=== PATIENT | male | born 1990 | race Caucasian/White ===

== ENCOUNTER 2017-10-15 15:22 | Observation (INO) | payer OTHER ==
[2017-10-15] MEDS ORDERED: Sodium Chloride 0.9% 1000 ML 1,000 ML IV STA (15:56)
[2017-10-15] MEDS ORDERED: NovoLIN R IV ONE (15:56)
--- NOTE | 2017-10-15 16:03 | ERPHSYRPT ---
- History of Present Illness Time Seen by Provider: 10/15/17 15:58 Source: patient Exam Limitations: no limitations Patient Subjective Stated Complaint: states had 2 hot dogs today, blood sugars have been running high, has an insulin pump and out of insulin for about a week. is having a hard time affording insulin equipment for the pump. states feels hungry but can't seem to feel satisfied. Triage Nursing Assessment: Pt ambulated to triage area, breath fruity smell, increase urination noted, increased thirst, c/o VALENZUELA /10. weakness, tiredness, resp easy with clear breath sounds. checked blood sugar 5 minutes prior to arrival and reading was 252. blood sugar checked at this time reading 310 Physician History: patient has history of diabetes, who recently moved from [place] to the [facility]. Patient states that he did have some insulin initially but ran out approximately 3 months ago. Patient states he has been feeling weak, nausea, dizziness at times but no vomiting, abdominal pain or diarrhea. Patient denies any recent illnesses,, such as cough, sore throat, congestion, body aches or ear pain. Patient did complain of some generalized weakness in not eating very much, due to not having any insulin. Timing/Duration: intermittent, other (2-3 months) Modifying Factors: Improves With: eating (improves) Associated Symptoms: nausea, headaches, weakness, No vomiting, No shortness of breath, No diaphoresis, No cough, No chest pain, No fever, No syncope, No seizure Hx Tetanus, Diphtheria Vaccination/Date Given: Yes Hx Influenza Vaccination/Date Given: No Hx Pneumococcal Vaccination/Date Given: No Immunizations Up to Date: Yes - Review of Systems Constitutional: Fatigue, Weakness, No Fever, No Chills Eyes: No Symptoms Ears, Nose, & Throat: No Symptoms Respiratory: No Cough, No Dyspnea Cardiac: No Chest Pain, No Edema, No Syncope Abdominal/Gastrointestinal: No Abdominal Pain, No Nausea, No Vomiting, No Diarrhea Genitourinary Symptoms: Frequency, No Dysuria Musculoskeletal: No Symptoms, No Back Pain, No Neck Pain Skin: No Symptoms, No Rash Neurological: No Symptoms, No Dizziness, No Focal Weakness, No Sensory Changes Psychological: No Symptoms Endocrine: No Symptoms Hematologic/Lymphatic: No Symptoms Immunological/Allergic: No Symptoms All Other Systems: Reviewed and Negative - Past Medical History Pertinent Past Medical History: Yes Neurological History: No Pertinent History ENT History: No Pertinent History Cardiac History: No Pertinent History Respiratory History: No Pertinent History Endocrine Medical History: Diabetes Type I Musculoskeletal History: No Pertinent History GI Medical History: No Pertinent History History: No Pertinent History Psycho-Social History: No Pertinent History Male Reproductive Disorders: No Pertinent History - Past Surgical History Past Surgical History: No Neuro Surgical History: No Pertinent History Cardiac: No Pertinent History Respiratory: No Pertinent History Gastrointestinal: No Pertinent History Genitourinary: No Pertinent History Musculoskeletal: Orthopedic Surgery Male Surgical History: No Pertinent History Other Surgical History: tubes in ears as , back surgery in 2000 - spondylsis, sinus surgeries X5 growth/polyps removed, left knee surgery X2 dislocation of patella, right wrist fx, left hand surgery X2 nerve graft after table saw injury - Social History Smoking Status: Current every day smoker Exposure to second hand smoke: Yes Drug Use: none Patient Lives Alone: No - Nursing Vital Signs Nursing Vital Signs: Initial Vital Signs Temperature 98.5 F 10/15/17 15:23 Pulse Rate 99 H 10/15/17 15:23 Respiratory Rate 18 10/15/17 15:23 Blood Pressure 154/92 10/15/17 15:23 O2 Sat by Pulse Oximetry 99 10/15/17 15:23 Pain Scale Pain Intensity 0 - Physical Exam General Appearance: no apparent distress, alert Eye Exam: PERRL/EOMI, eyes nml inspection Ears, Nose, Throat Exam: normal ENT inspection, TMs normal, pharynx normal, moist mucous membranes Neck Exam: normal inspection, non-tender, supple, full range of motion Respiratory Exam: normal breath sounds, lungs clear, No respiratory distress Cardiovascular Exam: regular rate/rhythm, normal heart sounds, normal peripheral pulses Gastrointestinal/Abdomen Exam: soft, normal bowel sounds, No tenderness, No mass Back Exam: normal inspection, normal range of motion, No CVA tenderness, No vertebral tenderness Extremity Exam: normal inspection, normal range of motion, pelvis stable Neurologic Exam: alert, oriented x 3, cooperative, normal mood/affect, nml cerebellar function, nml station & gait, sensation nml, No motor deficits Skin Exam: normal color, warm, dry, No rash Lymphatic Exam: No adenopathy SpO2: 99 Oxygen Delivery: Room Air - Course Nursing assessment & vital signs reviewed: Yes Ordered Tests: Active Orders 24 hr Category Date Time Status Clean Catch Urine Specimen STAT Care 10/15/17 15:56 Active IV Insertion STAT Care 10/15/17 15:56 Active CBC W DIFF Stat Lab 10/15/17 16:40 Completed CMP Stat Lab 10/15/17 16:40 Completed CULTURE,URINE Stat Lab 10/15/17 16:40 Received Manual Differential NC Stat Lab 10/15/17 16:40 Completed UA W/ MICROSCOPIC Stat Lab 10/15/17 16:40 Completed Medication Summary Discontinued Medications Generic Name Dose Route Start Last Admin Trade Name Christ PRN Reason Stop Dose Admin Sodium Chloride 1,000 mls @ 999 mls/hr 10/15/17 15:56 10/15/17 16:22 Sodium Chloride 0.9% 1000 Ml IV 10/15/17 16:56 999 mls/hr .Q1H1M STA Administration Sodium Chloride Confirm 10/15/17 16:19 Sodium Chloride 0.9% 1000 Ml Administered 10/15/17 16:20 Dose 1,000 mls @ ud .ROUTE .STK-MED ONE Insulin Human Regular 5 unit 10/15/17 15:56 10/15/17 16:21 Novolin R IV 10/15/17 15:57 5 unit STAT ONE Administration Insulin Human Regular Confirm 10/15/17 16:19 Novolin R Administered 10/15/17 16:20 Dose 5 unit .ROUTE .STK-MED ONE Lab/Rad Data: Laboratory Result Diagrams 10/15/17 16:40 10/15/17 16:40 Laboratory Results 10/15/17 10/15/17 10/15/17 Range/Units 16:40 16:40 16:40 WBC 6.9 (4.0-10.5) K/mm3 RBC 5.59 (4.1-5.6) M/mm3 Hgb 16.9 (12.5-18.0) gm/dl Hct 46.2 (42-50) % MCV 82.6 (78-100) fl MCH 30.2 (26-32) pg MCHC 36.6 H (32-36) g/dl RDW 12.0 (11.5-14.0) % Plt Count 173 (150-450) K/mm3 MPV 11.6 H (6-9.5) fl Sodium 132 L (136-145) mEq/L Potassium 3.7 (3.5-5.1) mEq/L Chloride 97 L (98-107) mEq/L Carbon Dioxide 16.1 L (21-32) mEq/L Anion Gap 30.2 H (5-15) MEQ/L BUN 13 (9-20) mg/dL Creatinine 1.25 (0.55-1.30) mg/dl Estimated GFR > 60 ML/MIN Glucose 290 H (70-110) MG/DL Calcium 7.9 L (8.5-10.1) mg/dL Total Bilirubin 0.70 (0.2-1.0) mg/dL AST 23 (15-37) U/L ALT 15 (12-78) U/L Alkaline Phosphatase 177 H (46-116) U/L Serum Total Protein 7.7 (6.4-8.2) gm/dL Albumin 4.3 (3.4-5.0) g/dL Ur Collection Type CCMS Urine Color YELLOW (YELLOW) Urine Appearance CLEAR (CLEAR) Urine pH 5.0 (5-6) Ur Specific Harrison 1.030 (1.005-1.025) Urine Protein TRACE (Negative) Urine Ketones LARGE (NEGATIVE) Urine Blood TRACE NON-HEM (0-5) Pedro/ul Urine Nitrite NEGATIVE (NEGATIVE) Urine Bilirubin NEGATIVE (NEGATIVE) Urine Urobilinogen NORMAL (0-1) mg/dL Ur Leukocyte Esterase NEGATIVE (NEGATIVE) Urine Microscopic RBC 2-5 (0-2) /HPF Urine Microscopic WBC 0-2 (0-5) /HPF Urine Bacteria RARE (NEGATIVE) /HPF Hyaline Casts 2-5 (0-2) /LPF Urine Mucus SLIGHT (NEGATIVE) /HPF Urine Culture Reflexed YES (NO) Urine Glucose 1000 (NEGATIVE) mg/dL Specimen Received 10-15-17 1900 - Progress Progress: improved Progress Note: patient was given IV fluids and 5 units of regular insulin IV. 10/15/17 16:03 Discussed with : Daniel (Notified and agreed to accept) Counseled pt/family regarding: diagnosis - Departure Time of Disposition: 19:33 Departure Disposition: Observation Clinical Impression: Hyperglycemia, Dehydration Condition: Stable Critical Care Time: No
[2017-10-15] MEDS ORDERED: Sodium Chloride 0.9% 1000 ML 1,000 ML ONE (16:19)
[2017-10-15] MEDS ORDERED: NovoLIN R ONE (16:19)
[2017-10-15 18:13] LABS: ALBUMIN 4.3 g/dL (3.4-5.0); ALKALINE PHOSPHATASE 177 U/L (46-116); ANION GAP 30.2 MEQ/L (5-15); BLOOD UREA NITROGEN 13 mg/dL (9-20); CHLORIDE 97 mEq/L (98-107); Calcium 7.9 mg/dL (8.5-10.1); Creatinine 1 1.25 mg/dl (0.55-1.30); EST GLOMERULAR FILTRATION RATE > 60 ML/MIN; Glucose 290 MG/DL (70-110); Potassium 3.7 mEq/L (3.5-5.1); SODIUM 132 mEq/L (136-145); Total Protein 7.7 gm/dL (6.4-8.2)
[2017-10-15 18:23] LABS: Granulocyte Absolute (ANC) 4.98 (1.4-6.9); Hematocrit 46.2 % (42-50); Hemoglobin 16.9 gm/dl (12.5-18.0); Mean Cell Volume 82.6 fl (78-100); Mean Corpuscular Hemoglobin 30.2 pg (26-32); Mean Corpuscular Hgb Concent. 36.6 g/dl (32-36); Mean Platelet Volume 11.6 fl (6-9.5); Platelet Count 173 K/mm3 (150-450); Red Blood Count 5.59 M/mm3 (4.1-5.6); White Blood Count 6.9 K/mm3 (4.0-10.5)
[2017-10-15 18:26] LABS: SGOT/AST 23 U/L (15-37)
[2017-10-15 18:38] LABS: SGPT/ALT 15 U/L (12-78)
[2017-10-15 18:46] LABS: Carbon Dioxide 16.1 mEq/L (21-32)
[2017-10-15 19:03] LABS: Appearance CLEAR (CLEAR); Bilirubin NEGATIVE (NEGATIVE); Blood TRACE NON-HEM Ery/ul (0-5); Glucose 1000 mg/dL (NEGATIVE); Ketones LARGE (NEGATIVE); Leukocyte Esterase NEGATIVE (NEGATIVE); Nitrite NEGATIVE (NEGATIVE); Protein,Urine Dip TRACE (Negative); Urobilinogen NORMAL mg/dL (0-1)
[2017-10-15 19:04] LABS: Bacteria RARE /HPF (NEGATIVE); Mucus SLIGHT /HPF (NEGATIVE); WBC 0-2 /HPF (0-5)
[2017-10-15] MEDS: NovoLIN R SQ PRN (22:56)
[2017-10-15 23:29] LABS: ANISOCYTOSIS 1+; BAND 2 % (0.0-2.0); Lymphocytes 22 % (24-44); Monocyte 6 % (0.0-12.0); Neutrophils 70 % (36.-66.); Platelet Estimate NORMAL (NORMAL); Total Cells Counted 100
[2017-10-15 23:39] VITALS: O2SAT 98
[2017-10-16 06:08] LABS: Granulocyte Absolute (ANC) 3.96 (1.4-6.9); Hematocrit 44.5 % (42-50); Hemoglobin 16.8 gm/dl (12.5-18.0); Mean Cell Volume 81.4 fl (78-100); Mean Corpuscular Hemoglobin 30.7 pg (26-32); Mean Corpuscular Hgb Concent. 37.8 g/dl (32-36); Platelet Count 193 K/mm3 (150-450); Red Blood Count 5.47 M/mm3 (4.1-5.6); White Blood Count 7.2 K/mm3 (4.0-10.5)
[2017-10-16 06:54] LABS: ANION GAP 28.7 MEQ/L (5-15); BLOOD UREA NITROGEN 12 mg/dL (9-20); CHLORIDE 100 mEq/L (98-107); Calcium 7.4 mg/dL (8.5-10.1); Creatinine 1 1.01 mg/dl (0.55-1.30); EST GLOMERULAR FILTRATION RATE > 60 ML/MIN; Potassium 3.6 mEq/L (3.5-5.1); SODIUM 132 mEq/L (136-145)
[2017-10-16 07:02] LABS: Carbon Dioxide 6.2 mEq/L (21-32)
[2017-10-16 07:03] LABS: Glucose 227 MG/DL (70-110)
[2017-10-16 07:08] VITALS: BP 134/88; PULSE 97
[2017-10-16 07:38] LABS: ANISOCYTOSIS 1+; Eosinophil 1 % (0.00-3.0); Lymphocytes 29 % (24-44); Neutrophils 70 % (36.-66.); Poikilocytosis 1+; Rouleau 1+; Total Cells Counted 100
[2017-10-16 07:39] LABS: Platelet Estimate NORMAL (NORMAL)
--- NOTE | 2017-10-16 07:54 | PCM.SSS ---
History of Present Illness - Chief Complaint Chief Complaint: Hyperglycemia, dehydration History of Present Illness: is a 27 year old male who recently moved to [place] from [place]. He was diagnosed as a type 1 diabetic 11 months ago, was on an insulin pump prior to moving. He reports he was taking basal/bolus insulin prior to the pump. Has not had any insurance or means to get meds. came to ER last night feeling poorly presumably from increased blood sugars. he was not in dka, was treated with insulin overnight and hydrated and feels great and requesting to go home today. reports he has plenty of testing supplies at home and a glucometer, just no insulin. - Review of Systems Constitutional: No Fever, No Chills Respiratory: No Cough, No Short Of Breath Cardiac: No Chest Pain, No Edema, No Syncope Abdominal/Gastrointestinal: No Abdominal Pain, No Nausea, No Vomiting, No Diarrhea Skin: No Rash All Other Systems: Reviewed and Negative Medications & Allergies Home Medications: Home Medication List Insulin Aspart [Novolog Flexpen] 10 unit SQ TID #1 pen 10/16/17 [Rx] Insulin Glargine,Hum.rec.anlog [Lantus Solostar] 20 unit SQ DAILY #1 pen [Rx] Pen Needle, Diabetic [Insulin Pen Needle] 1 each SQ QID #100 dis.needle [Rx] Allergies/Adverse Reactions: Allergies Allergy/AdvReac Type Severity Reaction Status Date / Time No Known Drug Allergies Allergy Unverified 10/15/17 19:38 - Past Medical History Past Medical History: Yes Neurological History: No Pertinent History ENT History: No Pertinent History Cardiac History: No Pertinent History Respiratory History: No Pertinent History Endocrine Medical History: Diabetes Type I Musculoskelatal History: No Pertinent History GI Medical History: No Pertinent History History: No Pertinent History Pyscho-Social History: No Pertinent History Male Reproductive Disorders: No Pertinent History - Past Surgical History Past Surgical History: No Neuro Surgical History: No Pertinent History Cardiac History: No Pertinent History Respiratory Surgery: No Pertinent History GI Surgical History: No Pertinent History Genitourinary Surgical Hx: No Pertinent History Musculskeletal Surgical Hx: Orthopedic Surgery Male Surgical History: No Pertinent History Other Surgical History: tubes in ears as infant, back surgery in 1999 - spondylsis, sinus surgeries X5 growth/polyps removed, left knee surgery X2 dislocation of patella, right wrist fx, left hand surgery X2 nerve graft after table saw injury - Social History Smoking Status: Current every day smoker Exposure to second hand smoke: Yes Alcohol: None Drug Use: none - Physical Exam Vital Signs: Vital Signs - 24 hr Temp Pulse Resp BP Pulse Ox 10/16/17 07:07 98.5 F 97 H 18 134/88 98 10/16/17 04:05 98.2 F 81 18 143/79 98 10/16/17 00:10 98.0 F 79 16 142/79 98 10/16/17 00:07 91 H 18 98 10/15/17 22:58 98.1 F 92 H 18 143/93 98 10/15/17 20:39 90 18 156/89 99 10/15/17 19:34 99 10/15/17 19:18 80 16 148/70 96 10/15/17 17:53 92 H 18 132/78 100 10/15/17 15:23 98.5 F 99 H 18 154/92 99 General Appearance: no apparent distress, alert Eye Exam: PERRL/EOMI, eyes nml inspection Respiratory Exam: normal breath sounds, lungs clear, No respiratory distress Cardiovascular Exam: regular rate/rhythm, normal heart sounds, normal peripheral pulses Gastrointestinal/Abdomen Exam: soft, normal bowel sounds, No tenderness, No mass Extremity Exam: normal inspection, normal range of motion, pelvis stable Skin Exam: normal color, warm, dry, No rash Results - Labs Lab/Micro Results: Accuchecks Accucheck Value: 325 Lab Results-Last 24 Hours 10/16/17 10/16/17 Range/Units 05:30 05:30 WBC 7.2 (4.0-10.5) K/mm3 RBC 5.47 (4.1-5.6) M/mm3 Hgb 16.8 (12.5-18.0) gm/dl Hct 44.5 (42-50) % MCV 81.4 (78-100) fl MCH 30.7 (26-32) pg MCHC 37.8 H (32-36) g/dl RDW 12.0 (11.5-14.0) % Plt Count 193 (150-450) K/mm3 MPV 11.0 H (6-9.5) fl Segmented Neutrophils 70 H (36.-66.) % Lymphocytes (Manual) 29 (24-44) % Eosinophils (Manual) 1 (0.00-3.0) % Differential Comment ABNORMAL Platelet Estimate NORMAL (NORMAL) Poikilocytosis 1+ Anisocytosis 1+ Rouleaux 1+ Sodium 132 L (136-145) mEq/L Potassium 3.6 (3.5-5.1) mEq/L Chloride 100 (98-107) mEq/L Carbon Dioxide 6.2 L* (21-32) mEq/L Anion Gap 28.7 H (5-15) MEQ/L BUN 12 (9-20) mg/dL Creatinine 1.01 (0.55-1.30) mg/dl Estimated GFR > 60 ML/MIN Glucose 227 H (70-110) MG/DL Calcium 7.4 L (8.5-10.1) mg/dL Accuchecks Accucheck Value: 325 Assessment/Plan (1) Dehydration Current Visit: Yes Status: Acute Code(s): E86.0 - DEHYDRATION (2) Hyperglycemia Current Visit: Yes Status: Acute Code(s): R73.9 - HYPERGLYCEMIA, UNSPECIFIED (3) Type 1 diabetes mellitus, uncontrolled Current Visit: Yes Status: Acute Code(s): E10.65 - TYPE 1 DIABETES MELLITUS WITH HYPERGLYCEMIA Hospital Summary - Vitals & Intake/Output Vital Signs: Vital Signs Temperature 98.5 F 10/16/17 07:07 Pulse Rate 97 H 10/16/17 07:07 Respiratory Rate 18 10/16/17 07:07 Blood Pressure 134/88 10/16/17 07:07 O2 Sat by Pulse Oximetry 98 10/16/17 07:07 Intake & Output: Intake & Output 10/13/17 10/14/17 10/15/17 10/16/17 11:59 11:59 11:59 11:59 Intake Total 1142 Output Total 800 Balance 342 Weight 78.5 kg - Lab Result Diagrams: 10/16/17 05:30 10/16/17 05:30 Lab Results-Last 24 Hrs: Accuchecks Accucheck Value: 325 Lab Results-Last 24 Hours 10/16/17 10/16/17 Range/Units 05:30 05:30 WBC 7.2 (4.0-10.5) K/mm3 RBC 5.47 (4.1-5.6) M/mm3 Hgb 16.8 (12.5-18.0) gm/dl Hct 44.5 (42-50) % MCV 81.4 (78-100) fl MCH 30.7 (26-32) pg MCHC 37.8 H (32-36) g/dl RDW 12.0 (11.5-14.0) % Plt Count 193 (150-450) K/mm3 MPV 11.0 H (6-9.5) fl Segmented Neutrophils 70 H (36.-66.) % Lymphocytes (Manual) 29 (24-44) % Eosinophils (Manual) 1 (0.00-3.0) % Differential Comment ABNORMAL Platelet Estimate NORMAL (NORMAL) Poikilocytosis 1+ Anisocytosis 1+ Rouleaux 1+ Sodium 132 L (136-145) mEq/L Potassium 3.6 (3.5-5.1) mEq/L Chloride 100 (98-107) mEq/L Carbon Dioxide 6.2 L* (21-32) mEq/L Anion Gap 28.7 H (5-15) MEQ/L BUN 12 (9-20) mg/dL Creatinine 1.01 (0.55-1.30) mg/dl Estimated GFR > 60 ML/MIN Glucose 227 H (70-110) MG/DL Calcium 7.4 L (8.5-10.1) mg/dL Micro Results-Entire Visit: Accuchecks Accucheck Value: 325 - Procedures and Test Procedures and Tests throughout Hospitalization: Therapy Orders & Screens 10/15/17 23:43 Smoking Cessation Education ONCE Comment: Diagnosis: Hyperglycemia, dehydration Smoking Status: Current every day smoker Approximately how many cigarettes per day: 1 pack per day Do you dip or chew tobacco: No - Discharge Disposition: Home, Self-Care Condition: Stable Prescriptions: New Pen Needle, Diabetic [Insulin Pen Needle] 1 each SQ QID #100 dis.needle Insulin Glargine,Hum.rec.anlog [Lantus Solostar] 20 unit SQ DAILY #1 pen Insulin Aspart [Novolog Flexpen] 10 unit SQ TID #1 pen Discontinued Insulin Aspart [NovoLOG Insulin] 100 units SQ UD Additional Instructions: check blood sugar three times daily, take insulin as directed. f/u with Dr Mckeon in 1 week Follow up with: NAVEEN MCKEON MD [ACTIVE STAFF] - 1 Week GERTRUDIS PANDYA [NON-STAFF PHY W/O PRIVILEGES] - 1 Week
[2017-10-16] MEDS: NovoLIN R SQ PRN (08:05)
== END 2017-10-16 09:15 | disposition home or self-care (01) ==
LOC: ED 15:22 → MED SURG 21:06
PROVIDERS: ADMIT Family Medicine; ATTEND Family Medicine
DX: E86.0 Dehydration (principal); E10.65 Type 1 diabetes mellitus with hyperglycemia; Z79.4 Long term (current) use of insulin; Z72.0 Tobacco use
CPT/HCPCS: 36000; 36415; 80048; 80053; 81000; 82962; 85025; 87086; 94760; 96360; 96374; 99285; G0378; A9270-GY

== ENCOUNTER 2018-01-14 22:53 | Emergency (ER) | payer SELFPAY ==
[2018-01-14] MEDS ORDERED: NovoLIN R IV ONE (23:35)
[2018-01-14] MEDS ORDERED: Sodium Chloride 0.9% 1000 ML 1,000 ML IV STA ×2 (23:35→23:38)
[2018-01-14] MEDS ORDERED: NovoLIN R ONE (23:42)
[2018-01-14] MEDS ORDERED: Sodium Chloride 0.9% 1000 ML 1,000 ML ONE ×2 (23:42→23:48)
[2018-01-15 00:14] LABS: ALBUMIN 4.9 g/dL (3.5-5.0); ALKALINE PHOSPHATASE 367 U/L (38-126); ANION GAP 35.6 MEQ/L (5-15); BLOOD UREA NITROGEN 20 mg/dL (9-20); CHLORIDE 93 mmol/L (98-107); Calcium 9.8 mg/dL (8.4-10.2); Creatinine 1 0.72 mg/dL (0.66-1.25); Potassium 5.1 mmol/L (3.5-5.1); SGOT/AST 24 U/L (17-59); SGPT/ALT 40 U/L (0-50); SODIUM 129 mmol/L (137-145); Total Protein 7.9 g/dL (6.3-8.2)
[2018-01-15 00:26] LABS: Carbon Dioxide 6 mmol/L (22-30); Glucose 537 mg/dL (74-106); Granulocyte Absolute (ANC) 6.03 (1.4-6.9); Hematocrit 45.8 % (42-50); Hemoglobin 17.1 gm/dl (12.5-18.0); Mean Cell Volume 90.7 fl (78-100); Mean Corpuscular Hemoglobin 33.9 pg (26-32); Mean Platelet Volume 11.4 fl (6-9.5); Platelet Count 204 K/mm3 (150-450); Red Blood Count 5.05 M/mm3 (4.1-5.6); Red Cell Distribution Width 13.4 % (11.5-14.0); White Blood Count 8.8 K/mm3 (4.0-10.5)
[2018-01-15 00:29] LABS: Mean Corpuscular Hgb Concent. 37.3 g/dl (32-36)
[2018-01-15] MEDS ORDERED: Sodium Chloride 0.9% 1000 ML 2,000 ML ONE (00:52)
[2018-01-15 01:06] LABS: VBG BASE EXCESS -17.8 (-2.0-2.0); VBG CARBOXYHEMOGLOBIN 3.5 % T HGB (0.0-6.9); VBG HCO3- 8.2 meq/L (22-28); VBG HEMOGLOBIN 14.6; VBG O2 SATURATION 98.9 (95-100); VBG POTASSIUM 3.8 (3.5-5.1)
[2018-01-15 01:08] LABS: VBG pH 7.2 (7.32-7.42)
[2018-01-15 01:38] LABS: Appearance CLEAR (CLEAR); Bilirubin NEGATIVE (NEGATIVE); Blood NEGATIVE Ery/ul (0-5); Glucose 1000 mg/dL (NEGATIVE); Ketones LARGE (NEGATIVE); Leukocyte Esterase NEGATIVE (NEGATIVE); Nitrite NEGATIVE (NEGATIVE); Protein,Urine Dip NEGATIVE (Negative); Specific Gravity 1.025 (1.005-1.025); Urobilinogen NORMAL mg/dL (0-1)
[2018-01-15] MEDS ORDERED: Sodium Chloride 0.9% 1000 ML 1,000 ML IV STA ×2 (02:08→02:10)
[2018-01-15 02:14] VITALS: O2SAT 99
[2018-01-15 02:47] LABS: ATYPICAL LYMPHS 1 %; BAND 7 % (0.0-2.0); Eosinophil 3 % (0.00-3.0); Lymphocytes 15 % (24-44); Metamyelocyte 3 %; Monocyte 6 % (0.0-12.0); Neutrophils 65 % (36.-66.); Platelet Estimate NORMAL (NORMAL); Total Cells Counted 100
[2018-01-15 02:50] LABS: ANION GAP 22.7 MEQ/L (5-15); BLOOD UREA NITROGEN 16 mg/dL (9-20); CHLORIDE 105 mmol/L (98-107); Calcium 7.7 mg/dL (8.4-10.2); Glucose 306 mg/dL (74-106); Potassium 4.2 mmol/L (3.5-5.1); SODIUM 132 mmol/L (137-145)
[2018-01-15 02:58] LABS: Carbon Dioxide 9 mmol/L (22-30)
--- NOTE | 2018-01-15 03:09 | ERPHSYRPT ---
- History of Present Illness Time Seen by Provider: 01/14/18 23:15 Source: patient Exam Limitations: clinical condition Patient Subjective Stated Complaint: pt states he has been out of his novolog for a while and blood sugars have been high at home. states he has excessive thirst and urination, leg cramps, and lack of energy. Triage Nursing Assessment: pt alert and oriented, answers questions approp. respirations nonlabored with lungs cta. skin pink warm and dry. accu check 549 Physician History: PATIENT WITH A HISTORY OF INSULIN DEPENDENT DIABETES STATES HE HAS BEEN UNABLE TO AFFORD HIS INSULIN, OVER THE PAST FEW MONTHS, FEELS LIKE HIS BLOOD GLUCOSE IS HIGH ASSOCIATED WITH POLYDIPSIA AND POLYURIA . ADMITS TO L[facility]. DENIES FEVER, CHILLLS, EMESIS OR DIARRHEA. Timing/Duration: day(s) Severity: moderate Associated Symptoms: other (POLYURIA, POLYDIPSIA) Allergies/Adverse Reactions: No Known Drug Allergies Allergy (Verified 01/14/18 23:16) Home Medications: Insulin Aspart [Novolog Flexpen] 25 unit SQ TID 01/14/18 [History] Insulin Glargine,Hum.rec.anlog [Lantus Solostar] 15 unit SQ HS 01/14/18 [History ] Hx Tetanus, Diphtheria Vaccination/Date Given: Yes Hx Influenza Vaccination/Date Given: No Hx Pneumococcal Vaccination/Date Given: No Immunizations Up to Date: Yes - Review of Systems Constitutional: Fatigue, Lethargy Eyes: No Symptoms Ears, Nose, & Throat: No Symptoms Respiratory: No Cough, No Dyspnea Cardiac: No Chest Pain, No Edema, No Syncope Abdominal/Gastrointestinal: No Abdominal Pain, No Nausea, No Vomiting, No Diarrhea Genitourinary Symptoms: No Symptoms, No Dysuria Musculoskeletal: No Symptoms, No Back Pain, No Neck Pain Neurological: Lethargy Psychological: No Symptoms Endocrine: Polyuria, Polydipsia - Past Medical History Pertinent Past Medical History: Yes Neurological History: No Pertinent History ENT History: No Pertinent History Cardiac History: No Pertinent History Respiratory History: No Pertinent History Endocrine Medical History: Diabetes Type I Musculoskeletal History: No Pertinent History GI Medical History: No Pertinent History History: No Pertinent History Psycho-Social History: No Pertinent History Male Reproductive Disorders: No Pertinent History Other Medical History: chronic back problems - Past Surgical History Past Surgical History: No Neuro Surgical History: No Pertinent History Cardiac: No Pertinent History Respiratory: No Pertinent History Gastrointestinal: No Pertinent History Genitourinary: No Pertinent History Musculoskeletal: Orthopedic Surgery Male Surgical History: No Pertinent History Other Surgical History: tubes in ears as , back surgery in 2000 - spondylsis, sinus surgeries X5 growth/polyps removed, left knee surgery X2 dislocation of patella, right wrist fx, left hand surgery X2 nerve graft after table saw injury - Social History Smoking Status: Former smoker Exposure to second hand smoke: Yes Drug Use: none Patient Lives Alone: No - Nursing Vital Signs Nursing Vital Signs: Initial Vital Signs Temperature 97.4 F 01/14/18 23:04 Pulse Rate 105 H 01/14/18 23:04 Respiratory Rate 20 01/14/18 23:04 Blood Pressure 156/102 01/14/18 23:04 O2 Sat by Pulse Oximetry 100 01/14/18 23:04 Pain Scale Pain Intensity 2 - Physical Exam General Appearance: no apparent distress, alert Eye Exam: PERRL/EOMI, eyes nml inspection Ears, Nose, Throat Exam: normal ENT inspection, TMs normal, pharynx normal, moist mucous membranes Neck Exam: normal inspection, non-tender, supple, full range of motion Respiratory Exam: normal breath sounds, lungs clear, No respiratory distress Cardiovascular Exam: regular rate/rhythm, normal heart sounds, normal peripheral pulses Gastrointestinal/Abdomen Exam: soft, normal bowel sounds, No tenderness, No mass Back Exam: normal inspection, normal range of motion, No CVA tenderness, No vertebral tenderness Extremity Exam: normal inspection, normal range of motion, pelvis stable Neurologic Exam: alert, oriented x 3, cooperative, normal mood/affect, nml cerebellar function, nml station & gait, sensation nml, No motor deficits Skin Exam: normal color, warm, dry, No rash Lymphatic Exam: No adenopathy SpO2: 99 Oxygen Delivery: Room Air Ordered Tests: Active Orders 24 hr Category Date Time Status BMP Stat Lab 01/15/18 02:28 Received CBC W DIFF Stat Lab 01/14/18 23:00 Completed CMP Stat Lab 01/14/18 23:00 Completed MAGNESIUM Stat Lab 01/14/18 23:00 Completed Manual Differential NC Stat Lab 01/14/18 23:00 Completed VENOUS BLOOD GAS Urgent Lab 01/15/18 00:43 Completed Medication Summary Generic Name Dose Route Start Last Admin Trade Name Freq PRN Reason Stop Dose Admin Sodium Chloride 1,000 mls @ 999 mls/hr 01/15/18 02:08 01/15/18 01:15 Sodium Chloride 0.9% 1000 Ml IV 01/15/18 03:08 999 mls/hr .Q1H1M STA Administration Sodium Chloride 1,000 mls @ 999 mls/hr 01/15/18 02:10 01/15/18 02:12 Sodium Chloride 0.9% 1000 Ml IV 01/15/18 03:10 999 mls/hr .Q1H1M STA Administration Discontinued Medications Generic Name Dose Route Start Last Admin Trade Name Peterq PRN Reason Stop Dose Admin Sodium Chloride 1,000 mls @ 999 mls/hr 01/14/18 23:35 01/14/18 23:44 Sodium Chloride 0.9% 1000 Ml IV 01/15/18 00:35 999 mls/hr .Q1H1M STA Administration Sodium Chloride 1,000 mls @ 999 mls/hr 01/14/18 23:38 01/15/18 00:22 Sodium Chloride 0.9% 1000 Ml IV 01/15/18 00:38 999 mls/hr .Q1H1M STA Administration Sodium Chloride Confirm 01/14/18 23:42 Sodium Chloride 0.9% 1000 Ml Administered 01/14/18 23:43 Dose 1,000 mls @ ud .ROUTE .STK-MED ONE Sodium Chloride Confirm 01/14/18 23:48 Sodium Chloride 0.9% 1000 Ml Administered 01/14/18 23:49 Dose 1,000 mls @ ud .ROUTE .STK-MED ONE Sodium Chloride Confirm 01/15/18 00:52 Sodium Chloride 0.9% 1000 Ml Administered 01/15/18 00:53 Dose 2,000 mls @ ud .ROUTE .STK-MED ONE Insulin Human Regular 7 unit 01/14/18 23:35 01/14/18 23:44 Novolin R IV 01/14/18 23:36 7 unit STAT ONE Administration Insulin Human Regular Confirm 01/14/18 23:42 Novolin R Administered 01/14/18 23:43 Dose 7 unit .ROUTE .STK-MED ONE Lab/Rad Data: Laboratory Result Diagrams 01/14/18 23:00 01/14/18 23:00 Laboratory Results 01/15/18 01/14/18 01/14/18 Range/Units 00:43 23:00 23:00 WBC 8.8 (4.0-10.5) K/mm3 RBC 5.05 (4.1-5.6) M/mm3 Hgb 17.1 (12.5-18.0) gm/dl Hct 45.8 (42-50) % MCV 90.7 (78-100) fl MCH 33.9 H (26-32) pg MCHC 37.3 H (32-36) g/dl RDW 13.4 (11.5-14.0) % Plt Count 204 (150-450) K/mm3 MPV 11.4 H (6-9.5) fl Absolute Granulocytes 6.03 (1.4-6.9) Segmented Neutrophils 65 (36.-66.) % Band Neutrophils 7 H (0.0-2.0) % Lymphocytes (Manual) 15 L (24-44) % Monocytes (Manual) 6 (0.0-12.0) % Eosinophils (Manual) 3 (0.00-3.0) % Metamyelocytes 3 % Atypical Lymphocytes 1 % Platelet Estimate NORMAL (NORMAL) RBC Morphology NORMAL pO2/FiO2 Ratio 21.0 % VBG pH 7.20 L* (7.32-7.42) VBG pCO2 at Pat Temp 21 L* (42-55) mm/Hg VBG pO2 at Pat Temp 117 H (25-40) mm/Hg VBG HCO3 8.2 L* (22-28) meq/L VBG O2 Sat ([facility]) 98.9 (95-100) VBG Base Excess -17.8 L (-2.0-2.0) VBG Hemoglobin 14.6 VBG Carboxyhemoglobin 3.5 (0.0-6.9) % T HGB POC Potassium 3.8 (3.5-5.1) Sodium 129 L (137-145) mmol/L Potassium 5.1 (3.5-5.1) mmol/L Chloride 93 L (98-107) mmol/L Carbon Dioxide 6 L* (22-30) mmol/L Anion Gap 35.6 H (5-15) MEQ/L BUN 20 (9-20) mg/dL Creatinine 0.72 (0.66-1.25) mg/dL Estimated GFR > 60.0 ML/MIN Glucose 537 H* (74-106) mg/dL Calcium 9.8 (8.4-10.2) mg/dL Magnesium 1.9 (1.6-2.3) mg/dL Total Bilirubin 0.70 (0.2-1.3) mg/dL AST 24 (17-59) U/L ALT 40 (0-50) U/L Alkaline Phosphatase 367 H (38-126) U/L Serum Total Protein 7.9 (6.3-8.2) g/dL Albumin 4.9 (3.5-5.0) g/dL Ur Collection Type Urine Color (YELLOW) Urine Appearance (CLEAR) Urine pH (5-6) Ur Specific [place] (1.005-1.025) Urine Protein (Negative) Urine Ketones (NEGATIVE) Urine Blood (0-5) Pedro/ul Urine Nitrite (NEGATIVE) Urine Bilirubin (NEGATIVE) Urine Urobilinogen (0-1) mg/dL Ur Leukocyte Esterase (NEGATIVE) Urine Culture Reflexed (NO) Urine Glucose (NEGATIVE) mg/dL Specimen Received 01/14/18 Range/Units 01:32 WBC (4.0-10.5) K/mm3 RBC (4.1-5.6) M/mm3 Hgb (12.5-18.0) gm/dl Hct (42-50) % MCV (78-100) fl MCH (26-32) pg MCHC (32-36) g/dl RDW (11.5-14.0) % Plt Count (150-450) K/mm3 MPV (6-9.5) fl Absolute Granulocytes (1.4-6.9) Segmented Neutrophils (36.-66.) % Band Neutrophils (0.0-2.0) % Lymphocytes (Manual) (24-44) % Monocytes (Manual) (0.0-12.0) % Eosinophils (Manual) (0.00-3.0) % Metamyelocytes % Atypical Lymphocytes % Platelet Estimate (NORMAL) RBC Morphology pO2/FiO2 Ratio % VBG pH (7.32-7.42) VBG pCO2 at Pat Temp (42-55) mm/Hg VBG pO2 at Pat Temp (25-40) mm/Hg VBG HCO3 (22-28) meq/L VBG O2 Sat ([facility]) (95-100) VBG Base Excess (-2.0-2.0) VBG Hemoglobin VBG Carboxyhemoglobin (0.0-6.9) % T HGB POC Potassium (3.5-5.1) Sodium (137-145) mmol/L Potassium (3.5-5.1) mmol/L Chloride (98-107) mmol/L Carbon Dioxide (22-30) mmol/L Anion Gap (5-15) MEQ/L BUN (9-20) mg/dL Creatinine (0.66-1.25) mg/dL Estimated GFR ML/MIN Glucose (74-106) mg/dL Calcium (8.4-10.2) mg/dL Magnesium (1.6-2.3) mg/dL Total Bilirubin (0.2-1.3) mg/dL AST (17-59) U/L ALT (0-50) U/L Alkaline Phosphatase (38-126) U/L Serum Total Protein (6.3-8.2) g/dL Albumin (3.5-5.0) g/dL Ur Collection Type VOID Urine Color LT.YELLOW (YELLOW) Urine Appearance CLEAR (CLEAR) Urine pH 5.0 (5-6) Ur Specific [place] 1.025 (1.005-1.025) Urine Protein NEGATIVE (Negative) Urine Ketones LARGE (NEGATIVE) Urine Blood NEGATIVE (0-5) Pedro/ul Urine Nitrite NEGATIVE (NEGATIVE) Urine Bilirubin NEGATIVE (NEGATIVE) Urine Urobilinogen NORMAL (0-1) mg/dL Ur Leukocyte Esterase NEGATIVE (NEGATIVE) Urine Culture Reflexed NO (NO) Urine Glucose 1000 (NEGATIVE) mg/dL Specimen Received 01/15/18 0100 - Progress Progress: improved Progress Note: HYDRATED NORMAL SALINE 1 LITER/HR X 3.5, HUMULIN REGULAR INSULIN 6 UNITS IV, REPEAT BMP AT 0228 GLUCOSE -306, NA+IMPROVED FROM 129 TO 132 01/15/18 03:15 AND CO@ IMPROVED FROM 6 TO 9, VENOUS BLOOD GAS PH-7.2 01/15/18 03:19 Counseled pt/family regarding: lab results, diagnosis, need for follow-up - Departure Time of Disposition: 03:42 Departure Disposition: Home Clinical Impression: HYPERGLYCEMIA, DEHYDRATION Condition: Stable Critical Care Time: No Referrals: DOCTOR,NO FAMILY [Primary Care Provider] - Additional Instructions: BEGIN A DIABETIC DIET, OBTAIN INSULIN NEEDLES AND USE YOUR INSULIN DIRECTED. CHECK YOUR GLUCOSE AFTER MEALS. DRINK PLENTY FLUIDS. CONSULT YOUR PRIMARY CARE PROVIDER FOR FOLLOWUP THIS WEEK. Prescriptions: [place], Insulin Disposable [Bd Ultra Fine Yovana] 1 each SQ TID PRN PRN 30 Days # 100 dis.needle PRN Reason: ELEVATED GLUCOSE
[2018-01-15 03:51] VITALS: BP 132/78; PULSE 82
== END 2018-01-15 03:59 | disposition home or self-care (01) ==
LOC: ED 22:53
DX: E10.65 Type 1 diabetes mellitus with hyperglycemia (principal); E86.0 Dehydration; Z79.4 Long term (current) use of insulin
CPT/HCPCS: 36415; 80048; 80053; 81002; 82805; 82962; 83735; 85025; 96360; 96361; 96374; 99283; 99284; A9270-GY

== ENCOUNTER 2018-05-20 09:41 | Observation (INO) | payer OTHER ==
[2018-05-20] MEDS ORDERED: Zofran 4 MG/2 ML VIAL IV ONE (10:12)
[2018-05-20] MEDS ORDERED: Sodium Chloride 0.9% 1000 ML 1,000 ML IV STA ×2 (10:12→11:40)
--- NOTE | 2018-05-20 10:17 | ERPHSYRPT ---
- History of Present Illness Time Seen by Provider: 05/20/18 10:12 Source: patient Exam Limitations: no limitations Physician History: The patient is a 27-year-old male complaining of vomiting since last night. Every time he tries to eat or drink anything he vomits. He has some crampy abdominal pain after he vomits. He denies diarrhea. He is concerned about DKA because he is a type I diabetic. He moved here from [facility] in September of last year and saw Dr. Sanchez in October. He has not seen Dr. Sanchez since October. He gets his insulin through the Internet contacts from people who have insulin they are not using. His past medical history is significant for diabetes type 1. Timing/Duration: yesterday Severity: mild Modifying Factors: Improves With: eating (worse) Associated Symptoms: nausea, vomiting, abdominal pain (cramping) Allergies/Adverse Reactions: No Known Drug Allergies Allergy (Verified 01/14/18 23:16) Home Medications: Insulin Aspart [Novolog Flexpen] 25 unit SQ TID 01/14/18 [History] Insulin Glargine,Hum.rec.anlog [Lantus Solostar] 15 unit SQ HS 01/14/18 [History ] Hx Tetanus, Diphtheria Vaccination/Date Given: Yes Hx Influenza Vaccination/Date Given: No Hx Pneumococcal Vaccination/Date Given: No - Review of Systems Constitutional: No Fever, No Chills Eyes: No Symptoms Ears, Nose, & Throat: No Symptoms Respiratory: No Cough, No Dyspnea Cardiac: No Chest Pain, No Edema, No Syncope Abdominal/Gastrointestinal: Abdominal Pain, Nausea, Vomiting, No Diarrhea Genitourinary Symptoms: No Dysuria Musculoskeletal: No Back Pain, No Neck Pain Skin: No Rash Neurological: No Dizziness, No Focal Weakness, No Sensory Changes Psychological: No Symptoms Endocrine: No Symptoms Hematologic/Lymphatic: No Symptoms Immunological/Allergic: No Symptoms All Other Systems: Reviewed and Negative - Past Medical History Pertinent Past Medical History: Yes Neurological History: No Pertinent History ENT History: No Pertinent History Cardiac History: No Pertinent History Respiratory History: No Pertinent History Endocrine Medical History: Diabetes Type I Musculoskeletal History: No Pertinent History GI Medical History: No Pertinent History History: No Pertinent History Psycho-Social History: No Pertinent History Male Reproductive Disorders: No Pertinent History Other Medical History: chronic back problems - Past Surgical History Past Surgical History: No Neuro Surgical History: No Pertinent History Cardiac: No Pertinent History Respiratory: No Pertinent History Gastrointestinal: No Pertinent History Genitourinary: No Pertinent History Musculoskeletal: Orthopedic Surgery Male Surgical History: No Pertinent History Other Surgical History: tubes in ears as infant, back surgery in 2000 - spondylsis, sinus surgeries X5 growth/polyps removed, left knee surgery X2 dislocation of patella, right wrist fx, left hand surgery X2 nerve graft after table saw injury - Social History Smoking Status: Former smoker Exposure to second hand smoke: Yes Drug Use: none Patient Lives Alone: No - Nursing Vital Signs Nursing Vital Signs: Initial Vital Signs O2 Sat by Pulse Oximetry 98 05/20/18 10:35 - Physical Exam General Appearance: no apparent distress, alert Eye Exam: PERRL/EOMI, eyes nml inspection Ears, Nose, Throat Exam: normal ENT inspection, TMs normal, pharynx normal, moist mucous membranes Neck Exam: normal inspection, non-tender, supple, full range of motion Respiratory Exam: normal breath sounds, lungs clear, No respiratory distress Cardiovascular Exam: regular rate/rhythm, normal heart sounds, normal peripheral pulses Gastrointestinal/Abdomen Exam: soft, normal bowel sounds, No tenderness, No mass Rectal Exam: not done Back Exam: normal inspection, normal range of motion, No CVA tenderness, No vertebral tenderness Extremity Exam: normal inspection, normal range of motion, pelvis stable Neurologic Exam: alert, oriented x 3, cooperative, normal mood/affect, nml cerebellar function, nml station & gait, sensation nml, No motor deficits Skin Exam: normal color, warm, dry, No rash Lymphatic Exam: No adenopathy SpO2 Interpretation: normal Ordered Tests: Active Orders 24 hr Category Date Time Status ACCUCHECK [Accucheck] STAT Care 05/20/18 11:40 Active Accucheck STAT Care 05/20/18 10:12 Active Automatic Operator STAT Care 05/20/18 10:13 Active IV Insertion STAT Care 05/20/18 10:12 Active Pulse Oximetry (ED) STAT Care 05/20/18 10:12 Active CBC W DIFF Stat Lab 05/20/18 10:30 Completed CMP Stat Lab 05/20/18 10:30 Completed ETHYL ALCOHOL Stat Lab 05/20/18 10:30 Completed Lactic Acid Stat Lab 05/20/18 12:38 Ordered Lactic Acid Urgent Lab 05/20/18 10:30 Completed UA W/ MICROSCOPIC Stat Lab 05/20/18 Completed Medication Summary Discontinued Medications Generic Name Dose Route Start Last Admin Trade Name Christ PRN Reason Stop Dose Admin Sodium Chloride 1,000 mls @ 999 mls/hr 05/20/18 10:12 05/20/18 11:47 Sodium Chloride 0.9% 1000 Ml IV 05/20/18 11:12 Infused .Q1H1M STA Infusion Sodium Chloride Confirm 05/20/18 10:26 Sodium Chloride 0.9% 1000 Ml Administered 05/20/18 10:27 Dose 1,000 mls @ ud .ROUTE .STK-MED ONE Sodium Chloride 1,000 mls @ 999 mls/hr 05/20/18 11:40 05/20/18 11:42 Sodium Chloride 0.9% 1000 Ml IV 05/20/18 12:40 999 mls/hr .Q1H1M STA Administration Sodium Chloride Confirm 05/20/18 11:40 Sodium Chloride 0.9% 1000 Ml Administered 05/20/18 11:41 Dose 1,000 mls @ ud .ROUTE .STK-MED ONE Ondansetron HCl 4 mg 05/20/18 10:12 05/20/18 10:28 Zofran 4 Mg/2 Ml Vial IV 05/20/18 10:13 4 mg STAT ONE Administration Ondansetron HCl Confirm 05/20/18 10:26 Zofran 4 Mg/2 Ml Vial Administered 05/20/18 10:27 Dose 4 mg .ROUTE .STK-MED ONE Lab/Rad Data: Laboratory Result Diagrams 05/20/18 10:30 05/20/18 10:30 Laboratory Results 05/20/18 05/20/18 05/20/18 Range/Units Unknown 10:30 10:30 WBC (4.0-10.5) K/mm3 RBC (4.1-5.6) M/mm3 Hgb (12.5-18.0) gm/dl Hct (42-50) % MCV (78-100) fl MCH (26-32) pg MCHC (32-36) g/dl RDW (11.5-14.0) % Plt Count (150-450) K/mm3 MPV (6-9.5) fl Gran % (36.0-66.0) % Eos # (Auto) (0-0.5) Absolute Lymphs (auto) (1.0-4.6) Absolute Monos (auto) (0.0-1.3) Lymphocytes % (24.0-44.0) % Monocytes % (0.0-12.0) % Eosinophils % (0.00-5.0) % Basophils % (0.0-0.4) % Absolute Granulocytes (1.4-6.9) Basophils # (0-0.4) Sodium 138 (137-145) mmol/L Potassium 4.6 (3.5-5.1) mmol/L Chloride 95 L (98-107) mmol/L Carbon Dioxide 9 L* (22-30) mmol/L Anion Gap 38.9 H (5-15) MEQ/L BUN 21 H (9-20) mg/dL Creatinine 1.08 (0.66-1.25) mg/dL Estimated GFR > 60.0 ML/MIN Glucose 608 H* (74-106) mg/dL Lactic Acid 3.8 H (0.4-2.0) Calcium 10.3 H (8.4-10.2) mg/dL Total Bilirubin 0.50 (0.2-1.3) mg/dL AST 25 (17-59) U/L ALT 45 (0-50) U/L Alkaline Phosphatase 215 H (38-126) U/L Serum Total Protein 9.1 H (6.3-8.2) g/dL Albumin 5.6 H (3.5-5.0) g/dL Ur Collection Type VOID Urine Color YELLOW (YELLOW) Urine Appearance CLEAR (CLEAR) Urine pH 5.0 (5-6) Ur Specific [place] 1.020 (1.005-1.025) Urine Protein 50 (Negative) Urine Ketones LARGE (NEGATIVE) Urine Blood NEGATIVE (0-5) Pedro/ul Urine Nitrite NEGATIVE (NEGATIVE) Urine Bilirubin NEGATIVE (NEGATIVE) Urine Urobilinogen NORMAL (0-1) mg/dL Ur Leukocyte Esterase NEGATIVE (NEGATIVE) Urine Microscopic RBC 0-2 (0-2) /HPF Urine Microscopic WBC 0-2 (0-5) /HPF Ur Epithelial Cells RARE (FEW) /HPF Urine Bacteria RARE (NEGATIVE) /HPF Urine Mucus SLIGHT (NEGATIVE) /HPF Urine Culture Reflexed NO (NO) Urine Glucose 1000 (NEGATIVE) mg/dL Ethyl Alcohol < 10 (0-10) mg/dL Specimen Received 05/20/18 UNK 05/20/18 Range/Units 10:30 WBC 14.7 H (4.0-10.5) K/mm3 RBC 5.59 (4.1-5.6) M/mm3 Hgb 17.8 (12.5-18.0) gm/dl Hct 49.1 (42-50) % MCV 87.8 (78-100) fl MCH 31.8 (26-32) pg MCHC 36.3 H (32-36) g/dl RDW 12.4 (11.5-14.0) % Plt Count 266 (150-450) K/mm3 MPV 10.9 H (6-9.5) fl Gran % 91.7 H (36.0-66.0) % Eos # (Auto) 0.01 (0-0.5) Absolute Lymphs (auto) 0.86 L (1.0-4.6) Absolute Monos (auto) 0.31 (0.0-1.3) Lymphocytes % 5.9 L (24.0-44.0) % Monocytes % 2.1 (0.0-12.0) % Eosinophils % 0.1 (0.00-5.0) % Basophils % 0.2 (0.0-0.4) % Absolute Granulocytes 13.46 H (1.4-6.9) Basophils # 0.03 (0-0.4) Sodium (137-145) mmol/L Potassium (3.5-5.1) mmol/L Chloride (98-107) mmol/L Carbon Dioxide (22-30) mmol/L Anion Gap (5-15) MEQ/L BUN (9-20) mg/dL Creatinine (0.66-1.25) mg/dL Estimated GFR ML/MIN Glucose (74-106) mg/dL Lactic Acid (0.4-2.0) Calcium (8.4-10.2) mg/dL Total Bilirubin (0.2-1.3) mg/dL AST (17-59) U/L ALT (0-50) U/L Alkaline Phosphatase (38-126) U/L Serum Total Protein (6.3-8.2) g/dL Albumin (3.5-5.0) g/dL Ur Collection Type Urine Color (YELLOW) Urine Appearance (CLEAR) Urine pH (5-6) Ur Specific [place] (1.005-1.025) Urine Protein (Negative) Urine Ketones (NEGATIVE) Urine Blood (0-5) Pedro/ul Urine Nitrite (NEGATIVE) Urine Bilirubin (NEGATIVE) Urine Urobilinogen (0-1) mg/dL Ur Leukocyte Esterase (NEGATIVE) Urine Microscopic RBC (0-2) /HPF Urine Microscopic WBC (0-5) /HPF Ur Epithelial Cells (FEW) /HPF Urine Bacteria (NEGATIVE) /HPF Urine Mucus (NEGATIVE) /HPF Urine Culture Reflexed (NO) Urine Glucose (NEGATIVE) mg/dL Ethyl Alcohol (0-10) mg/dL Specimen Received - Progress Progress: improved Discussed with : Daniel Will see patient in: hospital (observation) Counseled pt/family regarding: lab results, diagnosis - Departure Time of Disposition: 13:20 Departure Disposition: Observation (per Dr Sanchez) Clinical Impression: Hyperglycemia Condition: Stable Critical Care Time: No Referrals: DOCTOR,NO FAMILY [Primary Care Provider] -
[2018-05-20] MEDS ORDERED: Zofran 4 MG/2 ML VIAL ONE (10:26)
[2018-05-20] MEDS ORDERED: Sodium Chloride 0.9% 1000 ML 1,000 ML ONE ×2 (10:26→11:40)
[2018-05-20 10:38] LABS: Lactic Acid 3.8 (0.4-2.0)
[2018-05-20 10:46] LABS: White Blood Count 14.7 K/mm3 (4.0-10.5)
[2018-05-20 10:48] LABS: BASOPHIL % 0.2 % (0.0-0.4); Eosinophil % 0.1 % (0.00-5.0); Granulocytes % 91.7 % (36.0-66.0); Hematocrit 49.1 % (42-50); Hemoglobin 17.8 gm/dl (12.5-18.0); Lymphocytes % 5.9 % (24.0-44.0); Mean Cell Volume 87.8 fl (78-100); Mean Corpuscular Hemoglobin 31.8 pg (26-32); Mean Corpuscular Hgb Concent. 36.3 g/dl (32-36); Mean Platelet Volume 10.9 fl (6-9.5); Monocytes % 2.1 % (0.0-12.0); Platelet Count 266 K/mm3 (150-450); Red Blood Count 5.59 M/mm3 (4.1-5.6); Red Cell Distribution Width 12.4 % (11.5-14.0)
[2018-05-20 10:49] LABS: Basophil (Absolute #) 0.03 (0-0.4); Eosinophil (Absolute #) 0.01 (0-0.5); Granulocyte Absolute (ANC) 13.46 (1.4-6.9); Lymphocyte (Absolute #) 0.86 (1.0-4.6); Monocyte (Absolute #) 0.31 (0.0-1.3)
[2018-05-20 10:58] LABS: ALBUMIN 5.6 g/dL (3.5-5.0); ALKALINE PHOSPHATASE 215 U/L (38-126); ANION GAP 38.9 MEQ/L (5-15); BLOOD UREA NITROGEN 21 mg/dL (9-20); CHLORIDE 95 mmol/L (98-107); Calcium 10.3 mg/dL (8.4-10.2); Creatinine 1 1.08 mg/dL (0.66-1.25); Potassium 4.6 mmol/L (3.5-5.1); SGOT/AST 25 U/L (17-59); SGPT/ALT 45 U/L (0-50); SODIUM 138 mmol/L (137-145); Total Protein 9.1 g/dL (6.3-8.2)
[2018-05-20 11:04] LABS: Carbon Dioxide 9 mmol/L (22-30); ETHYL ALCOHOL < 10 mg/dL (0-10); Glucose 608 mg/dL (74-106)
[2018-05-20 12:41] LABS: Appearance CLEAR (CLEAR); Bacteria RARE /HPF (NEGATIVE); Bilirubin NEGATIVE (NEGATIVE); Blood NEGATIVE Ery/ul (0-5); Epithelial Cells RARE /HPF (FEW); Glucose 1000 mg/dL (NEGATIVE); Ketones LARGE (NEGATIVE); Leukocyte Esterase NEGATIVE (NEGATIVE); Mucus SLIGHT /HPF (NEGATIVE); Nitrite NEGATIVE (NEGATIVE); Protein,Urine Dip 50 (Negative); RBC 0-2 /HPF (0-2); Urobilinogen NORMAL mg/dL (0-1); WBC 0-2 /HPF (0-5)
[2018-05-20] MEDS ORDERED: Zofran 4 MG/2 ML VIAL IV PRN (13:51)
[2018-05-20] MEDS ORDERED: TYLENOL 325 MG PO PRN (13:51)
[2018-05-20] MEDS: Sodium Chloride 0.9% 1000 ML 1,000 ML IV SCH ×2 (14:36→23:54)
[2018-05-20] MEDS: CLARITIN 10 MG PO SCH (15:24)
[2018-05-20] MEDS: NovoLIN R SQ PRN ×2 (16:41→22:14)
[2018-05-20] MEDS: NovoLOG Insulin SQ SCH ×2 (16:44→22:13)
--- NOTE | 2018-05-20 16:47 | PCM.HP ---
History of Present Illness - Chief Complaint Chief Complaint: dka History of Present Illness: is a 27 year old male with type 1 diabetes who has not been seen in the clinic recently, apparently he is without insurance and purchasing insulin online. He has been ill with upper respiratory symptoms for the past few days. today developed vomiting and inability to keep anything down and sugar phillip despite covering with insulin at home to undetectable on his meter, he came to ER and was found to be in DKA. - Review of Systems Constitutional: No Fever, No Chills Ears, Nose, & Throat: Throat Pain Respiratory: Cough Cardiac: No Chest Pain, No Edema, No Syncope Abdominal/Gastrointestinal: No Abdominal Pain, No Nausea, No Vomiting, No Diarrhea Genitourinary Symptoms: No Dysuria Skin: No Rash All Other Systems: Reviewed and Negative Medications & Allergies Home Medications: Home Medication List Insulin Glargine,Hum.rec.anlog [Lantus Solostar] 18 unit SQ HS 01/14/18 [ History Confirmed 05/20/18] Insulin Aspart [NovoLOG Insulin] 15 units SQ AC 05/20/18 [History Confirmed ] Insulin Glargine,Hum.rec.anlog [Lantus Solostar] 7 units SQ DAILY 05/20/18 [ History Confirmed 05/20/18] Allergies/Adverse Reactions: Allergies Allergy/AdvReac Type Severity Reaction Status Date / Time No Known Drug Allergies Allergy Verified 01/14/18 23:16 - Past Medical History Past Medical History: Yes Neurological History: No Pertinent History ENT History: No Pertinent History Cardiac History: No Pertinent History Respiratory History: No Pertinent History Endocrine Medical History: Diabetes Type I Musculoskelatal History: No Pertinent History GI Medical History: No Pertinent History History: No Pertinent History Pyscho-Social History: No Pertinent History Male Reproductive Disorders: No Pertinent History Comment: chronic back problems - Past Surgical History Past Surgical History: No Neuro Surgical History: No Pertinent History Cardiac History: No Pertinent History Respiratory Surgery: No Pertinent History GI Surgical History: No Pertinent History Genitourinary Surgical Hx: No Pertinent History Musculskeletal Surgical Hx: Orthopedic Surgery Male Surgical History: No Pertinent History Other Surgical History: tubes in ears as infant, back surgery in 1999 - spondylsis, sinus surgeries X5 growth/polyps removed, left knee surgery X2 dislocation of patella, right wrist fx, left hand surgery X2 nerve graft after table saw injury - Social History Smoking Status: Former smoker Exposure to second hand smoke: Yes Alcohol: None Drug Use: none - Physical Exam Vital Signs: Vital Signs - 24 hr Temp Pulse Resp BP Pulse Ox 05/20/18 14:26 98 F 113 H 18 146/86 98 05/20/18 13:51 99 05/20/18 12:57 114 H 16 132/92 98 05/20/18 12:04 110 H 25 H 132/92 98 05/20/18 11:16 116 H 17 131/76 98 05/20/18 10:40 98.0 F 15 147/94 99 05/20/18 10:35 98 Eye Exam: PERRL/EOMI, eyes nml inspection Respiratory Exam: normal breath sounds, lungs clear, No respiratory distress Cardiovascular Exam: regular rate/rhythm, normal heart sounds, normal peripheral pulses Gastrointestinal/Abdomen Exam: soft, normal bowel sounds, No tenderness, No mass Extremity Exam: normal inspection, normal range of motion, pelvis stable Skin Exam: normal color, warm, dry, No rash Results - Labs Lab/Micro Results: Accuchecks Date 05/20/18 Time 16:43 Accucheck Value: 245 Accucheck Value: 239 Accucheck Value: 349 Lab Results-Last 24 Hours 05/20/18 05/20/18 05/20/18 Range/Units 10:30 10:30 10:30 WBC 14.7 H (4.0-10.5) K/mm3 RBC 5.59 (4.1-5.6) M/mm3 Hgb 17.8 (12.5-18.0) gm/dl Hct 49.1 (42-50) % MCV 87.8 (78-100) fl MCH 31.8 (26-32) pg MCHC 36.3 H (32-36) g/dl RDW 12.4 (11.5-14.0) % Plt Count 266 (150-450) K/mm3 MPV 10.9 H (6-9.5) fl Gran % 91.7 H (36.0-66.0) % Eos # (Auto) 0.01 (0-0.5) Absolute Lymphs (auto) 0.86 L (1.0-4.6) Absolute Monos (auto) 0.31 (0.0-1.3) Lymphocytes % 5.9 L (24.0-44.0) % Monocytes % 2.1 (0.0-12.0) % Eosinophils % 0.1 (0.00-5.0) % Basophils % 0.2 (0.0-0.4) % Absolute Granulocytes 13.46 H (1.4-6.9) Basophils # 0.03 (0-0.4) Sodium 138 (137-145) mmol/L Potassium 4.6 (3.5-5.1) mmol/L Chloride 95 L (98-107) mmol/L Carbon Dioxide 9 L* (22-30) mmol/L Anion Gap 38.9 H (5-15) MEQ/L BUN 21 H (9-20) mg/dL Creatinine 1.08 (0.66-1.25) mg/dL Estimated GFR > 60.0 ML/MIN Glucose 608 H* (74-106) mg/dL Lactic Acid 3.8 H (0.4-2.0) Calcium 10.3 H (8.4-10.2) mg/dL Total Bilirubin 0.50 (0.2-1.3) mg/dL AST 25 (17-59) U/L ALT 45 (0-50) U/L Alkaline Phosphatase 215 H (38-126) U/L Serum Total Protein 9.1 H (6.3-8.2) g/dL Albumin 5.6 H (3.5-5.0) g/dL Ur Collection Type Urine Color (YELLOW) Urine Appearance (CLEAR) Urine pH (5-6) Ur Specific Prentiss (1.005-1.025) Urine Protein (Negative) Urine Ketones (NEGATIVE) Urine Blood (0-5) Pedro/ul Urine Nitrite (NEGATIVE) Urine Bilirubin (NEGATIVE) Urine Urobilinogen (0-1) mg/dL Ur Leukocyte Esterase (NEGATIVE) Urine Microscopic RBC (0-2) /HPF Urine Microscopic WBC (0-5) /HPF Ur Epithelial Cells (FEW) /HPF Urine Bacteria (NEGATIVE) /HPF Urine Mucus (NEGATIVE) /HPF Urine Culture Reflexed (NO) Urine Glucose (NEGATIVE) mg/dL Ethyl Alcohol < 10 (0-10) mg/dL Specimen Received 05/20/18 05/20/18 Range/Units 14:30 Unknown WBC (4.0-10.5) K/mm3 RBC (4.1-5.6) M/mm3 Hgb (12.5-18.0) gm/dl Hct (42-50) % MCV (78-100) fl MCH (26-32) pg MCHC (32-36) g/dl RDW (11.5-14.0) % Plt Count (150-450) K/mm3 MPV (6-9.5) fl Gran % (36.0-66.0) % Eos # (Auto) (0-0.5) Absolute Lymphs (auto) (1.0-4.6) Absolute Monos (auto) (0.0-1.3) Lymphocytes % (24.0-44.0) % Monocytes % (0.0-12.0) % Eosinophils % (0.00-5.0) % Basophils % (0.0-0.4) % Absolute Granulocytes (1.4-6.9) Basophils # (0-0.4) Sodium (137-145) mmol/L Potassium (3.5-5.1) mmol/L Chloride (98-107) mmol/L Carbon Dioxide (22-30) mmol/L Anion Gap (5-15) MEQ/L BUN (9-20) mg/dL Creatinine (0.66-1.25) mg/dL Estimated GFR ML/MIN Glucose (74-106) mg/dL Lactic Acid 1.4 (0.4-2.0) Calcium (8.4-10.2) mg/dL Total Bilirubin (0.2-1.3) mg/dL AST (17-59) U/L ALT (0-50) U/L Alkaline Phosphatase (38-126) U/L Serum Total Protein (6.3-8.2) g/dL Albumin (3.5-5.0) g/dL Ur Collection Type VOID Urine Color YELLOW (YELLOW) Urine Appearance CLEAR (CLEAR) Urine pH 5.0 (5-6) Ur Specific Prentiss 1.020 (1.005-1.025) Urine Protein 50 (Negative) Urine Ketones LARGE (NEGATIVE) Urine Blood NEGATIVE (0-5) Pedro/ul Urine Nitrite NEGATIVE (NEGATIVE) Urine Bilirubin NEGATIVE (NEGATIVE) Urine Urobilinogen NORMAL (0-1) mg/dL Ur Leukocyte Esterase NEGATIVE (NEGATIVE) Urine Microscopic RBC 0-2 (0-2) /HPF Urine Microscopic WBC 0-2 (0-5) /HPF Ur Epithelial Cells RARE (FEW) /HPF Urine Bacteria RARE (NEGATIVE) /HPF Urine Mucus SLIGHT (NEGATIVE) /HPF Urine Culture Reflexed NO (NO) Urine Glucose 1000 (NEGATIVE) mg/dL Ethyl Alcohol (0-10) mg/dL Specimen Received 05/20/18 UNK Accuchecks Date 05/20/18 Time 16:43 Accucheck Value: 245 Accucheck Value: 239 Accucheck Value: 349 - Other Procedures and Tests Respiratory Therapy 05/20/18 14:36 Respiratory Therapy Assessment DAILY Assessment/Plan (1) DKA (diabetic ketoacidoses) Current Visit: Yes Status: Acute Assessment & Plan: improved with fluids and sub-q insulin. will repeat bmp this evening. continue fluids and frequent accuchecks with insulin coverage since his sugar dropped rapidly with fluids only in ER will forego insulin gtt Code(s): E13.10 - OTH DIABETES MELLITUS WITH KETOACIDOSIS WITHOUT COMA (2) Upper respiratory infection Current Visit: Yes Status: Acute Assessment & Plan: check chest xray due to cough but appears to be viral in etiology. Code(s): J06.9 - ACUTE UPPER RESPIRATORY INFECTION, UNSPECIFIED
--- NOTE | 2018-05-20 17:16 | XRAY ---
Indication: Cough. DKA. Comparison: None Portable chest demonstrates normal heart, lungs, and bony thorax.
[2018-05-20 18:40] LABS: ANION GAP 19.5 MEQ/L (5-15); BLOOD UREA NITROGEN 23 mg/dL (9-20); CHLORIDE 102 mmol/L (98-107); Calcium 8.7 mg/dL (8.4-10.2); Carbon Dioxide 17 mmol/L (22-30); Creatinine 1 0.67 mg/dL (0.66-1.25); Glucose 243 mg/dL (74-106); Potassium 4.4 mmol/L (3.5-5.1); SODIUM 135 mmol/L (137-145)
[2018-05-20] MEDS ORDERED: INSULIN GLARGINE HUM REC ANLOG 18 UNIT SQ SCH (22:00)
[2018-05-20] MEDS ORDERED: Lantus Insulin SQ SCH (22:00)
[2018-05-21 04:02] VITALS: O2SAT 97
[2018-05-21 05:50] LABS: BASOPHIL % 0.1 % (0.0-0.4); Basophil (Absolute #) 0.01 (0-0.4); Eosinophil (Absolute #) 0.08 (0-0.5); Granulocyte Absolute (ANC) 5.57 (1.4-6.9); Granulocytes % 72.4 % (36.0-66.0); Hematocrit 35.1 % (42-50); Hemoglobin 12.6 gm/dl (12.5-18.0); Lymphocytes % 18.2 % (24.0-44.0); Mean Corpuscular Hgb Concent. 35.9 g/dl (32-36); Mean Platelet Volume 10.1 fl (6-9.5); Monocyte (Absolute #) 0.64 (0.0-1.3); Monocytes % 8.3 % (0.0-12.0); Platelet Count 177 K/mm3 (150-450); Red Blood Count 3.99 M/mm3 (4.1-5.6); Red Cell Distribution Width 11.9 % (11.5-14.0); White Blood Count 7.7 K/mm3 (4.0-10.5)
[2018-05-21 05:55] LABS: Mean Corpuscular Hemoglobin 31.5 pg (26-32)
[2018-05-21 06:08] LABS: ANION GAP 13.7 MEQ/L (5-15); BLOOD UREA NITROGEN 14 mg/dL (9-20); CHLORIDE 105 mmol/L (98-107); Calcium 8.4 mg/dL (8.4-10.2); Carbon Dioxide 21 mmol/L (22-30); Glucose 154 mg/dL (74-106); Potassium 3.5 mmol/L (3.5-5.1); SODIUM 135 mmol/L (137-145)
[2018-05-21] MEDS: NovoLOG Insulin SQ SCH (08:02)
[2018-05-21 08:07] VITALS: BP 130/66; PULSE 97
--- NOTE | 2018-05-21 08:29 | PCM.DS ---
Discharge Summary Date of Admission: 05/20/18 13:47 Admitting Physician: NAVEEN MCKEON Primary Care Provider: NO FAMILY DOCTOR Allergies Allergies No Known Drug Allergies Allergy (Verified 01/14/18 23:16) Hospital Summary - Hospital Course Hospital Course: patient came in with URI symptoms, profuse vomiting and high blood sugar. found to have dka, chest xray, u/a and strep test all negative. gap is closed, dka resolved and he feels well. was taking lantus 7 units am and 15 units pm at home then novolog 15 units plus sliding scale with meals. sugars over 200 consistently at home, does not check fasting. has no insurance, getting insulin from online help site. - Vitals & Intake/Output Vital Signs: Vital Signs Temperature 97.5 F 05/21/18 08:00 Pulse Rate 97 H 05/21/18 08:00 Respiratory Rate 18 05/21/18 08:00 Blood Pressure 130/66 05/21/18 08:00 O2 Sat by Pulse Oximetry 97 05/21/18 08:00 Intake & Output: Intake & Output 05/18/18 05/19/18 05/20/18 05/21/18 11:59 11:59 11:59 11:59 Intake Total 3730 Output Total 600 Balance 3130 Weight 88.451 kg 78.2 kg - Lab Result Diagrams: 05/21/18 05:32 05/21/18 05:32 Lab Results-Last 24 Hrs: Accuchecks Date 05/21/18 Date 05/21/18 Date 05/20/18 Time 07:39 Time 22:00 Time 16:43 Accucheck Value: 157 Accucheck Value: 291 Accucheck Value: 245 Accucheck Value: 239 Accucheck Value: 349 Lab Results-Last 24 Hours 05/20/18 05/20/18 05/20/18 Range/Units 10:30 10:30 10:30 WBC 14.7 H (4.0-10.5) K/mm3 RBC 5.59 (4.1-5.6) M/mm3 Hgb 17.8 (12.5-18.0) gm/dl Hct 49.1 (42-50) % MCV 87.8 (78-100) fl MCH 31.8 (26-32) pg MCHC 36.3 H (32-36) g/dl RDW 12.4 (11.5-14.0) % Plt Count 266 (150-450) K/mm3 MPV 10.9 H (6-9.5) fl Gran % 91.7 H (36.0-66.0) % Eos # (Auto) 0.01 (0-0.5) Absolute Lymphs (auto) 0.86 L (1.0-4.6) Absolute Monos (auto) 0.31 (0.0-1.3) Lymphocytes % 5.9 L (24.0-44.0) % Monocytes % 2.1 (0.0-12.0) % Eosinophils % 0.1 (0.00-5.0) % Basophils % 0.2 (0.0-0.4) % Absolute Granulocytes 13.46 H (1.4-6.9) Basophils # 0.03 (0-0.4) Sodium 138 (137-145) mmol/L Potassium 4.6 (3.5-5.1) mmol/L Chloride 95 L (98-107) mmol/L Carbon Dioxide 9 L* (22-30) mmol/L Anion Gap 38.9 H (5-15) MEQ/L BUN 21 H (9-20) mg/dL Creatinine 1.08 (0.66-1.25) mg/dL Estimated GFR > 60.0 ML/MIN Glucose 608 H* (74-106) mg/dL Hemoglobin A1c (4.5-6.0) % Lactic Acid 3.8 H (0.4-2.0) Calcium 10.3 H (8.4-10.2) mg/dL Total Bilirubin 0.50 (0.2-1.3) mg/dL AST 25 (17-59) U/L ALT 45 (0-50) U/L Alkaline Phosphatase 215 H (38-126) U/L Serum Total Protein 9.1 H (6.3-8.2) g/dL Albumin 5.6 H (3.5-5.0) g/dL Ur Collection Type Urine Color (YELLOW) Urine Appearance (CLEAR) Urine pH (5-6) Ur Specific Venus (1.005-1.025) Urine Protein (Negative) Urine Ketones (NEGATIVE) Urine Blood (0-5) Pedro/ul Urine Nitrite (NEGATIVE) Urine Bilirubin (NEGATIVE) Urine Urobilinogen (0-1) mg/dL Ur Leukocyte Esterase (NEGATIVE) Urine Microscopic RBC (0-2) /HPF Urine Microscopic WBC (0-5) /HPF Ur Epithelial Cells (FEW) /HPF Urine Bacteria (NEGATIVE) /HPF Urine Mucus (NEGATIVE) /HPF Urine Culture Reflexed (NO) Urine Glucose (NEGATIVE) mg/dL Ethyl Alcohol < 10 (0-10) mg/dL Group A Strep Antibody (NEGATIVE) Specimen Received 05/20/18 05/20/18 05/20/18 Range/Units 14:30 18:00 Unknown WBC (4.0-10.5) K/mm3 RBC (4.1-5.6) M/mm3 Hgb (12.5-18.0) gm/dl Hct (42-50) % MCV (78-100) fl MCH (26-32) pg MCHC (32-36) g/dl RDW (11.5-14.0) % Plt Count (150-450) K/mm3 MPV (6-9.5) fl Gran % (36.0-66.0) % Eos # (Auto) (0-0.5) Absolute Lymphs (auto) (1.0-4.6) Absolute Monos (auto) (0.0-1.3) Lymphocytes % (24.0-44.0) % Monocytes % (0.0-12.0) % Eosinophils % (0.00-5.0) % Basophils % (0.0-0.4) % Absolute Granulocytes (1.4-6.9) Basophils # (0-0.4) Sodium 135 L (137-145) mmol/L Potassium 4.4 (3.5-5.1) mmol/L Chloride 102 (98-107) mmol/L Carbon Dioxide 17 L (22-30) mmol/L Anion Gap 19.5 H (5-15) MEQ/L BUN 23 H (9-20) mg/dL Creatinine 0.67 (0.66-1.25) mg/dL Estimated GFR > 60.0 ML/MIN Glucose 243 H (74-106) mg/dL Hemoglobin A1c (4.5-6.0) % Lactic Acid 1.4 (0.4-2.0) Calcium 8.7 (8.4-10.2) mg/dL Total Bilirubin (0.2-1.3) mg/dL AST (17-59) U/L ALT (0-50) U/L Alkaline Phosphatase (38-126) U/L Serum Total Protein (6.3-8.2) g/dL Albumin (3.5-5.0) g/dL Ur Collection Type VOID Urine Color YELLOW (YELLOW) Urine Appearance CLEAR (CLEAR) Urine pH 5.0 (5-6) Ur Specific Venus 1.020 (1.005-1.025) Urine Protein 50 (Negative) Urine Ketones LARGE (NEGATIVE) Urine Blood NEGATIVE (0-5) Pedro/ul Urine Nitrite NEGATIVE (NEGATIVE) Urine Bilirubin NEGATIVE (NEGATIVE) Urine Urobilinogen NORMAL (0-1) mg/dL Ur Leukocyte Esterase NEGATIVE (NEGATIVE) Urine Microscopic RBC 0-2 (0-2) /HPF Urine Microscopic WBC 0-2 (0-5) /HPF Ur Epithelial Cells RARE (FEW) /HPF Urine Bacteria RARE (NEGATIVE) /HPF Urine Mucus SLIGHT (NEGATIVE) /HPF Urine Culture Reflexed NO (NO) Urine Glucose 1000 (NEGATIVE) mg/dL Ethyl Alcohol (0-10) mg/dL Group A Strep Antibody (NEGATIVE) Specimen Received 05/20/18 UNK 05/20/18 05/20/18 05/21/18 Range/Units Unknown Unknown 05:32 WBC 7.7 (4.0-10.5) K/mm3 RBC 3.99 L (4.1-5.6) M/mm3 Hgb 12.6 (12.5-18.0) gm/dl Hct 35.1 L (42-50) % MCV 88.0 (78-100) fl MCH 31.5 (26-32) pg MCHC 35.9 (32-36) g/dl RDW 11.9 (11.5-14.0) % Plt Count 177 (150-450) K/mm3 MPV 10.1 H (6-9.5) fl Gran % 72.4 H (36.0-66.0) % Eos # (Auto) 0.08 (0-0.5) Absolute Lymphs (auto) 1.40 (1.0-4.6) Absolute Monos (auto) 0.64 (0.0-1.3) Lymphocytes % 18.2 L (24.0-44.0) % Monocytes % 8.3 (0.0-12.0) % Eosinophils % 1.0 (0.00-5.0) % Basophils % 0.1 (0.0-0.4) % Absolute Granulocytes 5.57 (1.4-6.9) Basophils # 0.01 (0-0.4) Sodium (137-145) mmol/L Potassium (3.5-5.1) mmol/L Chloride (98-107) mmol/L Carbon Dioxide (22-30) mmol/L Anion Gap (5-15) MEQ/L BUN (9-20) mg/dL Creatinine (0.66-1.25) mg/dL Estimated GFR ML/MIN Glucose (74-106) mg/dL Hemoglobin A1c > 14.00 H (4.5-6.0) % Lactic Acid (0.4-2.0) Calcium (8.4-10.2) mg/dL Total Bilirubin (0.2-1.3) mg/dL AST (17-59) U/L ALT (0-50) U/L Alkaline Phosphatase (38-126) U/L Serum Total Protein (6.3-8.2) g/dL Albumin (3.5-5.0) g/dL Ur Collection Type Urine Color (YELLOW) Urine Appearance (CLEAR) Urine pH (5-6) Ur Specific Venus (1.005-1.025) Urine Protein (Negative) Urine Ketones (NEGATIVE) Urine Blood (0-5) Pedro/ul Urine Nitrite (NEGATIVE) Urine Bilirubin (NEGATIVE) Urine Urobilinogen (0-1) mg/dL Ur Leukocyte Esterase (NEGATIVE) Urine Microscopic RBC (0-2) /HPF Urine Microscopic WBC (0-5) /HPF Ur Epithelial Cells (FEW) /HPF Urine Bacteria (NEGATIVE) /HPF Urine Mucus (NEGATIVE) /HPF Urine Culture Reflexed (NO) Urine Glucose (NEGATIVE) mg/dL Ethyl Alcohol (0-10) mg/dL Group A Strep Antibody NEGATIVE (NEGATIVE) Specimen Received 05/21/18 Range/Units 05:32 WBC (4.0-10.5) K/mm3 RBC (4.1-5.6) M/mm3 Hgb (12.5-18.0) gm/dl Hct (42-50) % MCV (78-100) fl MCH (26-32) pg MCHC (32-36) g/dl RDW (11.5-14.0) % Plt Count (150-450) K/mm3 MPV (6-9.5) fl Gran % (36.0-66.0) % Eos # (Auto) (0-0.5) Absolute Lymphs (auto) (1.0-4.6) Absolute Monos (auto) (0.0-1.3) Lymphocytes % (24.0-44.0) % Monocytes % (0.0-12.0) % Eosinophils % (0.00-5.0) % Basophils % (0.0-0.4) % Absolute Granulocytes (1.4-6.9) Basophils # (0-0.4) Sodium 135 L (137-145) mmol/L Potassium 3.5 (3.5-5.1) mmol/L Chloride 105 (98-107) mmol/L Carbon Dioxide 21 L (22-30) mmol/L Anion Gap 13.7 (5-15) MEQ/L BUN 14 (9-20) mg/dL Creatinine 0.50 L (0.66-1.25) mg/dL Estimated GFR > 60.0 ML/MIN Glucose 154 H (74-106) mg/dL Hemoglobin A1c (4.5-6.0) % Lactic Acid (0.4-2.0) Calcium 8.4 (8.4-10.2) mg/dL Total Bilirubin (0.2-1.3) mg/dL AST (17-59) U/L ALT (0-50) U/L Alkaline Phosphatase (38-126) U/L Serum Total Protein (6.3-8.2) g/dL Albumin (3.5-5.0) g/dL Ur Collection Type Urine Color (YELLOW) Urine Appearance (CLEAR) Urine pH (5-6) Ur Specific Venus (1.005-1.025) Urine Protein (Negative) Urine Ketones (NEGATIVE) Urine Blood (0-5) Pedro/ul Urine Nitrite (NEGATIVE) Urine Bilirubin (NEGATIVE) Urine Urobilinogen (0-1) mg/dL Ur Leukocyte Esterase (NEGATIVE) Urine Microscopic RBC (0-2) /HPF Urine Microscopic WBC (0-5) /HPF Ur Epithelial Cells (FEW) /HPF Urine Bacteria (NEGATIVE) /HPF Urine Mucus (NEGATIVE) /HPF Urine Culture Reflexed (NO) Urine Glucose (NEGATIVE) mg/dL Ethyl Alcohol (0-10) mg/dL Group A Strep Antibody (NEGATIVE) Specimen Received Micro Results-Entire Visit: Accuchecks Date 05/21/18 Date 05/21/18 Date 05/20/18 Time 07:39 Time 22:00 Time 16:43 Accucheck Value: 157 Accucheck Value: 291 Accucheck Value: 245 Accucheck Value: 239 Accucheck Value: 349 - Radiology Exams Ordered Rad Exams-Entire Visit: Radiology Procedures Category Date Time Status CHEST 1 VIEW (PORTABLE) Stat Exams 05/20/18 16:47 Completed - Procedures and Test Procedures and Tests throughout Hospitalization: Therapy Orders & Screens 05/20/18 14:36 Respiratory Therapy Assessment DAILY Comment: Diagnosis: dka Discharge Exam General Appearance: no apparent distress, alert Skin Exam: normal color, warm, dry Eye Exam: PERRL, EOMI, eyes nml inspection Respiratory Exam: normal breath sounds, lungs clear, No respiratory distress Cardiovascular Exam: regular rate/rhythm, normal heart sounds Gastrointestinal/Abdomen Exam: soft, No tenderness, No mass Extremity Exam: normal inspection, normal range of motion Final Diagnosis/Problem List - Final Discharge Diagnosis/Problem (1) DKA (diabetic ketoacidoses) Current Visit: Yes Status: Acute Assessment & Plan: resolved, discussed need to follow through to get medicaid. has been approved for presumptive, then will need to see endo. A1C>14% so has great risk of end organ complications. (2) Upper respiratory infection Current Visit: Yes Status: Acute Assessment & Plan: recommend otc claritin and flonase due to sinus congestion symptoms, appears viral - Discharge Disposition: Home, Self-Care Condition: Stable Prescriptions: Continue Insulin Aspart [NovoLOG Insulin] 15 units SQ AC Changed Insulin Glargine,Hum.rec.anlog [Lantus Solostar] 15 units SQ DAILY #0 Insulin Glargine,Hum.rec.anlog [Lantus Solostar] 25 unit SQ HS #0 Additional Instructions: increase your lantus to 15 units in the morning and 25 units in the evening, continue novolog 15 units plus sliding scale coverage with meals. check your blood sugar fasting and with every meal and f/u in office in 1 week with blood sugar log or with your meter so I can review your blood sugar readings. Follow up with: NAVEEN MCKEON MD [ACTIVE STAFF] - 1 Week
[2018-05-21] MEDS: CLARITIN 10 MG PO SCH (08:44)
== END 2018-05-21 09:00 | disposition home or self-care (01) ==
LOC: ED 09:41 → MED SURG 13:47
PROVIDERS: ADMIT Family Medicine; ATTEND Family Medicine
DX: E10.10 Type 1 diabetes mellitus with ketoacidosis without coma (principal); J06.9 Acute upper respiratory infection, unspecified
CPT/HCPCS: 36000; 36415; 71045; 80048; 80053; 80307; 81000; 82962; 83036; 83605; 85025; 87651; 93041; 93268; 94762; 96360; 96361; 96374; 99285; J2405; A9270-GY; G0378; G0480

== ENCOUNTER 2018-08-01 04:59 | Inpatient (IN) | payer OTHER ==
[2018-08-01] MEDS ORDERED: Zofran 4 MG/2 ML VIAL IV ONE (05:17)
[2018-08-01] MEDS ORDERED: Sodium Chloride 0.9% 1000 ML 1,000 ML IV STA ×4 (05:17→07:02)
[2018-08-01] MEDS ORDERED: Sodium Chloride 0.9% 1000 ML 1,000 ML ONE ×4 (05:24→06:59)
[2018-08-01] MEDS ORDERED: Zofran 4 MG/2 ML VIAL ONE (05:24)
[2018-08-01] MEDS ORDERED: PROTONIX 40 MG IV*** 80 MG in Sodium Chloride 0.9% 500 ML 500 ML IV SCH (05:30)
[2018-08-01] MEDS ORDERED: PROTONIX 40 MG IV IV ONE ×2 (05:37→05:59)
[2018-08-01 05:39] LABS: VBG BASE EXCESS -21.8 (-2.0-2.0); VBG CARBOXYHEMOGLOBIN 2.9 % T HGB (0.0-6.9); VBG HCO3- 8.3 meq/L (22-28); VBG O2 SATURATION 69.9 (95-100); VBG POTASSIUM 5.2 (3.5-5.1)
[2018-08-01 05:40] LABS: VBG pH 7.02 (7.32-7.42)
[2018-08-01 05:42] LABS: Lactic Acid 2.9 (0.4-2.0)
--- NOTE | 2018-08-01 05:43 | ERPHSYRPT ---
- History of Present Illness Time Seen by Provider: 08/01/18 05:30 Source: patient Exam Limitations: clinical condition Patient Subjective Stated Complaint: pt is alert and oriented. pt is ambulatory. pt comes in with c/o nausea, vomiting, diarrhea, dizziness, and high blood sugars. pt states he has vomited 4 times since 0030, pt states has had diarrhea 2x since 0030. pt denies abdominal pain. Triage Nursing Assessment: see above Physician History: PATIENT WITH A HISTORY OF TYPE 1 DIABETES OVER THE PAST 2 YEARS COMPLAINS OF ACUTE ONSET OF FREQUENT EMESIS X 5 EPISODES SINCE MIDNIGHT AND 2 EPISODES OF WATERY DIARRHEA. HAS ASSOCIATED ABDOMINAL CRAMPS. STATES HIS BLOOD GLUCOSE HAS BEEN ELEVATED. DENIES COUGH, FEVER, URINARY SYMPTOMS. Timing/Duration: today Severity: moderate Associated Symptoms: nausea, vomiting, abdominal pain, other (DIARRHEA) Allergies/Adverse Reactions: No Known Drug Allergies Allergy (Verified 01/14/18 23:16) Home Medications: Insulin Aspart [NovoLOG Insulin] 15 units SQ AC 05/20/18 [History] Hx Tetanus, Diphtheria Vaccination/Date Given: Yes Hx Influenza Vaccination/Date Given: No Hx Pneumococcal Vaccination/Date Given: No Immunizations Up to Date: Yes - Review of Systems Constitutional: No Fever, No Chills Eyes: No Symptoms Ears, Nose, & Throat: No Symptoms Respiratory: No Symptoms, No Cough, No Dyspnea Cardiac: No Symptoms, No Chest Pain, No Edema, No Syncope Abdominal/Gastrointestinal: Abdominal Pain, Nausea, Vomiting, Diarrhea Genitourinary Symptoms: Incontinence, No Dysuria Musculoskeletal: No Back Pain, No Neck Pain Skin: No Rash Neurological: No Dizziness, No Focal Weakness, No Sensory Changes Psychological: No Symptoms Endocrine: No Symptoms All Other Systems: Reviewed and Negative - Past Medical History Pertinent Past Medical History: Yes Neurological History: Migraines ENT History: No Pertinent History Cardiac History: No Pertinent History Respiratory History: No Pertinent History Endocrine Medical History: Diabetes Type I Musculoskeletal History: Other GI Medical History: No Pertinent History History: No Pertinent History Psycho-Social History: No Pertinent History Male Reproductive Disorders: No Pertinent History Other Medical History: Back surgery at age 9, DMI, 2 surgeries on L knee. - Past Surgical History Past Surgical History: No Neuro Surgical History: No Pertinent History Cardiac: No Pertinent History Respiratory: No Pertinent History Gastrointestinal: No Pertinent History Genitourinary: No Pertinent History Musculoskeletal: Orthopedic Surgery Male Surgical History: No Pertinent History Other Surgical History: tubes in ears as , back surgery in 2000 - spondylsis, sinus surgeries X5 growth/polyps removed, left knee surgery X2 dislocation of patella, right wrist fx, left hand surgery X2 nerve graft after table saw injury - Social History Smoking Status: Former smoker Exposure to second hand smoke: Yes Drug Use: none Patient Lives Alone: No - Nursing Vital Signs Nursing Vital Signs: Initial Vital Signs Pulse Rate 107 H 08/01/18 05:18 Respiratory Rate 24 08/01/18 05:18 Blood Pressure 153/96 08/01/18 05:18 O2 Sat by Pulse Oximetry 100 08/01/18 05:18 Pain Scale Pain Intensity 0 - Physical Exam SpO2: 100 Oxygen Delivery: Room Air - Course EKG Interpreted by Me: RATE, Sinus Rhythm, Sinus Tach (RATE 103), NORMAL AXIS Ordered Tests: Active Orders 24 hr Category Date Time Status Up With Assistance ROUTINE Activity 08/01/18 06:26 Ordered ACCUCHECK [Accucheck] STAT Care 08/01/18 05:41 Active Accucheck HOURLY Care 08/01/18 06:26 Ordered Code Status Order ROUTINE Care 08/01/18 06:28 Ordered EKG-ER Only STAT Care 08/01/18 05:25 Active IV Care Q6H Care 08/01/18 06:28 Ordered IV Insertion STAT Care 08/01/18 05:38 Active Intake and Output Q12H Care 08/01/18 06:26 Ordered Neuro Checks Q4H Care 08/01/18 06:[address] in Observation ROUTINE Care 08/01/18 06:28 Ordered Vital Signs .[id number],q3omx2,q1hx2,[id number] Care 08/01/18 06:26 Ordered Clear Liquid Diet 08/01/18 Breakfast Ordered AMYLASE Stat Lab 08/01/18 05:30 Completed BLOOD CULTURE Stat Lab 08/01/18 05:35 Received CBC W DIFF Stat Lab 08/01/18 05:30 Completed CMP Stat Lab 08/01/18 05:30 Completed CULTURE,URINE Stat Lab 08/01/18 05:30 Received Lactic Acid Stat Lab 08/01/18 05:17 Results MAGNESIUM Stat Lab 08/01/18 05:30 Completed PHOSPHOROUS Stat Lab 08/01/18 05:30 Completed UA W/RFX UR CULTURE Stat Lab 08/01/18 05:30 Completed VENOUS BLOOD GAS Urgent Lab 08/01/18 05:25 Completed Transfer Order Routine Transfer 08/01/18 Ordered Medication Summary Generic Name Dose Route Start Last Admin Trade Name Christ PRN Reason Stop Dose Admin Acetaminophen 650 mg 08/01/18 06:26 Tylenol 325 Mg PO 08/31/18 06:25 Q4H PRN PRN PAIN AND/OR FEVER Pantoprazole Sodium 80 mg/ 500 mls @ 50 mls/hr 08/01/18 05:30 08/01/18 06:00 Sodium Chloride IV 08/31/18 05:29 50 ml/hr .Q10H JOEY 50 mls/hr Administration Insulin Human Regular 100 101 mls @ 5.05 mls/hr 08/01/18 06:15 08/01/18 06:26 units/ Sodium Chloride IV 08/31/18 06:14 5 units/hr .Q20H JOEY 5.05 mls/hr Administration 5 UNITS/HR Sodium Chloride 1,000 mls @ 999 mls/hr 08/01/18 06:07 08/01/18 06:29 Sodium Chloride 0.9% 1000 Ml IV 08/01/18 07:07 999 mls/hr .Q1H1M STA Administration Morphine Sulfate 4 mg 08/01/18 06:26 Morphine Sulfate 4 Mg Inj IV 08/06/18 06:25 Q4H PRN PRN PAIN Ondansetron HCl 4 mg 08/01/18 06:26 Zofran 4 Mg/2 Ml Vial IV 08/31/18 06:25 Q6H PRN PRN NAUSEA/VOMITING Discontinued Medications Generic Name Dose Route Start Last Admin Trade Name Christ PRN Reason Stop Dose Admin Sodium Chloride 1,000 mls @ 999 mls/hr 08/01/18 05:17 08/01/18 05:25 Sodium Chloride 0.9% 1000 Ml IV 08/01/18 06:17 999 mls/hr .Q1H1M STA Administration Sodium Chloride Confirm 08/01/18 05:24 Sodium Chloride 0.9% 1000 Ml Administered 08/01/18 05:25 Dose 1,000 mls @ ud .ROUTE .STK-MED ONE Sodium Chloride 1,000 mls @ 999 mls/hr 08/01/18 05:25 08/01/18 05:56 Sodium Chloride 0.9% 1000 Ml IV 08/01/18 06:25 999 mls/hr .Q1H1M STA Administration Sodium Chloride Confirm 08/01/18 05:37 Sodium Chloride 0.9% 1000 Ml Administered 08/01/18 05:38 Dose 1,000 mls @ ud .ROUTE .STK-MED ONE Sodium Chloride Confirm 08/01/18 05:59 Sodium Chloride 0.9% 500 Ml Administered 08/01/18 06:00 Dose 500 mls @ ud IV .STK-MED ONE Sodium Chloride Confirm 08/01/18 06:18 Sodium Chloride 0.9% 100 Ml Ivpb Administered 08/01/18 06:19 Dose 100 mls @ ud IV .STK-MED ONE Sodium Chloride Confirm 08/01/18 06:29 Sodium Chloride 0.9% 1000 Ml Administered 08/01/18 06:30 Dose 1,000 mls @ ud .ROUTE .STK-MED ONE Insulin Human Regular Confirm 08/01/18 06:17 Novolin R Administered 08/01/18 06:18 Dose 1 unit .ROUTE .STK-MED ONE Ondansetron HCl 4 mg 08/01/18 05:17 08/01/18 05:25 Zofran 4 Mg/2 Ml Vial IV 08/01/18 05:18 4 mg STAT ONE Administration Ondansetron HCl Confirm 08/01/18 05:24 Zofran 4 Mg/2 Ml Vial Administered 08/01/18 05:25 Dose 4 mg .ROUTE .STK-MED ONE Pantoprazole Sodium Confirm 08/01/18 05:37 Protonix 40 Mg Iv Administered 08/01/18 05:38 Dose 40 mg IV .STK-MED ONE Pantoprazole Sodium Confirm 08/01/18 05:59 Protonix 40 Mg Iv Administered 08/01/18 06:00 Dose 40 mg IV .STK-MED ONE Lab/Rad Data: Laboratory Result Diagrams 08/01/18 05:30 08/01/18 05:30 Laboratory Results 08/01/18 08/01/18 08/01/18 Range/Units 05:30 05:30 05:30 WBC (4.0-10.5) K/mm3 RBC (4.1-5.6) M/mm3 Hgb (12.5-18.0) gm/dl Hct (42-50) % MCV (78-100) fl MCH (26-32) pg MCHC (32-36) g/dl RDW (11.5-14.0) % Plt Count (150-450) K/mm3 MPV (6-9.5) fl Gran % (36.0-66.0) % Eos # (Auto) (0-0.5) Absolute Lymphs (auto) (1.0-4.6) Absolute Monos (auto) (0.0-1.3) Lymphocytes % (24.0-44.0) % Monocytes % (0.0-12.0) % Eosinophils % (0.00-5.0) % Basophils % (0.0-0.4) % Absolute Granulocytes (1.4-6.9) Basophils # (0-0.4) pO2/FiO2 Ratio % VBG pH (7.32-7.42) VBG pCO2 at Pat Temp (42-55) mm/Hg VBG pO2 at Pat Temp (25-40) mm/Hg VBG HCO3 (22-28) meq/L VBG O2 Sat ([facility]) (95-100) VBG Base Excess (-2.0-2.0) VBG Hemoglobin VBG Carboxyhemoglobin (0.0-6.9) % T HGB POC Potassium (3.5-5.1) Sodium 138 (137-145) mmol/L Potassium 5.1 (3.5-5.1) mmol/L Chloride 100 (98-107) mmol/L Carbon Dioxide 6 L* (22-30) mmol/L Anion Gap 36.4 H (5-15) MEQ/L BUN 18 (9-20) mg/dL Creatinine 1.13 (0.66-1.25) mg/dL Estimated GFR > 60.0 ML/MIN Glucose 393 H (74-106) mg/dL Lactic Acid (0.4-2.0) Calcium 10.0 (8.4-10.2) mg/dL Phosphorus 5.4 H (2.5-4.5) mg/dL Magnesium 1.9 (1.6-2.3) mg/dL Total Bilirubin 0.50 (0.2-1.3) mg/dL AST 22 (17-59) U/L ALT 27 (0-50) U/L Alkaline Phosphatase 263 H (38-126) U/L Serum Total Protein 9.1 H (6.3-8.2) g/dL Albumin 5.7 H (3.5-5.0) g/dL Amylase 54 (30-110) U/L Urine Color YELLOW (YELLOW) Urine Appearance CLEAR (CLEAR) Urine pH 5.0 (5-6) Ur Specific Rankin 1.024 (1.005-1.025) Urine Protein 100 (Negative) Urine Ketones MODERATE (NEGATIVE) Urine Blood NEGATIVE (0-5) Pedro/ul Urine Nitrite NEGATIVE (NEGATIVE) Urine Bilirubin NEGATIVE (NEGATIVE) Urine Urobilinogen NEGATIVE (0-1) mg/dL Ur Leukocyte Esterase NEGATIVE (NEGATIVE) Urine WBC (Auto) 0-2 (0-5) /HPF Urine RBC (Auto) NONE SEEN (0-2) /HPF U Hyaline Cast (Auto) 3-5 (0-2) /LPF U Epithel Cells (Auto) NONE SEEN (FEW) /HPF Urine Bacteria (Auto) NONE SEEN (NEGATIVE) /HPF Other Casts (Auto) NEGATIVE (NEGATIVE) /LPF Urine Mucus (Auto) SLIGHT (NEGATIVE) /HPF Urine Culture Reflexed NO (NO) Urine Glucose >=500 (NEGATIVE) mg/dL 08/01/18 08/01/18 08/01/18 Range/Units 05:30 05:25 05:17 WBC 14.0 H (4.0-10.5) K/mm3 RBC 6.15 H* (4.1-5.6) M/mm3 Hgb 18.3 H (12.5-18.0) gm/dl Hct 53.5 H (42-50) % MCV 87.0 (78-100) fl MCH 29.7 (26-32) pg MCHC 34.2 (32-36) g/dl RDW 12.1 (11.5-14.0) % Plt Count 328 (150-450) K/mm3 MPV 11.6 H (6-9.5) fl Gran % 82.8 H (36.0-66.0) % Eos # (Auto) 0.03 (0-0.5) Absolute Lymphs (auto) 1.98 (1.0-4.6) Absolute Monos (auto) 0.35 (0.0-1.3) Lymphocytes % 14.1 L (24.0-44.0) % Monocytes % 2.5 (0.0-12.0) % Eosinophils % 0.2 (0.00-5.0) % Basophils % 0.4 (0.0-0.4) % Absolute Granulocytes 11.59 H (1.4-6.9) Basophils # 0.05 (0-0.4) pO2/FiO2 Ratio 21.0 % VBG pH 7.02 L* (7.32-7.42) VBG pCO2 at Pat Temp 32 L (42-55) mm/Hg VBG pO2 at Pat Temp 42 H (25-40) mm/Hg VBG HCO3 8.3 L* (22-28) meq/L VBG O2 Sat ([facility]) 69.9 L (95-100) VBG Base Excess -21.8 L (-2.0-2.0) VBG Hemoglobin 19.0 VBG Carboxyhemoglobin 2.9 (0.0-6.9) % T HGB POC Potassium 5.2 H (3.5-5.1) Sodium (137-145) mmol/L Potassium (3.5-5.1) mmol/L Chloride (98-107) mmol/L Carbon Dioxide (22-30) mmol/L Anion Gap (5-15) MEQ/L BUN (9-20) mg/dL Creatinine (0.66-1.25) mg/dL Estimated GFR ML/MIN Glucose (74-106) mg/dL Lactic Acid 2.9 H (0.4-2.0) Calcium (8.4-10.2) mg/dL Phosphorus (2.5-4.5) mg/dL Magnesium (1.6-2.3) mg/dL Total Bilirubin (0.2-1.3) mg/dL AST (17-59) U/L ALT (0-50) U/L Alkaline Phosphatase (38-126) U/L Serum Total Protein (6.3-8.2) g/dL Albumin (3.5-5.0) g/dL Amylase (30-110) U/L Urine Color (YELLOW) Urine Appearance (CLEAR) Urine pH (5-6) Ur Specific Rankin (1.005-1.025) Urine Protein (Negative) Urine Ketones (NEGATIVE) Urine Blood (0-5) Pedro/ul Urine Nitrite (NEGATIVE) Urine Bilirubin (NEGATIVE) Urine Urobilinogen (0-1) mg/dL Ur Leukocyte Esterase (NEGATIVE) Urine WBC (Auto) (0-5) /HPF Urine RBC (Auto) (0-2) /HPF U Hyaline Cast (Auto) (0-2) /LPF U Epithel Cells (Auto) (FEW) /HPF Urine Bacteria (Auto) (NEGATIVE) /HPF Other Casts (Auto) (NEGATIVE) /LPF Urine Mucus (Auto) (NEGATIVE) /HPF Urine Culture Reflexed (NO) Urine Glucose (NEGATIVE) mg/dL - Progress Progress Note: 08/01/18 06:14 VENOUS GAS PH-7.0, BICARB 6, LACTIC ACID 2.9, SERUM GLUCOSE 393, IV FLUIDS, 2 LITERS/HR X 2, INSULIN INFUSION NOVOLIN 5 UNITS/HR Discussed with : Daniel (DISCUSSED WITH DR MCKEON AT 0615 FOR OBSERVATION) - Departure Time of Disposition: 06:50 Departure Disposition: Observation Clinical Impression: DKA (diabetic ketoacidoses), DIABETIC KETOACIDOSIS Condition: Stable Critical Care Time: No Referrals: NAVEEN MCKEON MD [Primary Care Provider] -
[2018-08-01 05:51] LABS: BASOPHIL % 0.4 % (0.0-0.4); Basophil (Absolute #) 0.05 (0-0.4); Eosinophil % 0.2 % (0.00-5.0); Eosinophil (Absolute #) 0.03 (0-0.5); Granulocyte Absolute (ANC) 11.59 (1.4-6.9); Granulocytes % 82.8 % (36.0-66.0); Hematocrit 53.5 % (42-50); Hemoglobin 18.3 gm/dl (12.5-18.0); Lymphocyte (Absolute #) 1.98 (1.0-4.6); Lymphocytes % 14.1 % (24.0-44.0); Mean Corpuscular Hgb Concent. 34.2 g/dl (32-36); Mean Platelet Volume 11.6 fl (6-9.5); Monocyte (Absolute #) 0.35 (0.0-1.3); Monocytes % 2.5 % (0.0-12.0); Platelet Count 328 K/mm3 (150-450); Red Blood Count 6.15 M/mm3 (4.1-5.6); Red Cell Distribution Width 12.1 % (11.5-14.0)
[2018-08-01 05:54] LABS: Mean Corpuscular Hemoglobin 29.7 pg (26-32)
[2018-08-01 05:55] LABS: ALBUMIN 5.7 g/dL (3.5-5.0); ALKALINE PHOSPHATASE 263 U/L (38-126); AMYLASE 54 U/L (30-110); ANION GAP 36.4 MEQ/L (5-15); BLOOD UREA NITROGEN 18 mg/dL (9-20); CHLORIDE 100 mmol/L (98-107); Creatinine 1 1.13 mg/dL (0.66-1.25); Glucose 393 mg/dL (74-106); Potassium 5.1 mmol/L (3.5-5.1); SGOT/AST 22 U/L (17-59); SGPT/ALT 27 U/L (0-50); SODIUM 138 mmol/L (137-145); Total Protein 9.1 g/dL (6.3-8.2)
[2018-08-01] MEDS ORDERED: Sodium Chloride 0.9% 500 ML 500 ML IV ONE (05:59)
[2018-08-01 06:04] LABS: Carbon Dioxide 6 mmol/L (22-30)
[2018-08-01 06:08] LABS: PHOSPHOROUS 5.4 mg/dL (2.5-4.5)
[2018-08-01 06:14] LABS: Appearance CLEAR (CLEAR); Bilirubin NEGATIVE (NEGATIVE); Blood NEGATIVE Ery/ul (0-5); Glucose >=500 mg/dL (NEGATIVE); Ketones MODERATE (NEGATIVE); Leukocyte Esterase NEGATIVE (NEGATIVE); Nitrite NEGATIVE (NEGATIVE); Protein,Urine Dip 100 (Negative); Specific Gravity 1.024 (1.005-1.025); Urobilinogen NEGATIVE mg/dL (0-1)
[2018-08-01] MEDS ORDERED: NOVOLIN R INSULIN (FOR DRIPS)** 100 UNITS in Sodium Chloride 0.9% 100 ML IVPB 100 ML IV SCH (06:15)
[2018-08-01] MEDS ORDERED: NovoLIN R ONE (06:17)
[2018-08-01] MEDS ORDERED: Sodium Chloride 0.9% 100 ML IVPB 100 ML IV ONE (06:18)
[2018-08-01] MEDS ORDERED: TYLENOL 325 MG PO PRN (06:26)
[2018-08-01] MEDS ORDERED: Zofran 4 MG/2 ML VIAL IV PRN (06:26)
--- NOTE | 2018-08-01 08:12 | PCM.HP ---
History of Present Illness - Chief Complaint Chief Complaint: DIABETIC KETOACIDOSIS History of Present Illness: is a 28 year old male with type 1 diabetes who was in his normal state of health and was compliant with his meds yesterday, in the night last night developed an acute onset of nausea, vomiting and diarrhea. He feels much better since arrival and receiving fluids, found to be in DKA as he has been multiple times in the past. - Review of Systems Constitutional: No Fever, No Chills Respiratory: No Cough, No Short Of Breath Cardiac: No Chest Pain, No Edema, No Syncope Abdominal/Gastrointestinal: Nausea, Vomiting, Diarrhea Genitourinary Symptoms: No Symptoms Musculoskeletal: No Back Pain, No Neck Pain Skin: No Rash Neurological: No Dizziness, No Focal Weakness, No Sensory Changes All Other Systems: Reviewed and Negative Medications & Allergies Home Medications: Home Medication List Insulin Aspart [NovoLOG Insulin] 15 units SQ AC 05/20/18 [History Confirmed ] Insulin Glargine,Hum.rec.anlog [Lantus Solostar] 15 units SQ DAILY #0 05/21/18 [ Rx Confirmed 05/20/18] Insulin Glargine,Hum.rec.anlog [Lantus Solostar] 25 unit SQ HS #0 05/21/18 [Rx Confirmed 05/20/18] Allergies/Adverse Reactions: Allergies Allergy/AdvReac Type Severity Reaction Status Date / Time No Known Drug Allergies Allergy Verified 01/14/18 23:16 - Past Medical History Past Medical History: Yes Neurological History: Migraines ENT History: No Pertinent History Cardiac History: No Pertinent History Respiratory History: No Pertinent History Endocrine Medical History: Diabetes Type I Musculoskelatal History: Other GI Medical History: No Pertinent History History: No Pertinent History Pyscho-Social History: No Pertinent History Male Reproductive Disorders: No Pertinent History Comment: Back surgery at age 9, DMI, 2 surgeries on L knee. - Past Surgical History Past Surgical History: No Neuro Surgical History: No Pertinent History Cardiac History: No Pertinent History Respiratory Surgery: No Pertinent History GI Surgical History: No Pertinent History Genitourinary Surgical Hx: No Pertinent History Musculskeletal Surgical Hx: Orthopedic Surgery Male Surgical History: No Pertinent History Other Surgical History: tubes in ears as , back surgery in 1999 - spondylsis, sinus surgeries X5 growth/polyps removed, left knee surgery X2 dislocation of patella, right wrist fx, left hand surgery X2 nerve graft after table saw injury - Social History Smoking Status: Former smoker Exposure to second hand smoke: Yes Alcohol: None Drug Use: none - Physical Exam Vital Signs: Vital Signs - 24 hr Pulse Resp BP Pulse Ox 08/01/18 06:36 100 08/01/18 05:50 105 H 153/96 100 08/01/18 05:18 107 H 24 153/96 100 General Appearance: no apparent distress, alert Ears, Nose, Throat Exam: normal ENT inspection, TMs normal, pharynx normal, moist mucous membranes Neck Exam: normal inspection, non-tender, supple, full range of motion Respiratory Exam: normal breath sounds, lungs clear, No respiratory distress Cardiovascular Exam: regular rate/rhythm Gastrointestinal/Abdomen Exam: soft, normal bowel sounds, No tenderness, No mass Extremity Exam: normal inspection, normal range of motion, pelvis stable Skin Exam: normal color, warm, dry, No rash Results - Labs Lab/Micro Results: Accuchecks Accucheck Value: 422 Lab Results-Last 24 Hours 08/01/18 08/01/18 08/01/18 Range/Units 05:17 05:25 05:30 WBC 14.0 H (4.0-10.5) K/mm3 RBC 6.15 H* (4.1-5.6) M/mm3 Hgb 18.3 H (12.5-18.0) gm/dl Hct 53.5 H (42-50) % MCV 87.0 (78-100) fl MCH 29.7 (26-32) pg MCHC 34.2 (32-36) g/dl RDW 12.1 (11.5-14.0) % Plt Count 328 (150-450) K/mm3 MPV 11.6 H (6-9.5) fl Gran % 82.8 H (36.0-66.0) % Eos # (Auto) 0.03 (0-0.5) Absolute Lymphs (auto) 1.98 (1.0-4.6) Absolute Monos (auto) 0.35 (0.0-1.3) Lymphocytes % 14.1 L (24.0-44.0) % Monocytes % 2.5 (0.0-12.0) % Eosinophils % 0.2 (0.00-5.0) % Basophils % 0.4 (0.0-0.4) % Absolute Granulocytes 11.59 H (1.4-6.9) Basophils # 0.05 (0-0.4) pO2/FiO2 Ratio 21.0 % VBG pH 7.02 L* (7.32-7.42) VBG pCO2 at Pat Temp 32 L (42-55) mm/Hg VBG pO2 at Pat Temp 42 H (25-40) mm/Hg VBG HCO3 8.3 L* (22-28) meq/L VBG O2 Sat ([facility]) 69.9 L (95-100) VBG Base Excess -21.8 L (-2.0-2.0) VBG Hemoglobin 19.0 VBG Carboxyhemoglobin 2.9 (0.0-6.9) % T HGB POC Potassium 5.2 H (3.5-5.1) Sodium (137-145) mmol/L Potassium (3.5-5.1) mmol/L Chloride (98-107) mmol/L Carbon Dioxide (22-30) mmol/L Anion Gap (5-15) MEQ/L BUN (9-20) mg/dL Creatinine (0.66-1.25) mg/dL Estimated GFR ML/MIN Glucose (74-106) mg/dL Lactic Acid 2.9 H (0.4-2.0) Calcium (8.4-10.2) mg/dL Phosphorus (2.5-4.5) mg/dL Magnesium (1.6-2.3) mg/dL Total Bilirubin (0.2-1.3) mg/dL AST (17-59) U/L ALT (0-50) U/L Alkaline Phosphatase (38-126) U/L Serum Total Protein (6.3-8.2) g/dL Albumin (3.5-5.0) g/dL Amylase (30-110) U/L Urine Color (YELLOW) Urine Appearance (CLEAR) Urine pH (5-6) Ur Specific [place] (1.005-1.025) Urine Protein (Negative) Urine Ketones (NEGATIVE) Urine Blood (0-5) Pedro/ul Urine Nitrite (NEGATIVE) Urine Bilirubin (NEGATIVE) Urine Urobilinogen (0-1) mg/dL Ur Leukocyte Esterase (NEGATIVE) Urine WBC (Auto) (0-5) /HPF Urine RBC (Auto) (0-2) /HPF U Hyaline Cast (Auto) (0-2) /LPF U Epithel Cells (Auto) (FEW) /HPF Urine Bacteria (Auto) (NEGATIVE) /HPF Other Casts (Auto) (NEGATIVE) /LPF Urine Mucus (Auto) (NEGATIVE) /HPF Urine Culture Reflexed (NO) Urine Glucose (NEGATIVE) mg/dL 08/01/18 08/01/18 08/01/18 Range/Units 05:30 05:30 05:30 WBC (4.0-10.5) K/mm3 RBC (4.1-5.6) M/mm3 Hgb (12.5-18.0) gm/dl Hct (42-50) % MCV (78-100) fl MCH (26-32) pg MCHC (32-36) g/dl RDW (11.5-14.0) % Plt Count (150-450) K/mm3 MPV (6-9.5) fl Gran % (36.0-66.0) % Eos # (Auto) (0-0.5) Absolute Lymphs (auto) (1.0-4.6) Absolute Monos (auto) (0.0-1.3) Lymphocytes % (24.0-44.0) % Monocytes % (0.0-12.0) % Eosinophils % (0.00-5.0) % Basophils % (0.0-0.4) % Absolute Granulocytes (1.4-6.9) Basophils # (0-0.4) pO2/FiO2 Ratio % VBG pH (7.32-7.42) VBG pCO2 at Pat Temp (42-55) mm/Hg VBG pO2 at Pat Temp (25-40) mm/Hg VBG HCO3 (22-28) meq/L VBG O2 Sat ([facility]) (95-100) VBG Base Excess (-2.0-2.0) VBG Hemoglobin VBG Carboxyhemoglobin (0.0-6.9) % T HGB POC Potassium (3.5-5.1) Sodium 138 (137-145) mmol/L Potassium 5.1 (3.5-5.1) mmol/L Chloride 100 (98-107) mmol/L Carbon Dioxide 6 L* (22-30) mmol/L Anion Gap 36.4 H (5-15) MEQ/L BUN 18 (9-20) mg/dL Creatinine 1.13 (0.66-1.25) mg/dL Estimated GFR > 60.0 ML/MIN Glucose 393 H (74-106) mg/dL Lactic Acid (0.4-2.0) Calcium 10.0 (8.4-10.2) mg/dL Phosphorus 5.4 H (2.5-4.5) mg/dL Magnesium 1.9 (1.6-2.3) mg/dL Total Bilirubin 0.50 (0.2-1.3) mg/dL AST 22 (17-59) U/L ALT 27 (0-50) U/L Alkaline Phosphatase 263 H (38-126) U/L Serum Total Protein 9.1 H (6.3-8.2) g/dL Albumin 5.7 H (3.5-5.0) g/dL Amylase 54 (30-110) U/L Urine Color YELLOW (YELLOW) Urine Appearance CLEAR (CLEAR) Urine pH 5.0 (5-6) Ur Specific [place] 1.024 (1.005-1.025) Urine Protein 100 (Negative) Urine Ketones MODERATE (NEGATIVE) Urine Blood NEGATIVE (0-5) Pedro/ul Urine Nitrite NEGATIVE (NEGATIVE) Urine Bilirubin NEGATIVE (NEGATIVE) Urine Urobilinogen NEGATIVE (0-1) mg/dL Ur Leukocyte Esterase NEGATIVE (NEGATIVE) Urine WBC (Auto) 0-2 (0-5) /HPF Urine RBC (Auto) NONE SEEN (0-2) /HPF U Hyaline Cast (Auto) 3-5 (0-2) /LPF U Epithel Cells (Auto) NONE SEEN (FEW) /HPF Urine Bacteria (Auto) NONE SEEN (NEGATIVE) /HPF Other Casts (Auto) NEGATIVE (NEGATIVE) /LPF Urine Mucus (Auto) SLIGHT (NEGATIVE) /HPF Urine Culture Reflexed NO (NO) Urine Glucose >=500 (NEGATIVE) mg/dL Accuchecks Accucheck Value: 422 Assessment/Plan (1) DKA (diabetic ketoacidoses) Current Visit: Yes Status: Acute Assessment & Plan: continue insulin drip, DKA protocol at this time with q4 hr BMP Code(s): E13.10 - OTH DIABETES MELLITUS WITH KETOACIDOSIS WITHOUT COMA (2) Nausea and vomiting Current Visit: Yes Status: Acute Code(s): R11.2 - NAUSEA WITH VOMITING, UNSPECIFIED (3) Diarrhea Current Visit: Yes Status: Acute Code(s): R19.7 - DIARRHEA, UNSPECIFIED
[2018-08-01] MEDS ORDERED: Sodium Chloride 0.9% 1000 ML 1,000 ML IV SCH (08:15)
[2018-08-01 10:29] LABS: ANION GAP 26.8 MEQ/L (5-15); BLOOD UREA NITROGEN 15 mg/dL (9-20); CHLORIDE 108 mmol/L (98-107); Calcium 8.5 mg/dL (8.4-10.2); Creatinine 1 0.79 mg/dL (0.66-1.25); Glucose 193 mg/dL (74-106); Potassium 4.6 mmol/L (3.5-5.1); SODIUM 140 mmol/L (137-145)
[2018-08-01 10:34] LABS: Carbon Dioxide 9 mmol/L (22-30)
[2018-08-01] MEDS: D5W/0.45NS W/ 20mEq KCl 1000 ML 1,000 ML IV SCH ×3 (10:36→22:40)
[2018-08-01 14:05] LABS: ANION GAP 19.2 MEQ/L (5-15); BLOOD UREA NITROGEN 12 mg/dL (9-20); CHLORIDE 107 mmol/L (98-107); Calcium 8.3 mg/dL (8.4-10.2); Creatinine 1 0.64 mg/dL (0.66-1.25); Glucose 146 mg/dL (74-106); Potassium 4.4 mmol/L (3.5-5.1); SODIUM 135 mmol/L (137-145)
[2018-08-01 14:14] LABS: Carbon Dioxide 13 mmol/L (22-30)
[2018-08-01] MEDS: MORPHINE SULFATE 4 MG INJ IV PRN (17:00)
[2018-08-01 18:16] LABS: ANION GAP 16.1 MEQ/L (5-15); BLOOD UREA NITROGEN 9 mg/dL (9-20); CHLORIDE 107 mmol/L (98-107); Calcium 8.5 mg/dL (8.4-10.2); Creatinine 1 0.53 mg/dL (0.66-1.25); Glucose 123 mg/dL (74-106); Potassium 4.1 mmol/L (3.5-5.1); SODIUM 135 mmol/L (137-145)
[2018-08-01 18:28] LABS: Carbon Dioxide 16 mmol/L (22-30)
[2018-08-01 22:16] LABS: ANION GAP 14.4 MEQ/L (5-15); BLOOD UREA NITROGEN 7 mg/dL (9-20); CHLORIDE 106 mmol/L (98-107); Calcium 8.5 mg/dL (8.4-10.2); Carbon Dioxide 18 mmol/L (22-30); Creatinine 1 0.54 mg/dL (0.66-1.25); Glucose 168 mg/dL (74-106); SODIUM 134 mmol/L (137-145)
[2018-08-01] MEDS ORDERED: Lantus Insulin SQ SCH ×2 (22:30→23:00)
[2018-08-01] MEDS ORDERED: Lantus Insulin ONE (22:36)
[2018-08-02] MEDS: MORPHINE SULFATE 4 MG INJ IV PRN (00:05)
[2018-08-02 02:33] LABS: ANION GAP 12.1 MEQ/L (5-15); BLOOD UREA NITROGEN 7 mg/dL (9-20); CHLORIDE 108 mmol/L (98-107); Calcium 8.4 mg/dL (8.4-10.2); Carbon Dioxide 19 mmol/L (22-30); Creatinine 1 0.45 mg/dL (0.66-1.25); Glucose 126 mg/dL (74-106); Potassium 3.5 mmol/L (3.5-5.1); SODIUM 136 mmol/L (137-145)
[2018-08-02] MEDS: D5W/0.45NS W/ 20mEq KCl 1000 ML 1,000 ML IV SCH (05:31)
[2018-08-02 05:44] LABS: BASOPHIL % 0.2 % (0.0-0.4); Basophil (Absolute #) 0.02 (0-0.4); Eosinophil (Absolute #) 0.16 (0-0.5); Granulocyte Absolute (ANC) 5.39 (1.4-6.9); Hemoglobin 14.4 gm/dl (12.5-18.0); Lymphocyte (Absolute #) 1.94 (1.0-4.6); Lymphocytes % 24.1 % (24.0-44.0); Mean Cell Volume 84.2 fl (78-100); Mean Corpuscular Hemoglobin 29.6 pg (26-32); Mean Corpuscular Hgb Concent. 35.1 g/dl (32-36); Mean Platelet Volume 10.7 fl (6-9.5); Monocyte (Absolute #) 0.54 (0.0-1.3); Monocytes % 6.7 % (0.0-12.0); Platelet Count 214 K/mm3 (150-450); Red Blood Count 4.87 M/mm3 (4.1-5.6); Red Cell Distribution Width 11.6 % (11.5-14.0); White Blood Count 8.1 K/mm3 (4.0-10.5)
[2018-08-02 06:01] LABS: ANION GAP 12.1 MEQ/L (5-15); BLOOD UREA NITROGEN 6 mg/dL (9-20); CHLORIDE 108 mmol/L (98-107); Calcium 8.6 mg/dL (8.4-10.2); Carbon Dioxide 19 mmol/L (22-30); Creatinine 1 0.47 mg/dL (0.66-1.25); Glucose 137 mg/dL (74-106); Potassium 3.9 mmol/L (3.5-5.1); SODIUM 136 mmol/L (137-145)
[2018-08-02] MEDS ORDERED: NovoLOG Insulin ONE (07:36)
[2018-08-02] MEDS ORDERED: Lantus Insulin ONE (07:37)
[2018-08-02] MEDS ORDERED: NovoLOG Insulin SQ SCH (08:00)
[2018-08-02] MEDS ORDERED: Lantus Insulin SQ SCH ×2 (08:00→22:00)
--- NOTE | 2018-08-02 08:03 | PCM.DS ---
Discharge Summary Date of Admission: 08/01/18 07:26 Admitting Physician: NAVEEN MCKEON Primary Care Provider: NAVEEN MCKEON Allergies Allergies No Known Drug Allergies Allergy (Verified 08/01/18 08:57) Hospital Summary - Hospital Course Hospital Course: patient arrived with acute onset of vomiting and diarrhea, found to be in DKA. has had multiple bouts of DKA. reports compliance with his insulin and sugars have been very well controlled until he became ill - Vitals & Intake/Output Vital Signs: Vital Signs Temperature 98.2 F 08/02/18 04:00 Pulse Rate 71 08/02/18 04:00 Respiratory Rate 13 08/02/18 04:00 Blood Pressure 153/76 08/02/18 04:00 O2 Sat by Pulse Oximetry 97 08/02/18 04:00 Intake & Output: Intake & Output 07/30/18 07/31/18 08/01/18 08/02/18 11:59 11:59 11:59 11:59 Intake Total 4843 4716 Balance 4843 4716 Weight 84.7 kg - Lab Result Diagrams: 08/02/18 05:25 08/02/18 05:25 Lab Results-Last 24 Hrs: Accuchecks Date 08/02/18 Date 08/02/18 Date 08/02/18 Date 08/02/18 Date 08/02/18 Date 08/02/18 Date 08/02/18 Date 08/02/18 Date 08/01/18 Date 08/01/18 Date 08/01/18 Date 08/01/18 Date 08/01/18 Date 08/01/18 Date 08/01/18 Date 08/01/18 Date 08/01/18 Date 08/01/18 Date 08/01/18 Date 08/01/18 Date 08/01/18 Date 08/01/18 Date 08/01/18 Time 07:00 Time 06:00 Time 05:00 Time 04:00 Time 03:00 Time 02:00 Time 01:00 Time 00:00 Time 23:00 Time 22:00 Time 21:00 Time 20:00 Time 19:00 Time 18:00 Time 17:00 Time 16:00 Time 13:00 Time 14:00 Time 13:15 Time 12:24 Time 11:00 Time 09:00 Time 09:00 Accucheck Value: 163 Accucheck Value: 126 Accucheck Value: 121 Accucheck Value: 135 Accucheck Value: 120 Accucheck Value: 133 Accucheck Value: 150 Accucheck Value: 158 Accucheck Value: 156 Accucheck Value: 109 Accucheck Value: 119 Accucheck Value: 135 Accucheck Value: 133 Accucheck Value: 129 Accucheck Value: 129 Accucheck Value: 128 Accucheck Value: 148 Accucheck Value: 150 Accucheck Value: 151 Accucheck Value: 173 Accucheck Value: 191 Lab Results-Last 24 Hours 08/01/18 08/01/18 08/01/18 Range/Units 07:41 09:35 13:35 WBC (4.0-10.5) K/mm3 RBC (4.1-5.6) M/mm3 Hgb (12.5-18.0) gm/dl Hct (42-50) % MCV (78-100) fl MCH (26-32) pg MCHC (32-36) g/dl RDW (11.5-14.0) % Plt Count (150-450) K/mm3 MPV (6-9.5) fl Gran % (36.0-66.0) % Eos # (Auto) (0-0.5) Absolute Lymphs (auto) (1.0-4.6) Absolute Monos (auto) (0.0-1.3) Lymphocytes % (24.0-44.0) % Monocytes % (0.0-12.0) % Eosinophils % (0.00-5.0) % Basophils % (0.0-0.4) % Absolute Granulocytes (1.4-6.9) Basophils # (0-0.4) Sodium 140 135 L (137-145) mmol/L Potassium 4.6 4.4 (3.5-5.1) mmol/L Chloride 108 H 107 (98-107) mmol/L Carbon Dioxide 9 L* 13 L* (22-30) mmol/L Anion Gap 26.8 H 19.2 H (5-15) MEQ/L BUN 15 12 (9-20) mg/dL Creatinine 0.79 0.64 L (0.66-1.25) mg/dL Estimated GFR > 60.0 > 60.0 ML/MIN Glucose 193 H 146 H (74-106) mg/dL Lactic Acid 1.3 (0.4-2.0) Calcium 8.5 8.3 L (8.4-10.2) mg/dL 08/01/18 08/01/18 08/02/18 Range/Units 17:40 21:40 01:30 WBC (4.0-10.5) K/mm3 RBC (4.1-5.6) M/mm3 Hgb (12.5-18.0) gm/dl Hct (42-50) % MCV (78-100) fl MCH (26-32) pg MCHC (32-36) g/dl RDW (11.5-14.0) % Plt Count (150-450) K/mm3 MPV (6-9.5) fl Gran % (36.0-66.0) % Eos # (Auto) (0-0.5) Absolute Lymphs (auto) (1.0-4.6) Absolute Monos (auto) (0.0-1.3) Lymphocytes % (24.0-44.0) % Monocytes % (0.0-12.0) % Eosinophils % (0.00-5.0) % Basophils % (0.0-0.4) % Absolute Granulocytes (1.4-6.9) Basophils # (0-0.4) Sodium 135 L 134 L 136 L (137-145) mmol/L Potassium 4.1 4.0 3.5 (3.5-5.1) mmol/L Chloride 107 106 108 H (98-107) mmol/L Carbon Dioxide 16 L* 18 L 19 L (22-30) mmol/L Anion Gap 16.1 H 14.4 12.1 (5-15) MEQ/L BUN 9 7 L 7 L (9-20) mg/dL Creatinine 0.53 L 0.54 L 0.45 L (0.66-1.25) mg/dL Estimated GFR > 60.0 > 60.0 > 60.0 ML/MIN Glucose 123 H 168 H 126 H (74-106) mg/dL Lactic Acid (0.4-2.0) Calcium 8.5 8.5 8.4 (8.4-10.2) mg/dL 08/02/18 08/02/18 Range/Units 05:25 05:25 WBC 8.1 (4.0-10.5) K/mm3 RBC 4.87 (4.1-5.6) M/mm3 Hgb 14.4 (12.5-18.0) gm/dl Hct 41.0 L (42-50) % MCV 84.2 (78-100) fl MCH 29.6 (26-32) pg MCHC 35.1 (32-36) g/dl RDW 11.6 (11.5-14.0) % Plt Count 214 (150-450) K/mm3 MPV 10.7 H (6-9.5) fl Gran % 67.0 H (36.0-66.0) % Eos # (Auto) 0.16 (0-0.5) Absolute Lymphs (auto) 1.94 (1.0-4.6) Absolute Monos (auto) 0.54 (0.0-1.3) Lymphocytes % 24.1 (24.0-44.0) % Monocytes % 6.7 (0.0-12.0) % Eosinophils % 2.0 (0.00-5.0) % Basophils % 0.2 (0.0-0.4) % Absolute Granulocytes 5.39 (1.4-6.9) Basophils # 0.02 (0-0.4) Sodium 136 L (137-145) mmol/L Potassium 3.9 (3.5-5.1) mmol/L Chloride 108 H (98-107) mmol/L Carbon Dioxide 19 L (22-30) mmol/L Anion Gap 12.1 (5-15) MEQ/L BUN 6 L (9-20) mg/dL Creatinine 0.47 L (0.66-1.25) mg/dL Estimated GFR > 60.0 ML/MIN Glucose 137 H (74-106) mg/dL Lactic Acid (0.4-2.0) Calcium 8.6 (8.4-10.2) mg/dL Micro Results-Entire Visit: Accuchecks Date 08/02/18 Date 08/02/18 Date 08/02/18 Date 08/02/18 Date 08/02/18 Date 08/02/18 Date 08/02/18 Date 08/02/18 Date 08/01/18 Date 08/01/18 Date 08/01/18 Date 08/01/18 Date 08/01/18 Date 08/01/18 Date 08/01/18 Date 08/01/18 Date 08/01/18 Date 08/01/18 Date 08/01/18 Date 08/01/18 Date 08/01/18 Date 08/01/18 Date 08/01/18 Time 07:00 Time 06:00 Time 05:00 Time 04:00 Time 03:00 Time 02:00 Time 01:00 Time 00:00 Time 23:00 Time 22:00 Time 21:00 Time 20:00 Time 19:00 Time 18:00 Time 17:00 Time 16:00 Time 13:00 Time 14:00 Time 13:15 Time 12:24 Time 11:00 Time 09:00 Time 09:00 Accucheck Value: 163 Accucheck Value: 126 Accucheck Value: 121 Accucheck Value: 135 Accucheck Value: 120 Accucheck Value: 133 Accucheck Value: 150 Accucheck Value: 158 Accucheck Value: 156 Accucheck Value: 109 Accucheck Value: 119 Accucheck Value: 135 Accucheck Value: 133 Accucheck Value: 129 Accucheck Value: 129 Accucheck Value: 128 Accucheck Value: 148 Accucheck Value: 150 Accucheck Value: 151 Accucheck Value: 173 Accucheck Value: 191 Discharge Exam General Appearance: no apparent distress, alert Neurologic Exam: alert, oriented x 3, cooperative, normal mood/affect, nml cerebellar function, sensation nml, No motor deficits Skin Exam: normal color, warm, dry Respiratory Exam: normal breath sounds, lungs clear, No respiratory distress Cardiovascular Exam: regular rate/rhythm, normal heart sounds Gastrointestinal/Abdomen Exam: soft, No tenderness, No mass Extremity Exam: normal inspection, normal range of motion Final Diagnosis/Problem List - Final Discharge Diagnosis/Problem (1) DKA (diabetic ketoacidoses) Current Visit: Yes Status: Acute Onset Date: ~08/01/18 (2) Nausea and vomiting Current Visit: Yes Status: Acute Onset Date: ~08/01/18 (3) Diarrhea Current Visit: Yes Status: Acute Onset Date: ~08/01/18 - Discharge Disposition: Home, Self-Care Condition: Good Prescriptions: Continue Insulin Aspart [NovoLOG Insulin] 0 units SQ AC Insulin Glargine,Hum.rec.anlog [Lantus Solostar] 15 units SQ DAILY #0 Insulin Glargine,Hum.rec.anlog [Lantus Solostar] 25 unit SQ HS #0 Follow up with: NAVEEN MCKEON MD [Primary Care Provider] - 1 Week
[2018-08-02 08:11] VITALS: O2SAT 98
[2018-08-02] MEDS: NovoLOG Insulin SQ SCH ×2 (11:50→16:40)
[2018-08-02 16:54] VITALS: BP 159/88; PULSE 102
== END 2018-08-02 17:10 | disposition home or self-care (01) | DRG 639 ==
LOC: ED 04:59 → ICU 07:26 → MED SURG 08-02 08:33
PROVIDERS: ADMIT Family Medicine; ATTEND Family Medicine
DX: E10.10 Type 1 diabetes mellitus with ketoacidosis without coma (principal); R11.2 Nausea with vomiting, unspecified; R19.7 Diarrhea, unspecified; R42 Dizziness and giddiness
CPT/HCPCS: 36000; 36415; 80048; 80053; 81001; 82150; 82805; 82962; 83605; 83735; 84100; 85025; 87040; 87086; 93005; 96360; 96361; 96365; 96372; 96374; 99285; J1815; J2270; J2405; A9270-GY

== ENCOUNTER 2018-10-01 00:06 | Observation (INO) | payer OTHER ==
[2018-10-01] MEDS ORDERED: Sodium Chloride 0.9% 1000 ML 1,000 ML IV STA ×2 (00:20→00:22)
[2018-10-01] MEDS ORDERED: Zofran 4 MG/2 ML VIAL IV ONE (00:27)
[2018-10-01] MEDS ORDERED: Zofran 4 MG/2 ML VIAL ONE (00:31)
[2018-10-01] MEDS ORDERED: Sodium Chloride 0.9% 1000 ML 1,000 ML ONE ×2 (00:31→01:33)
--- NOTE | 2018-10-01 00:32 | ERPHSYRPT ---
- History of Present Illness Time Seen by Provider: 10/01/18 00:27 Source: patient Exam Limitations: no limitations Patient Subjective Stated Complaint: pt states he has been vomiting today and has had increased blood sugars. states this is how he has felt when he has had dka in the past Triage Nursing Assessment: pt alert and oriented, answers questions approp. pt ambulatory with steady gait noted. respirations nonlabored with lungs cta. abd soft and nontender to light palpation. skin pink warm and dry. Physician History: 28-year-old white male with history of diabetes type 1 arrives with complaint of vomiting since 11:00 this evening he states his blood sugars were elevated at 364 he states he has not had any fevers. He states he has some abdominal pain in the upper abdomen secondary to vomiting. Patient states she's felt similar to today with diabetic ketoacidosis. Past medical history includes migraines, diabetes type 1, back surgery at 9 years old, past surgical history :2 surgeries on his left knee he's had myringotomy and tubes as an he's had sinus surgeries 5 secondary to nasal polyps he's had a right wrist fracture and left hand surgery nerve graft secondary to table saw injury Social history patient denies tobacco alcohol or illicit drug use. Timing/Duration: today (11:00 this evening) Severity: moderate Modifying Factors: Improves With: other (blood sugars are elevated) Associated Symptoms: nausea, vomiting, abdominal pain (pain in the upper abdomen from vomiting), No shortness of breath, No heartburn, No diaphoresis, No cough, No chills, No chest pain, No fever, No headaches, No loss of appetite , No malaise, No rash, No syncope, No seizure, No weakness (He hasn't been out of the ) Allergies/Adverse Reactions: No Known Drug Allergies Allergy (Verified 10/01/18 00:25) Home Medications: Insulin Aspart [NovoLOG Insulin] 0 units SQ AC 05/20/18 [History] Hx Tetanus, Diphtheria Vaccination/Date Given: Yes Hx Influenza Vaccination/Date Given: No Hx Pneumococcal Vaccination/Date Given: No Immunizations Up to Date: Yes - Review of Systems Constitutional: No Fever, No Chills Eyes: No Symptoms Ears, Nose, & Throat: No Symptoms Respiratory: No Cough, No Dyspnea Cardiac: No Chest Pain, No Edema, No Syncope Abdominal/Gastrointestinal: Abdominal Pain, Nausea, Vomiting, No Diarrhea, No Constipation, No Hematemesis, No Hematochezia, No Melena, No Dysphagia, No Appetite Changes Genitourinary Symptoms: No Dysuria Musculoskeletal: No Back Pain, No Neck Pain Skin: No Rash Neurological: No Dizziness, No Focal Weakness, No Sensory Changes Psychological: No Symptoms Endocrine: Other (blood sugars are elevated) All Other Systems: Reviewed and Negative - Past Medical History Pertinent Past Medical History: Yes Neurological History: Migraines ENT History: No Pertinent History Cardiac History: No Pertinent History Respiratory History: No Pertinent History Endocrine Medical History: Diabetes Type I Musculoskeletal History: Other GI Medical History: No Pertinent History History: No Pertinent History Psycho-Social History: No Pertinent History Male Reproductive Disorders: No Pertinent History Other Medical History: dm I dx in 2017, DKA, IBS - Past Surgical History Past Surgical History: No Neuro Surgical History: No Pertinent History Cardiac: No Pertinent History Respiratory: No Pertinent History Gastrointestinal: No Pertinent History Genitourinary: No Pertinent History Musculoskeletal: Orthopedic Surgery Male Surgical History: No Pertinent History Other Surgical History: tubes in ears as infant, back surgery in 1999 - spondylsis, sinus surgeries X5 growth/polyps removed, left knee surgery X2 dislocation of patella, right wrist fx with surgery, left hand surgery X2 nerve graft after table saw injury - Social History Smoking Status: Former smoker Exposure to second hand smoke: Yes Drug Use: none Patient Lives Alone: No - Nursing Vital Signs Nursing Vital Signs: Initial Vital Signs Temperature 98.7 F 10/01/18 00:15 Pulse Rate 113 H 10/01/18 00:15 Respiratory Rate 18 10/01/18 00:15 Blood Pressure 158/101 10/01/18 00:15 O2 Sat by Pulse Oximetry 97 10/01/18 00:15 Pain Scale Pain Intensity 3 - Physical Exam General Appearance: mild distress, other (well-developed well-nourished white male, pale in appearance) Eye Exam: PERRL/EOMI ( we'll probably put in th), eyes nml inspection Ears, Nose, Throat Exam: normal ENT inspection, TMs normal, pharynx normal, moist mucous membranes Neck Exam: normal inspection, non-tender, supple, full range of motion Respiratory Exam: normal breath sounds, lungs clear, No respiratory distress Cardiovascular Exam: regular rate/rhythm, normal heart sounds, normal peripheral pulses Gastrointestinal/Abdomen Exam: soft, normal bowel sounds, No tenderness, No mass Back Exam: normal inspection, normal range of motion, No CVA tenderness, No vertebral tenderness Extremity Exam: normal inspection, normal range of motion, pelvis stable Neurologic Exam: alert, oriented x 3, cooperative, picture framer II-XII nml as tested ( Electrolytes), normal mood/affect, nml cerebellar function, nml station & gait, sensation nml, No motor deficits Skin Exam: warm, dry, pale, No rash, No petechiae, No jaundice, No abrasion, No cyanosis, No diaphoresis, No decubitus, No embolic lesions, No ecchymosis, No jaundice, No laceration, No mottled SpO2 Interpretation: normal (97%) SpO2: 97 - Course Nursing assessment & vital signs reviewed: Yes EKG Interpreted by Me: RATE (101 bpm), Sinus Tach, NORMAL AXIS, Other (EKG: Sinus tachycardia 101 bpm normal axis no acute ST or T wave changes essentially normal EKG) Ordered Tests: Active Orders 24 hr Category Date Time Status Accucheck STAT Care 10/01/18 00:20 Active Accucheck STAT Care 10/01/18 02:25 Active EKG-ER Only STAT Care 10/01/18 00:32 Active IV Insertion STAT Care 10/01/18 00:20 Active AMYLASE Stat Lab 10/01/18 00:30 Completed CBC W DIFF Stat Lab 10/01/18 00:30 Completed CMP Stat Lab 10/01/18 00:30 Completed LIPASE Stat Lab 10/01/18 00:30 Completed UA W/RFX UR CULTURE Stat Lab 10/01/18 02:12 Completed VENOUS BLOOD GAS Urgent Lab 10/01/18 00:43 Completed Medication Summary Generic Name Dose Route Start Last Admin Trade Name Freq PRN Reason Stop Dose Admin Insulin Aspart 7 unit 10/01/18 02:51 Novolog Insulin SQ 10/01/18 02:52 STAT ONE Discontinued Medications Generic Name Dose Route Start Last Admin Trade Name Freq PRN Reason Stop Dose Admin Sodium Chloride 1,000 mls @ 999 mls/hr 10/01/18 00:20 10/01/18 00:33 Sodium Chloride 0.9% 1000 Ml IV 10/01/18 01:20 999 mls/hr .Q1H1M STA Administration Sodium Chloride 1,000 mls @ 999 mls/hr 10/01/18 00:22 10/01/18 01:35 Sodium Chloride 0.9% 1000 Ml IV 10/01/18 01:22 999 mls/hr .Q1H1M STA Administration Sodium Chloride Confirm 10/01/18 00:31 Sodium Chloride 0.9% 1000 Ml Administered 10/01/18 00:32 Dose 1,000 mls @ ud .ROUTE .STK-MED ONE Sodium Chloride Confirm 10/01/18 01:33 Sodium Chloride 0.9% 1000 Ml Administered 10/01/18 01:34 Dose 1,000 mls @ ud .ROUTE .STK-MED ONE Ondansetron HCl 4 mg 10/01/18 00:27 10/01/18 00:33 Zofran 4 Mg/2 Ml Vial IV 10/01/18 00:28 4 mg STAT ONE Administration Ondansetron HCl Confirm 10/01/18 00:31 Zofran 4 Mg/2 Ml Vial Administered 10/01/18 00:32 Dose 4 mg .ROUTE .STK-MED ONE Lab/Rad Data: Laboratory Result Diagrams 10/01/18 00:30 10/01/18 00:30 Laboratory Results 10/01/18 10/01/18 10/01/18 Range/Units 02:12 00:43 00:30 WBC (4.0-10.5) K/mm3 RBC (4.1-5.6) M/mm3 Hgb (12.5-18.0) gm/dl Hct (42-50) % MCV (78-100) fl MCH (26-32) pg MCHC (32-36) g/dl RDW (11.5-14.0) % Plt Count (150-450) K/mm3 MPV (6-9.5) fl Gran % (36.0-66.0) % Eos # (Auto) (0-0.5) Absolute Lymphs (auto) (1.0-4.6) Absolute Monos (auto) (0.0-1.3) Lymphocytes % (24.0-44.0) % Monocytes % (0.0-12.0) % Eosinophils % (0.00-5.0) % Basophils % (0.0-0.4) % Absolute Granulocytes (1.4-6.9) Basophils # (0-0.4) pO2/FiO2 Ratio 21.0 % VBG pH 7.38 (7.32-7.42) VBG pCO2 at Pat Temp 53 (42-55) mm/Hg VBG pO2 at Pat Temp 32 (25-40) mm/Hg VBG HCO3 31.4 H* (22-28) meq/L VBG O2 Sat ([facility]) 67.5 L (95-100) VBG Base Excess 4.5 H (-2.0-2.0) VBG Hemoglobin 17.5 VBG Carboxyhemoglobin 2.6 (0.0-6.9) % T HGB POC Potassium 4.1 (3.5-5.1) Sodium (137-145) mmol/L Potassium (3.5-5.1) mmol/L Chloride (98-107) mmol/L Carbon Dioxide (22-30) mmol/L Anion Gap (5-15) MEQ/L BUN (9-20) mg/dL Creatinine (0.66-1.25) mg/dL Estimated GFR ML/MIN Glucose (74-106) mg/dL Calcium (8.4-10.2) mg/dL Total Bilirubin (0.2-1.3) mg/dL AST (17-59) U/L ALT (0-50) U/L Alkaline Phosphatase (38-126) U/L Serum Total Protein (6.3-8.2) g/dL Albumin (3.5-5.0) g/dL Amylase 40 (30-110) U/L Lipase 158 (23-300) U/L Urine Color YELLOW (YELLOW) Urine Appearance CLEAR (CLEAR) Urine pH 5.0 (5-6) Ur Specific [place] 1.040 (1.005-1.025) Urine Protein NEGATIVE (Negative) Urine Ketones MODERATE (NEGATIVE) Urine Blood NEGATIVE (0-5) Pedro/ul Urine Nitrite NEGATIVE (NEGATIVE) Urine Bilirubin NEGATIVE (NEGATIVE) Urine Urobilinogen NEGATIVE (0-1) mg/dL Ur Leukocyte Esterase NEGATIVE (NEGATIVE) Urine WBC (Auto) NONE (0-5) /HPF Urine RBC (Auto) NONE (0-2) /HPF U Epithel Cells (Auto) NONE (FEW) /HPF Urine Bacteria (Auto) NONE (NEGATIVE) /HPF Urine Mucus (Auto) SLIGHT (NEGATIVE) /HPF Urine Culture Reflexed NO (NO) Urine Glucose >=500 (NEGATIVE) mg/dL 10/01/18 10/01/18 Range/Units 00:30 00:30 WBC 9.1 (4.0-10.5) K/mm3 RBC 5.75 H (4.1-5.6) M/mm3 Hgb 17.1 (12.5-18.0) gm/dl Hct 47.7 (42-50) % MCV 83.0 (78-100) fl MCH 29.7 (26-32) pg MCHC 35.8 (32-36) g/dl RDW 12.5 (11.5-14.0) % Plt Count 207 (150-450) K/mm3 MPV 11.5 H (6-9.5) fl Gran % 80.9 H (36.0-66.0) % Eos # (Auto) 0.06 (0-0.5) Absolute Lymphs (auto) 1.18 (1.0-4.6) Absolute Monos (auto) 0.48 (0.0-1.3) Lymphocytes % 13.0 L (24.0-44.0) % Monocytes % 5.3 (0.0-12.0) % Eosinophils % 0.7 (0.00-5.0) % Basophils % 0.1 (0.0-0.4) % Absolute Granulocytes 7.32 H (1.4-6.9) Basophils # 0.01 (0-0.4) pO2/FiO2 Ratio % VBG pH (7.32-7.42) VBG pCO2 at Pat Temp (42-55) mm/Hg VBG pO2 at Pat Temp (25-40) mm/Hg VBG HCO3 (22-28) meq/L VBG O2 Sat ([facility]) (95-100) VBG Base Excess (-2.0-2.0) VBG Hemoglobin VBG Carboxyhemoglobin (0.0-6.9) % T HGB POC Potassium (3.5-5.1) Sodium 136 L (137-145) mmol/L Potassium 4.1 (3.5-5.1) mmol/L Chloride 93 L (98-107) mmol/L Carbon Dioxide 29 (22-30) mmol/L Anion Gap 18.1 H (5-15) MEQ/L BUN 19 (9-20) mg/dL Creatinine 0.63 L (0.66-1.25) mg/dL Estimated GFR > 60.0 ML/MIN Glucose 386 H (74-106) mg/dL Calcium 9.5 (8.4-10.2) mg/dL Total Bilirubin 1.00 (0.2-1.3) mg/dL AST 25 (17-59) U/L ALT 25 (0-50) U/L Alkaline Phosphatase 300 H (38-126) U/L Serum Total Protein 7.8 (6.3-8.2) g/dL Albumin 4.8 (3.5-5.0) g/dL Amylase (30-110) U/L Lipase (23-300) U/L Urine Color (YELLOW) Urine Appearance (CLEAR) Urine pH (5-6) Ur Specific [place] (1.005-1.025) Urine Protein (Negative) Urine Ketones (NEGATIVE) Urine Blood (0-5) Pedro/ul Urine Nitrite (NEGATIVE) Urine Bilirubin (NEGATIVE) Urine Urobilinogen (0-1) mg/dL Ur Leukocyte Esterase (NEGATIVE) Urine WBC (Auto) (0-5) /HPF Urine RBC (Auto) (0-2) /HPF U Epithel Cells (Auto) (FEW) /HPF Urine Bacteria (Auto) (NEGATIVE) /HPF Urine Mucus (Auto) (NEGATIVE) /HPF Urine Culture Reflexed (NO) Urine Glucose (NEGATIVE) mg/dL - Progress Progress: improved Progress Note: 10/01/18 02:53 28-year-old white male arrives with complaint of nausea and vomiting symptoms since 11:00 last night. Patient with blood sugar of 365 at home. Accu-Chek 380 here in the emergency room. Patient with a pH of 7.38 PCO2 of 53 on arrival for venous blood gases Chemistry shows a sodium of 136 potassium 4.1 chloride 93 bicarbonate 29 BUN 19 creatinine 0.63 glucose 386. CBC White blood cell 9.1 hemoglobin 17.1 hematocrit 47.7 platelets 207. Urine shows specific gravity of 1.040 pH 5.0 greater than 500 glucose moderate amount of ketones (this is obtained after patient received 2 L of normal saline) I've discussed patient's case with Dr. Mckeon. Will keep patient on IV normal saline. Will give patient 7 units of NovoLog subcutaneously. Obtain every 4 hour Accu-Cheks. Place patient on clear liquids Zofran for nausea and vomiting. - Departure Time of Disposition: 02:55 Departure Disposition: Observation Clinical Impression: Diabetic ketoacidosis Qualifiers: Diabetes mellitus type: type 1 Diabetes mellitus complication detail: without coma Qualified Code(s): E10.10 - Type 1 diabetes mellitus with ketoacidosis without coma Condition: Fair Critical Care Time: No Referrals: NAVEEN MCKEON MD [Primary Care Provider] -
[2018-10-01 00:40] LABS: BASOPHIL % 0.1 % (0.0-0.4); Basophil (Absolute #) 0.01 (0-0.4); Eosinophil % 0.7 % (0.00-5.0); Eosinophil (Absolute #) 0.06 (0-0.5); Granulocyte Absolute (ANC) 7.32 (1.4-6.9); Granulocytes % 80.9 % (36.0-66.0); Hematocrit 47.7 % (42-50); Hemoglobin 17.1 gm/dl (12.5-18.0); Lymphocyte (Absolute #) 1.18 (1.0-4.6); Mean Corpuscular Hemoglobin 29.7 pg (26-32); Mean Corpuscular Hgb Concent. 35.8 g/dl (32-36); Mean Platelet Volume 11.5 fl (6-9.5); Monocyte (Absolute #) 0.48 (0.0-1.3); Monocytes % 5.3 % (0.0-12.0); Platelet Count 207 K/mm3 (150-450); Red Blood Count 5.75 M/mm3 (4.1-5.6); Red Cell Distribution Width 12.5 % (11.5-14.0); White Blood Count 9.1 K/mm3 (4.0-10.5)
[2018-10-01 00:48] LABS: VBG BASE EXCESS 4.5 (-2.0-2.0); VBG CARBOXYHEMOGLOBIN 2.6 % T HGB (0.0-6.9); VBG HCO3- 31.4 meq/L (22-28); VBG HEMOGLOBIN 17.5; VBG O2 SATURATION 67.5 (95-100); VBG POTASSIUM 4.1 (3.5-5.1); VBG pH 7.38 (7.32-7.42)
[2018-10-01 00:58] LABS: ALBUMIN 4.8 g/dL (3.5-5.0); ALKALINE PHOSPHATASE 300 U/L (38-126); AMYLASE 40 U/L (30-110); ANION GAP 18.1 MEQ/L (5-15); BLOOD UREA NITROGEN 19 mg/dL (9-20); CHLORIDE 93 mmol/L (98-107); Calcium 9.5 mg/dL (8.4-10.2); Carbon Dioxide 29 mmol/L (22-30); Creatinine 1 0.63 mg/dL (0.66-1.25); Glucose 386 mg/dL (74-106); LIPASE 158 U/L (23-300); Potassium 4.1 mmol/L (3.5-5.1); SGOT/AST 25 U/L (17-59); SGPT/ALT 25 U/L (0-50); SODIUM 136 mmol/L (137-145); Total Protein 7.8 g/dL (6.3-8.2)
[2018-10-01 02:38] LABS: Appearance CLEAR (CLEAR); Bilirubin NEGATIVE (NEGATIVE); Blood NEGATIVE Ery/ul (0-5); Glucose >=500 mg/dL (NEGATIVE); Ketones MODERATE (NEGATIVE); Leukocyte Esterase NEGATIVE (NEGATIVE); Nitrite NEGATIVE (NEGATIVE); Protein,Urine Dip NEGATIVE (Negative); Urobilinogen NEGATIVE mg/dL (0-1)
[2018-10-01] MEDS ORDERED: NovoLOG Insulin SQ ONE (02:51)
[2018-10-01] MEDS ORDERED: NovoLOG Insulin ONE (02:54)
[2018-10-01] MEDS ORDERED: Sodium Chloride 0.9% 1000 ML 1,000 ML IV SCH (03:37)
[2018-10-01] MEDS ORDERED: NovoLOG Insulin SQ PRN (03:37)
[2018-10-01] MEDS ORDERED: Zofran 4 MG/2 ML VIAL IV PRN (03:37)
[2018-10-01 06:02] LABS: BASOPHIL % 0.2 % (0.0-0.4); Basophil (Absolute #) 0.01 (0-0.4); Eosinophil % 1.1 % (0.00-5.0); Eosinophil (Absolute #) 0.07 (0-0.5); Granulocyte Absolute (ANC) 5.48 (1.4-6.9); Granulocytes % 86.5 % (36.0-66.0); Hematocrit 43.7 % (42-50); Hemoglobin 15.2 gm/dl (12.5-18.0); Lymphocytes % 7.9 % (24.0-44.0); Mean Cell Volume 84.2 fl (78-100); Mean Corpuscular Hemoglobin 29.3 pg (26-32); Mean Corpuscular Hgb Concent. 34.8 g/dl (32-36); Mean Platelet Volume 10.8 fl (6-9.5); Monocyte (Absolute #) 0.27 (0.0-1.3); Monocytes % 4.3 % (0.0-12.0); Platelet Count 160 K/mm3 (150-450); Red Blood Count 5.19 M/mm3 (4.1-5.6); Red Cell Distribution Width 12.5 % (11.5-14.0); White Blood Count 6.3 K/mm3 (4.0-10.5)
[2018-10-01 06:23] LABS: ANION GAP 12.9 MEQ/L (5-15); BLOOD UREA NITROGEN 17 mg/dL (9-20); CHLORIDE 99 mmol/L (98-107); Calcium 8.5 mg/dL (8.4-10.2); Carbon Dioxide 28 mmol/L (22-30); Creatinine 1 0.48 mg/dL (0.66-1.25); Glucose 220 mg/dL (74-106); Potassium 4.3 mmol/L (3.5-5.1); SODIUM 136 mmol/L (137-145)
[2018-10-01 07:19] VITALS: O2SAT 98
[2018-10-01 07:21] VITALS: BP 136/80; PULSE 80
[2018-10-01 08:13] LABS: Slide Review 1 YES
--- NOTE | 2018-10-01 09:16 | PCM.SSS ---
History of Present Illness - Chief Complaint Chief Complaint: Diabetic ketoacidosis, vomiting History of Present Illness: is a 28 year old male with a history of type 1 diabetes who presented to the ER last night with acute onset of vomiting, he felt as though he were going in to DKA as he has multiple times in the past so came in quickly after the vomiting started. His anion gap is normal this morning, he is tolerating liquids and vomiting has resolved. he has no obvious source of infection, has insulin at home. - Review of Systems Constitutional: No Fever, No Chills Respiratory: No Cough, No Short Of Breath Cardiac: No Chest Pain, No Edema, No Syncope Abdominal/Gastrointestinal: Nausea, Vomiting, No Abdominal Pain, No Diarrhea Genitourinary Symptoms: No Dysuria Skin: No Rash All Other Systems: Reviewed and Negative Medications & Allergies Home Medications: Home Medication List Insulin Aspart [NovoLOG Insulin] 10 units SQ AC 05/20/18 [History Confirmed ] Insulin Glargine,Hum.rec.anlog [Lantus Solostar] 15 units SQ DAILY #0 05/21/18 [ Rx Confirmed 10/01/18] Insulin Glargine,Hum.rec.anlog [Lantus Solostar] 25 unit SQ HS #0 05/21/18 [Rx Confirmed 10/01/18] Allergies/Adverse Reactions: Allergies Allergy/AdvReac Type Severity Reaction Status Date / Time No Known Drug Allergies Allergy Verified 10/01/18 00:25 - Past Medical History Past Medical History: Yes Neurological History: Migraines ENT History: No Pertinent History Cardiac History: No Pertinent History Respiratory History: No Pertinent History Endocrine Medical History: Diabetes Type I Musculoskelatal History: Other GI Medical History: No Pertinent History History: No Pertinent History Pyscho-Social History: No Pertinent History Male Reproductive Disorders: No Pertinent History Comment: dm I dx in 2017, DKA, IBS - Past Surgical History Past Surgical History: No Neuro Surgical History: No Pertinent History Cardiac History: No Pertinent History Respiratory Surgery: No Pertinent History GI Surgical History: No Pertinent History Genitourinary Surgical Hx: No Pertinent History Musculskeletal Surgical Hx: Orthopedic Surgery Male Surgical History: No Pertinent History Other Surgical History: tubes in ears as , back surgery in 1999 - spondylsis, sinus surgeries X5 growth/polyps removed, left knee surgery X2 dislocation of patella, right wrist fx with surgery, left hand surgery X2 nerve graft after table saw injury - Social History Smoking Status: Former smoker Exposure to second hand smoke: Yes Alcohol: None Drug Use: none - Physical Exam Vital Signs: Vital Signs - 24 hr Temp Pulse Resp BP Pulse Ox 10/01/18 08:25 98 10/01/18 07:18 98 F 80 20 136/80 98 10/01/18 04:00 97 10/01/18 03:56 98.6 F 73 16 134/83 97 10/01/18 02:59 103 H 18 154/95 98 10/01/18 02:56 97 10/01/18 02:27 98 H 18 141/87 97 10/01/18 01:30 98 H 18 126/76 97 10/01/18 00:15 98.7 F 113 H 18 158/101 97 General Appearance: no apparent distress, alert Neurologic Exam: alert, oriented x 3, cooperative, normal mood/affect, nml cerebellar function, nml station & gait, sensation nml, No motor deficits Eye Exam: PERRL/EOMI, eyes nml inspection Respiratory Exam: normal breath sounds, lungs clear, No respiratory distress Cardiovascular Exam: regular rate/rhythm, normal heart sounds, normal peripheral pulses Gastrointestinal/Abdomen Exam: soft, normal bowel sounds, No tenderness, No mass Extremity Exam: normal inspection, normal range of motion, pelvis stable Skin Exam: normal color, warm, dry, No rash Results - Labs Lab/Micro Results: Accuchecks Accucheck Value: 220 Accucheck Value: 308 Accucheck Value: 376 Lab Results-Last 24 Hours 10/01/18 10/01/18 10/01/18 Range/Units 00:30 00:30 00:30 WBC 9.1 (4.0-10.5) K/mm3 RBC 5.75 H (4.1-5.6) M/mm3 Hgb 17.1 (12.5-18.0) gm/dl Hct 47.7 (42-50) % MCV 83.0 (78-100) fl MCH 29.7 (26-32) pg MCHC 35.8 (32-36) g/dl RDW 12.5 (11.5-14.0) % Plt Count 207 (150-450) K/mm3 MPV 11.5 H (6-9.5) fl Gran % 80.9 H (36.0-66.0) % Eos # (Auto) 0.06 (0-0.5) Absolute Lymphs (auto) 1.18 (1.0-4.6) Absolute Monos (auto) 0.48 (0.0-1.3) Lymphocytes % 13.0 L (24.0-44.0) % Monocytes % 5.3 (0.0-12.0) % Eosinophils % 0.7 (0.00-5.0) % Basophils % 0.1 (0.0-0.4) % Absolute Granulocytes 7.32 H (1.4-6.9) Basophils # 0.01 (0-0.4) pO2/FiO2 Ratio % VBG pH (7.32-7.42) VBG pCO2 at Pat Temp (42-55) mm/Hg VBG pO2 at Pat Temp (25-40) mm/Hg VBG HCO3 (22-28) meq/L VBG O2 Sat ([facility]) (95-100) VBG Base Excess (-2.0-2.0) VBG Hemoglobin VBG Carboxyhemoglobin (0.0-6.9) % T HGB POC Potassium (3.5-5.1) Sodium 136 L (137-145) mmol/L Potassium 4.1 (3.5-5.1) mmol/L Chloride 93 L (98-107) mmol/L Carbon Dioxide 29 (22-30) mmol/L Anion Gap 18.1 H (5-15) MEQ/L BUN 19 (9-20) mg/dL Creatinine 0.63 L (0.66-1.25) mg/dL Estimated GFR > 60.0 ML/MIN Glucose 386 H (74-106) mg/dL Calcium 9.5 (8.4-10.2) mg/dL Total Bilirubin 1.00 (0.2-1.3) mg/dL AST 25 (17-59) U/L ALT 25 (0-50) U/L Alkaline Phosphatase 300 H (38-126) U/L Serum Total Protein 7.8 (6.3-8.2) g/dL Albumin 4.8 (3.5-5.0) g/dL Amylase 40 (30-110) U/L Lipase 158 (23-300) U/L Urine Color (YELLOW) Urine Appearance (CLEAR) Urine pH (5-6) Ur Specific [place] (1.005-1.025) Urine Protein (Negative) Urine Ketones (NEGATIVE) Urine Blood (0-5) Pedro/ul Urine Nitrite (NEGATIVE) Urine Bilirubin (NEGATIVE) Urine Urobilinogen (0-1) mg/dL Ur Leukocyte Esterase (NEGATIVE) Urine WBC (Auto) (0-5) /HPF Urine RBC (Auto) (0-2) /HPF U Epithel Cells (Auto) (FEW) /HPF Urine Bacteria (Auto) (NEGATIVE) /HPF Urine Mucus (Auto) (NEGATIVE) /HPF Urine Culture Reflexed (NO) Urine Glucose (NEGATIVE) mg/dL Slides for Path Review 10/01/18 10/01/18 10/01/18 Range/Units 00:43 02:12 05:45 WBC 6.3 (4.0-10.5) K/mm3 RBC 5.19 (4.1-5.6) M/mm3 Hgb 15.2 (12.5-18.0) gm/dl Hct 43.7 (42-50) % MCV 84.2 (78-100) fl MCH 29.3 (26-32) pg MCHC 34.8 (32-36) g/dl RDW 12.5 (11.5-14.0) % Plt Count 160 (150-450) K/mm3 MPV 10.8 H (6-9.5) fl Gran % 86.5 H (36.0-66.0) % Eos # (Auto) 0.07 (0-0.5) Absolute Lymphs (auto) 0.50 L (1.0-4.6) Absolute Monos (auto) 0.27 (0.0-1.3) Lymphocytes % 7.9 L (24.0-44.0) % Monocytes % 4.3 (0.0-12.0) % Eosinophils % 1.1 (0.00-5.0) % Basophils % 0.2 (0.0-0.4) % Absolute Granulocytes 5.48 (1.4-6.9) Basophils # 0.01 (0-0.4) pO2/FiO2 Ratio 21.0 % VBG pH 7.38 (7.32-7.42) VBG pCO2 at Pat Temp 53 (42-55) mm/Hg VBG pO2 at Pat Temp 32 (25-40) mm/Hg VBG HCO3 31.4 H* (22-28) meq/L VBG O2 Sat ([facility]) 67.5 L (95-100) VBG Base Excess 4.5 H (-2.0-2.0) VBG Hemoglobin 17.5 VBG Carboxyhemoglobin 2.6 (0.0-6.9) % T HGB POC Potassium 4.1 (3.5-5.1) Sodium (137-145) mmol/L Potassium (3.5-5.1) mmol/L Chloride (98-107) mmol/L Carbon Dioxide (22-30) mmol/L Anion Gap (5-15) MEQ/L BUN (9-20) mg/dL Creatinine (0.66-1.25) mg/dL Estimated GFR ML/MIN Glucose (74-106) mg/dL Calcium (8.4-10.2) mg/dL Total Bilirubin (0.2-1.3) mg/dL AST (17-59) U/L ALT (0-50) U/L Alkaline Phosphatase (38-126) U/L Serum Total Protein (6.3-8.2) g/dL Albumin (3.5-5.0) g/dL Amylase (30-110) U/L Lipase (23-300) U/L Urine Color YELLOW (YELLOW) Urine Appearance CLEAR (CLEAR) Urine pH 5.0 (5-6) Ur Specific [place] 1.040 (1.005-1.025) Urine Protein NEGATIVE (Negative) Urine Ketones MODERATE (NEGATIVE) Urine Blood NEGATIVE (0-5) Pedro/ul Urine Nitrite NEGATIVE (NEGATIVE) Urine Bilirubin NEGATIVE (NEGATIVE) Urine Urobilinogen NEGATIVE (0-1) mg/dL Ur Leukocyte Esterase NEGATIVE (NEGATIVE) Urine WBC (Auto) NONE (0-5) /HPF Urine RBC (Auto) NONE (0-2) /HPF U Epithel Cells (Auto) NONE (FEW) /HPF Urine Bacteria (Auto) NONE (NEGATIVE) /HPF Urine Mucus (Auto) SLIGHT (NEGATIVE) /HPF Urine Culture Reflexed NO (NO) Urine Glucose >=500 (NEGATIVE) mg/dL Slides for Path Review YES 10/01/18 Range/Units 05:45 WBC (4.0-10.5) K/mm3 RBC (4.1-5.6) M/mm3 Hgb (12.5-18.0) gm/dl Hct (42-50) % MCV (78-100) fl MCH (26-32) pg MCHC (32-36) g/dl RDW (11.5-14.0) % Plt Count (150-450) K/mm3 MPV (6-9.5) fl Gran % (36.0-66.0) % Eos # (Auto) (0-0.5) Absolute Lymphs (auto) (1.0-4.6) Absolute Monos (auto) (0.0-1.3) Lymphocytes % (24.0-44.0) % Monocytes % (0.0-12.0) % Eosinophils % (0.00-5.0) % Basophils % (0.0-0.4) % Absolute Granulocytes (1.4-6.9) Basophils # (0-0.4) pO2/FiO2 Ratio % VBG pH (7.32-7.42) VBG pCO2 at Pat Temp (42-55) mm/Hg VBG pO2 at Pat Temp (25-40) mm/Hg VBG HCO3 (22-28) meq/L VBG O2 Sat ([facility]) (95-100) VBG Base Excess (-2.0-2.0) VBG Hemoglobin VBG Carboxyhemoglobin (0.0-6.9) % T HGB POC Potassium (3.5-5.1) Sodium 136 L (137-145) mmol/L Potassium 4.3 (3.5-5.1) mmol/L Chloride 99 (98-107) mmol/L Carbon Dioxide 28 (22-30) mmol/L Anion Gap 12.9 (5-15) MEQ/L BUN 17 (9-20) mg/dL Creatinine 0.48 L (0.66-1.25) mg/dL Estimated GFR > 60.0 ML/MIN Glucose 220 H (74-106) mg/dL Calcium 8.5 (8.4-10.2) mg/dL Total Bilirubin (0.2-1.3) mg/dL AST (17-59) U/L ALT (0-50) U/L Alkaline Phosphatase (38-126) U/L Serum Total Protein (6.3-8.2) g/dL Albumin (3.5-5.0) g/dL Amylase (30-110) U/L Lipase (23-300) U/L Urine Color (YELLOW) Urine Appearance (CLEAR) Urine pH (5-6) Ur Specific [place] (1.005-1.025) Urine Protein (Negative) Urine Ketones (NEGATIVE) Urine Blood (0-5) Pedro/ul Urine Nitrite (NEGATIVE) Urine Bilirubin (NEGATIVE) Urine Urobilinogen (0-1) mg/dL Ur Leukocyte Esterase (NEGATIVE) Urine WBC (Auto) (0-5) /HPF Urine RBC (Auto) (0-2) /HPF U Epithel Cells (Auto) (FEW) /HPF Urine Bacteria (Auto) (NEGATIVE) /HPF Urine Mucus (Auto) (NEGATIVE) /HPF Urine Culture Reflexed (NO) Urine Glucose (NEGATIVE) mg/dL Slides for Path Review Accuchecks Accucheck Value: 220 Accucheck Value: 308 Accucheck Value: 376 Assessment/Plan (1) DKA (diabetic ketoacidoses) Current Visit: Yes Status: Acute Onset Date: ~08/01/18 Qualifiers: Diabetes mellitus type: type 1 Diabetes mellitus complication detail: without coma Qualified Code(s): E10.10 - Type 1 diabetes mellitus with ketoacidosis without coma Assessment & Plan: seems to have been caught early in the process and reversed before anion gap acidosis occurred, d/c to home today Code(s): E13.10 - OTH DIABETES MELLITUS WITH KETOACIDOSIS WITHOUT COMA (2) Nausea and vomiting Current Visit: No Status: Acute Onset Date: ~08/01/18 Assessment & Plan: resolved Code(s): R11.2 - NAUSEA WITH VOMITING, UNSPECIFIED Hospital Summary - Vitals & Intake/Output Vital Signs: Vital Signs Temperature 98 F 10/01/18 07:18 Pulse Rate 80 10/01/18 07:18 Respiratory Rate 20 10/01/18 07:18 Blood Pressure 136/80 10/01/18 07:18 O2 Sat by Pulse Oximetry 98 10/01/18 08:25 Intake & Output: Intake & Output 09/28/18 09/29/18 09/30/18 10/01/18 11:59 11:59 11:59 11:59 Intake Total 100 Output Total 850 Balance -750 Weight 79.6 kg - Lab Result Diagrams: 10/01/18 05:45 10/01/18 05:45 Lab Results-Last 24 Hrs: Accuchecks Accucheck Value: 220 Accucheck Value: 308 Accucheck Value: 376 Lab Results-Last 24 Hours 10/01/18 10/01/18 10/01/18 Range/Units 00:30 00:30 00:30 WBC 9.1 (4.0-10.5) K/mm3 RBC 5.75 H (4.1-5.6) M/mm3 Hgb 17.1 (12.5-18.0) gm/dl Hct 47.7 (42-50) % MCV 83.0 (78-100) fl MCH 29.7 (26-32) pg MCHC 35.8 (32-36) g/dl RDW 12.5 (11.5-14.0) % Plt Count 207 (150-450) K/mm3 MPV 11.5 H (6-9.5) fl Gran % 80.9 H (36.0-66.0) % Eos # (Auto) 0.06 (0-0.5) Absolute Lymphs (auto) 1.18 (1.0-4.6) Absolute Monos (auto) 0.48 (0.0-1.3) Lymphocytes % 13.0 L (24.0-44.0) % Monocytes % 5.3 (0.0-12.0) % Eosinophils % 0.7 (0.00-5.0) % Basophils % 0.1 (0.0-0.4) % Absolute Granulocytes 7.32 H (1.4-6.9) Basophils # 0.01 (0-0.4) pO2/FiO2 Ratio % VBG pH (7.32-7.42) VBG pCO2 at Pat Temp (42-55) mm/Hg VBG pO2 at Pat Temp (25-40) mm/Hg VBG HCO3 (22-28) meq/L VBG O2 Sat ([facility]) (95-100) VBG Base Excess (-2.0-2.0) VBG Hemoglobin VBG Carboxyhemoglobin (0.0-6.9) % T HGB POC Potassium (3.5-5.1) Sodium 136 L (137-145) mmol/L Potassium 4.1 (3.5-5.1) mmol/L Chloride 93 L (98-107) mmol/L Carbon Dioxide 29 (22-30) mmol/L Anion Gap 18.1 H (5-15) MEQ/L BUN 19 (9-20) mg/dL Creatinine 0.63 L (0.66-1.25) mg/dL Estimated GFR > 60.0 ML/MIN Glucose 386 H (74-106) mg/dL Calcium 9.5 (8.4-10.2) mg/dL Total Bilirubin 1.00 (0.2-1.3) mg/dL AST 25 (17-59) U/L ALT 25 (0-50) U/L Alkaline Phosphatase 300 H (38-126) U/L Serum Total Protein 7.8 (6.3-8.2) g/dL Albumin 4.8 (3.5-5.0) g/dL Amylase 40 (30-110) U/L Lipase 158 (23-300) U/L Urine Color (YELLOW) Urine Appearance (CLEAR) Urine pH (5-6) Ur Specific [place] (1.005-1.025) Urine Protein (Negative) Urine Ketones (NEGATIVE) Urine Blood (0-5) Pedro/ul Urine Nitrite (NEGATIVE) Urine Bilirubin (NEGATIVE) Urine Urobilinogen (0-1) mg/dL Ur Leukocyte Esterase (NEGATIVE) Urine WBC (Auto) (0-5) /HPF Urine RBC (Auto) (0-2) /HPF U Epithel Cells (Auto) (FEW) /HPF Urine Bacteria (Auto) (NEGATIVE) /HPF Urine Mucus (Auto) (NEGATIVE) /HPF Urine Culture Reflexed (NO) Urine Glucose (NEGATIVE) mg/dL Slides for Path Review 10/01/18 10/01/18 10/01/18 Range/Units 00:43 02:12 05:45 WBC 6.3 (4.0-10.5) K/mm3 RBC 5.19 (4.1-5.6) M/mm3 Hgb 15.2 (12.5-18.0) gm/dl Hct 43.7 (42-50) % MCV 84.2 (78-100) fl MCH 29.3 (26-32) pg MCHC 34.8 (32-36) g/dl RDW 12.5 (11.5-14.0) % Plt Count 160 (150-450) K/mm3 MPV 10.8 H (6-9.5) fl Gran % 86.5 H (36.0-66.0) % Eos # (Auto) 0.07 (0-0.5) Absolute Lymphs (auto) 0.50 L (1.0-4.6) Absolute Monos (auto) 0.27 (0.0-1.3) Lymphocytes % 7.9 L (24.0-44.0) % Monocytes % 4.3 (0.0-12.0) % Eosinophils % 1.1 (0.00-5.0) % Basophils % 0.2 (0.0-0.4) % Absolute Granulocytes 5.48 (1.4-6.9) Basophils # 0.01 (0-0.4) pO2/FiO2 Ratio 21.0 % VBG pH 7.38 (7.32-7.42) VBG pCO2 at Pat Temp 53 (42-55) mm/Hg VBG pO2 at Pat Temp 32 (25-40) mm/Hg VBG HCO3 31.4 H* (22-28) meq/L VBG O2 Sat ([facility]) 67.5 L (95-100) VBG Base Excess 4.5 H (-2.0-2.0) VBG Hemoglobin 17.5 VBG Carboxyhemoglobin 2.6 (0.0-6.9) % T HGB POC Potassium 4.1 (3.5-5.1) Sodium (137-145) mmol/L Potassium (3.5-5.1) mmol/L Chloride (98-107) mmol/L Carbon Dioxide (22-30) mmol/L Anion Gap (5-15) MEQ/L BUN (9-20) mg/dL Creatinine (0.66-1.25) mg/dL Estimated GFR ML/MIN Glucose (74-106) mg/dL Calcium (8.4-10.2) mg/dL Total Bilirubin (0.2-1.3) mg/dL AST (17-59) U/L ALT (0-50) U/L Alkaline Phosphatase (38-126) U/L Serum Total Protein (6.3-8.2) g/dL Albumin (3.5-5.0) g/dL Amylase (30-110) U/L Lipase (23-300) U/L Urine Color YELLOW (YELLOW) Urine Appearance CLEAR (CLEAR) Urine pH 5.0 (5-6) Ur Specific [place] 1.040 (1.005-1.025) Urine Protein NEGATIVE (Negative) Urine Ketones MODERATE (NEGATIVE) Urine Blood NEGATIVE (0-5) Pedro/ul Urine Nitrite NEGATIVE (NEGATIVE) Urine Bilirubin NEGATIVE (NEGATIVE) Urine Urobilinogen NEGATIVE (0-1) mg/dL Ur Leukocyte Esterase NEGATIVE (NEGATIVE) Urine WBC (Auto) NONE (0-5) /HPF Urine RBC (Auto) NONE (0-2) /HPF U Epithel Cells (Auto) NONE (FEW) /HPF Urine Bacteria (Auto) NONE (NEGATIVE) /HPF Urine Mucus (Auto) SLIGHT (NEGATIVE) /HPF Urine Culture Reflexed NO (NO) Urine Glucose >=500 (NEGATIVE) mg/dL Slides for Path Review YES 10/01/18 Range/Units 05:45 WBC (4.0-10.5) K/mm3 RBC (4.1-5.6) M/mm3 Hgb (12.5-18.0) gm/dl Hct (42-50) % MCV (78-100) fl MCH (26-32) pg MCHC (32-36) g/dl RDW (11.5-14.0) % Plt Count (150-450) K/mm3 MPV (6-9.5) fl Gran % (36.0-66.0) % Eos # (Auto) (0-0.5) Absolute Lymphs (auto) (1.0-4.6) Absolute Monos (auto) (0.0-1.3) Lymphocytes % (24.0-44.0) % Monocytes % (0.0-12.0) % Eosinophils % (0.00-5.0) % Basophils % (0.0-0.4) % Absolute Granulocytes (1.4-6.9) Basophils # (0-0.4) pO2/FiO2 Ratio % VBG pH (7.32-7.42) VBG pCO2 at Pat Temp (42-55) mm/Hg VBG pO2 at Pat Temp (25-40) mm/Hg VBG HCO3 (22-28) meq/L VBG O2 Sat ([facility]) (95-100) VBG Base Excess (-2.0-2.0) VBG Hemoglobin VBG Carboxyhemoglobin (0.0-6.9) % T HGB POC Potassium (3.5-5.1) Sodium 136 L (137-145) mmol/L Potassium 4.3 (3.5-5.1) mmol/L Chloride 99 (98-107) mmol/L Carbon Dioxide 28 (22-30) mmol/L Anion Gap 12.9 (5-15) MEQ/L BUN 17 (9-20) mg/dL Creatinine 0.48 L (0.66-1.25) mg/dL Estimated GFR > 60.0 ML/MIN Glucose 220 H (74-106) mg/dL Calcium 8.5 (8.4-10.2) mg/dL Total Bilirubin (0.2-1.3) mg/dL AST (17-59) U/L ALT (0-50) U/L Alkaline Phosphatase (38-126) U/L Serum Total Protein (6.3-8.2) g/dL Albumin (3.5-5.0) g/dL Amylase (30-110) U/L Lipase (23-300) U/L Urine Color (YELLOW) Urine Appearance (CLEAR) Urine pH (5-6) Ur Specific [place] (1.005-1.025) Urine Protein (Negative) Urine Ketones (NEGATIVE) Urine Blood (0-5) Pedro/ul Urine Nitrite (NEGATIVE) Urine Bilirubin (NEGATIVE) Urine Urobilinogen (0-1) mg/dL Ur Leukocyte Esterase (NEGATIVE) Urine WBC (Auto) (0-5) /HPF Urine RBC (Auto) (0-2) /HPF U Epithel Cells (Auto) (FEW) /HPF Urine Bacteria (Auto) (NEGATIVE) /HPF Urine Mucus (Auto) (NEGATIVE) /HPF Urine Culture Reflexed (NO) Urine Glucose (NEGATIVE) mg/dL Slides for Path Review Micro Results-Entire Visit: Accuchecks Accucheck Value: 220 Accucheck Value: 308 Accucheck Value: 376 - Discharge Disposition: Home, Self-Care Condition: Good Prescriptions: Continue Insulin Aspart [NovoLOG Insulin] 10 units SQ AC Insulin Glargine,Hum.rec.anlog [Lantus Solostar] 15 units SQ DAILY #0 Insulin Glargine,Hum.rec.anlog [Lantus Solostar] 25 unit SQ HS #0 Follow up with: NAVEEN MCKEON MD [Primary Care Provider] - 1 Week
[2018-10-01] MEDS ORDERED: Lantus Insulin SQ SCH ×2 (10:00→22:00)
[2018-10-01] MEDS ORDERED: INSULIN GLARGINE HUM REC ANLOG 15 UNIT SQ SCH (10:00)
[2018-10-01] MEDS ORDERED: NovoLOG Insulin SQ SCH (11:30)
[2018-10-01] MEDS ORDERED: INSULIN GLARGINE HUM REC ANLOG 25 UNIT SQ SCH ×2 (22:00)
== END 2018-10-01 10:25 | disposition home or self-care (01) ==
LOC: ED 00:06 → MED SURG 03:29
PROVIDERS: ADMIT Family Medicine; ATTEND Family Medicine
DX: E10.10 Type 1 diabetes mellitus with ketoacidosis without coma (principal); Z79.4 Long term (current) use of insulin; R11.2 Nausea with vomiting, unspecified
CPT/HCPCS: 36000; 36415; 80048; 80053; 81001; 82150; 82805; 82962; 83036; 83690; 85025; 93005; 93268; 94760; 96365; 96372; 96374; 99285; G0378; 96360; 96361; J2405; A9270-GY

== ENCOUNTER 2019-03-08 08:46 | Observation (INO) | payer SELFPAY ==
--- NOTE | 2019-03-08 09:29 | ERPHSYRPT ---
- History of Present Illness Time Seen by Provider: 03/08/19 09:29 Source: patient Exam Limitations: no limitations Physician History: 28 y/o diabetic white male with h/o dka in the past presents with intermittent vomiting since last pm. pt did not feel any better this am and vomited water he drank so he came into ED. pt denies soa, denies cp and denies abd pain. pt denies diarrhea. Timing/Duration: yesterday, intermittent, worse Severity: mild Associated Symptoms: nausea, vomiting, No abdominal pain, No shortness of breath , No chest pain, No weakness Allergies/Adverse Reactions: No Known Drug Allergies Allergy (Verified 03/08/19 09:36) Home Medications: Insulin Aspart [NovoLOG Insulin] 10 units SQ AC 05/20/18 [History] Hx Tetanus, Diphtheria Vaccination/Date Given: Yes Hx Influenza Vaccination/Date Given: No Hx Pneumococcal Vaccination/Date Given: No - Review of Systems Constitutional: No Symptoms Eyes: No Symptoms Ears, Nose, & Throat: No Symptoms Respiratory: No Symptoms, No Dyspnea Cardiac: No Symptoms, No Chest Pain Abdominal/Gastrointestinal: Nausea, Vomiting, No Abdominal Pain, No Diarrhea Genitourinary Symptoms: No Symptoms Musculoskeletal: No Symptoms Skin: No Symptoms Neurological: No Symptoms Psychological: No Symptoms Endocrine: No Symptoms Hematologic/Lymphatic: No Symptoms Immunological/Allergic: No Symptoms All Other Systems: Reviewed and Negative - Past Medical History Pertinent Past Medical History: Yes Neurological History: Migraines ENT History: No Pertinent History Cardiac History: No Pertinent History Respiratory History: No Pertinent History Endocrine Medical History: Diabetes Type I Musculoskeletal History: Other GI Medical History: No Pertinent History History: No Pertinent History Psycho-Social History: No Pertinent History Male Reproductive Disorders: No Pertinent History Other Medical History: dm I dx in 2017, DKA, IBS - Past Surgical History Past Surgical History: No Neuro Surgical History: No Pertinent History Cardiac: No Pertinent History Respiratory: No Pertinent History Gastrointestinal: No Pertinent History Genitourinary: No Pertinent History Musculoskeletal: Orthopedic Surgery Male Surgical History: No Pertinent History Other Surgical History: tubes in ears as , back surgery in 1999 - spondylsis, sinus surgeries X5 growth/polyps removed, left knee surgery X2 dislocation of patella, right wrist fx with surgery, left hand surgery X2 nerve graft after table saw injury - Social History Smoking Status: Former smoker Exposure to second hand smoke: Yes Drug Use: none Patient Lives Alone: No - Nursing Vital Signs Nursing Vital Signs: Initial Vital Signs Temperature 97.5 F 03/08/19 09:23 Pulse Rate 99 H 03/08/19 09:23 Blood Pressure 145/101 03/08/19 09:23 O2 Sat by Pulse Oximetry 98 03/08/19 09:23 Pain Scale Pain Intensity 0 - Physical Exam General Appearance: no apparent distress, alert Eye Exam: PERRL/EOMI Ears, Nose, Throat Exam: normal ENT inspection, moist mucous membranes Neck Exam: normal inspection, non-tender, supple, full range of motion Respiratory Exam: normal breath sounds, lungs clear, airway intact, No chest tenderness, No respiratory distress Cardiovascular Exam: regular rate/rhythm, normal heart sounds, normal peripheral pulses Gastrointestinal/Abdomen Exam: soft, normal bowel sounds, No tenderness, No guarding, No rebound Rectal Exam: not done Back Exam: normal inspection, normal range of motion, No CVA tenderness, No vertebral tenderness Extremity Exam: normal inspection, normal range of motion, pelvis stable Neurologic Exam: alert, oriented x 3, cooperative, 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 Skin Exam: normal color, warm, dry Lymphatic Exam: No adenopathy SpO2 Interpretation: normal O2 Delivery: Room Air Ordered Tests: Active Orders 24 hr Category Date Time Status Chicken Hanger STAT Care 03/08/19 09:49 Active IV Insertion STAT Care 03/08/19 09:48 Active Pulse Oximetry (ED) STAT Care 03/08/19 09:48 Active AMYLASE Stat Lab 03/08/19 09:58 Completed CBC W DIFF Stat Lab 03/08/19 09:58 Completed CMP Stat Lab 03/08/19 09:58 Completed LIPASE Stat Lab 03/08/19 09:58 Completed UA W/RFX UR CULTURE Stat Lab 03/08/19 10:23 Completed Transfer Order Routine Transfer 03/08/19 Ordered Medication Summary Generic Name Dose Route Start Last Admin Trade Name Freq PRN Reason Stop Dose Admin Sodium Chloride 1,000 mls @ 999 mls/hr 03/08/19 11:26 03/08/19 11:27 Sodium Chloride 0.9% 1000 Ml IV 03/08/19 12:26 999 mls/hr .Q1H1M STA Administration Discontinued Medications Generic Name Dose Route Start Last Admin Trade Name Freq PRN Reason Stop Dose Admin Sodium Chloride 1,000 mls @ 999 mls/hr 03/08/19 09:48 03/08/19 11:12 Sodium Chloride 0.9% 1000 Ml IV 03/08/19 10:48 Infused .Q1H1M STA Infusion Sodium Chloride Confirm 03/08/19 09:52 Sodium Chloride 0.9% 1000 Ml Administered 03/08/19 09:53 Dose 1,000 mls @ ud .ROUTE .STK-MED ONE Sodium Chloride Confirm 03/08/19 11:20 Sodium Chloride 0.9% 1000 Ml Administered 03/08/19 11:21 Dose 1,000 mls @ ud .ROUTE .STK-MED ONE Insulin Human Regular 5 unit 03/08/19 11:28 03/08/19 11:41 Novolin R IV 03/08/19 11:29 5 unit STAT ONE Administration Insulin Human Regular Confirm 03/08/19 11:34 Novolin R Administered 03/08/19 11:35 Dose 5 unit .ROUTE .STK-MED ONE Ondansetron HCl 4 mg 03/08/19 09:48 03/08/19 09:56 Zofran 4 Mg/2 Ml Vial IV 03/08/19 09:49 4 mg STAT ONE Administration Ondansetron HCl Confirm 03/08/19 09:52 Zofran 4 Mg/2 Ml Vial Administered 03/08/19 09:53 Dose 4 mg .ROUTE .STK-MED ONE Lab/Rad Data: Laboratory Result Diagrams 03/08/19 09:58 03/08/19 09:58 Laboratory Results 03/08/19 03/08/19 03/08/19 Range/Units 10:23 09:58 09:58 WBC (4.0-10.5) K/mm3 RBC (4.1-5.6) M/mm3 Hgb (12.5-18.0) gm/dl Hct (42-50) % MCV (78-100) fl MCH (26-32) pg MCHC (32-36) g/dl RDW (11.5-14.0) % Plt Count (150-450) K/mm3 MPV (6-9.5) fl Gran % (36.0-66.0) % Eos # (Auto) (0-0.5) Absolute Lymphs (auto) (1.0-4.6) Absolute Monos (auto) (0.0-1.3) Lymphocytes % (24.0-44.0) % Monocytes % (0.0-12.0) % Eosinophils % (0.00-5.0) % Basophils % (0.0-0.4) % Absolute Granulocytes (1.4-6.9) Basophils # (0-0.4) Sodium 136 L (137-145) mmol/L Potassium 4.7 (3.5-5.1) mmol/L Chloride 97 L (98-107) mmol/L Carbon Dioxide 10 L* (22-30) mmol/L Anion Gap 34.6 H (5-15) MEQ/L BUN 13 (9-20) mg/dL Creatinine 0.81 (0.66-1.25) mg/dL Estimated GFR > 60.0 ML/MIN Glucose 389 H (74-106) mg/dL Calcium 9.4 (8.4-10.2) mg/dL Total Bilirubin 0.90 (0.2-1.3) mg/dL AST 29 (17-59) U/L ALT 32 (0-50) U/L Alkaline Phosphatase 216 H (38-126) U/L Serum Total Protein 8.2 (6.3-8.2) g/dL Albumin 5.0 (3.5-5.0) g/dL Amylase 38 (30-110) U/L Lipase 105 (23-300) U/L Urine Color STRAW (YELLOW) Urine Appearance CLEAR (CLEAR) Urine pH 5.0 (5-6) Ur Specific [place] 1.025 (1.005-1.025) Urine Protein NEGATIVE (Negative) Urine Ketones MODERATE (NEGATIVE) Urine Blood NEGATIVE (0-5) Pedro/ul Urine Nitrite NEGATIVE (NEGATIVE) Urine Bilirubin NEGATIVE (NEGATIVE) Urine Urobilinogen NEGATIVE (0-1) mg/dL Ur Leukocyte Esterase NEGATIVE (NEGATIVE) Urine WBC (Auto) NONE (0-5) /HPF Urine RBC (Auto) NONE (0-2) /HPF U Epithel Cells (Auto) NONE (FEW) /HPF Urine Bacteria (Auto) NONE (NEGATIVE) /HPF Urine Mucus (Auto) SLIGHT (NEGATIVE) /HPF Urine Culture Reflexed NO (NO) Urine Glucose >=500 (NEGATIVE) mg/dL 03/08/19 Range/Units 09:58 WBC 6.7 (4.0-10.5) K/mm3 RBC 5.51 (4.1-5.6) M/mm3 Hgb 17.2 (12.5-18.0) gm/dl Hct 48.8 (42-50) % MCV 88.6 (78-100) fl MCH 31.2 (26-32) pg MCHC 35.2 (32-36) g/dl RDW 12.1 (11.5-14.0) % Plt Count 212 (150-450) K/mm3 MPV 11.5 H (6-9.5) fl Gran % 68.3 H (36.0-66.0) % Eos # (Auto) 0.08 (0-0.5) Absolute Lymphs (auto) 1.67 (1.0-4.6) Absolute Monos (auto) 0.35 (0.0-1.3) Lymphocytes % 25.0 (24.0-44.0) % Monocytes % 5.2 (0.0-12.0) % Eosinophils % 1.2 (0.00-5.0) % Basophils % 0.3 (0.0-0.4) % Absolute Granulocytes 4.56 (1.4-6.9) Basophils # 0.02 (0-0.4) Sodium (137-145) mmol/L Potassium (3.5-5.1) mmol/L Chloride (98-107) mmol/L Carbon Dioxide (22-30) mmol/L Anion Gap (5-15) MEQ/L BUN (9-20) mg/dL Creatinine (0.66-1.25) mg/dL Estimated GFR ML/MIN Glucose (74-106) mg/dL Calcium (8.4-10.2) mg/dL Total Bilirubin (0.2-1.3) mg/dL AST (17-59) U/L ALT (0-50) U/L Alkaline Phosphatase (38-126) U/L Serum Total Protein (6.3-8.2) g/dL Albumin (3.5-5.0) g/dL Amylase (30-110) U/L Lipase (23-300) U/L Urine Color (YELLOW) Urine Appearance (CLEAR) Urine pH (5-6) Ur Specific [place] (1.005-1.025) Urine Protein (Negative) Urine Ketones (NEGATIVE) Urine Blood (0-5) Pedro/ul Urine Nitrite (NEGATIVE) Urine Bilirubin (NEGATIVE) Urine Urobilinogen (0-1) mg/dL Ur Leukocyte Esterase (NEGATIVE) Urine WBC (Auto) (0-5) /HPF Urine RBC (Auto) (0-2) /HPF U Epithel Cells (Auto) (FEW) /HPF Urine Bacteria (Auto) (NEGATIVE) /HPF Urine Mucus (Auto) (NEGATIVE) /HPF Urine Culture Reflexed (NO) Urine Glucose (NEGATIVE) mg/dL - Progress Progress: improved, re-examined Progress Note: 03/08/19 12:[address] pettit, pts pcp. i reviewed pts hx, condition, lab results. will follow written dka orders. Counseled pt/family regarding: lab results, diagnosis, need for follow-up - Departure Departure Disposition: Observation Clinical Impression: DKA (diabetic ketoacidoses) Condition: Stable Critical Care Time: Yes Critical Care Time(excluding separately billable procedures): 30-74 minutes Referrals: NAVEEN PETTIT MD [Primary Care Provider] -
[2019-03-08] MEDS ORDERED: Sodium Chloride 0.9% 1000 ML 1,000 ML IV STA ×4 (09:48→12:31)
[2019-03-08] MEDS ORDERED: Zofran 4 MG/2 ML VIAL IV ONE (09:48)
[2019-03-08] MEDS ORDERED: Sodium Chloride 0.9% 1000 ML 1,000 ML ONE ×3 (09:52→12:33)
[2019-03-08] MEDS ORDERED: Zofran 4 MG/2 ML VIAL ONE (09:52)
[2019-03-08 10:07] LABS: BASOPHIL % 0.3 % (0.0-0.4); Basophil (Absolute #) 0.02 (0-0.4); Eosinophil % 1.2 % (0.00-5.0); Eosinophil (Absolute #) 0.08 (0-0.5); Granulocyte Absolute (ANC) 4.56 (1.4-6.9); Granulocytes % 68.3 % (36.0-66.0); Hematocrit 48.8 % (42-50); Hemoglobin 17.2 gm/dl (12.5-18.0); Lymphocyte (Absolute #) 1.67 (1.0-4.6); Mean Cell Volume 88.6 fl (78-100); Mean Corpuscular Hemoglobin 31.2 pg (26-32); Mean Corpuscular Hgb Concent. 35.2 g/dl (32-36); Mean Platelet Volume 11.5 fl (6-9.5); Monocyte (Absolute #) 0.35 (0.0-1.3); Monocytes % 5.2 % (0.0-12.0); Platelet Count 212 K/mm3 (150-450); Red Blood Count 5.51 M/mm3 (4.1-5.6); Red Cell Distribution Width 12.1 % (11.5-14.0); White Blood Count 6.7 K/mm3 (4.0-10.5)
[2019-03-08 10:28] LABS: ALKALINE PHOSPHATASE 216 U/L (38-126); ANION GAP 34.6 MEQ/L (5-15); BLOOD UREA NITROGEN 13 mg/dL (9-20); CHLORIDE 97 mmol/L (98-107); Calcium 9.4 mg/dL (8.4-10.2); Creatinine 1 0.81 mg/dL (0.66-1.25); Glucose 389 mg/dL (74-106); Potassium 4.7 mmol/L (3.5-5.1); SGOT/AST 29 U/L (17-59); SGPT/ALT 32 U/L (0-50); SODIUM 136 mmol/L (137-145); Total Protein 8.2 g/dL (6.3-8.2)
[2019-03-08 10:29] LABS: AMYLASE 38 U/L (30-110); LIPASE 105 U/L (23-300)
[2019-03-08 10:29] LABS: Appearance CLEAR (CLEAR); Bilirubin NEGATIVE (NEGATIVE); Blood NEGATIVE Ery/ul (0-5); Glucose >=500 mg/dL (NEGATIVE); Ketones MODERATE (NEGATIVE); Leukocyte Esterase NEGATIVE (NEGATIVE); Mucus SLIGHT /HPF (NEGATIVE); Nitrite NEGATIVE (NEGATIVE); Protein,Urine Dip NEGATIVE (Negative); Specific Gravity 1.025 (1.005-1.025); Urobilinogen NEGATIVE mg/dL (0-1)
[2019-03-08 10:33] LABS: Carbon Dioxide 10 mmol/L (22-30)
[2019-03-08] MEDS ORDERED: NovoLIN R IV ONE (11:28)
[2019-03-08] MEDS ORDERED: NovoLIN R ONE (11:34)
[2019-03-08] MEDS ORDERED: TYLENOL 325 MG PO PRN (13:07)
[2019-03-08] MEDS ORDERED: Zofran 4 MG/2 ML VIAL IV PRN (13:07)
[2019-03-08] MEDS ORDERED: NOVOLIN R INSULIN (FOR DRIPS)** 100 UNITS in Sodium Chloride 0.9% 100 ML IVPB 100 ML IV SCH (13:30)
[2019-03-08] MEDS ORDERED: D50W 50ML Vial IV PRN (13:50)
[2019-03-08] MEDS: D5W/0.45NS W/ 20mEq KCl 1000 ML 1,000 ML IV SCH ×2 (15:02→21:54)
--- NOTE | 2019-03-08 16:29 | PCM.HP ---
History of Present Illness - Chief Complaint Chief Complaint: DKA History of Present Illness: is a 28 year old male with type 1 diabetes who states he ran out of short acting insulin 3 days ago, he became ill and started vomiting yesterday but then found he had some insulin in the refrigerator he was unaware he had picked up, unfortunately he was already ill and vomiting and felt like he has with dka in the past. he is feeling much better with hydration and on insulin drip, blood sugar is below 200 at this time and his nausea and vomiting are resolved and he is requesting food. - Review of Systems Constitutional: No Fever, No Chills Respiratory: No Cough, No Short Of Breath Cardiac: No Chest Pain, No Edema, No Syncope Abdominal/Gastrointestinal: Nausea, Vomiting, No Abdominal Pain, No Diarrhea, No Constipation Skin: No Rash Neurological: No Dizziness, No Focal Weakness, No Sensory Changes All Other Systems: Reviewed and Negative Medications & Allergies Home Medications: Home Medication List Insulin Aspart [NovoLOG Insulin] 10 units SQ AC 05/20/18 [History Confirmed ] Insulin Glargine,Hum.rec.anlog [Lantus Solostar] 15 units SQ DAILY #0 05/21/18 [ Rx Confirmed 03/08/19] Insulin Glargine,Hum.rec.anlog [Lantus Solostar] 25 unit SQ HS #0 05/21/18 [Rx Confirmed 03/08/19] Allergies/Adverse Reactions: Allergies Allergy/AdvReac Type Severity Reaction Status Date / Time No Known Drug Allergies Allergy Verified 03/08/19 09:36 - Past Medical History Past Medical History: Yes Neurological History: Migraines ENT History: No Pertinent History Cardiac History: Hypertension Respiratory History: Pneumonia Endocrine Medical History: Diabetes Type I Musculoskelatal History: Other GI Medical History: Irritable Bowel History: No Pertinent History Pyscho-Social History: No Pertinent History Male Reproductive Disorders: No Pertinent History Comment: dm I dx in 2017, DKA - Past Surgical History Past Surgical History: Yes Neuro Surgical History: No Pertinent History Cardiac History: No Pertinent History Respiratory Surgery: No Pertinent History GI Surgical History: No Pertinent History Genitourinary Surgical Hx: No Pertinent History Musculskeletal Surgical Hx: Orthopedic Surgery Male Surgical History: No Pertinent History Other Surgical History: tubes in ears as , back surgery in 1999 - spondylsis, sinus surgeries X5 growth/polyps removed, left knee surgery X2 dislocation of patella, right wrist fx with surgery, left hand surgery X2 nerve graft after table saw injury - Social History Smoking Status: Current every day smoker How long have you smoked: 13 years Exposure to second hand smoke: Yes Alcohol: Rarely Drug Use: none - Physical Exam Vital Signs: Vital Signs - 24 hr Temp Pulse Resp BP Pulse Ox 03/08/19 13:45 98.3 F 91 H 18 148/84 98 03/08/19 13:07 98 03/08/19 12:39 90 20 140/84 100 03/08/19 11:42 93 H 20 137/78 100 03/08/19 10:18 92 H 22 159/90 100 03/08/19 09:51 98 03/08/19 09:23 97.5 F 99 H 145/101 98 General Appearance: no apparent distress, alert Neurologic Exam: alert, oriented x 3, cooperative, normal mood/affect, nml cerebellar function, nml station & gait, sensation nml, No motor deficits Eye Exam: PERRL/EOMI, eyes nml inspection Respiratory Exam: normal breath sounds, lungs clear, No respiratory distress Cardiovascular Exam: regular rate/rhythm, normal heart sounds, normal peripheral pulses Gastrointestinal/Abdomen Exam: soft, normal bowel sounds, No tenderness, No mass Extremity Exam: normal inspection, normal range of motion, pelvis stable Skin Exam: normal color, warm, dry, No rash Results - Labs Lab/Micro Results: Accuchecks Accucheck Value: 364 Lab Results-Last 24 Hours 03/08/19 03/08/19 03/08/19 Range/Units 09:58 09:58 09:58 WBC 6.7 (4.0-10.5) K/mm3 RBC 5.51 (4.1-5.6) M/mm3 Hgb 17.2 (12.5-18.0) gm/dl Hct 48.8 (42-50) % MCV 88.6 (78-100) fl MCH 31.2 (26-32) pg MCHC 35.2 (32-36) g/dl RDW 12.1 (11.5-14.0) % Plt Count 212 (150-450) K/mm3 MPV 11.5 H (6-9.5) fl Gran % 68.3 H (36.0-66.0) % Eos # (Auto) 0.08 (0-0.5) Absolute Lymphs (auto) 1.67 (1.0-4.6) Absolute Monos (auto) 0.35 (0.0-1.3) Lymphocytes % 25.0 (24.0-44.0) % Monocytes % 5.2 (0.0-12.0) % Eosinophils % 1.2 (0.00-5.0) % Basophils % 0.3 (0.0-0.4) % Absolute Granulocytes 4.56 (1.4-6.9) Basophils # 0.02 (0-0.4) Sodium 136 L (137-145) mmol/L Potassium 4.7 (3.5-5.1) mmol/L Chloride 97 L (98-107) mmol/L Carbon Dioxide 10 L* (22-30) mmol/L Anion Gap 34.6 H (5-15) MEQ/L BUN 13 (9-20) mg/dL Creatinine 0.81 (0.66-1.25) mg/dL Estimated GFR > 60.0 ML/MIN Glucose 389 H (74-106) mg/dL Calcium 9.4 (8.4-10.2) mg/dL Magnesium (1.6-2.3) mg/dL Total Bilirubin 0.90 (0.2-1.3) mg/dL AST 29 (17-59) U/L ALT 32 (0-50) U/L Alkaline Phosphatase 216 H (38-126) U/L Serum Total Protein 8.2 (6.3-8.2) g/dL Albumin 5.0 (3.5-5.0) g/dL Amylase 38 (30-110) U/L Lipase 105 (23-300) U/L Urine Color (YELLOW) Urine Appearance (CLEAR) Urine pH (5-6) Ur Specific [place] (1.005-1.025) Urine Protein (Negative) Urine Ketones (NEGATIVE) Urine Blood (0-5) Pedro/ul Urine Nitrite (NEGATIVE) Urine Bilirubin (NEGATIVE) Urine Urobilinogen (0-1) mg/dL Ur Leukocyte Esterase (NEGATIVE) Urine WBC (Auto) (0-5) /HPF Urine RBC (Auto) (0-2) /HPF U Epithel Cells (Auto) (FEW) /HPF Urine Bacteria (Auto) (NEGATIVE) /HPF Urine Mucus (Auto) (NEGATIVE) /HPF Urine Culture Reflexed (NO) Urine Glucose (NEGATIVE) mg/dL 03/08/19 03/08/19 Range/Units 10:23 Unknown WBC (4.0-10.5) K/mm3 RBC (4.1-5.6) M/mm3 Hgb (12.5-18.0) gm/dl Hct (42-50) % MCV (78-100) fl MCH (26-32) pg MCHC (32-36) g/dl RDW (11.5-14.0) % Plt Count (150-450) K/mm3 MPV (6-9.5) fl Gran % (36.0-66.0) % Eos # (Auto) (0-0.5) Absolute Lymphs (auto) (1.0-4.6) Absolute Monos (auto) (0.0-1.3) Lymphocytes % (24.0-44.0) % Monocytes % (0.0-12.0) % Eosinophils % (0.00-5.0) % Basophils % (0.0-0.4) % Absolute Granulocytes (1.4-6.9) Basophils # (0-0.4) Sodium (137-145) mmol/L Potassium (3.5-5.1) mmol/L Chloride (98-107) mmol/L Carbon Dioxide (22-30) mmol/L Anion Gap (5-15) MEQ/L BUN (9-20) mg/dL Creatinine (0.66-1.25) mg/dL Estimated GFR ML/MIN Glucose (74-106) mg/dL Calcium (8.4-10.2) mg/dL Magnesium 1.9 (1.6-2.3) mg/dL Total Bilirubin (0.2-1.3) mg/dL AST (17-59) U/L ALT (0-50) U/L Alkaline Phosphatase (38-126) U/L Serum Total Protein (6.3-8.2) g/dL Albumin (3.5-5.0) g/dL Amylase (30-110) U/L Lipase (23-300) U/L Urine Color STRAW (YELLOW) Urine Appearance CLEAR (CLEAR) Urine pH 5.0 (5-6) Ur Specific [place] 1.025 (1.005-1.025) Urine Protein NEGATIVE (Negative) Urine Ketones MODERATE (NEGATIVE) Urine Blood NEGATIVE (0-5) Pedro/ul Urine Nitrite NEGATIVE (NEGATIVE) Urine Bilirubin NEGATIVE (NEGATIVE) Urine Urobilinogen NEGATIVE (0-1) mg/dL Ur Leukocyte Esterase NEGATIVE (NEGATIVE) Urine WBC (Auto) NONE (0-5) /HPF Urine RBC (Auto) NONE (0-2) /HPF U Epithel Cells (Auto) NONE (FEW) /HPF Urine Bacteria (Auto) NONE (NEGATIVE) /HPF Urine Mucus (Auto) SLIGHT (NEGATIVE) /HPF Urine Culture Reflexed NO (NO) Urine Glucose >=500 (NEGATIVE) mg/dL Accuchecks Accucheck Value: 364 - Other Procedures and Tests Respiratory Therapy 03/08/19 14:20 Smoking Cessation Education ONCE Assessment/Plan (1) DKA (diabetic ketoacidoses) Current Visit: Yes Status: Acute Onset Date: ~08/01/18 Assessment & Plan: when gap closed will resume lantus basal insulin and short acting meal coverage with sliding scale coverage and 2000 zina ada diet. likely home tomorrow if off drip, gap closed and tolerating po with reasonable blood sugars. Code(s): E13.10 - OTH DIABETES MELLITUS WITH KETOACIDOSIS WITHOUT COMA (2) Nausea and vomiting Current Visit: No Status: Acute Onset Date: ~08/01/18 Code(s): R11.2 - NAUSEA WITH VOMITING, UNSPECIFIED (3) Type 1 diabetes mellitus, uncontrolled Current Visit: No Status: Acute Code(s): E10.65 - TYPE 1 DIABETES MELLITUS WITH HYPERGLYCEMIA
[2019-03-08 18:27] LABS: ANION GAP 18.2 MEQ/L (5-15); BLOOD UREA NITROGEN 9 mg/dL (9-20); CHLORIDE 102 mmol/L (98-107); Calcium 8.3 mg/dL (8.4-10.2); Carbon Dioxide 19 mmol/L (22-30); Creatinine 1 0.61 mg/dL (0.66-1.25); Glucose 142 mg/dL (74-106); Potassium 4.5 mmol/L (3.5-5.1); SODIUM 134 mmol/L (137-145)
[2019-03-08 22:43] LABS: ANION GAP 15.6 MEQ/L (5-15); BLOOD UREA NITROGEN 7 mg/dL (9-20); CHLORIDE 104 mmol/L (98-107); Calcium 8.5 mg/dL (8.4-10.2); Carbon Dioxide 19 mmol/L (22-30); Creatinine 1 0.48 mg/dL (0.66-1.25); Glucose 86 mg/dL (74-106); Potassium 3.9 mmol/L (3.5-5.1); SODIUM 135 mmol/L (137-145)
[2019-03-09] MEDS ORDERED: Lantus Insulin ONE (00:05)
[2019-03-09] MEDS: D5W/0.45NS W/ 20mEq KCl 1000 ML 1,000 ML IV SCH (04:29)
[2019-03-09 04:31] VITALS: O2SAT 97
[2019-03-09] MEDS ORDERED: NovoLOG Insulin SQ PRN (04:40)
[2019-03-09 05:56] LABS: Hemoglobin 14.5 gm/dl (12.5-18.0); Mean Cell Volume 87.3 fl (78-100); Mean Corpuscular Hemoglobin 31.7 pg (26-32); Mean Corpuscular Hgb Concent. 36.3 g/dl (32-36); Mean Platelet Volume 10.8 fl (6-9.5); Platelet Count 175 K/mm3 (150-450); Red Blood Count 4.58 M/mm3 (4.1-5.6); Red Cell Distribution Width 11.8 % (11.5-14.0); White Blood Count 6.5 K/mm3 (4.0-10.5)
[2019-03-09] MEDS: Sodium Chloride 0.9% 1000 ML 1,000 ML IV SCH ×3 (07:26→07:28)
[2019-03-09] MEDS ORDERED: NovoLOG Insulin SQ SCH (08:00)
[2019-03-09 08:18] VITALS: BP 131/87; PULSE 86
--- NOTE | 2019-03-09 08:29 | PCM.DS ---
Discharge Summary Date of Admission: 03/08/19 13:02 Admitting Physician: NAVEEN MCKEON Primary Care Provider: NAVEEN MCKEON Allergies Allergies No Known Drug Allergies Allergy (Verified 03/08/19 09:36) Hospital Summary - Hospital Course Hospital Course: patient was admitted with DKA, thought he was out of insulin and hadn't taken any for the last 2 days. he is doing much better now and tolerating po and gap closed, off drip. he is currently without insurance so switching to novolin N and R - Vitals & Intake/Output Vital Signs: Vital Signs Temperature 98.2 F 03/09/19 08:00 Pulse Rate 86 03/09/19 08:00 Respiratory Rate 18 03/09/19 08:00 Blood Pressure 131/87 03/09/19 08:00 O2 Sat by Pulse Oximetry 97 03/09/19 08:00 Oxygen-Last Documented O2 Percentage 2 Liters = 28% Intake & Output: Intake & Output 03/06/19 03/07/19 03/08/19 03/09/19 11:59 11:59 11:59 11:59 Intake Total 4379 Output Total 1200 3100 Balance -1200 1279 Weight 83.915 kg 78.9 kg - Lab Result Diagrams: 03/09/19 05:20 03/08/19 22:29 Lab Results-Last 24 Hrs: Accuchecks Date 03/09/19 Date 03/09/19 Date 03/09/19 Date 03/08/19 Date 03/08/19 Date 03/08/19 Time 04:20 Time 04:20 Time 00:00 Time 22:00 Time 22:00 Time 20:00 Accucheck Value: 286 Accucheck Value: 251 Accucheck Value: 202 Accucheck Value: 91 Accucheck Value: 123 Accucheck Value: 138 Accucheck Value: 138 Accucheck Value: 161 Accucheck Value: 155 Accucheck Value: 195 Accucheck Value: 264 Accucheck Value: 364 Lab Results-Last 24 Hours 03/08/19 03/08/19 03/08/19 Range/Units 09:58 09:58 09:58 WBC 6.7 (4.0-10.5) K/mm3 RBC 5.51 (4.1-5.6) M/mm3 Hgb 17.2 (12.5-18.0) gm/dl Hct 48.8 (42-50) % MCV 88.6 (78-100) fl MCH 31.2 (26-32) pg MCHC 35.2 (32-36) g/dl RDW 12.1 (11.5-14.0) % Plt Count 212 (150-450) K/mm3 MPV 11.5 H (6-9.5) fl Gran % 68.3 H (36.0-66.0) % Eos # (Auto) 0.08 (0-0.5) Absolute Lymphs (auto) 1.67 (1.0-4.6) Absolute Monos (auto) 0.35 (0.0-1.3) Lymphocytes % 25.0 (24.0-44.0) % Monocytes % 5.2 (0.0-12.0) % Eosinophils % 1.2 (0.00-5.0) % Basophils % 0.3 (0.0-0.4) % Absolute Granulocytes 4.56 (1.4-6.9) Basophils # 0.02 (0-0.4) Sodium 136 L (137-145) mmol/L Potassium 4.7 (3.5-5.1) mmol/L Chloride 97 L (98-107) mmol/L Carbon Dioxide 10 L* (22-30) mmol/L Anion Gap 34.6 H (5-15) MEQ/L BUN 13 (9-20) mg/dL Creatinine 0.81 (0.66-1.25) mg/dL Estimated GFR > 60.0 ML/MIN Glucose 389 H (74-106) mg/dL Hemoglobin A1c (4.5-6.0) % Calcium 9.4 (8.4-10.2) mg/dL Magnesium (1.6-2.3) mg/dL Total Bilirubin 0.90 (0.2-1.3) mg/dL AST 29 (17-59) U/L ALT 32 (0-50) U/L Alkaline Phosphatase 216 H (38-126) U/L Serum Total Protein 8.2 (6.3-8.2) g/dL Albumin 5.0 (3.5-5.0) g/dL Amylase 38 (30-110) U/L Lipase 105 (23-300) U/L Urine Color (YELLOW) Urine Appearance (CLEAR) Urine pH (5-6) Ur Specific [place] (1.005-1.025) Urine Protein (Negative) Urine Ketones (NEGATIVE) Urine Blood (0-5) Pedro/ul Urine Nitrite (NEGATIVE) Urine Bilirubin (NEGATIVE) Urine Urobilinogen (0-1) mg/dL Ur Leukocyte Esterase (NEGATIVE) Urine WBC (Auto) (0-5) /HPF Urine RBC (Auto) (0-2) /HPF U Epithel Cells (Auto) (FEW) /HPF Urine Bacteria (Auto) (NEGATIVE) /HPF Urine Mucus (Auto) (NEGATIVE) /HPF Urine Culture Reflexed (NO) Urine Glucose (NEGATIVE) mg/dL 03/08/19 03/08/19 03/08/19 Range/Units 10:23 18:10 22:29 WBC (4.0-10.5) K/mm3 RBC (4.1-5.6) M/mm3 Hgb (12.5-18.0) gm/dl Hct (42-50) % MCV (78-100) fl MCH (26-32) pg MCHC (32-36) g/dl RDW (11.5-14.0) % Plt Count (150-450) K/mm3 MPV (6-9.5) fl Gran % (36.0-66.0) % Eos # (Auto) (0-0.5) Absolute Lymphs (auto) (1.0-4.6) Absolute Monos (auto) (0.0-1.3) Lymphocytes % (24.0-44.0) % Monocytes % (0.0-12.0) % Eosinophils % (0.00-5.0) % Basophils % (0.0-0.4) % Absolute Granulocytes (1.4-6.9) Basophils # (0-0.4) Sodium 134 L 135 L (137-145) mmol/L Potassium 4.5 3.9 (3.5-5.1) mmol/L Chloride 102 104 (98-107) mmol/L Carbon Dioxide 19 L 19 L (22-30) mmol/L Anion Gap 18.2 H 15.6 H (5-15) MEQ/L BUN 9 7 L (9-20) mg/dL Creatinine 0.61 L 0.48 L (0.66-1.25) mg/dL Estimated GFR > 60.0 > 60.0 ML/MIN Glucose 142 H 86 (74-106) mg/dL Hemoglobin A1c (4.5-6.0) % Calcium 8.3 L 8.5 (8.4-10.2) mg/dL Magnesium (1.6-2.3) mg/dL Total Bilirubin (0.2-1.3) mg/dL AST (17-59) U/L ALT (0-50) U/L Alkaline Phosphatase (38-126) U/L Serum Total Protein (6.3-8.2) g/dL Albumin (3.5-5.0) g/dL Amylase (30-110) U/L Lipase (23-300) U/L Urine Color STRAW (YELLOW) Urine Appearance CLEAR (CLEAR) Urine pH 5.0 (5-6) Ur Specific [place] 1.025 (1.005-1.025) Urine Protein NEGATIVE (Negative) Urine Ketones MODERATE (NEGATIVE) Urine Blood NEGATIVE (0-5) Pedro/ul Urine Nitrite NEGATIVE (NEGATIVE) Urine Bilirubin NEGATIVE (NEGATIVE) Urine Urobilinogen NEGATIVE (0-1) mg/dL Ur Leukocyte Esterase NEGATIVE (NEGATIVE) Urine WBC (Auto) NONE (0-5) /HPF Urine RBC (Auto) NONE (0-2) /HPF U Epithel Cells (Auto) NONE (FEW) /HPF Urine Bacteria (Auto) NONE (NEGATIVE) /HPF Urine Mucus (Auto) SLIGHT (NEGATIVE) /HPF Urine Culture Reflexed NO (NO) Urine Glucose >=500 (NEGATIVE) mg/dL 03/08/19 03/08/19 03/09/19 Range/Units Unknown Unknown 05:20 WBC 6.5 (4.0-10.5) K/mm3 RBC 4.58 (4.1-5.6) M/mm3 Hgb 14.5 (12.5-18.0) gm/dl Hct 40.0 L (42-50) % MCV 87.3 (78-100) fl MCH 31.7 (26-32) pg MCHC 36.3 H (32-36) g/dl RDW 11.8 (11.5-14.0) % Plt Count 175 (150-450) K/mm3 MPV 10.8 H (6-9.5) fl Gran % (36.0-66.0) % Eos # (Auto) (0-0.5) Absolute Lymphs (auto) (1.0-4.6) Absolute Monos (auto) (0.0-1.3) Lymphocytes % (24.0-44.0) % Monocytes % (0.0-12.0) % Eosinophils % (0.00-5.0) % Basophils % (0.0-0.4) % Absolute Granulocytes (1.4-6.9) Basophils # (0-0.4) Sodium (137-145) mmol/L Potassium (3.5-5.1) mmol/L Chloride (98-107) mmol/L Carbon Dioxide (22-30) mmol/L Anion Gap (5-15) MEQ/L BUN (9-20) mg/dL Creatinine (0.66-1.25) mg/dL Estimated GFR ML/MIN Glucose (74-106) mg/dL Hemoglobin A1c 13.13 H (4.5-6.0) % Calcium (8.4-10.2) mg/dL Magnesium 1.9 (1.6-2.3) mg/dL Total Bilirubin (0.2-1.3) mg/dL AST (17-59) U/L ALT (0-50) U/L Alkaline Phosphatase (38-126) U/L Serum Total Protein (6.3-8.2) g/dL Albumin (3.5-5.0) g/dL Amylase (30-110) U/L Lipase (23-300) U/L Urine Color (YELLOW) Urine Appearance (CLEAR) Urine pH (5-6) Ur Specific [place] (1.005-1.025) Urine Protein (Negative) Urine Ketones (NEGATIVE) Urine Blood (0-5) Pedro/ul Urine Nitrite (NEGATIVE) Urine Bilirubin (NEGATIVE) Urine Urobilinogen (0-1) mg/dL Ur Leukocyte Esterase (NEGATIVE) Urine WBC (Auto) (0-5) /HPF Urine RBC (Auto) (0-2) /HPF U Epithel Cells (Auto) (FEW) /HPF Urine Bacteria (Auto) (NEGATIVE) /HPF Urine Mucus (Auto) (NEGATIVE) /HPF Urine Culture Reflexed (NO) Urine Glucose (NEGATIVE) mg/dL Micro Results-Entire Visit: Accuchecks Date 03/09/19 Date 03/09/19 Date 03/09/19 Date 03/08/19 Date 03/08/19 Date 03/08/19 Time 04:20 Time 04:20 Time 00:00 Time 22:00 Time 22:00 Time 20:00 Accucheck Value: 286 Accucheck Value: 251 Accucheck Value: 202 Accucheck Value: 91 Accucheck Value: 123 Accucheck Value: 138 Accucheck Value: 138 Accucheck Value: 161 Accucheck Value: 155 Accucheck Value: 195 Accucheck Value: 264 Accucheck Value: 364 - Procedures and Test Procedures and Tests throughout Hospitalization: Therapy Orders & Screens 03/08/19 14:20 Smoking Cessation Education ONCE Comment: Diagnosis: DKA Smoking Status: Current every day smoker How long have you smoked: 13 years Have you smoked in the past 12 months: Yes Approximately how many cigarettes per day: 10 Do you dip or chew tobacco: No If,Former Smoker,when did you quit: december 2017 Discharge Exam General Appearance: no apparent distress, alert Eye Exam: PERRL, EOMI, eyes nml inspection Respiratory Exam: normal breath sounds, lungs clear, No respiratory distress Cardiovascular Exam: regular rate/rhythm, normal heart sounds Gastrointestinal/Abdomen Exam: soft, No tenderness, No mass Extremity Exam: normal inspection, normal range of motion Skin Exam: normal color, warm, dry Final Diagnosis/Problem List - Final Discharge Diagnosis/Problem (1) DKA (diabetic ketoacidoses) Current Visit: Yes Status: Acute Onset Date: ~08/01/18 Code(s): E13.10 - OTH DIABETES MELLITUS WITH KETOACIDOSIS WITHOUT COMA (2) Nausea and vomiting Current Visit: No Status: Acute Onset Date: ~08/01/18 Code(s): R11.2 - NAUSEA WITH VOMITING, UNSPECIFIED (3) Type 1 diabetes mellitus, uncontrolled Current Visit: No Status: Acute Code(s): E10.65 - TYPE 1 DIABETES MELLITUS WITH HYPERGLYCEMIA - Discharge Disposition: Home, Self-Care Condition: Stable Prescriptions: New NPH, Human Insulin Isophane [Novolin N] 20 unit SQ BID #10 ml Insulin Regular, Human [Novolin R] 10 unit SQ TIDAC #1 vial Discontinued Insulin Aspart [NovoLOG Insulin] 10 units SQ AC Insulin Glargine,Hum.rec.anlog [Lantus Solostar] 15 units SQ DAILY #0 Insulin Glargine,Hum.rec.anlog [Lantus Solostar] 25 unit SQ HS #0 Follow up with: NAVEEN MCKEON MD [Primary Care Provider] - 1 Week
[2019-03-09] MEDS ORDERED: Lantus Insulin SQ SCH (22:00)
== END 2019-03-09 10:10 | disposition home or self-care (01) ==
LOC: ED 08:46 → ICU 13:02
PROVIDERS: ADMIT Family Medicine; ATTEND Family Medicine
DX: E10.10 Type 1 diabetes mellitus with ketoacidosis without coma (principal); R11.2 Nausea with vomiting, unspecified; Z79.4 Long term (current) use of insulin; F17.200 Nicotine dependence, unspecified, uncomplicated
CPT/HCPCS: 36000; 36415; 80048; 80053; 81001; 82150; 82962; 83036; 83690; 83735; 85025; 85027; 93041; 93268; 96360; 96361; 96372; 96374; 96375; 99285; G0378; J1815; J2405; A9270-GY

== ENCOUNTER 2019-05-15 15:00 | Observation (INO) | payer SELFPAY ==
[2019-05-15] MEDS ORDERED: BENADRYL 50 MG/ML IV ONE (16:01)
[2019-05-15] MEDS ORDERED: Reglan 10 MG/2 ML IV ONE (16:01)
[2019-05-15] MEDS ORDERED: Sodium Chloride 0.9% 1000 ML 1,000 ML IV STA ×3 (16:01→18:36)
--- NOTE | 2019-05-15 16:06 | ERPHSYRPT ---
- History of Present Illness Time Seen by Provider: 05/15/19 15:57 Source: patient Exam Limitations: no limitations Patient Subjective Stated Complaint: Migraine x 4 days. Nausea intermittently. Vertigo intermittently. Left earache as well. Triage Nursing Assessment: alert and oriented x 3. able to voice wants and needs. skin w/d. resp even and unlabored. cooperative. holding head. squinting eyes. Physician History: 28-year-old white male arrives with complaint of headache off and on for 4 days she states she's had some vertigo. Has some left ear pain. No fevers positive nausea and vomiting. Past medical history includes migraines, high blood pressure, pneumonia, diabetes type 1, irritable bowel, diabetes ketoacidosis Past surgical history includes myringotomy tubes, back surgery, spondylosis, sinus surgery with nasal polyps removed left knee surgery patient apparently is hand surgery secondary to a table saw injury in the past Timing/Duration: day(s) (4 days) Severity: moderate Modifying Factors: Improves With: nothing Associated Symptoms: nausea, vomiting, headaches, No abdominal pain, No shortness of breath, No heartburn, No diaphoresis, No cough, No chills, No chest pain, No fever, No loss of appetite, No malaise, No rash, No syncope, No seizure, No weakness Allergies/Adverse Reactions: No Known Drug Allergies Allergy (Verified 05/15/19 15:34) Home Medications: Insulin Regular, Human [Novolin R] 1 - 8 unit SQ UD 03/09/19 [History] Hx Tetanus, Diphtheria Vaccination/Date Given: Yes Hx Influenza Vaccination/Date Given: No Hx Pneumococcal Vaccination/Date Given: No Immunizations Up to Date: Yes - Review of Systems Constitutional: No Fever, No Chills Eyes: Photophobia, No Eye Pain, No Eye Redness, No Itchy, No Tearing, No Vision Changes, No Double Vision, No Foreign Body Sensation Ears, Nose, & Throat: No Symptoms Respiratory: No Cough, No Dyspnea Cardiac: No Chest Pain, No Edema, No Syncope Abdominal/Gastrointestinal: Nausea, Vomiting, No Abdominal Pain, No Diarrhea, No Constipation, No Hematemesis, No Hematochezia, No Melena, No Dysphagia, No Appetite Changes Genitourinary Symptoms: No Dysuria Musculoskeletal: No Back Pain, No Neck Pain Skin: No Rash Neurological: Headache, Vertigo, No Dizziness, No Focal Weakness, No Gait Changes, No Lethargy, No Paralysis, No Parasthesia, No Sensory Changes, No Speech Changes, No Tics, No Tremors Psychological: No Symptoms Endocrine: No Symptoms All Other Systems: Reviewed and Negative - Past Medical History Pertinent Past Medical History: Yes Neurological History: Migraines ENT History: No Pertinent History Cardiac History: Hypertension Respiratory History: Pneumonia Endocrine Medical History: Diabetes Type I Musculoskeletal History: Other GI Medical History: Irritable Bowel History: No Pertinent History Psycho-Social History: No Pertinent History Male Reproductive Disorders: No Pertinent History Other Medical History: dm I dx in 2017, DKA - Past Surgical History Past Surgical History: Yes Neuro Surgical History: No Pertinent History Cardiac: No Pertinent History Respiratory: No Pertinent History Gastrointestinal: No Pertinent History Genitourinary: No Pertinent History Musculoskeletal: Orthopedic Surgery Male Surgical History: No Pertinent History Other Surgical History: tubes in ears as infant, back surgery in 1999 - spondylsis, sinus surgeries X5 growth/polyps removed, left knee surgery X2 dislocation of patella, right wrist fx with surgery, left hand surgery X2 nerve graft after table saw injury - Social History Smoking Status: Never smoker How long have you smoked: 13 years Exposure to second hand smoke: No Drug Use: none Patient Lives Alone: No - Nursing Vital Signs Nursing Vital Signs: Initial Vital Signs Temperature 98.1 F 05/15/19 15:00 Pulse Rate 57 L 05/15/19 15:00 Respiratory Rate 18 05/15/19 15:00 Blood Pressure 156/101 05/15/19 15:00 O2 Sat by Pulse Oximetry 96 05/15/19 15:00 Pain Scale Pain Intensity 8 - Physical Exam General Appearance: moderate distress, alert Eye Exam: PERRL/EOMI, eyes nml inspection, photophobia, other (fundi unremarkable) Ears, Nose, Throat Exam: normal ENT inspection, TMs normal, pharynx normal, moist mucous membranes Neck Exam: normal inspection, non-tender, supple, full range of motion Respiratory Exam: normal breath sounds, lungs clear, No respiratory distress Cardiovascular Exam: regular rate/rhythm, normal heart sounds, normal peripheral pulses, capillary refill <2 sec Gastrointestinal/Abdomen Exam: soft, normal bowel sounds, No tenderness, No mass Back Exam: normal inspection, normal range of motion, No CVA tenderness, No vertebral tenderness Extremity Exam: normal inspection, normal range of motion, pelvis stable Neurologic Exam: alert, oriented x 3, cooperative, 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, normal mood/affect, nml cerebellar function, nml station & gait, sensation nml, No motor deficits Skin Exam: normal color, warm, dry, No rash Lymphatic Exam: adenopathy SpO2 Interpretation: normal (96%) SpO2: 96 Ordered Tests: Active Orders 24 hr Category Date Time Status Accucheck STAT Care 05/15/19 18:33 Active IV Insertion STAT Care 05/15/19 16:01 Active Re-Check Vital Signs STAT Care 05/15/19 16:01 Active HEAD WITHOUT CONTRAST [CT] Stat Exams 05/15/19 18:38 Taken CBC W DIFF Stat Lab 05/15/19 16:10 Completed CMP Stat Lab 05/15/19 16:10 Completed UA W/RFX UR CULTURE Stat Lab 05/15/19 18:49 Completed Urine Triage Profile Stat Lab 05/15/19 18:49 Completed VENOUS BLOOD GAS Urgent Lab 05/15/19 18:20 Completed Medication Summary Discontinued Medications Generic Name Dose Route Start Last Admin Trade Name Freq PRN Reason Stop Dose Admin Diphenhydramine HCl 25 mg 05/15/19 16:01 05/15/19 16:11 Benadryl 50 Mg/Ml IV 05/15/19 16:02 25 mg STAT ONE Administration Diphenhydramine HCl Confirm 05/15/19 16:09 Benadryl 50 Mg/Ml Administered 05/15/19 16:10 Dose 50 mg .ROUTE .STK-MED ONE Sodium Chloride 1,000 mls @ 999 mls/hr 05/15/19 16:01 05/15/19 16:59 Sodium Chloride 0.9% 1000 Ml IV 05/15/19 17:01 Infused .Q1H1M STA Infusion Sodium Chloride Confirm 05/15/19 16:09 Sodium Chloride 0.9% 1000 Ml Administered 05/15/19 16:10 Dose 1,000 mls @ ud .ROUTE .STK-MED ONE Sodium Chloride 1,000 mls @ 999 mls/hr 05/15/19 16:45 05/15/19 18:00 Sodium Chloride 0.9% 1000 Ml IV 05/15/19 17:45 Infused .Q1H1M STA Infusion Sodium Chloride Confirm 05/15/19 16:56 Sodium Chloride 0.9% 1000 Ml Administered 05/15/19 16:57 Dose 1,000 mls @ ud .ROUTE .STK-MED ONE Sodium Chloride 1,000 mls @ 999 mls/hr 05/15/19 18:36 05/15/19 19:08 Sodium Chloride 0.9% 1000 Ml IV 05/15/19 19:36 999 mls/hr .Q1H1M STA Administration Sodium Chloride Confirm 05/15/19 19:04 Sodium Chloride 0.9% 1000 Ml Administered 05/15/19 19:05 Dose 1,000 mls @ ud .ROUTE .STK-MED ONE Metoclopramide HCl 10 mg 05/15/19 16:01 05/15/19 16:11 Reglan 10 Mg/2 Ml IV 05/15/19 16:02 10 mg STAT ONE Administration Metoclopramide HCl Confirm 05/15/19 16:09 Reglan 10 Mg/2 Ml Administered 05/15/19 16:10 Dose 10 mg .ROUTE .STK-MED ONE Morphine Sulfate 4 mg 05/15/19 17:11 05/15/19 17:18 Morphine Sulfate 4 Mg Inj IV 05/15/19 17:12 4 mg STAT ONE Administration Morphine Sulfate Confirm 05/15/19 17:14 Morphine Sulfate 4 Mg Inj Administered 05/15/19 17:15 Dose 4 mg .ROUTE .STK-MED ONE Lab/Rad Data: Laboratory Result Diagrams 05/15/19 16:10 05/15/19 16:10 Laboratory Results 05/15/19 05/15/19 05/15/19 Range/Units 18:49 18:49 18:20 WBC (4.0-10.5) K/mm3 RBC (4.1-5.6) M/mm3 Hgb (12.5-18.0) gm/dl Hct (42-50) % MCV (78-100) fl MCH (26-32) pg MCHC (32-36) g/dl RDW (11.5-14.0) % Plt Count (150-450) K/mm3 MPV (6-9.5) fl Gran % (36.0-66.0) % Eos # (Auto) (0-0.5) Absolute Lymphs (auto) (1.0-4.6) Absolute Monos (auto) (0.0-1.3) Lymphocytes % (24.0-44.0) % Monocytes % (0.0-12.0) % Eosinophils % (0.00-5.0) % Basophils % (0.0-0.4) % Absolute Granulocytes (1.4-6.9) Basophils # (0-0.4) pO2/FiO2 Ratio 21.0 % VBG pH 7.32 (7.32-7.42) VBG pCO2 at Pat Temp 42 (42-55) mm/Hg VBG pO2 at Pat Temp 44 H (25-40) mm/Hg VBG HCO3 21.6 L (22-28) meq/L VBG O2 Sat ([facility]) 86.7 L (95-100) VBG Base Excess -4.4 L (-2.0-2.0) VBG Hemoglobin 14.5 VBG Carboxyhemoglobin 2.8 (0.0-6.9) % T HGB POC Potassium 3.8 (3.5-5.1) Sodium (137-145) mmol/L Potassium (3.5-5.1) mmol/L Chloride (98-107) mmol/L Carbon Dioxide (22-30) mmol/L Anion Gap (5-15) MEQ/L BUN (9-20) mg/dL Creatinine (0.66-1.25) mg/dL Estimated GFR ML/MIN Glucose (74-106) mg/dL Calcium (8.4-10.2) mg/dL Total Bilirubin (0.2-1.3) mg/dL AST (17-59) U/L ALT (0-50) U/L Alkaline Phosphatase (38-126) U/L Serum Total Protein (6.3-8.2) g/dL Albumin (3.5-5.0) g/dL Urine Color STRAW (YELLOW) Urine Appearance CLEAR (CLEAR) Urine pH 5.0 (5-6) Ur Specific [place] 1.028 (1.005-1.025) Urine Protein NEGATIVE (Negative) Urine Ketones MODERATE (NEGATIVE) Urine Blood NEGATIVE (0-5) Pedro/ul Urine Nitrite NEGATIVE (NEGATIVE) Urine Bilirubin NEGATIVE (NEGATIVE) Urine Urobilinogen NEGATIVE (0-1) mg/dL Ur Leukocyte Esterase NEGATIVE (NEGATIVE) Urine WBC (Auto) NONE SEEN (0-5) /HPF Urine RBC (Auto) NONE SEEN (0-2) /HPF U Epithel Cells (Auto) NONE (FEW) /HPF Urine Bacteria (Auto) NONE SEEN (NEGATIVE) /HPF Urine Culture Reflexed NO (NO) Urine Glucose >=500 (NEGATIVE) mg/dL Urine Opiates Level POSITIVE (NEGATIVE) Ur Methadone NEGATIVE (NEGATIVE) Urine Barbiturates NEGATIVE (NEGATIVE) Ur Phencyclidine (PCP) NEGATIVE (NEGATIVE) Urine Amphetamine NEGATIVE (NEGATIVE) U Benzodiazepine Level NEGATIVE (NEGATIVE) Urine Cocaine NEGATIVE (NEGATIVE) Urine Marijuana (THC) NEGATIVE (NEGATIVE) 05/15/19 05/15/19 Range/Units 16:10 16:10 WBC 10.0 (4.0-10.5) K/mm3 RBC 4.89 (4.1-5.6) M/mm3 Hgb 15.7 (12.5-18.0) gm/dl Hct 43.5 (42-50) % MCV 89.0 (78-100) fl MCH 32.1 H (26-32) pg MCHC 36.1 H (32-36) g/dl RDW 12.0 (11.5-14.0) % Plt Count 160 (150-450) K/mm3 MPV 11.4 H (6-9.5) fl Gran % 85.5 H (36.0-66.0) % Eos # (Auto) 0.06 (0-0.5) Absolute Lymphs (auto) 0.90 L (1.0-4.6) Absolute Monos (auto) 0.47 (0.0-1.3) Lymphocytes % 9.0 L (24.0-44.0) % Monocytes % 4.7 (0.0-12.0) % Eosinophils % 0.6 (0.00-5.0) % Basophils % 0.2 (0.0-0.4) % Absolute Granulocytes 8.58 H (1.4-6.9) Basophils # 0.02 (0-0.4) pO2/FiO2 Ratio % VBG pH (7.32-7.42) VBG pCO2 at Pat Temp (42-55) mm/Hg VBG pO2 at Pat Temp (25-40) mm/Hg VBG HCO3 (22-28) meq/L VBG O2 Sat ([facility]) (95-100) VBG Base Excess (-2.0-2.0) VBG Hemoglobin VBG Carboxyhemoglobin (0.0-6.9) % T HGB POC Potassium (3.5-5.1) Sodium 138 (137-145) mmol/L Potassium 4.2 (3.5-5.1) mmol/L Chloride 101 (98-107) mmol/L Carbon Dioxide 17 L (22-30) mmol/L Anion Gap 24.0 H (5-15) MEQ/L BUN 12 (9-20) mg/dL Creatinine 0.67 (0.66-1.25) mg/dL Estimated GFR > 60.0 ML/MIN Glucose 344 H (74-106) mg/dL Calcium 9.6 (8.4-10.2) mg/dL Total Bilirubin 0.80 (0.2-1.3) mg/dL AST 21 (17-59) U/L ALT 28 (0-50) U/L Alkaline Phosphatase 239 H (38-126) U/L Serum Total Protein 7.6 (6.3-8.2) g/dL Albumin 4.6 (3.5-5.0) g/dL Urine Color (YELLOW) Urine Appearance (CLEAR) Urine pH (5-6) Ur Specific [place] (1.005-1.025) Urine Protein (Negative) Urine Ketones (NEGATIVE) Urine Blood (0-5) Pedro/ul Urine Nitrite (NEGATIVE) Urine Bilirubin (NEGATIVE) Urine Urobilinogen (0-1) mg/dL Ur Leukocyte Esterase (NEGATIVE) Urine WBC (Auto) (0-5) /HPF Urine RBC (Auto) (0-2) /HPF U Epithel Cells (Auto) (FEW) /HPF Urine Bacteria (Auto) (NEGATIVE) /HPF Urine Culture Reflexed (NO) Urine Glucose (NEGATIVE) mg/dL Urine Opiates Level (NEGATIVE) Ur Methadone (NEGATIVE) Urine Barbiturates (NEGATIVE) Ur Phencyclidine (PCP) (NEGATIVE) Urine Amphetamine (NEGATIVE) U Benzodiazepine Level (NEGATIVE) Urine Cocaine (NEGATIVE) Urine Marijuana (THC) (NEGATIVE) - Progress Progress: improved Progress Note: 05/15/19 18:41 Patient did have a glucose of 344 patient is not acidotic. Patient states he cannot produce the urine will give him a third liter of normal saline. Patient appears to be improved but he still complains of a headache will obtain CT of his head. Patient has received Reglan 10 mg Benadryl 25 mg of morphine 4 mg IV Patient states he still has a headache. Is improved and pain-free patient with moderate ketones in his urine. I discussed the case with Dr. Schroeder will place patient on observation provide IV fluids insulin coverage morphine for pain. - Departure Departure Disposition: Home Clinical Impression: Hyperglycemia Headache Qualifiers: Headache type: unspecified Headache chronicity pattern: unspecified pattern Intractability: not intractable Qualified Code(s): R51 - Headache Condition: Fair Critical Care Time: No Referrals: NAVEEN MCKEON MD [Primary Care Provider] -
[2019-05-15] MEDS ORDERED: Reglan 10 MG/2 ML ONE (16:09)
[2019-05-15] MEDS ORDERED: BENADRYL 50 MG/ML ONE (16:09)
[2019-05-15] MEDS ORDERED: Sodium Chloride 0.9% 1000 ML 1,000 ML ONE ×3 (16:09→19:04)
[2019-05-15 16:17] LABS: BASOPHIL % 0.2 % (0.0-0.4); Basophil (Absolute #) 0.02 (0-0.4); Eosinophil % 0.6 % (0.00-5.0); Eosinophil (Absolute #) 0.06 (0-0.5); Granulocyte Absolute (ANC) 8.58 (1.4-6.9); Granulocytes % 85.5 % (36.0-66.0); Hematocrit 43.5 % (42-50); Hemoglobin 15.7 gm/dl (12.5-18.0); Mean Corpuscular Hemoglobin 32.1 pg (26-32); Mean Corpuscular Hgb Concent. 36.1 g/dl (32-36); Mean Platelet Volume 11.4 fl (6-9.5); Monocyte (Absolute #) 0.47 (0.0-1.3); Monocytes % 4.7 % (0.0-12.0); Platelet Count 160 K/mm3 (150-450); Red Blood Count 4.89 M/mm3 (4.1-5.6)
[2019-05-15 16:27] LABS: ALBUMIN 4.6 g/dL (3.5-5.0); ALKALINE PHOSPHATASE 239 U/L (38-126); BLOOD UREA NITROGEN 12 mg/dL (9-20); CHLORIDE 101 mmol/L (98-107); Calcium 9.6 mg/dL (8.4-10.2); Carbon Dioxide 17 mmol/L (22-30); Creatinine 1 0.67 mg/dL (0.66-1.25); Glucose 344 mg/dL (74-106); Potassium 4.2 mmol/L (3.5-5.1); SGOT/AST 21 U/L (17-59); SGPT/ALT 28 U/L (0-50); SODIUM 138 mmol/L (137-145); Total Protein 7.6 g/dL (6.3-8.2)
[2019-05-15] MEDS ORDERED: MORPHINE SULFATE 4 MG INJ IV ONE (17:11)
[2019-05-15] MEDS ORDERED: MORPHINE SULFATE 4 MG INJ ONE (17:14)
[2019-05-15 18:26] LABS: VBG BASE EXCESS -4.4 (-2.0-2.0); VBG CARBOXYHEMOGLOBIN 2.8 % T HGB (0.0-6.9); VBG HCO3- 21.6 meq/L (22-28); VBG HEMOGLOBIN 14.5; VBG O2 SATURATION 86.7 (95-100); VBG POTASSIUM 3.8 (3.5-5.1); VBG pH 7.32 (7.32-7.42)
[2019-05-15 18:56] LABS: Appearance CLEAR (CLEAR); Bilirubin NEGATIVE (NEGATIVE); Blood NEGATIVE Ery/ul (0-5); Glucose >=500 mg/dL (NEGATIVE); Ketones MODERATE (NEGATIVE); Leukocyte Esterase NEGATIVE (NEGATIVE); Nitrite NEGATIVE (NEGATIVE); Protein,Urine Dip NEGATIVE (Negative); Specific Gravity 1.028 (1.005-1.025); Urobilinogen NEGATIVE mg/dL (0-1)
[2019-05-15 19:00] LABS: Bacteria NONE SEEN /HPF (NEGATIVE); RBC NONE SEEN /HPF (0-2); WBC NONE SEEN /HPF (0-5)
[2019-05-15 19:10] LABS: Amphetamine,Urine NEGATIVE (NEGATIVE); Barbiturate,Urine NEGATIVE (NEGATIVE); Benzodiazepine,Urine NEGATIVE (NEGATIVE); Cocaine,Urine NEGATIVE (NEGATIVE); Methadone,Urine NEGATIVE (NEGATIVE); Opiate,Urine POSITIVE (NEGATIVE); PCP,Urine NEGATIVE (NEGATIVE); THC,Urine NEGATIVE (NEGATIVE)
[2019-05-15] MEDS ORDERED: Zofran 4 MG/2 ML VIAL IV PRN (20:21)
[2019-05-15] MEDS: Sodium Chloride 0.9% 1000 ML 1,000 ML IV SCH (20:51)
[2019-05-15] MEDS: MORPHINE SULFATE 4 MG INJ IV PRN (21:15)
--- NOTE | 2019-05-15 21:47 | XRAY ---
Indication: Left-sided headache. Migraines. Multiple contiguous axial images obtained through the head without contrast. Comparison: None Normal appearing brain parenchyma, ventricles, and bony calvarium. There is near complete opacification of both sphenoid sinuses with lesser mild mucosal thickening of both ethmoid and left maxillary sinuses. Mastoid air cells are clear. Impression: Pansinusitis. Remaining CT head without contrast exam is negative. Comment: Preliminary interpretation was made by [facility]. No critical discrepancy. CTDI 67.99
[2019-05-16] MEDS: MORPHINE SULFATE 4 MG INJ IV PRN (02:48)
[2019-05-16] MEDS: NovoLOG Insulin SQ PRN ×5 (04:46→21:51)
[2019-05-16 06:20] LABS: BASOPHIL % 0.2 % (0.0-0.4); Basophil (Absolute #) 0.03 (0-0.4); Eosinophil % 0.4 % (0.00-5.0); Eosinophil (Absolute #) 0.05 (0-0.5); Granulocyte Absolute (ANC) 10.15 (1.4-6.9); Granulocytes % 84.1 % (36.0-66.0); Hematocrit 42.1 % (42-50); Lymphocyte (Absolute #) 1.22 (1.0-4.6); Lymphocytes % 10.1 % (24.0-44.0); Mean Corpuscular Hemoglobin 31.7 pg (26-32); Mean Corpuscular Hgb Concent. 35.6 g/dl (32-36); Mean Platelet Volume 11.5 fl (6-9.5); Monocyte (Absolute #) 0.63 (0.0-1.3); Monocytes % 5.2 % (0.0-12.0); Platelet Count 167 K/mm3 (150-450); Red Blood Count 4.73 M/mm3 (4.1-5.6); Red Cell Distribution Width 11.9 % (11.5-14.0); White Blood Count 12.1 K/mm3 (4.0-10.5)
[2019-05-16 06:47] LABS: ALBUMIN 3.9 g/dL (3.5-5.0); ALKALINE PHOSPHATASE 119 U/L (38-126); ANION GAP 20.5 MEQ/L (5-15); BLOOD UREA NITROGEN 6 mg/dL (9-20); CHLORIDE 102 mmol/L (98-107); Calcium 9.1 mg/dL (8.4-10.2); Creatinine 1 0.51 mg/dL (0.66-1.25); Glucose 265 mg/dL (74-106); Potassium 4.3 mmol/L (3.5-5.1); SGOT/AST 18 U/L (17-59); SGPT/ALT 23 U/L (0-50); SODIUM 134 mmol/L (137-145); Total Protein 6.8 g/dL (6.3-8.2)
[2019-05-16 06:48] LABS: Carbon Dioxide 15 mmol/L (22-30)
[2019-05-16] MEDS ORDERED: Sodium Chloride 0.9% 1000 ML 1,000 ML IV STA ×2 (06:52→12:02)
[2019-05-16] MEDS ORDERED: Sodium Chloride 0.9% 1000 ML 1,000 ML ONE (06:55)
[2019-05-16] MEDS: Sodium Chloride 0.9% 1000 ML 1,000 ML IV SCH ×3 (08:14→21:33)
[2019-05-16 10:59] LABS: ANION GAP 21.8 MEQ/L (5-15); BLOOD UREA NITROGEN 5 mg/dL (9-20); CHLORIDE 102 mmol/L (98-107); Calcium 8.8 mg/dL (8.4-10.2); Creatinine 1 0.56 mg/dL (0.66-1.25); Glucose 342 mg/dL (74-106); Potassium 4.4 mmol/L (3.5-5.1); SODIUM 133 mmol/L (137-145)
[2019-05-16 11:00] LABS: Carbon Dioxide 14 mmol/L (22-30)
[2019-05-16] MEDS: Toprol-Xl 25MG Tablets PO SCH (13:03)
[2019-05-16] MEDS: TORAdol 30 mg Injection IV PRN ×2 (13:40→19:49)
--- NOTE | 2019-05-16 14:26 | PCM.HP ---
History of Present Illness - Chief Complaint Chief Complaint: Hyperglycemia/headache History of Present Illness: is a 28 year old male pt of Dr. Sanchez with PMHx DM I, HTN, IBS, and previous DKA who was admitted through ER with VALENZUELA and hyperglycemia. He c/o VALENZUELA x 4d, L sided parietal/superior scalp. Was initially 9/10, now is 5/10. Is worse with being upright, better with lying down. Was nauseated, no fever. Had photo-and phonophobia with it. Started Tues when he was [place] pe[place]. His CT head with pansinusitis, nothing acute. Utox + opiates (wasgiven opiates in the ER). UA neg aside from >500 glucose. His BS was initially 344 and his CO2 was 17. WBC 10.0 initially (now 12.1). Pt notes that he's been using insulin from [employer] because he has no insurance. Has spoken to someone about HIP but he makes too much. May get a job soon that carries benefits. - Review of Systems Cardiac: Chest Pain (occasional, tigh on L, 5-7/10, sharp or dull, lasting 5 min , not related to activity) Abdominal/Gastrointestinal: Nausea Neurological: Dizziness (occasional, described as lightheadedness.), Headache All Other Systems: Reviewed and Negative Medications & Allergies Home Medications: Home Medication List Insulin Regular, Human [Novolin R] 1 - 8 unit SQ UD 03/09/19 [History Confirmed 05/15/19] Insulin Regular, Human [Novolin R] 10 unit SQ TIDAC #1 vial 03/09/19 [Rx Confirmed 05/15/19] NPH, Human Insulin Isophane [Novolin N] 20 unit SQ BID #10 ml 03/09/19 [Rx Confirmed 05/15/19] Allergies/Adverse Reactions: Allergies Allergy/AdvReac Type Severity Reaction Status Date / Time No Known Drug Allergies Allergy Verified 05/15/19 15:34 - Past Medical History Past Medical History: Yes Neurological History: Migraines ENT History: No Pertinent History Cardiac History: Hypertension Respiratory History: Pneumonia Endocrine Medical History: Diabetes Type I Musculoskelatal History: Other GI Medical History: Irritable Bowel History: No Pertinent History Pyscho-Social History: No Pertinent History Male Reproductive Disorders: No Pertinent History Comment: dm I dx in 2017, DKA - Past Surgical History Past Surgical History: Yes Neuro Surgical History: No Pertinent History Cardiac History: No Pertinent History Respiratory Surgery: No Pertinent History GI Surgical History: No Pertinent History Genitourinary Surgical Hx: No Pertinent History Musculskeletal Surgical Hx: Orthopedic Surgery Male Surgical History: No Pertinent History Other Surgical History: tubes in ears as infant, back surgery in 1999 - spondylsis, sinus surgeries X5 growth/polyps removed, left knee surgery X2 dislocation of patella, right wrist fx with surgery, left hand surgery X2 nerve graft after table saw injury - Social History Smoking Status: Never smoker How long have you smoked: 13 years Exposure to second hand smoke: No Alcohol: Rarely Drug Use: none - Physical Exam Vital Signs: Vital Signs - 24 hr Temp Pulse Resp BP Pulse Ox 05/16/19 12:00 98.9 F 111 H 20 172/105 96 05/16/19 08:00 99.1 F 100 H 20 146/90 95 05/16/19 04:00 98.4 F 98 H 18 143/77 99 05/16/19 00:10 98.5 F 78 18 141/87 96 05/15/19 20:59 98.0 F 90 16 146/82 99 05/15/19 19:59 96 05/15/19 19:08 88 16 154/95 97 05/15/19 17:00 96 H 18 150/103 98 05/15/19 16:16 100 H 18 155/99 99 05/15/19 16:15 100 H 18 155/99 99 05/15/19 15:00 98.1 F 57 L 18 156/101 96 General Appearance: no apparent distress, alert Neurologic Exam: oriented x 3, cooperative Eye Exam: eyes nml inspection Ears, Nose, Throat Exam: moist mucous membranes Neck Exam: normal inspection, non-tender, No lymphadenopathy Respiratory Exam: normal breath sounds, lungs clear, No crackles/rales, No rhonchi, No wheezing Cardiovascular Exam: regular rate/rhythm, normal heart sounds, No murmur Gastrointestinal/Abdomen Exam: soft, normal bowel sounds, No tenderness, No distention, No mass, No guarding, No rebound Back Exam: normal inspection, No CVA tenderness, No rash Extremity Exam: normal inspection, No pedal edema, No swelling Skin Exam: normal color, warm, dry, No rash Results - Labs Lab/Micro Results: Accuchecks Date 05/16/19 Date 05/16/19 Date 05/16/19 Time 08:00 Time 04:00 Time 00:00 Accucheck Value: 225 Accucheck Value: 311 Accucheck Value: 190 Accucheck Value: 161 Lab Results-Last 24 Hours 05/15/19 05/15/19 05/15/19 Range/Units 16:10 16:10 18:20 WBC 10.0 (4.0-10.5) K/mm3 RBC 4.89 (4.1-5.6) M/mm3 Hgb 15.7 (12.5-18.0) gm/dl Hct 43.5 (42-50) % MCV 89.0 (78-100) fl MCH 32.1 H (26-32) pg MCHC 36.1 H (32-36) g/dl RDW 12.0 (11.5-14.0) % Plt Count 160 (150-450) K/mm3 MPV 11.4 H (6-9.5) fl Gran % 85.5 H (36.0-66.0) % Eos # (Auto) 0.06 (0-0.5) Absolute Lymphs (auto) 0.90 L (1.0-4.6) Absolute Monos (auto) 0.47 (0.0-1.3) Lymphocytes % 9.0 L (24.0-44.0) % Monocytes % 4.7 (0.0-12.0) % Eosinophils % 0.6 (0.00-5.0) % Basophils % 0.2 (0.0-0.4) % Absolute Granulocytes 8.58 H (1.4-6.9) Basophils # 0.02 (0-0.4) pO2/FiO2 Ratio 21.0 % VBG pH 7.32 (7.32-7.42) VBG pCO2 at Pat Temp 42 (42-55) mm/Hg VBG pO2 at Pat Temp 44 H (25-40) mm/Hg VBG HCO3 21.6 L (22-28) meq/L VBG O2 Sat ([facility]) 86.7 L (95-100) VBG Base Excess -4.4 L (-2.0-2.0) VBG Hemoglobin 14.5 VBG Carboxyhemoglobin 2.8 (0.0-6.9) % T HGB POC Potassium 3.8 (3.5-5.1) Sodium 138 (137-145) mmol/L Potassium 4.2 (3.5-5.1) mmol/L Chloride 101 (98-107) mmol/L Carbon Dioxide 17 L (22-30) mmol/L Anion Gap 24.0 H (5-15) MEQ/L BUN 12 (9-20) mg/dL Creatinine 0.67 (0.66-1.25) mg/dL Estimated GFR > 60.0 ML/MIN Glucose 344 H (74-106) mg/dL Calcium 9.6 (8.4-10.2) mg/dL Total Bilirubin 0.80 (0.2-1.3) mg/dL AST 21 (17-59) U/L ALT 28 (0-50) U/L Alkaline Phosphatase 239 H (38-126) U/L Serum Total Protein 7.6 (6.3-8.2) g/dL Albumin 4.6 (3.5-5.0) g/dL Urine Color (YELLOW) Urine Appearance (CLEAR) Urine pH (5-6) Ur Specific [place] (1.005-1.025) Urine Protein (Negative) Urine Ketones (NEGATIVE) Urine Blood (0-5) Pedro/ul Urine Nitrite (NEGATIVE) Urine Bilirubin (NEGATIVE) Urine Urobilinogen (0-1) mg/dL Ur Leukocyte Esterase (NEGATIVE) Urine WBC (Auto) (0-5) /HPF Urine RBC (Auto) (0-2) /HPF U Epithel Cells (Auto) (FEW) /HPF Urine Bacteria (Auto) (NEGATIVE) /HPF Urine Culture Reflexed (NO) Urine Glucose (NEGATIVE) mg/dL Urine Opiates Level (NEGATIVE) Ur Methadone (NEGATIVE) Urine Barbiturates (NEGATIVE) Ur Phencyclidine (PCP) (NEGATIVE) Urine Amphetamine (NEGATIVE) U Benzodiazepine Level (NEGATIVE) Urine Cocaine (NEGATIVE) Urine Marijuana (THC) (NEGATIVE) 05/15/19 05/15/19 05/16/19 Range/Units 18:49 18:49 06:04 WBC 12.1 H (4.0-10.5) K/mm3 RBC 4.73 (4.1-5.6) M/mm3 Hgb 15.0 (12.5-18.0) gm/dl Hct 42.1 (42-50) % MCV 89.0 (78-100) fl MCH 31.7 (26-32) pg MCHC 35.6 (32-36) g/dl RDW 11.9 (11.5-14.0) % Plt Count 167 (150-450) K/mm3 MPV 11.5 H (6-9.5) fl Gran % 84.1 H (36.0-66.0) % Eos # (Auto) 0.05 (0-0.5) Absolute Lymphs (auto) 1.22 (1.0-4.6) Absolute Monos (auto) 0.63 (0.0-1.3) Lymphocytes % 10.1 L (24.0-44.0) % Monocytes % 5.2 (0.0-12.0) % Eosinophils % 0.4 (0.00-5.0) % Basophils % 0.2 (0.0-0.4) % Absolute Granulocytes 10.15 H (1.4-6.9) Basophils # 0.03 (0-0.4) pO2/FiO2 Ratio % VBG pH (7.32-7.42) VBG pCO2 at Pat Temp (42-55) mm/Hg VBG pO2 at Pat Temp (25-40) mm/Hg VBG HCO3 (22-28) meq/L VBG O2 Sat ([facility]) (95-100) VBG Base Excess (-2.0-2.0) VBG Hemoglobin VBG Carboxyhemoglobin (0.0-6.9) % T HGB POC Potassium (3.5-5.1) Sodium (137-145) mmol/L Potassium (3.5-5.1) mmol/L Chloride (98-107) mmol/L Carbon Dioxide (22-30) mmol/L Anion Gap (5-15) MEQ/L BUN (9-20) mg/dL Creatinine (0.66-1.25) mg/dL Estimated GFR ML/MIN Glucose (74-106) mg/dL Calcium (8.4-10.2) mg/dL Total Bilirubin (0.2-1.3) mg/dL AST (17-59) U/L ALT (0-50) U/L Alkaline Phosphatase (38-126) U/L Serum Total Protein (6.3-8.2) g/dL Albumin (3.5-5.0) g/dL Urine Color STRAW (YELLOW) Urine Appearance CLEAR (CLEAR) Urine pH 5.0 (5-6) Ur Specific [place] 1.028 (1.005-1.025) Urine Protein NEGATIVE (Negative) Urine Ketones MODERATE (NEGATIVE) Urine Blood NEGATIVE (0-5) Pedro/ul Urine Nitrite NEGATIVE (NEGATIVE) Urine Bilirubin NEGATIVE (NEGATIVE) Urine Urobilinogen NEGATIVE (0-1) mg/dL Ur Leukocyte Esterase NEGATIVE (NEGATIVE) Urine WBC (Auto) NONE SEEN (0-5) /HPF Urine RBC (Auto) NONE SEEN (0-2) /HPF U Epithel Cells (Auto) NONE (FEW) /HPF Urine Bacteria (Auto) NONE SEEN (NEGATIVE) /HPF Urine Culture Reflexed NO (NO) Urine Glucose >=500 (NEGATIVE) mg/dL Urine Opiates Level POSITIVE (NEGATIVE) Ur Methadone NEGATIVE (NEGATIVE) Urine Barbiturates NEGATIVE (NEGATIVE) Ur Phencyclidine (PCP) NEGATIVE (NEGATIVE) Urine Amphetamine NEGATIVE (NEGATIVE) U Benzodiazepine Level NEGATIVE (NEGATIVE) Urine Cocaine NEGATIVE (NEGATIVE) Urine Marijuana (THC) NEGATIVE (NEGATIVE) 05/16/19 05/16/19 Range/Units 06:04 10:30 WBC (4.0-10.5) K/mm3 RBC (4.1-5.6) M/mm3 Hgb (12.5-18.0) gm/dl Hct (42-50) % MCV (78-100) fl MCH (26-32) pg MCHC (32-36) g/dl RDW (11.5-14.0) % Plt Count (150-450) K/mm3 MPV (6-9.5) fl Gran % (36.0-66.0) % Eos # (Auto) (0-0.5) Absolute Lymphs (auto) (1.0-4.6) Absolute Monos (auto) (0.0-1.3) Lymphocytes % (24.0-44.0) % Monocytes % (0.0-12.0) % Eosinophils % (0.00-5.0) % Basophils % (0.0-0.4) % Absolute Granulocytes (1.4-6.9) Basophils # (0-0.4) pO2/FiO2 Ratio % VBG pH (7.32-7.42) VBG pCO2 at Pat Temp (42-55) mm/Hg VBG pO2 at Pat Temp (25-40) mm/Hg VBG HCO3 (22-28) meq/L VBG O2 Sat ([facility]) (95-100) VBG Base Excess (-2.0-2.0) VBG Hemoglobin VBG Carboxyhemoglobin (0.0-6.9) % T HGB POC Potassium (3.5-5.1) Sodium 134 L 133 L (137-145) mmol/L Potassium 4.3 4.4 (3.5-5.1) mmol/L Chloride 102 102 (98-107) mmol/L Carbon Dioxide 15 L* 14 L* (22-30) mmol/L Anion Gap 20.5 H 21.8 H (5-15) MEQ/L BUN 6 L 5 L (9-20) mg/dL Creatinine 0.51 L 0.56 L (0.66-1.25) mg/dL Estimated GFR > 60.0 > 60.0 ML/MIN Glucose 265 H 342 H (74-106) mg/dL Calcium 9.1 8.8 (8.4-10.2) mg/dL Total Bilirubin 0.90 (0.2-1.3) mg/dL AST 18 (17-59) U/L ALT 23 (0-50) U/L Alkaline Phosphatase 119 (38-126) U/L Serum Total Protein 6.8 (6.3-8.2) g/dL Albumin 3.9 (3.5-5.0) g/dL Urine Color (YELLOW) Urine Appearance (CLEAR) Urine pH (5-6) Ur Specific [place] (1.005-1.025) Urine Protein (Negative) Urine Ketones (NEGATIVE) Urine Blood (0-5) Pedro/ul Urine Nitrite (NEGATIVE) Urine Bilirubin (NEGATIVE) Urine Urobilinogen (0-1) mg/dL Ur Leukocyte Esterase (NEGATIVE) Urine WBC (Auto) (0-5) /HPF Urine RBC (Auto) (0-2) /HPF U Epithel Cells (Auto) (FEW) /HPF Urine Bacteria (Auto) (NEGATIVE) /HPF Urine Culture Reflexed (NO) Urine Glucose (NEGATIVE) mg/dL Urine Opiates Level (NEGATIVE) Ur Methadone (NEGATIVE) Urine Barbiturates (NEGATIVE) Ur Phencyclidine (PCP) (NEGATIVE) Urine Amphetamine (NEGATIVE) U Benzodiazepine Level (NEGATIVE) Urine Cocaine (NEGATIVE) Urine Marijuana (THC) (NEGATIVE) Accuchecks Date 05/16/19 Date 05/16/19 Date 05/16/19 Time 08:00 Time 04:00 Time 00:00 Accucheck Value: 225 Accucheck Value: 311 Accucheck Value: 190 Accucheck Value: 161 - Radiology Impressions Radiology Exams & Impressions: Radiology Procedures Category Date Time Status HEAD WITHOUT CONTRAST [CT] Stat Exams 05/15/19 18:38 Completed Assessment/Plan (1) DKA (diabetic ketoacidoses) Current Visit: No Status: Acute Onset Date: ~08/01/18 Qualifiers: Diabetes mellitus type: type 1 Diabetes mellitus complication detail: without coma Qualified Code(s): E10.10 - Type 1 diabetes mellitus with ketoacidosis without coma Assessment & Plan: Mild. CO2 decreasing - will increase IVF. He's not been on insulin drip, will keep watching BS. He's feeling overall better and would like to eat. Code(s): E13.10 - OTH DIABETES MELLITUS WITH KETOACIDOSIS WITHOUT COMA (2) Headache Current Visit: Yes Status: Acute Qualifiers: Headache type: unspecified Headache chronicity pattern: unspecified pattern Intractability: not intractable Qualified Code(s): R51 - Headache Assessment & Plan: will try toradol at pt's request. May be due to sinusitis - start abx Code(s): R51 - HEADACHE (3) Sinusitis Current Visit: Yes Status: Acute Qualifiers: Sinusitis location: unspecified location Chronicity: unspecified Qualified Code(s): J32.9 - Chronic sinusitis, unspecified Assessment & Plan: IV levaquin Code(s): J32.9 - CHRONIC SINUSITIS, UNSPECIFIED (4) Type 1 diabetes mellitus, uncontrolled Current Visit: No Status: Acute Assessment & Plan: with decreasing CO2 on labs - increased IVF and recheck BMP in 4 hrs. CO2 17 initially, then 15 this morning and 14 on recheck - his BS in the 300s. Code(s): E10.65 - TYPE 1 DIABETES MELLITUS WITH HYPERGLYCEMIA
[2019-05-16] MEDS: Levofloxacin 500MG/100ML D5W 500 MG/100 ML BAG IV SCH (14:58)
[2019-05-16 15:42] LABS: ANION GAP 13.7 MEQ/L (5-15); BLOOD UREA NITROGEN 7 mg/dL (9-20); CHLORIDE 104 mmol/L (98-107); Calcium 8.5 mg/dL (8.4-10.2); Carbon Dioxide 20 mmol/L (22-30); Creatinine 1 0.56 mg/dL (0.66-1.25); Glucose 286 mg/dL (74-106); Potassium 4.2 mmol/L (3.5-5.1); SODIUM 134 mmol/L (137-145)
[2019-05-17] MEDS: NovoLOG Insulin SQ PRN ×2 (00:21→08:24)
[2019-05-17] MEDS: Sodium Chloride 0.9% 1000 ML 1,000 ML IV SCH ×2 (01:30→05:26)
[2019-05-17] MEDS: TORAdol 30 mg Injection IV PRN ×2 (01:51→08:23)
--- NOTE | 2019-05-17 08:48 | PCM.DS ---
Discharge Summary Date of Admission: 05/15/19 20:16 Admitting Physician: NAVEEN MCKEON Primary Care Provider: NAVEEN MCKEON Allergies Allergies No Known Drug Allergies Allergy (Verified 05/15/19 15:34) Hospital Summary - Hospital Course Hospital Course: patient was admitted with headache and mild dka, has resolved. found to have sinusitis on ct scan. otherwise doing well, danny po and still has some pressure in the frontal left side of head. - Vitals & Intake/Output Vital Signs: Vital Signs Temperature 97.4 F 05/17/19 04:00 Pulse Rate 100 H 05/17/19 04:00 Respiratory Rate 16 05/17/19 04:00 Blood Pressure 155/84 05/17/19 04:00 O2 Sat by Pulse Oximetry 98 05/17/19 04:00 Intake & Output: Intake & Output 05/14/19 05/15/19 05/16/19 05/17/19 11:59 11:59 11:59 11:59 Intake Total 2236 8518 Output Total 1999 6800 Balance 236 1718 Weight 76.6 kg 78.6 kg - Lab Result Diagrams: 05/16/19 06:04 05/16/19 15:00 Lab Results-Last 24 Hrs: Accuchecks Date 05/16/19 Date 05/16/19 Time 16:00 Time 12:00 Accucheck Value: 192 Accucheck Value: 298 Accucheck Value: 280 Accucheck Value: 308 Accucheck Value: 282 Lab Results-Last 24 Hours 05/16/19 05/16/19 Range/Units 10:30 15:00 Sodium 133 L 134 L (137-145) mmol/L Potassium 4.4 4.2 (3.5-5.1) mmol/L Chloride 102 104 (98-107) mmol/L Carbon Dioxide 14 L* 20 L (22-30) mmol/L Anion Gap 21.8 H 13.7 (5-15) MEQ/L BUN 5 L 7 L (9-20) mg/dL Creatinine 0.56 L 0.56 L (0.66-1.25) mg/dL Estimated GFR > 60.0 > 60.0 ML/MIN Glucose 342 H 286 H (74-106) mg/dL Calcium 8.8 8.5 (8.4-10.2) mg/dL Micro Results-Entire Visit: Accuchecks Date 05/16/19 Date 05/16/19 Time 16:00 Time 12:00 Accucheck Value: 192 Accucheck Value: 298 Accucheck Value: 280 Accucheck Value: 308 Accucheck Value: 282 - Radiology Exams Ordered Rad Exams-Entire Visit: Radiology Procedures Category Date Time Status HEAD WITHOUT CONTRAST [CT] Stat Exams 05/15/19 18:38 Completed Discharge Exam General Appearance: no apparent distress, alert Neurologic Exam: alert, oriented x 3 Neck Exam: normal inspection, non-tender, supple, full range of motion Respiratory Exam: normal breath sounds, lungs clear, No respiratory distress Cardiovascular Exam: regular rate/rhythm, normal heart sounds Gastrointestinal/Abdomen Exam: soft, No tenderness, No mass Extremity Exam: normal inspection, normal range of motion Skin Exam: normal color, warm, dry Final Diagnosis/Problem List - Final Discharge Diagnosis/Problem (1) Sinusitis Current Visit: Yes Status: Acute Assessment & Plan: home on po amoxicillin Code(s): J32.9 - CHRONIC SINUSITIS, UNSPECIFIED (2) DKA (diabetic ketoacidoses) Current Visit: No Status: Acute Onset Date: ~08/01/18 Assessment & Plan: has insulin at home, buying otc due to lack of insurance Code(s): E13.10 - OTH DIABETES MELLITUS WITH KETOACIDOSIS WITHOUT COMA - Discharge Disposition: Home, Self-Care Condition: Good Prescriptions: New Amoxicillin 875 mg PO BID #20 tablet Continue NPH, Human Insulin Isophane [Novolin N] 20 unit SQ BID #10 ml Insulin Regular, Human [Novolin R] 10 unit SQ TIDAC #1 vial Insulin Regular, Human [Novolin R] 1 - 8 unit SQ UD Follow up with: NAVEEN MCKEON MD [Primary Care Provider] - 1 Week
[2019-05-17] MEDS: Levofloxacin 500MG/100ML D5W 500 MG/100 ML BAG IV SCH (08:57)
[2019-05-17] MEDS: Toprol-Xl 25MG Tablets PO SCH (08:57)
[2019-05-17 09:39] VITALS: BP 167/97; PULSE 98; O2SAT 96
== END 2019-05-17 10:45 | disposition home or self-care (01) ==
LOC: ED 15:00 → MED SURG 20:16
PROVIDERS: ADMIT Family Medicine; ATTEND Family Medicine
DX: E10.10 Type 1 diabetes mellitus with ketoacidosis without coma (principal); J32.9 Chronic sinusitis, unspecified; R42 Dizziness and giddiness; R51 Headache
CPT/HCPCS: 36000; 36415; 70450; 80048; 80053; 80307; 81001; 82805; 82962; 85025; 93268; 96360; 96361; 96374; 96375; 99285; G0378; J1200; J1885; J1956; J2270; A9270-GY

== ENCOUNTER 2019-05-18 18:40 | Inpatient (IN) | payer SELFPAY ==
[2019-05-18] MEDS ORDERED: Sodium Chloride 0.9% 1000 ML 1,000 ML IV STA ×3 (19:11→21:18)
[2019-05-18] MEDS ORDERED: Zofran 4 MG/2 ML VIAL IV ONE (19:11)
--- NOTE | 2019-05-18 19:11 | ERPHSYRPT ---
- History of Present Illness Time Seen by Provider: 05/18/19 19:05 Source: patient, family Exam Limitations: no limitations Patient Subjective Stated Complaint: pt here for headaceh, weakness, sob.he is type one diabetic and is afraid he is going into DKA. he was admitted to hospital yesterday for a migraine, vomited x2 today, pt is on anibotics for sinus infection Triage Nursing Assessment: pt alert, walked in, resp easy, pt resp fast , has not checked BS since noon today and it was 200. skin w/d/p. no edema , moves all ext well abd soft Physician History: 28 y/o white male with h/o type I diabetes was discharged to home yesterday. pt is being tx for a sinus infection. pt concerned he may have dka. he has a headache, weakness, 2 episodes of vomiting. pt has a h/o migraine headaches. Timing/Duration: yesterday Severity: moderate Associated Symptoms: nausea, vomiting, headaches, weakness Allergies/Adverse Reactions: No Known Drug Allergies Allergy (Verified 05/18/19 18:56) Home Medications: Insulin Regular, Human [Novolin R] 1 - 8 unit SQ UD 03/09/19 [History] Hx Tetanus, Diphtheria Vaccination/Date Given: Yes Hx Influenza Vaccination/Date Given: No Hx Pneumococcal Vaccination/Date Given: No Immunizations Up to Date: Yes - Review of Systems Constitutional: Weakness Eyes: No Symptoms Ears, Nose, & Throat: No Symptoms Respiratory: No Symptoms Cardiac: No Symptoms Abdominal/Gastrointestinal: Nausea, Vomiting Genitourinary Symptoms: No Symptoms Musculoskeletal: No Symptoms Skin: No Symptoms Neurological: Headache Psychological: No Symptoms Endocrine: No Symptoms Hematologic/Lymphatic: No Symptoms Immunological/Allergic: No Symptoms All Other Systems: Reviewed and Negative - Past Medical History Pertinent Past Medical History: Yes Neurological History: Migraines ENT History: No Pertinent History Cardiac History: Hypertension Respiratory History: Pneumonia Endocrine Medical History: Diabetes Type I Musculoskeletal History: Other GI Medical History: Irritable Bowel History: No Pertinent History Psycho-Social History: No Pertinent History Male Reproductive Disorders: No Pertinent History Other Medical History: dm I dx in 2017, DKA - Past Surgical History Past Surgical History: Yes Neuro Surgical History: No Pertinent History Cardiac: No Pertinent History Respiratory: No Pertinent History Gastrointestinal: No Pertinent History Genitourinary: No Pertinent History Musculoskeletal: Orthopedic Surgery Male Surgical History: No Pertinent History Other Surgical History: tubes in ears as , back surgery in 2000 - spondylsis, sinus surgeries X5 growth/polyps removed, left knee surgery X2 dislocation of patella, right wrist fx with surgery, left hand surgery X2 nerve graft after table saw injury - Social History Smoking Status: Former smoker How long have you smoked: 13 years Exposure to second hand smoke: No Drug Use: none Patient Lives Alone: No - Nursing Vital Signs Nursing Vital Signs: Initial Vital Signs Temperature 97.5 F 05/18/19 18:46 Pulse Rate 112 H 05/18/19 18:46 Respiratory Rate 22 05/18/19 18:46 Blood Pressure 163/89 05/18/19 18:46 O2 Sat by Pulse Oximetry 100 05/18/19 18:46 Pain Scale Pain Intensity 0 - Physical Exam General Appearance: mild distress, alert, anxiety Eye Exam: PERRL/EOMI, eyes nml inspection Ears, Nose, Throat Exam: normal ENT inspection, moist mucous membranes Neck Exam: normal inspection, non-tender, supple, full range of motion Respiratory Exam: normal breath sounds, lungs clear, airway intact, No chest tenderness, No respiratory distress Cardiovascular Exam: tachycardia (mild) Rectal Exam: not done Back Exam: normal inspection, normal range of motion, CVA tenderness Extremity Exam: normal inspection, normal range of motion, pelvis stable Neurologic Exam: alert, oriented x 3, cooperative, 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 tested Skin Exam: normal color, warm, dry Lymphatic Exam: No adenopathy SpO2 Interpretation: normal SpO2: 100 O2 Delivery: Room Air Ordered Tests: Active Orders 24 hr Category Date Time Status Accucheck STAT Care 05/18/19 19:11 Active IV Insertion STAT Care 05/18/19 19:11 Active Pulse Oximetry (ED) STAT Care 05/18/19 19:11 Active CBC W DIFF Stat Lab 05/18/19 19:25 Completed CMP Stat Lab 05/18/19 19:25 Completed Lactic Acid Urgent Lab 05/18/19 19:11 Completed MAGNESIUM Stat Lab 05/18/19 19:25 Completed VENOUS BLOOD GAS Stat Lab 05/18/19 19:36 Completed Transfer Order Routine Transfer 05/18/19 Ordered Medication Summary Generic Name Dose Route Start Last Admin Trade Name Freq PRN Reason Stop Dose Admin Sodium Chloride 1,000 mls @ 999 mls/hr 05/18/19 21:18 05/18/19 21:28 Sodium Chloride 0.9% 1000 Ml IV 05/18/19 22:18 999 mls/hr .Q1H1M STA Administration Discontinued Medications Generic Name Dose Route Start Last Admin Trade Name Christ PRN Reason Stop Dose Admin Sodium Chloride 1,000 mls @ 999 mls/hr 05/18/19 19:11 05/18/19 20:22 Sodium Chloride 0.9% 1000 Ml IV 05/18/19 20:11 Infused .Q1H1M STA Infusion Sodium Chloride Confirm 05/18/19 19:17 Sodium Chloride 0.9% 1000 Ml Administered 05/18/19 19:18 Dose 1,000 mls @ ud .ROUTE .STK-MED ONE Sodium Chloride 1,000 mls @ 999 mls/hr 05/18/19 20:12 05/18/19 21:17 Sodium Chloride 0.9% 1000 Ml IV 05/18/19 21:12 Infused .Q1H1M STA Infusion Sodium Chloride Confirm 05/18/19 20:16 Sodium Chloride 0.9% 1000 Ml Administered 05/18/19 20:17 Dose 1,000 mls @ ud .ROUTE .STK-MED ONE Sodium Chloride Confirm 05/18/19 21:25 Sodium Chloride 0.9% 1000 Ml Administered 05/18/19 21:26 Dose 1,000 mls @ ud .ROUTE .STK-MED ONE Insulin Human Regular 4 unit 05/18/19 21:19 05/18/19 21:31 Novolin R IV 05/18/19 21:20 Not Given STAT ONE Insulin Human Regular Confirm 05/18/19 21:25 Novolin R Administered 05/18/19 21:26 Dose 4 unit .ROUTE .STK-MED ONE Ketorolac Tromethamine 30 mg 05/18/19 19:20 05/18/19 19:22 Toradol 30 Mg Injection IV 05/18/19 19:21 30 mg STAT ONE Administration Ketorolac Tromethamine Confirm 05/18/19 19:22 Toradol 30 Mg Injection Administered 05/18/19 19:23 Dose 30 mg .ROUTE .STK-MED ONE Ondansetron HCl 4 mg 05/18/19 19:11 05/18/19 19:21 Zofran 4 Mg/2 Ml Vial IV 05/18/19 19:12 4 mg STAT ONE Administration Ondansetron HCl Confirm 05/18/19 19:17 Zofran 4 Mg/2 Ml Vial Administered 05/18/19 19:18 Dose 4 mg .ROUTE .STK-MED ONE Lab/Rad Data: Laboratory Result Diagrams 05/18/19 19:25 05/18/19 19:25 Laboratory Results 05/18/19 05/18/19 05/18/19 Range/Units 19:36 19:25 19:25 WBC 9.1 (4.0-10.5) K/mm3 RBC 5.04 (4.1-5.6) M/mm3 Hgb 16.1 (12.5-18.0) gm/dl Hct 45.5 (42-50) % MCV 90.3 (78-100) fl MCH 31.9 (26-32) pg MCHC 35.4 (32-36) g/dl RDW 11.9 (11.5-14.0) % Plt Count 232 (150-450) K/mm3 MPV 10.8 H (6-9.5) fl Gran % 86.3 H (36.0-66.0) % Eos # (Auto) 0.02 (0-0.5) Absolute Lymphs (auto) 0.86 L (1.0-4.6) Absolute Monos (auto) 0.36 (0.0-1.3) Lymphocytes % 9.4 L (24.0-44.0) % Monocytes % 3.9 (0.0-12.0) % Eosinophils % 0.2 (0.00-5.0) % Basophils % 0.2 (0.0-0.4) % Absolute Granulocytes 7.87 H (1.4-6.9) Basophils # 0.02 (0-0.4) pO2/FiO2 Ratio 21.0 % VBG pH 7.15 L* (7.32-7.42) VBG pCO2 at Pat Temp 18 L* (42-55) mm/Hg VBG pO2 at Pat Temp 42 H (25-40) mm/Hg VBG HCO3 6.3 L* (22-28) meq/L VBG O2 Sat ([facility]) 81.4 L (95-100) VBG Base Excess -20.3 L (-2.0-2.0) VBG Hemoglobin 16.3 VBG Carboxyhemoglobin 2.7 (0.0-6.9) % T HGB POC Potassium 4.4 (3.5-5.1) Sodium 137 (137-145) mmol/L Potassium 4.6 (3.5-5.1) mmol/L Chloride 100 (98-107) mmol/L Carbon Dioxide 7 L* (22-30) mmol/L Anion Gap 35.3 H (5-15) MEQ/L BUN 14 (9-20) mg/dL Creatinine 0.90 (0.66-1.25) mg/dL Estimated GFR > 60.0 ML/MIN Glucose 416 H (74-106) mg/dL Lactic Acid (0.4-2.0) Calcium 9.9 (8.4-10.2) mg/dL Magnesium 1.9 (1.6-2.3) mg/dL Total Bilirubin 0.60 (0.2-1.3) mg/dL AST 20 (17-59) U/L ALT 24 (0-50) U/L Alkaline Phosphatase 196 H (38-126) U/L Serum Total Protein 8.2 (6.3-8.2) g/dL Albumin 4.6 (3.5-5.0) g/dL 05/18/19 Range/Units 19:11 WBC (4.0-10.5) K/mm3 RBC (4.1-5.6) M/mm3 Hgb (12.5-18.0) gm/dl Hct (42-50) % MCV (78-100) fl MCH (26-32) pg MCHC (32-36) g/dl RDW (11.5-14.0) % Plt Count (150-450) K/mm3 MPV (6-9.5) fl Gran % (36.0-66.0) % Eos # (Auto) (0-0.5) Absolute Lymphs (auto) (1.0-4.6) Absolute Monos (auto) (0.0-1.3) Lymphocytes % (24.0-44.0) % Monocytes % (0.0-12.0) % Eosinophils % (0.00-5.0) % Basophils % (0.0-0.4) % Absolute Granulocytes (1.4-6.9) Basophils # (0-0.4) pO2/FiO2 Ratio % VBG pH (7.32-7.42) VBG pCO2 at Pat Temp (42-55) mm/Hg VBG pO2 at Pat Temp (25-40) mm/Hg VBG HCO3 (22-28) meq/L VBG O2 Sat ([facility]) (95-100) VBG Base Excess (-2.0-2.0) VBG Hemoglobin VBG Carboxyhemoglobin (0.0-6.9) % T HGB POC Potassium (3.5-5.1) Sodium (137-145) mmol/L Potassium (3.5-5.1) mmol/L Chloride (98-107) mmol/L Carbon Dioxide (22-30) mmol/L Anion Gap (5-15) MEQ/L BUN (9-20) mg/dL Creatinine (0.66-1.25) mg/dL Estimated GFR ML/MIN Glucose (74-106) mg/dL Lactic Acid 1.7 (0.4-2.0) Calcium (8.4-10.2) mg/dL Magnesium (1.6-2.3) mg/dL Total Bilirubin (0.2-1.3) mg/dL AST (17-59) U/L ALT (0-50) U/L Alkaline Phosphatase (38-126) U/L Serum Total Protein (6.3-8.2) g/dL Albumin (3.5-5.0) g/dL - Progress Progress: improved Progress Note: 05/18/19 21:[address] triana. i reviewed pt hx, condition, lab results with dr. triana. she accepts pt for admission Discussed with Dr.: Other (dr. triana) Counseled pt/family regarding: lab results, diagnosis, need for follow-up - Departure Departure Disposition: In-patient Admission Clinical Impression: DKA (diabetic ketoacidoses), Sinusitis, Nausea and vomiting Condition: Fair Critical Care Time: Yes Critical Care Time(excluding separately billable procedures): Critical 30-74 mins Referrals: NAVEEN MCKEON MD [Primary Care Provider] -
[2019-05-18] MEDS ORDERED: Zofran 4 MG/2 ML VIAL ONE (19:17)
[2019-05-18] MEDS ORDERED: Sodium Chloride 0.9% 1000 ML 1,000 ML ONE ×3 (19:17→21:25)
[2019-05-18] MEDS ORDERED: TORAdol 30 mg Injection IV ONE (19:20)
[2019-05-18] MEDS ORDERED: TORAdol 30 mg Injection ONE (19:22)
[2019-05-18 19:32] LABS: BASOPHIL % 0.2 % (0.0-0.4); Basophil (Absolute #) 0.02 (0-0.4); Eosinophil % 0.2 % (0.00-5.0); Eosinophil (Absolute #) 0.02 (0-0.5); Granulocyte Absolute (ANC) 7.87 (1.4-6.9); Granulocytes % 86.3 % (36.0-66.0); Hematocrit 45.5 % (42-50); Hemoglobin 16.1 gm/dl (12.5-18.0); Lymphocyte (Absolute #) 0.86 (1.0-4.6); Lymphocytes % 9.4 % (24.0-44.0); Mean Cell Volume 90.3 fl (78-100); Mean Corpuscular Hemoglobin 31.9 pg (26-32); Mean Corpuscular Hgb Concent. 35.4 g/dl (32-36); Mean Platelet Volume 10.8 fl (6-9.5); Monocyte (Absolute #) 0.36 (0.0-1.3); Monocytes % 3.9 % (0.0-12.0); Platelet Count 232 K/mm3 (150-450); Red Blood Count 5.04 M/mm3 (4.1-5.6); Red Cell Distribution Width 11.9 % (11.5-14.0); White Blood Count 9.1 K/mm3 (4.0-10.5)
[2019-05-18 19:37] LABS: VBG BASE EXCESS -20.3 (-2.0-2.0); VBG CARBOXYHEMOGLOBIN 2.7 % T HGB (0.0-6.9); VBG HCO3- 6.3 meq/L (22-28); VBG HEMOGLOBIN 16.3; VBG O2 SATURATION 81.4 (95-100); VBG POTASSIUM 4.4 (3.5-5.1)
[2019-05-18 19:38] LABS: VBG pH 7.15 (7.32-7.42)
[2019-05-18 19:43] LABS: ALBUMIN 4.6 g/dL (3.5-5.0); ALKALINE PHOSPHATASE 196 U/L (38-126); ANION GAP 35.3 MEQ/L (5-15); BLOOD UREA NITROGEN 14 mg/dL (9-20); CHLORIDE 100 mmol/L (98-107); Calcium 9.9 mg/dL (8.4-10.2); Glucose 416 mg/dL (74-106); MAGNESIUM 1.9 mg/dL (1.6-2.3); Potassium 4.6 mmol/L (3.5-5.1); SGOT/AST 20 U/L (17-59); SGPT/ALT 24 U/L (0-50); SODIUM 137 mmol/L (137-145); Total Protein 8.2 g/dL (6.3-8.2)
[2019-05-18 19:49] LABS: Carbon Dioxide 7 mmol/L (22-30)
[2019-05-18] MEDS ORDERED: NovoLIN R IV ONE (21:19)
[2019-05-18] MEDS ORDERED: NovoLIN R ONE (21:25)
[2019-05-18] MEDS ORDERED: Zofran 4 MG/2 ML VIAL IV PRN (22:35)
[2019-05-18] MEDS ORDERED: NovoLIN R SQ PRN (22:35)
[2019-05-18] MEDS ORDERED: TYLENOL 325 MG PO PRN (22:35)
[2019-05-18] MEDS: Sodium Chloride 0.9% 1000 ML 1,000 ML IV SCH (22:51)
[2019-05-19] MEDS: Sodium Chloride 0.9% 1000 ML 1,000 ML IV SCH ×2 (03:06→08:50)
[2019-05-19 05:48] LABS: Hematocrit 42.3 % (42-50); Mean Cell Volume 89.4 fl (78-100); Mean Corpuscular Hemoglobin 31.7 pg (26-32); Mean Corpuscular Hgb Concent. 35.5 g/dl (32-36); Mean Platelet Volume 10.4 fl (6-9.5); Platelet Count 235 K/mm3 (150-450); Red Blood Count 4.73 M/mm3 (4.1-5.6); Red Cell Distribution Width 11.9 % (11.5-14.0); White Blood Count 6.5 K/mm3 (4.0-10.5)
[2019-05-19 05:55] LABS: VBG CARBOXYHEMOGLOBIN 2.7 % T HGB (0.0-6.9); VBG HCO3- 9.8 meq/L (22-28); VBG HEMOGLOBIN 14.9; VBG O2 SATURATION 83.2 (95-100); VBG POTASSIUM 4.5 (3.5-5.1)
[2019-05-19 05:56] LABS: ALBUMIN 3.7 g/dL (3.5-5.0); ALKALINE PHOSPHATASE 133 U/L (38-126); ANION GAP 23.8 MEQ/L (5-15); BLOOD UREA NITROGEN 10 mg/dL (9-20); CHLORIDE 106 mmol/L (98-107); Calcium 8.9 mg/dL (8.4-10.2); Creatinine 1 0.68 mg/dL (0.66-1.25); Glucose 236 mg/dL (74-106); Potassium 4.7 mmol/L (3.5-5.1); SGOT/AST 17 U/L (17-59); SGPT/ALT 19 U/L (0-50); SODIUM 136 mmol/L (137-145); Total Protein 6.8 g/dL (6.3-8.2)
[2019-05-19 05:56] LABS: VBG pH 7.22 (7.32-7.42)
[2019-05-19] MEDS ORDERED: TORAdol 30 mg Injection IV ONE ×2 (05:58→16:11)
[2019-05-19] MEDS ORDERED: TORAdol 30 mg Injection ONE (06:03)
[2019-05-19 06:07] LABS: Carbon Dioxide 10 mmol/L (22-30)
[2019-05-19 07:16] LABS: Lymphocytes 11 % (24-44); Monocyte 3 % (0.0-12.0); Neutrophils 86 % (36.-66.); Total Cells Counted 100
[2019-05-19 07:17] LABS: Platelet Estimate NORMAL (NORMAL)
[2019-05-19] MEDS: ROCEPHIN 1 Gm-D5w 50 ml Bag** 1 G/50 ML IVPB IV SCH (08:50)
[2019-05-19] MEDS ORDERED: NOVOLIN R INSULIN (FOR DRIPS)** 100 UNITS in Sodium Chloride 0.9% 100 ML IVPB 100 ML IV PRN (08:55)
--- NOTE | 2019-05-19 09:00 | PCM.HP ---
History of Present Illness - Chief Complaint Chief Complaint: headache wkns History of Present Illness: is a 28 year old male with type 1 diabetes who was recently admitted with DKA and acute sinusitis, he went home and took his usual insulin but admits that it was . after eating a ham and cheese and curly fries form [employer] he became ill and vomited twice so returned and found to be in DKA. his blood sugar levels are moderately elevated but serum bicarb was 7 on arrival, has only improved to 10 overnight. - Review of Systems Constitutional: No Fever, No Chills Respiratory: No Cough, No Short Of Breath Cardiac: No Chest Pain, No Edema, No Syncope Abdominal/Gastrointestinal: Nausea, Vomiting Genitourinary Symptoms: No Dysuria Skin: No Rash Neurological: No Dizziness, No Focal Weakness, No Sensory Changes All Other Systems: Reviewed and Negative Medications & Allergies Home Medications: Home Medication List Insulin Regular, Human [Novolin R] 1 - 8 unit SQ UD 03/09/19 [History Confirmed 05/18/19] Insulin Regular, Human [Novolin R] 10 unit SQ TIDAC #1 vial 03/09/19 [Rx Confirmed 05/18/19] NPH, Human Insulin Isophane [Novolin N] 20 unit SQ BID #10 ml 03/09/19 [Rx Confirmed 05/18/19] Amoxicillin 875 mg PO BID #20 tablet 05/17/19 [Rx Confirmed 05/18/19] Allergies/Adverse Reactions: Allergies Allergy/AdvReac Type Severity Reaction Status Date / Time No Known Drug Allergies Allergy Verified 05/18/19 18:56 - Past Medical History Past Medical History: Yes Neurological History: Migraines ENT History: No Pertinent History Cardiac History: Hypertension Respiratory History: Pneumonia Endocrine Medical History: Diabetes Type I Musculoskelatal History: Other GI Medical History: Irritable Bowel History: No Pertinent History Pyscho-Social History: No Pertinent History Male Reproductive Disorders: No Pertinent History Comment: dm I dx in 2017, DKA - Past Surgical History Past Surgical History: Yes Neuro Surgical History: No Pertinent History Cardiac History: No Pertinent History Respiratory Surgery: No Pertinent History GI Surgical History: No Pertinent History Genitourinary Surgical Hx: No Pertinent History Musculskeletal Surgical Hx: Orthopedic Surgery Male Surgical History: No Pertinent History Other Surgical History: tubes in ears as , back surgery in 1999 - spondylsis, sinus surgeries X5 growth/polyps removed, left knee surgery X2 dislocation of patella, right wrist fx with surgery, left hand surgery X2 nerve - Social History Smoking Status: Current every day smoker How long have you smoked: 13 years Exposure to second hand smoke: No Alcohol: Rarely Drug Use: none - Physical Exam Vital Signs: Vital Signs - 24 hr Temp Pulse Resp BP Pulse Ox 05/19/19 08:00 97.8 F 94 H 20 160/93 100 05/19/19 06:45 98 05/19/19 03:38 98.5 F 99 H 20 149/81 96 05/19/19 00:00 97.9 F 95 H 18 136/77 100 05/18/19 22:59 97.9 F 95 H 18 136/77 100 05/18/19 22:35 100 05/18/19 21:34 100 05/18/19 21:32 96 H 16 143/77 99 05/18/19 19:47 108 H 18 139/85 98 05/18/19 19:26 97 05/18/19 18:46 97.5 F 112 H 22 163/89 100 General Appearance: no apparent distress, alert Neurologic Exam: alert, oriented x 3, cooperative Eye Exam: PERRL/EOMI, eyes nml inspection Respiratory Exam: normal breath sounds, lungs clear, No respiratory distress Cardiovascular Exam: regular rate/rhythm, normal heart sounds, normal peripheral pulses Gastrointestinal/Abdomen Exam: soft Extremity Exam: normal inspection, normal range of motion, pelvis stable Skin Exam: normal color, warm, dry, No rash Results - Labs Lab/Micro Results: Accuchecks Date 05/19/19 Time 05:00 Accucheck Value: 217 Accucheck Value: 409 Lab Results-Last 24 Hours 05/18/19 05/18/19 05/18/19 Range/Units 19:11 19:25 19:25 WBC 9.1 (4.0-10.5) K/mm3 RBC 5.04 (4.1-5.6) M/mm3 Hgb 16.1 (12.5-18.0) gm/dl Hct 45.5 (42-50) % MCV 90.3 (78-100) fl MCH 31.9 (26-32) pg MCHC 35.4 (32-36) g/dl RDW 11.9 (11.5-14.0) % Plt Count 232 (150-450) K/mm3 MPV 10.8 H (6-9.5) fl Gran % 86.3 H (36.0-66.0) % Eos # (Auto) 0.02 (0-0.5) Absolute Lymphs (auto) 0.86 L (1.0-4.6) Absolute Monos (auto) 0.36 (0.0-1.3) Lymphocytes % 9.4 L (24.0-44.0) % Monocytes % 3.9 (0.0-12.0) % Eosinophils % 0.2 (0.00-5.0) % Basophils % 0.2 (0.0-0.4) % Absolute Granulocytes 7.87 H (1.4-6.9) Segmented Neutrophils (36.-66.) % Lymphocytes (Manual) (24-44) % Monocytes (Manual) (0.0-12.0) % Basophils # 0.02 (0-0.4) Platelet Estimate (NORMAL) RBC Morphology pO2/FiO2 Ratio % VBG pH (7.32-7.42) VBG pCO2 at Pat Temp (42-55) mm/Hg VBG pO2 at Pat Temp (25-40) mm/Hg VBG HCO3 (22-28) meq/L VBG O2 Sat ([facility]) (95-100) VBG Base Excess (-2.0-2.0) VBG Hemoglobin VBG Carboxyhemoglobin (0.0-6.9) % T HGB POC Potassium (3.5-5.1) Sodium 137 (137-145) mmol/L Potassium 4.6 (3.5-5.1) mmol/L Chloride 100 (98-107) mmol/L Carbon Dioxide 7 L* (22-30) mmol/L Anion Gap 35.3 H (5-15) MEQ/L BUN 14 (9-20) mg/dL Creatinine 0.90 (0.66-1.25) mg/dL Estimated GFR > 60.0 ML/MIN Glucose 416 H (74-106) mg/dL Lactic Acid 1.7 (0.4-2.0) Calcium 9.9 (8.4-10.2) mg/dL Magnesium 1.9 (1.6-2.3) mg/dL Total Bilirubin 0.60 (0.2-1.3) mg/dL AST 20 (17-59) U/L ALT 24 (0-50) U/L Alkaline Phosphatase 196 H (38-126) U/L Serum Total Protein 8.2 (6.3-8.2) g/dL Albumin 4.6 (3.5-5.0) g/dL 05/18/19 05/19/19 05/19/19 Range/Units 19:36 05:25 05:25 WBC 6.5 (4.0-10.5) K/mm3 RBC 4.73 (4.1-5.6) M/mm3 Hgb 15.0 (12.5-18.0) gm/dl Hct 42.3 (42-50) % MCV 89.4 (78-100) fl MCH 31.7 (26-32) pg MCHC 35.5 (32-36) g/dl RDW 11.9 (11.5-14.0) % Plt Count 235 (150-450) K/mm3 MPV 10.4 H (6-9.5) fl Gran % (36.0-66.0) % Eos # (Auto) (0-0.5) Absolute Lymphs (auto) (1.0-4.6) Absolute Monos (auto) (0.0-1.3) Lymphocytes % (24.0-44.0) % Monocytes % (0.0-12.0) % Eosinophils % (0.00-5.0) % Basophils % (0.0-0.4) % Absolute Granulocytes (1.4-6.9) Segmented Neutrophils 86 H (36.-66.) % Lymphocytes (Manual) 11 L (24-44) % Monocytes (Manual) 3 (0.0-12.0) % Basophils # (0-0.4) Platelet Estimate NORMAL (NORMAL) RBC Morphology NORMAL pO2/FiO2 Ratio 21.0 % VBG pH 7.15 L* (7.32-7.42) VBG pCO2 at Pat Temp 18 L* (42-55) mm/Hg VBG pO2 at Pat Temp 42 H (25-40) mm/Hg VBG HCO3 6.3 L* (22-28) meq/L VBG O2 Sat ([facility]) 81.4 L (95-100) VBG Base Excess -20.3 L (-2.0-2.0) VBG Hemoglobin 16.3 VBG Carboxyhemoglobin 2.7 (0.0-6.9) % T HGB POC Potassium 4.4 (3.5-5.1) Sodium 136 L (137-145) mmol/L Potassium 4.7 (3.5-5.1) mmol/L Chloride 106 (98-107) mmol/L Carbon Dioxide 10 L* (22-30) mmol/L Anion Gap 23.8 H (5-15) MEQ/L BUN 10 (9-20) mg/dL Creatinine 0.68 (0.66-1.25) mg/dL Estimated GFR > 60.0 ML/MIN Glucose 236 H (74-106) mg/dL Lactic Acid (0.4-2.0) Calcium 8.9 (8.4-10.2) mg/dL Magnesium (1.6-2.3) mg/dL Total Bilirubin 0.60 (0.2-1.3) mg/dL AST 17 (17-59) U/L ALT 19 (0-50) U/L Alkaline Phosphatase 133 H (38-126) U/L Serum Total Protein 6.8 (6.3-8.2) g/dL Albumin 3.7 (3.5-5.0) g/dL 05/19/19 Range/Units 05:48 WBC (4.0-10.5) K/mm3 RBC (4.1-5.6) M/mm3 Hgb (12.5-18.0) gm/dl Hct (42-50) % MCV (78-100) fl MCH (26-32) pg MCHC (32-36) g/dl RDW (11.5-14.0) % Plt Count (150-450) K/mm3 MPV (6-9.5) fl Gran % (36.0-66.0) % Eos # (Auto) (0-0.5) Absolute Lymphs (auto) (1.0-4.6) Absolute Monos (auto) (0.0-1.3) Lymphocytes % (24.0-44.0) % Monocytes % (0.0-12.0) % Eosinophils % (0.00-5.0) % Basophils % (0.0-0.4) % Absolute Granulocytes (1.4-6.9) Segmented Neutrophils (36.-66.) % Lymphocytes (Manual) (24-44) % Monocytes (Manual) (0.0-12.0) % Basophils # (0-0.4) Platelet Estimate (NORMAL) RBC Morphology pO2/FiO2 Ratio 21.0 % VBG pH 7.22 L* (7.32-7.42) VBG pCO2 at Pat Temp 24 L (42-55) mm/Hg VBG pO2 at Pat Temp 41 H (25-40) mm/Hg VBG HCO3 9.8 L* (22-28) meq/L VBG O2 Sat ([facility]) 83.2 L (95-100) VBG Base Excess -16.0 L (-2.0-2.0) VBG Hemoglobin 14.9 VBG Carboxyhemoglobin 2.7 (0.0-6.9) % T HGB POC Potassium 4.5 (3.5-5.1) Sodium (137-145) mmol/L Potassium (3.5-5.1) mmol/L Chloride (98-107) mmol/L Carbon Dioxide (22-30) mmol/L Anion Gap (5-15) MEQ/L BUN (9-20) mg/dL Creatinine (0.66-1.25) mg/dL Estimated GFR ML/MIN Glucose (74-106) mg/dL Lactic Acid (0.4-2.0) Calcium (8.4-10.2) mg/dL Magnesium (1.6-2.3) mg/dL Total Bilirubin (0.2-1.3) mg/dL AST (17-59) U/L ALT (0-50) U/L Alkaline Phosphatase (38-126) U/L Serum Total Protein (6.3-8.2) g/dL Albumin (3.5-5.0) g/dL Accuchecks Date 05/19/19 Time 05:00 Accucheck Value: 217 Accucheck Value: 409 Assessment/Plan (1) DKA (diabetic ketoacidoses) Current Visit: Yes Status: Acute Onset Date: ~08/01/18 Qualifiers: Qualified Code(s): E10.10 - Type 1 diabetes mellitus with ketoacidosis without coma Assessment & Plan: using insulin, seems to be related to insulin deficit. has no insurance so can only purchase otc insulin at [facility] at this time. needs insulin drip due to anion gap acidosis, until gap is closed. Code(s): E13.10 - OTH DIABETES MELLITUS WITH KETOACIDOSIS WITHOUT COMA (2) Sinusitis Current Visit: Yes Status: Acute Qualifiers: Assessment & Plan: [facility] Code(s): J32.9 - CHRONIC SINUSITIS, UNSPECIFIED
[2019-05-19 11:15] LABS: ANION GAP 21.6 MEQ/L (5-15); BLOOD UREA NITROGEN 13 mg/dL (9-20); CHLORIDE 106 mmol/L (98-107); Calcium 8.9 mg/dL (8.4-10.2); Creatinine 1 0.67 mg/dL (0.66-1.25); Glucose 259 mg/dL (74-106); Potassium 3.9 mmol/L (3.5-5.1); SODIUM 135 mmol/L (137-145)
[2019-05-19 11:18] LABS: Carbon Dioxide 11 mmol/L (22-30)
[2019-05-19] MEDS: D5W/0.45NS W/ 20mEq KCl 1000 ML 1,000 ML IV SCH ×2 (12:05→18:54)
[2019-05-19 15:34] LABS: ANION GAP 16.9 MEQ/L (5-15); BLOOD UREA NITROGEN 11 mg/dL (9-20); CHLORIDE 106 mmol/L (98-107); Calcium 8.9 mg/dL (8.4-10.2); Creatinine 1 0.48 mg/dL (0.66-1.25); Glucose 177 mg/dL (74-106); Potassium 4.2 mmol/L (3.5-5.1); SODIUM 134 mmol/L (137-145)
[2019-05-19 15:44] LABS: Carbon Dioxide 16 mmol/L (22-30)
[2019-05-19 19:27] LABS: ANION GAP 13.9 MEQ/L (5-15); BLOOD UREA NITROGEN 8 mg/dL (9-20); CHLORIDE 107 mmol/L (98-107); Calcium 8.9 mg/dL (8.4-10.2); Carbon Dioxide 19 mmol/L (22-30); Creatinine 1 0.43 mg/dL (0.66-1.25); Glucose 130 mg/dL (74-106); Potassium 4.1 mmol/L (3.5-5.1); SODIUM 136 mmol/L (137-145)
[2019-05-19] MEDS ORDERED: NovoLIN R SQ PRN (19:50)
[2019-05-19] MEDS: Sodium Chloride 0.9% 10 ML FLUSH Syringe IV SCH (21:07)
[2019-05-19] MEDS ORDERED: Lantus Insulin SQ SCH (22:00)
[2019-05-20] MEDS: NovoLOG Insulin SQ PRN ×2 (00:05→04:03)
[2019-05-20 05:42] LABS: BASOPHIL % 0.3 % (0.0-0.4); Basophil (Absolute #) 0.02 (0-0.4); Eosinophil % 2.1 % (0.00-5.0); Eosinophil (Absolute #) 0.15 (0-0.5); Granulocyte Absolute (ANC) 5.16 (1.4-6.9); Granulocytes % 71.8 % (36.0-66.0); Hematocrit 39.2 % (42-50); Hemoglobin 14.4 gm/dl (12.5-18.0); Lymphocyte (Absolute #) 1.42 (1.0-4.6); Lymphocytes % 19.8 % (24.0-44.0); Mean Cell Volume 87.3 fl (78-100); Mean Corpuscular Hemoglobin 32.1 pg (26-32); Mean Corpuscular Hgb Concent. 36.7 g/dl (32-36); Monocyte (Absolute #) 0.43 (0.0-1.3); Platelet Count 234 K/mm3 (150-450); Red Blood Count 4.49 M/mm3 (4.1-5.6); Red Cell Distribution Width 11.7 % (11.5-14.0); White Blood Count 7.2 K/mm3 (4.0-10.5)
[2019-05-20 05:55] LABS: ANION GAP 15.7 MEQ/L (5-15); BLOOD UREA NITROGEN 13 mg/dL (9-20); CHLORIDE 102 mmol/L (98-107); Carbon Dioxide 21 mmol/L (22-30); Creatinine 1 0.55 mg/dL (0.66-1.25); Glucose 197 mg/dL (74-106); Potassium 3.8 mmol/L (3.5-5.1); SODIUM 136 mmol/L (137-145)
[2019-05-20] MEDS: Sodium Chloride 0.9% 10 ML FLUSH Syringe IV SCH (06:03)
[2019-05-20 06:49] VITALS: BP 160/97
[2019-05-20 06:52] VITALS: O2SAT 100
[2019-05-20 07:20] VITALS: PULSE 85
[2019-05-20 07:24] LABS: Slide Review 1 YES
--- NOTE | 2019-05-20 08:17 | PCM.DS ---
Discharge Summary Date of Admission: 05/18/19 22:25 Admitting Physician: NAVEEN MCKEON Primary Care Provider: NAVEEN MCKEON Allergies Allergies No Known Drug Allergies Allergy (Verified 05/18/19 18:56) Hospital Summary - Hospital Course Hospital Course: patient was admitted with persistent vomiting, recurrent DKA. he has no insurance, claims he is taking his insulin although his a1c has consistently been 13% or higher with recurrent episodes of DKA. we discussed his blood sugar management at home, in any event he was started on an insulin drip and his dka reversed. he is now tolerating po, has normal CO2 on labs and blood sugars are reasonably controlled. - Vitals & Intake/Output Vital Signs: Vital Signs Temperature 98.6 F 05/20/19 06:48 Pulse Rate 85 05/20/19 07:16 Respiratory Rate 16 05/20/19 06:48 Blood Pressure 160/97 05/20/19 06:48 O2 Sat by Pulse Oximetry 100 05/20/19 06:52 Intake & Output: Intake & Output 05/17/19 05/18/19 05/19/19 05/20/19 11:59 11:59 11:59 11:59 Intake Total 1741 3990 Output Total 2600 3900 Balance -859 90 Weight 76.7 kg 74.6 kg - Lab Result Diagrams: 05/20/19 05:07 05/20/19 05:07 Lab Results-Last 24 Hrs: Accuchecks Date 05/20/19 Date 05/20/19 Date 05/20/19 Date 05/19/19 Time 07:42 Time 04:00 Time 00:00 Time 20:00 Accucheck Value: 183 Accucheck Value: 204 Accucheck Value: 258 Accucheck Value: 118 Accucheck Value: 136 Accucheck Value: 156 Accucheck Value: 165 Accucheck Value: 170 Accucheck Value: 193 Accucheck Value: 198 Accucheck Value: 180 Accucheck Value: 318 Lab Results-Last 24 Hours 05/19/19 05/19/19 05/19/19 Range/Units 11:00 15:17 19:13 WBC (4.0-10.5) K/mm3 RBC (4.1-5.6) M/mm3 Hgb (12.5-18.0) gm/dl Hct (42-50) % MCV (78-100) fl MCH (26-32) pg MCHC (32-36) g/dl RDW (11.5-14.0) % Plt Count (150-450) K/mm3 MPV (6-9.5) fl Gran % (36.0-66.0) % Eos # (Auto) (0-0.5) Absolute Lymphs (auto) (1.0-4.6) Absolute Monos (auto) (0.0-1.3) Lymphocytes % (24.0-44.0) % Monocytes % (0.0-12.0) % Eosinophils % (0.00-5.0) % Basophils % (0.0-0.4) % Absolute Granulocytes (1.4-6.9) Basophils # (0-0.4) Sodium 135 L 134 L 136 L (137-145) mmol/L Potassium 3.9 4.2 4.1 (3.5-5.1) mmol/L Chloride 106 106 107 (98-107) mmol/L Carbon Dioxide 11 L* 16 L* 19 L (22-30) mmol/L Anion Gap 21.6 H 16.9 H 13.9 (5-15) MEQ/L BUN 13 11 8 L (9-20) mg/dL Creatinine 0.67 0.48 L 0.43 L (0.66-1.25) mg/dL Estimated GFR > 60.0 > 60.0 > 60.0 ML/MIN Glucose 259 H 177 H 130 H (74-106) mg/dL Calcium 8.9 8.9 8.9 (8.4-10.2) mg/dL Slides for Path Review 05/20/19 05/20/19 Range/Units 05:07 05:07 WBC 7.2 (4.0-10.5) K/mm3 RBC 4.49 (4.1-5.6) M/mm3 Hgb 14.4 (12.5-18.0) gm/dl Hct 39.2 L (42-50) % MCV 87.3 (78-100) fl MCH 32.1 H (26-32) pg MCHC 36.7 H (32-36) g/dl RDW 11.7 (11.5-14.0) % Plt Count 234 (150-450) K/mm3 MPV 10.0 H (6-9.5) fl Gran % 71.8 H (36.0-66.0) % Eos # (Auto) 0.15 (0-0.5) Absolute Lymphs (auto) 1.42 (1.0-4.6) Absolute Monos (auto) 0.43 (0.0-1.3) Lymphocytes % 19.8 L (24.0-44.0) % Monocytes % 6.0 (0.0-12.0) % Eosinophils % 2.1 (0.00-5.0) % Basophils % 0.3 (0.0-0.4) % Absolute Granulocytes 5.16 (1.4-6.9) Basophils # 0.02 (0-0.4) Sodium 136 L (137-145) mmol/L Potassium 3.8 (3.5-5.1) mmol/L Chloride 102 (98-107) mmol/L Carbon Dioxide 21 L (22-30) mmol/L Anion Gap 15.7 H (5-15) MEQ/L BUN 13 (9-20) mg/dL Creatinine 0.55 L (0.66-1.25) mg/dL Estimated GFR > 60.0 ML/MIN Glucose 197 H (74-106) mg/dL Calcium 9.0 (8.4-10.2) mg/dL Slides for Path Review YES Micro Results-Entire Visit: Accuchecks Date 05/20/19 Date 05/20/19 Date 05/20/19 Date 05/19/19 Time 07:42 Time 04:00 Time 00:00 Time 20:00 Accucheck Value: 183 Accucheck Value: 204 Accucheck Value: 258 Accucheck Value: 118 Accucheck Value: 136 Accucheck Value: 156 Accucheck Value: 165 Accucheck Value: 170 Accucheck Value: 193 Accucheck Value: 198 Accucheck Value: 180 Accucheck Value: 318 Discharge Exam General Appearance: no apparent distress Neurologic Exam: alert, oriented x 3 Eye Exam: PERRL, EOMI, eyes nml inspection Respiratory Exam: normal breath sounds, lungs clear, No respiratory distress Cardiovascular Exam: regular rate/rhythm, normal heart sounds Gastrointestinal/Abdomen Exam: soft, No tenderness, No mass Extremity Exam: normal inspection, normal range of motion Skin Exam: normal color, warm, dry Final Diagnosis/Problem List - Final Discharge Diagnosis/Problem (1) DKA (diabetic ketoacidoses) Current Visit: Yes Status: Acute Onset Date: ~08/01/18 Assessment & Plan: discussed need for f/u in office, has no insurance but I advised will no charge visit. needs to bring blood sugar log and meter to visit in a week to review and adjust his home insulin regimen. 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
[2019-05-20] MEDS: ROCEPHIN 1 Gm-D5w 50 ml Bag** 1 G/50 ML IVPB IV SCH (09:46)
== END 2019-05-20 10:00 | disposition home or self-care (01) | DRG 639 ==
LOC: ED 18:40 → MED SURG 22:25 → ICU 05-19 09:30
PROVIDERS: ADMIT Family Medicine; ATTEND Family Medicine
DX: E10.10 Type 1 diabetes mellitus with ketoacidosis without coma (principal); J32.9 Chronic sinusitis, unspecified; R51 Headache
CPT/HCPCS: 36000; 36415; 80048; 80053; 82805; 82962; 83605; 83735; 85025; 94760; 96360; 96361; 96374; 96375; 99285; J0696; J1815; J1885; J2405; A9270-GY

== ENCOUNTER 2019-06-14 12:32 | Observation (INO) | payer SELFPAY ==
--- NOTE | 2019-06-14 12:58 | ERPHSYRPT ---
- History of Present Illness Time Seen by Provider: 06/14/19 12:50 Source: patient Exam Limitations: no limitations Patient Subjective Stated Complaint: Pt began having diarrhea on Friday and vomiting today, believes he is in DKA Triage Nursing Assessment: Pt walked into the ER, stated that his BS was 275 this morning, upon arrival it was 530, tachycardic, hypertensive, rates pain 7/ 10, lungs clear Physician History: 29 y/o iddm white male presents with h/o diarrhea since Friday and had vomiting today. pt has h/o recurrent dka. sx same for him. pt is taking his meds as d/w pcp dr. pettit. pt has not followed up with dr. pettit because pt lost health insurance. pts blood glucose was 275 this am and now is over 500 on accucheck. Timing/Duration: day(s) (2) Severity: moderate Associated Symptoms: nausea, vomiting, loss of appetite, malaise Allergies/Adverse Reactions: No Known Drug Allergies Allergy (Verified 06/14/19 12:48) Home Medications: Insulin Regular, Human [Novolin R] 1 - 8 unit SQ UD 03/09/19 [History] Hx Tetanus, Diphtheria Vaccination/Date Given: Yes Hx Influenza Vaccination/Date Given: No Hx Pneumococcal Vaccination/Date Given: No - Review of Systems Constitutional: Weakness Eyes: No Symptoms Ears, Nose, & Throat: No Symptoms Respiratory: No Symptoms Cardiac: No Symptoms Abdominal/Gastrointestinal: Nausea, Vomiting, Diarrhea Genitourinary Symptoms: No Symptoms Musculoskeletal: Myalgias Skin: No Symptoms Neurological: No Symptoms Psychological: No Symptoms Endocrine: No Symptoms Hematologic/Lymphatic: No Symptoms Immunological/Allergic: No Symptoms All Other Systems: Reviewed and Negative - Past Medical History Pertinent Past Medical History: Yes Neurological History: Migraines ENT History: No Pertinent History Cardiac History: Hypertension Respiratory History: Pneumonia Endocrine Medical History: Diabetes Type I Musculoskeletal History: Other GI Medical History: Irritable Bowel History: No Pertinent History Psycho-Social History: No Pertinent History Male Reproductive Disorders: No Pertinent History Other Medical History: dm I dx in 2017, DKA - Past Surgical History Past Surgical History: Yes Neuro Surgical History: No Pertinent History Cardiac: No Pertinent History Respiratory: No Pertinent History Gastrointestinal: No Pertinent History Genitourinary: No Pertinent History Musculoskeletal: Orthopedic Surgery Male Surgical History: No Pertinent History Other Surgical History: tubes in ears as infant, back surgery in 2000 - spondylsis, sinus surgeries X5 growth/polyps removed, left knee surgery X2 dislocation of patella, right wrist fx with surgery, left hand surgery X2 nerve - Social History Smoking Status: Current every day smoker How long have you smoked: 13 years Exposure to second hand smoke: No Drug Use: none Patient Lives Alone: No - Nursing Vital Signs Nursing Vital Signs: Initial Vital Signs Temperature 97.4 F 06/14/19 12:36 Pulse Rate 119 H 06/14/19 12:36 Respiratory Rate 24 06/14/19 12:36 Blood Pressure 165/107 06/14/19 12:36 O2 Sat by Pulse Oximetry 100 06/14/19 12:36 Pain Scale Pain Intensity 7 - Physical Exam General Appearance: mild distress, alert, anxiety Eye Exam: PERRL/EOMI Ears, Nose, Throat Exam: normal ENT inspection, dry mucous membranes Neck Exam: normal inspection, non-tender, supple, full range of motion Respiratory Exam: normal breath sounds, lungs clear, airway intact, No chest tenderness, No respiratory distress Cardiovascular Exam: normal peripheral pulses, tachycardia Gastrointestinal/Abdomen Exam: soft, normal bowel sounds, No tenderness, No guarding, No rebound Rectal Exam: not done Back Exam: normal inspection, normal range of motion, No CVA tenderness Extremity Exam: normal inspection, normal range of motion, pelvis stable Neurologic Exam: alert, oriented x 3, cooperative, full roll inspector II-XII nml as tested, normal mood/affect, nml cerebellar function Skin Exam: normal color, warm, dry SpO2 Interpretation: normal SpO2: 100 O2 Delivery: Room Air - Course Nursing assessment & vital signs reviewed: Yes Ordered Tests: Active Orders 24 hr Category Date Time Status Accucheck STAT Care 06/14/19 12:59 Active Brass Pourer STAT Care 06/14/19 12:59 Active IV Insertion STAT Care 06/14/19 12:59 Active Pulse Oximetry (ED) STAT Care 06/14/19 12:59 Active CBC W DIFF Stat Lab 06/14/19 13:07 Completed CMP Stat Lab 06/14/19 13:07 Completed Lactic Acid Urgent Lab 06/14/19 12:59 Results MAGNESIUM Stat Lab 06/14/19 13:07 Completed UA W/RFX UR CULTURE Stat Lab 06/14/19 14:43 Completed VBG [VENOUS BLOOD GAS] Stat Lab 06/14/19 13:25 Completed Transfer Order Routine Transfer 06/14/19 Ordered Medication Summary Discontinued Medications Generic Name Dose Route Start Last Admin Trade Name Christ PRN Reason Stop Dose Admin Sodium Chloride 1,000 mls @ 999 mls/hr 06/14/19 12:59 06/14/19 14:07 Sodium Chloride 0.9% 1000 Ml IV 06/14/19 13:59 Infused .Q1H1M STA Infusion Sodium Chloride Confirm 06/14/19 13:04 Sodium Chloride 0.9% 1000 Ml Administered 06/14/19 13:05 Dose 1,000 mls @ ud .ROUTE .STK-MED ONE Sodium Chloride 1,000 mls @ 999 mls/hr 06/14/19 13:40 06/14/19 15:13 Sodium Chloride 0.9% 1000 Ml IV 06/14/19 14:40 Infused .Q1H1M STA Titration Sodium Chloride Confirm 06/14/19 13:59 Sodium Chloride 0.9% 1000 Ml Administered 06/14/19 14:00 Dose 1,000 mls @ ud .ROUTE .STK-MED ONE Insulin Human Regular 8 unit 06/14/19 13:40 06/14/19 14:12 Novolin R IV 06/14/19 13:41 8 unit STAT ONE Administration Insulin Human Regular Confirm 06/14/19 13:59 Novolin R Administered 06/14/19 14:00 Dose 8 unit .ROUTE .STK-MED ONE Promethazine HCl 25 mg 06/14/19 14:24 06/14/19 14:33 Phenergan 25 Mg Inj IM 06/14/19 14:25 25 mg STAT ONE Administration Promethazine HCl Confirm 06/14/19 14:24 Phenergan 25 Mg Inj Administered 06/14/19 14:25 Dose 25 mg .ROUTE .STK-MED ONE Lab/Rad Data: Laboratory Result Diagrams 06/14/19 13:07 06/14/19 13:07 Laboratory Results 06/14/19 06/14/19 06/14/19 Range/Units 14:43 13:25 13:07 WBC (4.0-10.5) K/mm3 RBC (4.1-5.6) M/mm3 Hgb (12.5-18.0) gm/dl Hct (42-50) % MCV (78-100) fl MCH (26-32) pg MCHC (32-36) g/dl RDW (11.5-14.0) % Plt Count (150-450) K/mm3 MPV (6-9.5) fl Gran % (36.0-66.0) % Eos # (Auto) (0-0.5) Absolute Lymphs (auto) (1.0-4.6) Absolute Monos (auto) (0.0-1.3) Lymphocytes % (24.0-44.0) % Monocytes % (0.0-12.0) % Eosinophils % (0.00-5.0) % Basophils % (0.0-0.4) % Absolute Granulocytes (1.4-6.9) Basophils # (0-0.4) pO2/FiO2 Ratio 21.0 % VBG pH 7.07 L* (7.32-7.42) VBG pCO2 at Pat Temp 32 L (42-55) mm/Hg VBG pO2 at Pat Temp 36 (25-40) mm/Hg VBG HCO3 9.3 L* (22-28) meq/L VBG O2 Sat ([facility]) 67.7 L (95-100) VBG Base Excess -19.9 L (-2.0-2.0) VBG Hemoglobin 17.6 VBG Carboxyhemoglobin 3.4 (0.0-6.9) % T HGB POC Potassium 5.4 H (3.5-5.1) Sodium 135 L (137-145) mmol/L Potassium 5.4 H (3.5-5.1) mmol/L Chloride 93 L (98-107) mmol/L Carbon Dioxide 9 L* (22-30) mmol/L Anion Gap 38.6 H (5-15) MEQ/L BUN 17 (9-20) mg/dL Creatinine 1.00 (0.66-1.25) mg/dL Estimated GFR > 60.0 ML/MIN Glucose 561 H* (74-106) mg/dL Lactic Acid (0.4-2.0) Calcium 10.1 (8.4-10.2) mg/dL Magnesium 1.9 (1.6-2.3) mg/dL Total Bilirubin 0.90 (0.2-1.3) mg/dL AST 41 (17-59) U/L ALT 40 (0-50) U/L Alkaline Phosphatase 241 H (38-126) U/L Serum Total Protein 8.9 H (6.3-8.2) g/dL Albumin 5.5 H (3.5-5.0) g/dL Urine Color STRAW (YELLOW) Urine Appearance CLEAR (CLEAR) Urine pH 5.0 (5-6) Ur Specific [place] 1.023 (1.005-1.025) Urine Protein NEGATIVE (Negative) Urine Ketones MODERATE (NEGATIVE) Urine Blood NEGATIVE (0-5) Pedro/ul Urine Nitrite NEGATIVE (NEGATIVE) Urine Bilirubin NEGATIVE (NEGATIVE) Urine Urobilinogen NEGATIVE (0-1) mg/dL Ur Leukocyte Esterase NEGATIVE (NEGATIVE) Urine WBC (Auto) NONE (0-5) /HPF Urine RBC (Auto) NONE (0-2) /HPF U Epithel Cells (Auto) NONE (FEW) /HPF Urine Bacteria (Auto) NONE (NEGATIVE) /HPF Urine Mucus (Auto) SLIGHT (NEGATIVE) /HPF Urine Culture Reflexed NO (NO) Urine Glucose >=500 (NEGATIVE) mg/dL 06/14/19 06/14/19 Range/Units 13:07 12:59 WBC 11.1 H (4.0-10.5) K/mm3 RBC 5.51 (4.1-5.6) M/mm3 Hgb 17.7 (12.5-18.0) gm/dl Hct 50.6 H (42-50) % MCV 91.8 (78-100) fl MCH 32.1 H (26-32) pg MCHC 35.0 (32-36) g/dl RDW 12.1 (11.5-14.0) % Plt Count 259 (150-450) K/mm3 MPV 11.3 H (6-9.5) fl Gran % 80.5 H (36.0-66.0) % Eos # (Auto) 0.03 (0-0.5) Absolute Lymphs (auto) 1.61 (1.0-4.6) Absolute Monos (auto) 0.48 (0.0-1.3) Lymphocytes % 14.5 L (24.0-44.0) % Monocytes % 4.3 (0.0-12.0) % Eosinophils % 0.3 (0.00-5.0) % Basophils % 0.4 (0.0-0.4) % Absolute Granulocytes 8.96 H (1.4-6.9) Basophils # 0.04 (0-0.4) pO2/FiO2 Ratio % VBG pH (7.32-7.42) VBG pCO2 at Pat Temp (42-55) mm/Hg VBG pO2 at Pat Temp (25-40) mm/Hg VBG HCO3 (22-28) meq/L VBG O2 Sat ([facility]) (95-100) VBG Base Excess (-2.0-2.0) VBG Hemoglobin VBG Carboxyhemoglobin (0.0-6.9) % T HGB POC Potassium (3.5-5.1) Sodium (137-145) mmol/L Potassium (3.5-5.1) mmol/L Chloride (98-107) mmol/L Carbon Dioxide (22-30) mmol/L Anion Gap (5-15) MEQ/L BUN (9-20) mg/dL Creatinine (0.66-1.25) mg/dL Estimated GFR ML/MIN Glucose (74-106) mg/dL Lactic Acid 4.0 H (0.4-2.0) Calcium (8.4-10.2) mg/dL Magnesium (1.6-2.3) mg/dL Total Bilirubin (0.2-1.3) mg/dL AST (17-59) U/L ALT (0-50) U/L Alkaline Phosphatase (38-126) U/L Serum Total Protein (6.3-8.2) g/dL Albumin (3.5-5.0) g/dL Urine Color (YELLOW) Urine Appearance (CLEAR) Urine pH (5-6) Ur Specific [place] (1.005-1.025) Urine Protein (Negative) Urine Ketones (NEGATIVE) Urine Blood (0-5) Pedro/ul Urine Nitrite (NEGATIVE) Urine Bilirubin (NEGATIVE) Urine Urobilinogen (0-1) mg/dL Ur Leukocyte Esterase (NEGATIVE) Urine WBC (Auto) (0-5) /HPF Urine RBC (Auto) (0-2) /HPF U Epithel Cells (Auto) (FEW) /HPF Urine Bacteria (Auto) (NEGATIVE) /HPF Urine Mucus (Auto) (NEGATIVE) /HPF Urine Culture Reflexed (NO) Urine Glucose (NEGATIVE) mg/dL - Progress Progress: improved Progress Note: 06/14/19 15:[address] pettit. ok to place in observation icu. start insulin drip and follow dka protocol. Discussed with : Carlos Counseled pt/family regarding: lab results, diagnosis, need for follow-up - Departure Departure Disposition: Observation Clinical Impression: DKA (diabetic ketoacidoses) Condition: Stable Critical Care Time: Yes Critical Care Time(excluding separately billable procedures): Critical 30-74 mins Referrals: NAVEEN PETTIT MD [Primary Care Provider] -
[2019-06-14] MEDS ORDERED: Sodium Chloride 0.9% 1000 ML 1,000 ML IV STA ×2 (12:59→13:40)
[2019-06-14] MEDS ORDERED: Sodium Chloride 0.9% 1000 ML 1,000 ML ONE ×2 (13:04→13:59)
[2019-06-14 13:11] LABS: BASOPHIL % 0.4 % (0.0-0.4); Basophil (Absolute #) 0.04 (0-0.4); Eosinophil % 0.3 % (0.00-5.0); Eosinophil (Absolute #) 0.03 (0-0.5); Granulocyte Absolute (ANC) 8.96 (1.4-6.9); Granulocytes % 80.5 % (36.0-66.0); Hematocrit 50.6 % (42-50); Hemoglobin 17.7 gm/dl (12.5-18.0); Lymphocyte (Absolute #) 1.61 (1.0-4.6); Lymphocytes % 14.5 % (24.0-44.0); Mean Cell Volume 91.8 fl (78-100); Mean Corpuscular Hemoglobin 32.1 pg (26-32); Mean Platelet Volume 11.3 fl (6-9.5); Monocyte (Absolute #) 0.48 (0.0-1.3); Monocytes % 4.3 % (0.0-12.0); Platelet Count 259 K/mm3 (150-450); Red Blood Count 5.51 M/mm3 (4.1-5.6); Red Cell Distribution Width 12.1 % (11.5-14.0); White Blood Count 11.1 K/mm3 (4.0-10.5)
[2019-06-14 13:24] LABS: ALBUMIN 5.5 g/dL (3.5-5.0); ALKALINE PHOSPHATASE 241 U/L (38-126); ANION GAP 38.6 MEQ/L (5-15); BLOOD UREA NITROGEN 17 mg/dL (9-20); CHLORIDE 93 mmol/L (98-107); Calcium 10.1 mg/dL (8.4-10.2); MAGNESIUM 1.9 mg/dL (1.6-2.3); Potassium 5.4 mmol/L (3.5-5.1); SGOT/AST 41 U/L (17-59); SGPT/ALT 40 U/L (0-50); SODIUM 135 mmol/L (137-145); Total Protein 8.9 g/dL (6.3-8.2)
[2019-06-14 13:26] LABS: VBG BASE EXCESS -19.9 (-2.0-2.0); VBG CARBOXYHEMOGLOBIN 3.4 % T HGB (0.0-6.9); VBG HCO3- 9.3 meq/L (22-28); VBG HEMOGLOBIN 17.6; VBG O2 SATURATION 67.7 (95-100); VBG POTASSIUM 5.4 (3.5-5.1)
[2019-06-14 13:27] LABS: VBG pH 7.07 (7.32-7.42)
[2019-06-14 13:29] LABS: Glucose 561 mg/dL (74-106)
[2019-06-14 13:30] LABS: Carbon Dioxide 9 mmol/L (22-30)
[2019-06-14] MEDS ORDERED: NovoLIN R IV ONE (13:40)
[2019-06-14] MEDS ORDERED: NovoLIN R ONE (13:59)
[2019-06-14] MEDS ORDERED: Phenergan 25 MG INJ ONE (14:24)
[2019-06-14] MEDS ORDERED: Phenergan 25 MG INJ IM ONE (14:24)
[2019-06-14 14:50] LABS: Appearance CLEAR (CLEAR); Bilirubin NEGATIVE (NEGATIVE); Blood NEGATIVE Ery/ul (0-5); Glucose >=500 mg/dL (NEGATIVE); Ketones MODERATE (NEGATIVE); Leukocyte Esterase NEGATIVE (NEGATIVE); Mucus SLIGHT /HPF (NEGATIVE); Nitrite NEGATIVE (NEGATIVE); Protein,Urine Dip NEGATIVE (Negative); Specific Gravity 1.023 (1.005-1.025); Urobilinogen NEGATIVE mg/dL (0-1)
[2019-06-14] MEDS ORDERED: TYLENOL 325 MG PO PRN (16:07)
[2019-06-14] MEDS ORDERED: Zofran 4 MG/2 ML VIAL IV PRN ×2 (16:07→18:10)
[2019-06-14] MEDS ORDERED: Sodium Chloride 0.9% 1000 ML 1,000 ML IV PRN (16:30)
[2019-06-14] MEDS ORDERED: Magnesium 1 Gm / 100 Ml D5W*** 100 ML IV PRN (16:32)
[2019-06-14] MEDS ORDERED: POTASSIUM CHLORIDE 20 mEq IN WATER 100ML 100 ML IV PRN (16:33)
[2019-06-14] MEDS ORDERED: K-LYTE 25 MEQ PO PRN (16:34)
[2019-06-14] MEDS ORDERED: NOVOLIN R INSULIN (FOR DRIPS)** 100 UNITS in Sodium Chloride 0.9% 100 ML IVPB 100 ML IV SCH (16:45)
[2019-06-14 17:54] LABS: ANION GAP 31.1 MEQ/L (5-15); BLOOD UREA NITROGEN 15 mg/dL (9-20); CHLORIDE 105 mmol/L (98-107); Creatinine 1 0.84 mg/dL (0.66-1.25); Glucose 324 mg/dL (74-106); Potassium 5.5 mmol/L (3.5-5.1); SODIUM 139 mmol/L (137-145)
[2019-06-14 17:56] LABS: Carbon Dioxide 8 mmol/L (22-30)
[2019-06-14] MEDS: D5W/0.45NS W/ 20mEq KCl 1000 ML 1,000 ML IV PRN (19:54)
[2019-06-14] MEDS: Phenergan 25 MG INJ IV PRN (20:33)
[2019-06-14 21:15] LABS: ANION GAP 26.3 MEQ/L (5-15); BLOOD UREA NITROGEN 12 mg/dL (9-20); CHLORIDE 109 mmol/L (98-107); Calcium 8.9 mg/dL (8.4-10.2); Creatinine 1 0.72 mg/dL (0.66-1.25); Glucose 211 mg/dL (74-106); Potassium 4.9 mmol/L (3.5-5.1); SODIUM 140 mmol/L (137-145)
[2019-06-14 21:30] LABS: Carbon Dioxide 9 mmol/L (22-30)
[2019-06-15] MEDS: Phenergan 25 MG INJ IV PRN (01:56)
[2019-06-15 02:19] LABS: ANION GAP 19.2 MEQ/L (5-15); BLOOD UREA NITROGEN 10 mg/dL (9-20); CHLORIDE 109 mmol/L (98-107); Creatinine 1 0.58 mg/dL (0.66-1.25); Glucose 180 mg/dL (74-106); Potassium 4.4 mmol/L (3.5-5.1); SODIUM 138 mmol/L (137-145)
[2019-06-15 02:27] LABS: Carbon Dioxide 15 mmol/L (22-30)
[2019-06-15] MEDS: D5W/0.45NS W/ 20mEq KCl 1000 ML 1,000 ML IV PRN ×2 (02:35→09:05)
[2019-06-15 05:08] LABS: A-aADO2 13; ABG HEMOGLOBIN 15.3; ABG POTASSIUM 4.2 (3.5-5.1); ABG SITE LEFT BRACHIAL; ALLEN TEST OK? YES; ARTERIAL BLD GAS O2 SATURATION 99.6 % (95-100); ARTERIAL BLOOD GAS BASE EXCESS -9.2 (-2.0-2.0); ARTERIAL BLOOD GAS FIO2 21 %; ARTERIAL BLOOD GAS PCO2 30 mmHg (35-45); ARTERIAL BLOOD GAS PO2 99 mmHg (75-100); ARTERIAL BLOOD GAS pH 7.32 (7.35-7.45); CARBOXYHEMOGLOBIN 2.3 % THgb (0.0-6.9); HCO3- 15.5 (22-28); HGB O2 SAT 96.6 g/dF (94-100); Methhemoglobin 0.7 % (1.4-1.5); paO2 pAO1 0.88
[2019-06-15 06:32] LABS: BASOPHIL % 0.1 % (0.0-0.4); Basophil (Absolute #) 0.02 (0-0.4); Eosinophil % 0.1 % (0.00-5.0); Eosinophil (Absolute #) 0.02 (0-0.5); Granulocyte Absolute (ANC) 10.78 (1.4-6.9); Granulocytes % 80.8 % (36.0-66.0); Hematocrit 42.1 % (42-50); Lymphocyte (Absolute #) 1.75 (1.0-4.6); Lymphocytes % 13.1 % (24.0-44.0); Mean Cell Volume 90.5 fl (78-100); Mean Corpuscular Hemoglobin 32.3 pg (26-32); Mean Corpuscular Hgb Concent. 35.6 g/dl (32-36); Mean Platelet Volume 11.3 fl (6-9.5); Monocyte (Absolute #) 0.79 (0.0-1.3); Monocytes % 5.9 % (0.0-12.0); Platelet Count 226 K/mm3 (150-450); Red Blood Count 4.65 M/mm3 (4.1-5.6); Red Cell Distribution Width 12.1 % (11.5-14.0); White Blood Count 13.4 K/mm3 (4.0-10.5)
[2019-06-15 06:36] LABS: ALBUMIN 4.2 g/dL (3.5-5.0); ALKALINE PHOSPHATASE 137 U/L (38-126); ANION GAP 19.2 MEQ/L (5-15); BLOOD UREA NITROGEN 9 mg/dL (9-20); CHLORIDE 107 mmol/L (98-107); Calcium 9.2 mg/dL (8.4-10.2); Creatinine 1 0.56 mg/dL (0.66-1.25); Glucose 204 mg/dL (74-106); Potassium 4.4 mmol/L (3.5-5.1); SGOT/AST 36 U/L (17-59); SGPT/ALT 31 U/L (0-50); SODIUM 137 mmol/L (137-145); Total Protein 7.1 g/dL (6.3-8.2)
[2019-06-15 06:42] LABS: Carbon Dioxide 15 mmol/L (22-30)
[2019-06-15] MEDS: NovoLOG Insulin SQ SCH ×4 (08:11→14:13)
[2019-06-15] MEDS ORDERED: Sodium Chloride 0.9% 1000 ML 1,000 ML IV STA (08:17)
--- NOTE | 2019-06-15 08:51 | PCM.HP ---
History of Present Illness - Chief Complaint Chief Complaint: DKA History of Present Illness: is a 29 year old male pt of Dr. Sanchez with DM 1 who was admitted last night through ER with DKA. He started having diarrhea 3d ago, and yesterday started vomiting. He was not feeling well and drove himself to the ER from work. His bicarb was 9 and his BS was 561. Pt was given IV fluids and started on an insulin drip with DKA protocol. Overnight his bicarb has increased from 9 to 15. His BS has come down around 200. His last IV entiemetic was at 1 am and he is currently not nauseated and would like more to eat than CLD. - Review of Systems Respiratory: Cough Abdominal/Gastrointestinal: Abdominal Pain (5/10 epigastric), Nausea, Vomiting, Diarrhea All Other Systems: Reviewed and Negative Medications & Allergies Home Medications: Home Medication List Insulin Regular, Human [Novolin R] 1 - 8 unit SQ UD 03/09/19 [History Confirmed 06/14/19] Insulin Regular, Human [Novolin R] 10 unit SQ TIDAC #1 vial 03/09/19 [Rx Confirmed 06/14/19] NPH, Human Insulin Isophane [Novolin N] 20 unit SQ BID #10 ml 03/09/19 [Rx Confirmed 06/14/19] Allergies/Adverse Reactions: Allergies Allergy/AdvReac Type Severity Reaction Status Date / Time No Known Drug Allergies Allergy Verified 06/14/19 12:48 - Past Medical History Past Medical History: Yes Neurological History: Migraines ENT History: No Pertinent History Cardiac History: Hypertension Respiratory History: Pneumonia Endocrine Medical History: Diabetes Type I Musculoskelatal History: Other GI Medical History: Irritable Bowel History: No Pertinent History Pyscho-Social History: No Pertinent History Male Reproductive Disorders: No Pertinent History Comment: DKA - Past Surgical History Past Surgical History: Yes Neuro Surgical History: No Pertinent History Cardiac History: No Pertinent History Respiratory Surgery: No Pertinent History GI Surgical History: No Pertinent History Genitourinary Surgical Hx: No Pertinent History Musculskeletal Surgical Hx: Orthopedic Surgery Male Surgical History: No Pertinent History Other Surgical History: tubes in ears as , back surgery in 1999 - spondylsis, sinus surgeries X5 growth/polyps removed, left knee surgery X2 dislocation of patella, right wrist fx with surgery, left hand surgery X2 nerve - Social History Smoking Status: Never smoker How long have you smoked: 13 years Exposure to second hand smoke: No Alcohol: None Drug Use: none - Physical Exam Vital Signs: Vital Signs - 24 hr Temp Pulse Resp BP Pulse Ox 06/15/19 07:27 98.6 F 104 H 20 164/103 96 06/15/19 07:20 94 H 18 06/15/19 04:00 98.2 F 105 H 21 171/96 98 06/15/19 00:01 114 H 06/15/19 00:00 98.4 F 114 H 23 163/91 98 06/14/19 20:00 98.6 F 117 H 20 175/107 98 06/14/19 16:29 98.3 F 120 H 20 171/91 100 06/14/19 15:19 100 06/14/19 15:06 117 H 165/102 99 06/14/19 14:45 120 H 143/105 100 06/14/19 13:03 98 06/14/19 12:36 97.4 F 119 H 24 165/107 100 General Appearance: no apparent distress, alert Neurologic Exam: oriented x 3, cooperative, other (limited affect) Eye Exam: eyes nml inspection Ears, Nose, Throat Exam: moist mucous membranes Neck Exam: normal inspection, non-tender, No lymphadenopathy Respiratory Exam: normal breath sounds, lungs clear, No crackles/rales, No rhonchi, No wheezing Cardiovascular Exam: normal heart sounds, tachycardia (with sitting up), No murmur Gastrointestinal/Abdomen Exam: soft, normal bowel sounds, tenderness (epigastrum ), No distention, No mass, No guarding, No rebound Back Exam: normal inspection, No CVA tenderness, No rash Extremity Exam: normal inspection, No pedal edema, No swelling Skin Exam: normal color, warm, dry, No rash Results - Labs Lab/Micro Results: Accuchecks Date 06/15/19 Time 08:12 Accucheck Value: 185 Accucheck Value: 253 Accucheck Value: 232 Accucheck Value: 212 Accucheck Value: 205 Accucheck Value: 175 Accucheck Value: 175 Accucheck Value: 208 Accucheck Value: 221 Accucheck Value: 250 Accucheck Value: 254 Accucheck Value: 222 Accucheck Value: 183 Accucheck Value: 239 Accucheck Value: 323 Accucheck Value: 325 Accucheck Value: 356 Accucheck Value: 530 Lab Results-Last 24 Hours 06/14/19 06/14/19 06/14/19 Range/Units 12:59 13:07 13:07 WBC 11.1 H (4.0-10.5) K/mm3 RBC 5.51 (4.1-5.6) M/mm3 Hgb 17.7 (12.5-18.0) gm/dl Hct 50.6 H (42-50) % MCV 91.8 (78-100) fl MCH 32.1 H (26-32) pg MCHC 35.0 (32-36) g/dl RDW 12.1 (11.5-14.0) % Plt Count 259 (150-450) K/mm3 MPV 11.3 H (6-9.5) fl Gran % 80.5 H (36.0-66.0) % Eos # (Auto) 0.03 (0-0.5) Absolute Lymphs (auto) 1.61 (1.0-4.6) Absolute Monos (auto) 0.48 (0.0-1.3) Lymphocytes % 14.5 L (24.0-44.0) % Monocytes % 4.3 (0.0-12.0) % Eosinophils % 0.3 (0.00-5.0) % Basophils % 0.4 (0.0-0.4) % Absolute Granulocytes 8.96 H (1.4-6.9) Basophils # 0.04 (0-0.4) Puncture Site pCO2 (35-45) mmHg pO2 (75-100) mmHg pO2/FiO2 Ratio % Base Excess (-2.0-2.0) O2 Saturation (94-100) g/dF ABG pH (7.35-7.45) ABG HCO3 (22-28) ABG O2 Sat (Measured) (95-100) % Jim Test VBG pH (7.32-7.42) VBG pCO2 at Pat Temp (42-55) mm/Hg VBG pO2 at Pat Temp (25-40) mm/Hg VBG HCO3 (22-28) meq/L VBG O2 Sat ([facility]) (95-100) VBG Base Excess (-2.0-2.0) VBG Hemoglobin VBG Carboxyhemoglobin (0.0-6.9) % T HGB A-a Gradient a/A Ratio Hemoglobin Carboxyhemoglobin (0.0-6.9) % THgb Methemoglobin (1.4-1.5) % POC Potassium (3.5-5.1) Temperature C POC O2 Flow Rate % Sodium 135 L (137-145) mmol/L Potassium 5.4 H (3.5-5.1) mmol/L Chloride 93 L (98-107) mmol/L Carbon Dioxide 9 L* (22-30) mmol/L Anion Gap 38.6 H (5-15) MEQ/L BUN 17 (9-20) mg/dL Creatinine 1.00 (0.66-1.25) mg/dL Estimated GFR > 60.0 ML/MIN Glucose 561 H* (74-106) mg/dL Lactic Acid 4.0 H (0.4-2.0) Calcium 10.1 (8.4-10.2) mg/dL Magnesium 1.9 (1.6-2.3) mg/dL Total Bilirubin 0.90 (0.2-1.3) mg/dL AST 41 (17-59) U/L ALT 40 (0-50) U/L Alkaline Phosphatase 241 H (38-126) U/L Serum Total Protein 8.9 H (6.3-8.2) g/dL Albumin 5.5 H (3.5-5.0) g/dL Urine Color (YELLOW) Urine Appearance (CLEAR) Urine pH (5-6) Ur Specific [place] (1.005-1.025) Urine Protein (Negative) Urine Ketones (NEGATIVE) Urine Blood (0-5) Pedro/ul Urine Nitrite (NEGATIVE) Urine Bilirubin (NEGATIVE) Urine Urobilinogen (0-1) mg/dL Ur Leukocyte Esterase (NEGATIVE) Urine WBC (Auto) (0-5) /HPF Urine RBC (Auto) (0-2) /HPF U Epithel Cells (Auto) (FEW) /HPF Urine Bacteria (Auto) (NEGATIVE) /HPF Urine Mucus (Auto) (NEGATIVE) /HPF Urine Culture Reflexed (NO) Urine Glucose (NEGATIVE) mg/dL 06/14/19 06/14/19 06/14/19 Range/Units 13:25 14:43 15:29 WBC (4.0-10.5) K/mm3 RBC (4.1-5.6) M/mm3 Hgb (12.5-18.0) gm/dl Hct (42-50) % MCV (78-100) fl MCH (26-32) pg MCHC (32-36) g/dl RDW (11.5-14.0) % Plt Count (150-450) K/mm3 MPV (6-9.5) fl Gran % (36.0-66.0) % Eos # (Auto) (0-0.5) Absolute Lymphs (auto) (1.0-4.6) Absolute Monos (auto) (0.0-1.3) Lymphocytes % (24.0-44.0) % Monocytes % (0.0-12.0) % Eosinophils % (0.00-5.0) % Basophils % (0.0-0.4) % Absolute Granulocytes (1.4-6.9) Basophils # (0-0.4) Puncture Site pCO2 (35-45) mmHg pO2 (75-100) mmHg pO2/FiO2 Ratio 21.0 % Base Excess (-2.0-2.0) O2 Saturation (94-100) g/dF ABG pH (7.35-7.45) ABG HCO3 (22-28) ABG O2 Sat (Measured) (95-100) % Jim Test VBG pH 7.07 L* (7.32-7.42) VBG pCO2 at Pat Temp 32 L (42-55) mm/Hg VBG pO2 at Pat Temp 36 (25-40) mm/Hg VBG HCO3 9.3 L* (22-28) meq/L VBG O2 Sat ([facility]) 67.7 L (95-100) VBG Base Excess -19.9 L (-2.0-2.0) VBG Hemoglobin 17.6 VBG Carboxyhemoglobin 3.4 (0.0-6.9) % T HGB A-a Gradient a/A Ratio Hemoglobin Carboxyhemoglobin (0.0-6.9) % THgb Methemoglobin (1.4-1.5) % POC Potassium 5.4 H (3.5-5.1) Temperature C POC O2 Flow Rate % Sodium (137-145) mmol/L Potassium (3.5-5.1) mmol/L Chloride (98-107) mmol/L Carbon Dioxide (22-30) mmol/L Anion Gap (5-15) MEQ/L BUN (9-20) mg/dL Creatinine (0.66-1.25) mg/dL Estimated GFR ML/MIN Glucose (74-106) mg/dL Lactic Acid 1.6 (0.4-2.0) Calcium (8.4-10.2) mg/dL Magnesium (1.6-2.3) mg/dL Total Bilirubin (0.2-1.3) mg/dL AST (17-59) U/L ALT (0-50) U/L Alkaline Phosphatase (38-126) U/L Serum Total Protein (6.3-8.2) g/dL Albumin (3.5-5.0) g/dL Urine Color STRAW (YELLOW) Urine Appearance CLEAR (CLEAR) Urine pH 5.0 (5-6) Ur Specific [place] 1.023 (1.005-1.025) Urine Protein NEGATIVE (Negative) Urine Ketones MODERATE (NEGATIVE) Urine Blood NEGATIVE (0-5) Pedro/ul Urine Nitrite NEGATIVE (NEGATIVE) Urine Bilirubin NEGATIVE (NEGATIVE) Urine Urobilinogen NEGATIVE (0-1) mg/dL Ur Leukocyte Esterase NEGATIVE (NEGATIVE) Urine WBC (Auto) NONE (0-5) /HPF Urine RBC (Auto) NONE (0-2) /HPF U Epithel Cells (Auto) NONE (FEW) /HPF Urine Bacteria (Auto) NONE (NEGATIVE) /HPF Urine Mucus (Auto) SLIGHT (NEGATIVE) /HPF Urine Culture Reflexed NO (NO) Urine Glucose >=500 (NEGATIVE) mg/dL 06/14/19 06/14/19 06/15/19 Range/Units 17:30 21:00 02:05 WBC (4.0-10.5) K/mm3 RBC (4.1-5.6) M/mm3 Hgb (12.5-18.0) gm/dl Hct (42-50) % MCV (78-100) fl MCH (26-32) pg MCHC (32-36) g/dl RDW (11.5-14.0) % Plt Count (150-450) K/mm3 MPV (6-9.5) fl Gran % (36.0-66.0) % Eos # (Auto) (0-0.5) Absolute Lymphs (auto) (1.0-4.6) Absolute Monos (auto) (0.0-1.3) Lymphocytes % (24.0-44.0) % Monocytes % (0.0-12.0) % Eosinophils % (0.00-5.0) % Basophils % (0.0-0.4) % Absolute Granulocytes (1.4-6.9) Basophils # (0-0.4) Puncture Site pCO2 (35-45) mmHg pO2 (75-100) mmHg pO2/FiO2 Ratio % Base Excess (-2.0-2.0) O2 Saturation (94-100) g/dF ABG pH (7.35-7.45) ABG HCO3 (22-28) ABG O2 Sat (Measured) (95-100) % Jim Test VBG pH (7.32-7.42) VBG pCO2 at Pat Temp (42-55) mm/Hg VBG pO2 at Pat Temp (25-40) mm/Hg VBG HCO3 (22-28) meq/L VBG O2 Sat ([facility]) (95-100) VBG Base Excess (-2.0-2.0) VBG Hemoglobin VBG Carboxyhemoglobin (0.0-6.9) % T HGB A-a Gradient a/A Ratio Hemoglobin Carboxyhemoglobin (0.0-6.9) % THgb Methemoglobin (1.4-1.5) % POC Potassium (3.5-5.1) Temperature C POC O2 Flow Rate % Sodium 139 140 138 (137-145) mmol/L Potassium 5.5 H 4.9 4.4 (3.5-5.1) mmol/L Chloride 105 D 109 H 109 H (98-107) mmol/L Carbon Dioxide 8 L* 9 L* 15 L* (22-30) mmol/L Anion Gap 31.1 H 26.3 H 19.2 H (5-15) MEQ/L BUN 15 12 10 (9-20) mg/dL Creatinine 0.84 0.72 0.58 L (0.66-1.25) mg/dL Estimated GFR > 60.0 > 60.0 > 60.0 ML/MIN Glucose 324 H 211 H 180 H (74-106) mg/dL Lactic Acid (0.4-2.0) Calcium 9.0 8.9 9.0 (8.4-10.2) mg/dL Magnesium (1.6-2.3) mg/dL Total Bilirubin (0.2-1.3) mg/dL AST (17-59) U/L ALT (0-50) U/L Alkaline Phosphatase (38-126) U/L Serum Total Protein (6.3-8.2) g/dL Albumin (3.5-5.0) g/dL Urine Color (YELLOW) Urine Appearance (CLEAR) Urine pH (5-6) Ur Specific [place] (1.005-1.025) Urine Protein (Negative) Urine Ketones (NEGATIVE) Urine Blood (0-5) Pedro/ul Urine Nitrite (NEGATIVE) Urine Bilirubin (NEGATIVE) Urine Urobilinogen (0-1) mg/dL Ur Leukocyte Esterase (NEGATIVE) Urine WBC (Auto) (0-5) /HPF Urine RBC (Auto) (0-2) /HPF U Epithel Cells (Auto) (FEW) /HPF Urine Bacteria (Auto) (NEGATIVE) /HPF Urine Mucus (Auto) (NEGATIVE) /HPF Urine Culture Reflexed (NO) Urine Glucose (NEGATIVE) mg/dL 06/15/19 06/15/19 06/15/19 Range/Units 04:15 04:15 04:15 WBC 13.4 H (4.0-10.5) K/mm3 RBC 4.65 (4.1-5.6) M/mm3 Hgb 15.0 (12.5-18.0) gm/dl Hct 42.1 (42-50) % MCV 90.5 (78-100) fl MCH 32.3 H (26-32) pg MCHC 35.6 (32-36) g/dl RDW 12.1 (11.5-14.0) % Plt Count 226 (150-450) K/mm3 MPV 11.3 H (6-9.5) fl Gran % 80.8 H (36.0-66.0) % Eos # (Auto) 0.02 (0-0.5) Absolute Lymphs (auto) 1.75 (1.0-4.6) Absolute Monos (auto) 0.79 (0.0-1.3) Lymphocytes % 13.1 L (24.0-44.0) % Monocytes % 5.9 (0.0-12.0) % Eosinophils % 0.1 (0.00-5.0) % Basophils % 0.1 (0.0-0.4) % Absolute Granulocytes 10.78 H (1.4-6.9) Basophils # 0.02 (0-0.4) Puncture Site pCO2 (35-45) mmHg pO2 (75-100) mmHg pO2/FiO2 Ratio % Base Excess (-2.0-2.0) O2 Saturation (94-100) g/dF ABG pH (7.35-7.45) ABG HCO3 (22-28) ABG O2 Sat (Measured) (95-100) % Jim Test VBG pH (7.32-7.42) VBG pCO2 at Pat Temp (42-55) mm/Hg VBG pO2 at Pat Temp (25-40) mm/Hg VBG HCO3 (22-28) meq/L VBG O2 Sat ([facility]) (95-100) VBG Base Excess (-2.0-2.0) VBG Hemoglobin VBG Carboxyhemoglobin (0.0-6.9) % T HGB A-a Gradient a/A Ratio Hemoglobin Carboxyhemoglobin (0.0-6.9) % THgb Methemoglobin (1.4-1.5) % POC Potassium (3.5-5.1) Temperature C POC O2 Flow Rate % Sodium 137 (137-145) mmol/L Potassium 4.4 (3.5-5.1) mmol/L Chloride 107 (98-107) mmol/L Carbon Dioxide 15 L* (22-30) mmol/L Anion Gap 19.2 H (5-15) MEQ/L BUN 9 (9-20) mg/dL Creatinine 0.56 L (0.66-1.25) mg/dL Estimated GFR > 60.0 ML/MIN Glucose 204 H (74-106) mg/dL Lactic Acid (0.4-2.0) Calcium 9.2 (8.4-10.2) mg/dL Magnesium 1.8 (1.6-2.3) mg/dL Total Bilirubin 0.70 (0.2-1.3) mg/dL AST 36 (17-59) U/L ALT 31 (0-50) U/L Alkaline Phosphatase 137 H (38-126) U/L Serum Total Protein 7.1 (6.3-8.2) g/dL Albumin 4.2 (3.5-5.0) g/dL Urine Color (YELLOW) Urine Appearance (CLEAR) Urine pH (5-6) Ur Specific [place] (1.005-1.025) Urine Protein (Negative) Urine Ketones (NEGATIVE) Urine Blood (0-5) Pedro/ul Urine Nitrite (NEGATIVE) Urine Bilirubin (NEGATIVE) Urine Urobilinogen (0-1) mg/dL Ur Leukocyte Esterase (NEGATIVE) Urine WBC (Auto) (0-5) /HPF Urine RBC (Auto) (0-2) /HPF U Epithel Cells (Auto) (FEW) /HPF Urine Bacteria (Auto) (NEGATIVE) /HPF Urine Mucus (Auto) (NEGATIVE) /HPF Urine Culture Reflexed (NO) Urine Glucose (NEGATIVE) mg/dL 06/15/19 Range/Units 05:00 WBC (4.0-10.5) K/mm3 RBC (4.1-5.6) M/mm3 Hgb (12.5-18.0) gm/dl Hct (42-50) % MCV (78-100) fl MCH (26-32) pg MCHC (32-36) g/dl RDW (11.5-14.0) % Plt Count (150-450) K/mm3 MPV (6-9.5) fl Gran % (36.0-66.0) % Eos # (Auto) (0-0.5) Absolute Lymphs (auto) (1.0-4.6) Absolute Monos (auto) (0.0-1.3) Lymphocytes % (24.0-44.0) % Monocytes % (0.0-12.0) % Eosinophils % (0.00-5.0) % Basophils % (0.0-0.4) % Absolute Granulocytes (1.4-6.9) Basophils # (0-0.4) Puncture Site LEFT BRACHIAL pCO2 30 L (35-45) mmHg pO2 99 (75-100) mmHg pO2/FiO2 Ratio % Base Excess -9.2 L (-2.0-2.0) O2 Saturation 96.6 (94-100) g/dF ABG pH 7.32 L (7.35-7.45) ABG HCO3 15.5 L* (22-28) ABG O2 Sat (Measured) 99.6 (95-100) % Jim Test YES VBG pH (7.32-7.42) VBG pCO2 at Pat Temp (42-55) mm/Hg VBG pO2 at Pat Temp (25-40) mm/Hg VBG HCO3 (22-28) meq/L VBG O2 Sat ([facility]) (95-100) VBG Base Excess (-2.0-2.0) VBG Hemoglobin VBG Carboxyhemoglobin (0.0-6.9) % T HGB A-a Gradient 13 a/A Ratio 0.88 Hemoglobin 15.3 Carboxyhemoglobin 2.3 (0.0-6.9) % THgb Methemoglobin 0.7 L (1.4-1.5) % POC Potassium (3.5-5.1) Temperature 37.0 C POC O2 Flow Rate 21 % Sodium (137-145) mmol/L Potassium 4.2 (3.5-5.1) mmol/L Chloride (98-107) mmol/L Carbon Dioxide (22-30) mmol/L Anion Gap (5-15) MEQ/L BUN (9-20) mg/dL Creatinine (0.66-1.25) mg/dL Estimated GFR ML/MIN Glucose (74-106) mg/dL Lactic Acid (0.4-2.0) Calcium (8.4-10.2) mg/dL Magnesium (1.6-2.3) mg/dL Total Bilirubin (0.2-1.3) mg/dL AST (17-59) U/L ALT (0-50) U/L Alkaline Phosphatase (38-126) U/L Serum Total Protein (6.3-8.2) g/dL Albumin (3.5-5.0) g/dL Urine Color (YELLOW) Urine Appearance (CLEAR) Urine pH (5-6) Ur Specific [place] (1.005-1.025) Urine Protein (Negative) Urine Ketones (NEGATIVE) Urine Blood (0-5) Pedro/ul Urine Nitrite (NEGATIVE) Urine Bilirubin (NEGATIVE) Urine Urobilinogen (0-1) mg/dL Ur Leukocyte Esterase (NEGATIVE) Urine WBC (Auto) (0-5) /HPF Urine RBC (Auto) (0-2) /HPF U Epithel Cells (Auto) (FEW) /HPF Urine Bacteria (Auto) (NEGATIVE) /HPF Urine Mucus (Auto) (NEGATIVE) /HPF Urine Culture Reflexed (NO) Urine Glucose (NEGATIVE) mg/dL Accuchecks Date 06/15/19 Time 08:12 Accucheck Value: 185 Accucheck Value: 253 Accucheck Value: 232 Accucheck Value: 212 Accucheck Value: 205 Accucheck Value: 175 Accucheck Value: 175 Accucheck Value: 208 Accucheck Value: 221 Accucheck Value: 250 Accucheck Value: 254 Accucheck Value: 222 Accucheck Value: 183 Accucheck Value: 239 Accucheck Value: 323 Accucheck Value: 325 Accucheck Value: 356 Accucheck Value: 530 Assessment/Plan (1) DKA (diabetic ketoacidoses) Current Visit: Yes Status: Acute Onset Date: ~08/01/18 Qualifiers: Diabetes mellitus type: type 1 Diabetes mellitus complication detail: without coma Qualified Code(s): E10.10 - Type 1 diabetes mellitus with ketoacidosis without coma Assessment & Plan: He says he did not run out of his insulin, although it has been about a year now since he saw Dr. Sanchez (pt had told ER staff there was an insurance issue). He thinks the DKA is a result of his GI illness. Bolus 1 L LR, change insulin drip to 5units SQ q2h and check BS q2h. continue BMP q6h to ensure it is improving. Advance diet as danny. May be able to restart home insulin later today or tomorrow. Code(s): E13.10 - OTH DIABETES MELLITUS WITH KETOACIDOSIS WITHOUT COMA (2) Diarrhea Current Visit: No Status: Resolved Onset Date: ~08/01/18 Qualifiers: Diarrhea type: unspecified type Qualified Code(s): R19.7 - Diarrhea, unspecified Assessment & Plan: if he would have diarrhea, would check GI pathogen panel. Code(s): R19.7 - DIARRHEA, UNSPECIFIED (3) Nausea and vomiting Current Visit: No Status: Resolved Onset Date: ~08/01/18 Qualifiers: Vomiting type: unspecified Vomiting Intractability: non-intractable Qualified Code(s): R11.2 - Nausea with vomiting, unspecified Code(s): R11.2 - NAUSEA WITH VOMITING, UNSPECIFIED (4) Type 1 diabetes mellitus, uncontrolled Current Visit: No Status: Chronic Qualifiers: Glycemic state: with hyperglycemia Qualified Code(s): E10.65 - Type 1 diabetes mellitus with hyperglycemia Assessment & Plan: Needs to get on insurance so he can f/u outpatient with Dr. Sanchez. Code(s): E10.65 - TYPE 1 DIABETES MELLITUS WITH HYPERGLYCEMIA
[2019-06-15 09:33] LABS: ANION GAP 13.1 MEQ/L (5-15); BLOOD UREA NITROGEN 8 mg/dL (9-20); CHLORIDE 107 mmol/L (98-107); Calcium 8.8 mg/dL (8.4-10.2); Carbon Dioxide 21 mmol/L (22-30); Creatinine 1 0.55 mg/dL (0.66-1.25); Glucose 175 mg/dL (74-106); SODIUM 137 mmol/L (137-145)
[2019-06-15] MEDS: Toprol-Xl 25MG Tablets PO SCH (09:54)
[2019-06-15 11:02] LABS: Amphetamine,Urine NEGATIVE (NEGATIVE); Barbiturate,Urine NEGATIVE (NEGATIVE); Benzodiazepine,Urine NEGATIVE (NEGATIVE); Cocaine,Urine NEGATIVE (NEGATIVE); Methadone,Urine NEGATIVE (NEGATIVE); Opiate,Urine NEGATIVE (NEGATIVE); PCP,Urine NEGATIVE (NEGATIVE); THC,Urine NEGATIVE (NEGATIVE)
[2019-06-15 13:31] LABS: ANION GAP 14.2 MEQ/L (5-15); BLOOD UREA NITROGEN 6 mg/dL (9-20); CHLORIDE 107 mmol/L (98-107); Calcium 8.7 mg/dL (8.4-10.2); Carbon Dioxide 20 mmol/L (22-30); Creatinine 1 0.42 mg/dL (0.66-1.25); Glucose 201 mg/dL (74-106); Potassium 3.7 mmol/L (3.5-5.1); SODIUM 137 mmol/L (137-145)
[2019-06-15] MEDS: NovoLIN R SQ SCH (16:31)
[2019-06-15] MEDS: Novolin N SQ SCH (20:36)
[2019-06-15 22:22] VITALS: O2SAT 98
[2019-06-16] MEDS: NovoLOG Insulin SQ PRN ×3 (00:31→08:39)
[2019-06-16 06:49] LABS: ANION GAP 13.3 MEQ/L (5-15); BLOOD UREA NITROGEN 7 mg/dL (9-20); CHLORIDE 104 mmol/L (98-107); Calcium 8.9 mg/dL (8.4-10.2); Carbon Dioxide 24 mmol/L (22-30); Creatinine 1 0.52 mg/dL (0.66-1.25); Glucose 222 mg/dL (74-106); Potassium 3.4 mmol/L (3.5-5.1); SODIUM 137 mmol/L (137-145)
[2019-06-16 07:54] VITALS: BP 129/107; PULSE 96
[2019-06-16] MEDS: NovoLIN R SQ SCH (08:36)
--- NOTE | 2019-06-16 09:42 | PCM.DS ---
Discharge Summary Date of Admission: 06/14/19 15:46 Admitting Physician: NAVEEN MCKEON Primary Care Provider: NAVEEN MCKEON Allergies Allergies No Known Drug Allergies Allergy (Verified 06/14/19 12:48) Hospital Summary - Hospital Course Hospital Course: patient developed dka after a GI illness began 2 days ago, vomiting and diarrhea. symptoms have all resolved, gap is closed, off insulin drip. tolerating po and feels well. started on metoprolol for htn and elevated HR - Vitals & Intake/Output Vital Signs: Vital Signs Temperature 98.3 F 06/16/19 07:52 Pulse Rate 96 H 06/16/19 07:52 Respiratory Rate 18 06/16/19 08:00 Blood Pressure 129/107 06/16/19 07:52 O2 Sat by Pulse Oximetry 98 06/16/19 07:52 Intake & Output: Intake & Output 06/13/19 06/14/19 06/15/19 06/16/19 11:59 11:59 11:59 11:59 Intake Total 3940 2170 Output Total 4650 1650 Balance -710 520 Weight 73.2 kg 73.4 kg - Lab Result Diagrams: 06/15/19 04:15 06/16/19 05:00 Lab Results-Last 24 Hrs: Accuchecks Date 06/16/19 Date 06/16/19 Date 06/15/19 Date 06/15/19 Date 06/15/19 Date 06/15/19 Time 04:00 Time 00:00 Time 22:00 Time 16:34 Time 12:17 Time 10:00 Accucheck Value: 269 Accucheck Value: 193 Accucheck Value: 237 Accucheck Value: 267 Accucheck Value: 225 Accucheck Value: 146 Lab Results-Last 24 Hours 06/15/19 06/15/19 06/15/19 Range/Units 08:50 09:14 09:20 Sodium 137 (137-145) mmol/L Potassium 4.0 (3.5-5.1) mmol/L Chloride 107 (98-107) mmol/L Carbon Dioxide 21 L (22-30) mmol/L Anion Gap 13.1 (5-15) MEQ/L BUN 8 L (9-20) mg/dL Creatinine 0.55 L (0.66-1.25) mg/dL Estimated GFR > 60.0 ML/MIN Glucose 175 H (74-106) mg/dL Hemoglobin A1c 12.11 H (4.5-6.0) % Calcium 8.8 (8.4-10.2) mg/dL Urine Opiates Level NEGATIVE (NEGATIVE) Ur Methadone NEGATIVE (NEGATIVE) Urine Barbiturates NEGATIVE (NEGATIVE) Ur Phencyclidine (PCP) NEGATIVE (NEGATIVE) Urine Amphetamine NEGATIVE (NEGATIVE) U Benzodiazepine Level NEGATIVE (NEGATIVE) Urine Cocaine NEGATIVE (NEGATIVE) Urine Marijuana (THC) NEGATIVE (NEGATIVE) 06/15/19 06/16/19 Range/Units 13:11 05:00 Sodium 137 137 (137-145) mmol/L Potassium 3.7 3.4 L (3.5-5.1) mmol/L Chloride 107 104 (98-107) mmol/L Carbon Dioxide 20 L 24 (22-30) mmol/L Anion Gap 14.2 13.3 (5-15) MEQ/L BUN 6 L 7 L (9-20) mg/dL Creatinine 0.42 L 0.52 L (0.66-1.25) mg/dL Estimated GFR > 60.0 > 60.0 ML/MIN Glucose 201 H 222 H (74-106) mg/dL Hemoglobin A1c (4.5-6.0) % Calcium 8.7 8.9 (8.4-10.2) mg/dL Urine Opiates Level (NEGATIVE) Ur Methadone (NEGATIVE) Urine Barbiturates (NEGATIVE) Ur Phencyclidine (PCP) (NEGATIVE) Urine Amphetamine (NEGATIVE) U Benzodiazepine Level (NEGATIVE) Urine Cocaine (NEGATIVE) Urine Marijuana (THC) (NEGATIVE) Micro Results-Entire Visit: Accuchecks Date 06/16/19 Date 06/16/19 Date 06/15/19 Date 06/15/19 Date 06/15/19 Date 06/15/19 Time 04:00 Time 00:00 Time 22:00 Time 16:34 Time 12:17 Time 10:00 Accucheck Value: 269 Accucheck Value: 193 Accucheck Value: 237 Accucheck Value: 267 Accucheck Value: 225 Accucheck Value: 146 Discharge Exam General Appearance: no apparent distress Neurologic Exam: alert, oriented x 3 Eye Exam: PERRL, EOMI, eyes nml inspection Respiratory Exam: normal breath sounds, lungs clear, No respiratory distress Cardiovascular Exam: regular rate/rhythm, normal heart sounds Gastrointestinal/Abdomen Exam: soft, No tenderness, No mass Extremity Exam: normal inspection, normal range of motion Skin Exam: normal color, warm, dry Final Diagnosis/Problem List - Final Discharge Diagnosis/Problem (1) DKA (diabetic ketoacidoses) Current Visit: Yes Status: Acute Onset Date: ~08/01/18 Assessment & Plan: advised to increase NPH from 20 to 25 units bid, continue 10 units regular with meals and SSI coverage as needed. report to office in 1 week for recheck and review blood sugar log Code(s): E13.10 - OTH DIABETES MELLITUS WITH KETOACIDOSIS WITHOUT COMA (2) Tachycardia Current Visit: Yes Status: Acute Code(s): R00.0 - TACHYCARDIA, UNSPECIFIED (3) Hypertension Current Visit: Yes Status: Acute Assessment & Plan: added toprol Code(s): I10 - ESSENTIAL (PRIMARY) HYPERTENSION (4) Type 1 diabetes mellitus, uncontrolled Current Visit: No Status: Chronic Code(s): E10.65 - TYPE 1 DIABETES MELLITUS WITH HYPERGLYCEMIA - Discharge Disposition: Home, Self-Care Condition: Stable Prescriptions: New Metoprolol Succinate 25 mg Xl* [Toprol-Xl 25MG Tablets] 25 mg PO DAILY # 30 tab Continue Insulin Regular, Human [Novolin R] 10 unit SQ TIDAC #1 vial Insulin Regular, Human [Novolin R] 1 - 8 unit SQ UD Changed NPH, Human Insulin Isophane [Novolin N] 25 unit SQ BID #10 ml Follow up with: NAVEEN MCKEON MD [Primary Care Provider] - 1 Week
[2019-06-16] MEDS: Novolin N SQ SCH (10:26)
[2019-06-16] MEDS: Toprol-Xl 25MG Tablets PO SCH (10:27)
== END 2019-06-16 11:30 | disposition home or self-care (01) ==
LOC: ED 12:32 → ICU 15:46 → INTOOBSV 16:13 → OBSVTOIN 16:13
PROVIDERS: ADMIT Family Medicine; ATTEND Family Medicine
DX: E10.10 Type 1 diabetes mellitus with ketoacidosis without coma (principal); R00.0 Tachycardia, unspecified; R11.2 Nausea with vomiting, unspecified; R19.7 Diarrhea, unspecified; I10 Essential (primary) hypertension; Z79.4 Long term (current) use of insulin
CPT/HCPCS: 36415; 36600; 80048; 80053; 80307; 81001; 82375; 82803; 82805; 82962; 83036; 83605; 83735; 85025; 93041; 93268; 96360; 96361; 96372; 96374; 99291; G0378; 36000; 94760; 96365; 99285; J1815; J2405; J2550; A9270-GY

== ENCOUNTER 2019-08-26 03:36 | Emergency (ER) | payer OTHER ==
[2019-08-26 03:52] VITALS: O2SAT 100
[2019-08-26] MEDS ORDERED: Sodium Chloride 0.9% 1000 ML 1,000 ML IV STA ×2 (03:58→04:39)
[2019-08-26] MEDS ORDERED: Zofran 4 MG/2 ML VIAL IV ONE (03:58)
--- NOTE | 2019-08-26 03:59 | ERPHSYRPT ---
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 Patient reports 5-6 episodes of nonprojectile, nonbilious vomiting with mild abdominal discomfort since afternoon. his blood sugar is not responding to insulin since yesterday afternoon. Patient reports symptoms similar to previous episodes when he was in DKA. He denies any abdominal pain at present but has nausea. No diarrhea. No fever or chills reported. No chest pain palpitations or shortness of breath. Timing/Duration: yesterday Severity: moderate Associated Symptoms: nausea, vomiting, abdominal pain Allergies/Adverse Reactions: No Known Drug Allergies Allergy (Verified 08/26/19 03:51) Home Medications: Insulin Detemir [Levemir] 20 units SQ HS 08/26/19 [History] Insulin Detemir [Levemir] 30 unit SQ DAILY 08/26/19 [History] Lisinopril 10 mg [Zestril 10 MG] 10 mg PO DAILY 08/26/19 [History] Metoprolol Succinate 25 mg Xl* [Toprol-Xl 25MG Tablets] 50 mg PO DAILY [History] Rosuvastatin Calcium 20 mg PO DAILY 08/26/19 [History] Hx Tetanus, Diphtheria Vaccination/Date Given: Yes Hx Influenza Vaccination/Date Given: No Hx Pneumococcal Vaccination/Date Given: No - Review of Systems Constitutional: No Symptoms, Fatigue Eyes: No Symptoms Ears, Nose, & Throat: No Symptoms Respiratory: No Symptoms Cardiac: No Symptoms Abdominal/Gastrointestinal: Nausea, Vomiting Genitourinary Symptoms: No Symptoms Musculoskeletal: No Symptoms Skin: No Symptoms Neurological: No Symptoms Psychological: No Symptoms Endocrine: No Symptoms Hematologic/Lymphatic: No Symptoms - Past Medical History Pertinent Past Medical History: Yes Neurological History: Migraines ENT History: No Pertinent History Cardiac History: Hypertension Respiratory History: Pneumonia Endocrine Medical History: Diabetes Type I Musculoskeletal History: Other GI Medical History: Irritable Bowel History: No Pertinent History Psycho-Social History: No Pertinent History Male Reproductive Disorders: No Pertinent History Other Medical History: DKA - Past Surgical History Past Surgical History: Yes Neuro Surgical History: No Pertinent History Cardiac: No Pertinent History Respiratory: No Pertinent History Gastrointestinal: No Pertinent History Genitourinary: No Pertinent History Musculoskeletal: Orthopedic Surgery Male Surgical History: No Pertinent History Other Surgical History: tubes in ears as , back surgery in 2000 - spondylsis, sinus surgeries X5 growth/polyps removed, left knee surgery X2 dislocation of patella, right wrist fx with surgery, left hand surgery X2 nerve - Social History Smoking Status: Never smoker How long have you smoked: 13 years Exposure to second hand smoke: No Drug Use: none Patient Lives Alone: No - Nursing Vital Signs Nursing Vital Signs: Initial Vital Signs Temperature 97.4 F 08/26/19 03:42 Pulse Rate 99 H 08/26/19 03:42 Respiratory Rate 14 08/26/19 03:42 Blood Pressure 166/104 08/26/19 03:42 O2 Sat by Pulse Oximetry 100 08/26/19 03:42 Pain Scale Pain Intensity 7 - Physical Exam General Appearance: no apparent distress Eye Exam: PERRL/EOMI Ears, Nose, Throat Exam: normal ENT inspection, TMs normal Neck Exam: normal inspection, non-tender, supple, full range of motion Respiratory Exam: normal breath sounds, lungs clear, respiratory distress Cardiovascular Exam: regular rate/rhythm, normal heart sounds Gastrointestinal/Abdomen Exam: soft, normal bowel sounds, No tenderness, No distention, No mass Back Exam: normal inspection, normal range of motion Extremity Exam: normal inspection, normal range of motion Neurologic Exam: alert, oriented x 3, cooperative Skin Exam: normal color, warm, dry SpO2 Interpretation: normal O2 Delivery: Room Air Ordered Tests: Active Orders 24 hr Category Date Time Status Accucheck STAT Care 08/26/19 03:58 Active ARTERIAL BLOOD GASES Urgent Lab 08/26/19 04:15 Completed CBC W DIFF Stat Lab 08/26/19 04:14 Completed CMP Stat Lab 08/26/19 04:14 Completed MAGNESIUM Stat Lab 08/26/19 04:14 Completed UA W/RFX UR CULTURE Stat Lab 08/26/19 04:06 Completed Medication Summary Discontinued Medications Generic Name Dose Route Start Last Admin Trade Name Freq PRN Reason Stop Dose Admin Sodium Chloride 1,000 mls @ 999 mls/hr 08/26/19 03:58 08/26/19 05:24 Sodium Chloride 0.9% 1000 Ml IV 08/26/19 04:58 Infused .Q1H1M STA Infusion Sodium Chloride Confirm 08/26/19 04:11 Sodium Chloride 0.9% 1000 Ml Administered 08/26/19 04:12 Dose 1,000 mls @ ud .ROUTE .STK-MED ONE Sodium Chloride 1,000 mls @ 999 mls/hr 08/26/19 04:39 08/26/19 05:23 Sodium Chloride 0.9% 1000 Ml IV 08/26/19 05:39 999 mls/hr .Q1H1M STA Administration Sodium Chloride Confirm 08/26/19 04:44 Sodium Chloride 0.9% 1000 Ml Administered 08/26/19 04:45 Dose 1,000 mls @ ud .ROUTE .STK-MED ONE Insulin Human Regular 10 unit 08/26/19 04:38 08/26/19 04:44 Novolin R IV 08/26/19 04:39 10 unit STAT ONE Administration Insulin Human Regular Confirm 08/26/19 04:43 Novolin R Administered 08/26/19 04:44 Dose 10 unit .ROUTE .STK-MED ONE Ondansetron HCl 4 mg 08/26/19 03:58 08/26/19 04:16 Zofran 4 Mg/2 Ml Vial IV 08/26/19 03:59 4 mg STAT ONE Administration Ondansetron HCl Confirm 08/26/19 04:11 Zofran 4 Mg/2 Ml Vial Administered 08/26/19 04:12 Dose 4 mg .ROUTE .STK-MED ONE Lab/Rad Data: Laboratory Result Diagrams 08/26/19 04:14 08/26/19 04:14 Laboratory Results 08/26/19 08/26/19 08/26/19 Range/Units 04:15 04:14 04:14 WBC 10.4 (4.0-10.5) K/mm3 RBC 5.47 (4.1-5.6) M/mm3 Hgb 16.9 (12.5-18.0) gm/dl Hct 45.5 (42-50) % MCV 83.2 (78-100) fl MCH 30.9 (26-32) pg MCHC 37.1 H (32-36) g/dl RDW 11.4 L (11.5-14.0) % Plt Count 240 (150-450) K/mm3 MPV 11.1 H (6-9.5) fl Gran % 73.0 H (36.0-66.0) % Eos # (Auto) 0.08 (0-0.5) Absolute Lymphs (auto) 2.11 (1.0-4.6) Absolute Monos (auto) 0.59 (0.0-1.3) Lymphocytes % 20.3 L (24.0-44.0) % Monocytes % 5.7 (0.0-12.0) % Eosinophils % 0.8 (0.00-5.0) % Basophils % 0.2 (0.0-0.4) % Absolute Granulocytes 7.59 H (1.4-6.9) Basophils # 0.02 (0-0.4) Puncture Site RIGHT BRACHIAL pCO2 28 L (35-45) mmHg pO2 112 H (75-100) mmHg Base Excess 1.4 (-2.0-2.0) O2 Saturation 93.5 L (94-100) g/dF ABG pH 7.52 H (7.35-7.45) ABG HCO3 22.9 (22-28) ABG O2 Sat (Measured) 99.7 (95-100) % Jim Test NOT APPLICABLE A-a Gradient 3 a/A Ratio 0.97 Hemoglobin 16.6 Carboxyhemoglobin 5.0 (0.0-6.9) % THgb Methemoglobin 1.2 L (1.4-1.5) % Temperature 37.0 C POC O2 Flow Rate 21 % Sodium 135 L (137-145) mmol/L Potassium 4.6 4.6 (3.5-5.1) mmol/L Chloride 90 L (98-107) mmol/L Carbon Dioxide 29 (22-30) mmol/L Anion Gap 20.9 H (5-15) MEQ/L BUN 26 H (9-20) mg/dL Creatinine 0.74 (0.66-1.25) mg/dL Estimated GFR > 60.0 ML/MIN Glucose 314 H (74-106) mg/dL Calcium 10.5 H (8.4-10.2) mg/dL Magnesium 1.8 (1.6-2.3) mg/dL Total Bilirubin 1.10 (0.2-1.3) mg/dL AST 25 (17-59) U/L ALT 25 (0-50) U/L Alkaline Phosphatase 127 H (38-126) U/L Serum Total Protein 8.7 H (6.3-8.2) g/dL Albumin 5.2 H (3.5-5.0) g/dL Urine Color (YELLOW) Urine Appearance (CLEAR) Urine pH (5-6) Ur Specific [place] (1.005-1.025) Urine Protein (Negative) Urine Ketones (NEGATIVE) Urine Blood (0-5) Pedro/ul Urine Nitrite (NEGATIVE) Urine Bilirubin (NEGATIVE) Urine Urobilinogen (0-1) mg/dL Ur Leukocyte Esterase (NEGATIVE) Urine WBC (Auto) (0-5) /HPF Urine RBC (Auto) (0-2) /HPF U Epithel Cells (Auto) (FEW) /HPF Urine Bacteria (Auto) (NEGATIVE) /HPF Urine Mucus (Auto) (NEGATIVE) /HPF Urine Culture Reflexed (NO) Urine Glucose (NEGATIVE) mg/dL 08/26/19 Range/Units 04:06 WBC (4.0-10.5) K/mm3 RBC (4.1-5.6) M/mm3 Hgb (12.5-18.0) gm/dl Hct (42-50) % MCV (78-100) fl MCH (26-32) pg MCHC (32-36) g/dl RDW (11.5-14.0) % Plt Count (150-450) K/mm3 MPV (6-9.5) fl Gran % (36.0-66.0) % Eos # (Auto) (0-0.5) Absolute Lymphs (auto) (1.0-4.6) Absolute Monos (auto) (0.0-1.3) Lymphocytes % (24.0-44.0) % Monocytes % (0.0-12.0) % Eosinophils % (0.00-5.0) % Basophils % (0.0-0.4) % Absolute Granulocytes (1.4-6.9) Basophils # (0-0.4) Puncture Site pCO2 (35-45) mmHg pO2 (75-100) mmHg Base Excess (-2.0-2.0) O2 Saturation (94-100) g/dF ABG pH (7.35-7.45) ABG HCO3 (22-28) ABG O2 Sat (Measured) (95-100) % Jim Test A-a Gradient a/A Ratio Hemoglobin Carboxyhemoglobin (0.0-6.9) % THgb Methemoglobin (1.4-1.5) % Temperature C POC O2 Flow Rate % Sodium (137-145) mmol/L Potassium (3.5-5.1) mmol/L Chloride (98-107) mmol/L Carbon Dioxide (22-30) mmol/L Anion Gap (5-15) MEQ/L BUN (9-20) mg/dL Creatinine (0.66-1.25) mg/dL Estimated GFR ML/MIN Glucose (74-106) mg/dL Calcium (8.4-10.2) mg/dL Magnesium (1.6-2.3) mg/dL Total Bilirubin (0.2-1.3) mg/dL AST (17-59) U/L ALT (0-50) U/L Alkaline Phosphatase (38-126) U/L Serum Total Protein (6.3-8.2) g/dL Albumin (3.5-5.0) g/dL Urine Color YELLOW (YELLOW) Urine Appearance CLEAR (CLEAR) Urine pH 5.0 (5-6) Ur Specific [place] 1.035 (1.005-1.025) Urine Protein NEGATIVE (Negative) Urine Ketones SMALL (NEGATIVE) Urine Blood NEGATIVE (0-5) Pedro/ul Urine Nitrite NEGATIVE (NEGATIVE) Urine Bilirubin NEGATIVE (NEGATIVE) Urine Urobilinogen NEGATIVE (0-1) mg/dL Ur Leukocyte Esterase NEGATIVE (NEGATIVE) Urine WBC (Auto) NONE (0-5) /HPF Urine RBC (Auto) NONE SEEN (0-2) /HPF U Epithel Cells (Auto) NONE (FEW) /HPF Urine Bacteria (Auto) NONE SEEN (NEGATIVE) /HPF Urine Mucus (Auto) SLIGHT (NEGATIVE) /HPF Urine Culture Reflexed NO (NO) Urine Glucose >=500 (NEGATIVE) mg/dL - Progress Progress: improved, re-examined Counseled pt/family regarding: diagnosis, need for follow-up - Departure Departure Disposition: Home Clinical Impression: Hyperglycemia, Dehydration Condition: Stable Critical Care Time: No Referrals: NAVEEN MCKEON MD [Primary Care Provider] - Follow Up with PCP/3 days Additional Instructions: monitor your blood sugar regularly. Follow up with primary care for reevaluation. Take Zofran as needed. Drink plenty of fluids. Return to ER for any worsening. Prescriptions: Ondansetron ODT 4 MG [Zofran Odt 4 mg] 4 mg PO Q6H PRN PRN #8 tab.rapdis PRN Reason: Nausea
[2019-08-26] MEDS ORDERED: Sodium Chloride 0.9% 1000 ML 1,000 ML ONE ×2 (04:11→04:44)
[2019-08-26] MEDS ORDERED: Zofran 4 MG/2 ML VIAL ONE (04:11)
[2019-08-26 04:18] LABS: Absolute Neutrophil Ct (ANC) 7.59 (1.4-6.9); BASOPHIL % 0.2 % (0.0-0.4); Basophil (Absolute #) 0.02 (0-0.4); Eosinophil % 0.8 % (0.00-5.0); Eosinophil (Absolute #) 0.08 (0-0.5); Hematocrit 45.5 % (42-50); Hemoglobin 16.9 gm/dl (12.5-18.0); Lymphocyte (Absolute #) 2.11 (1.0-4.6); Lymphocytes % 20.3 % (24.0-44.0); Mean Cell Volume 83.2 fl (78-100); Mean Corpuscular Hemoglobin 30.9 pg (26-32); Mean Corpuscular Hgb Concent. 37.1 g/dl (32-36); Mean Platelet Volume 11.1 fl (6-9.5); Monocyte (Absolute #) 0.59 (0.0-1.3); Monocytes % 5.7 % (0.0-12.0); Platelet Count 240 K/mm3 (150-450); Red Blood Count 5.47 M/mm3 (4.1-5.6); Red Cell Distribution Width 11.4 % (11.5-14.0); White Blood Count 10.4 K/mm3 (4.0-10.5)
[2019-08-26 04:22] LABS: Appearance CLEAR (CLEAR); Bilirubin NEGATIVE (NEGATIVE); Blood NEGATIVE Ery/ul (0-5); Glucose >=500 mg/dL (NEGATIVE); Ketones SMALL (NEGATIVE); Leukocyte Esterase NEGATIVE (NEGATIVE); Mucus SLIGHT /HPF (NEGATIVE); Nitrite NEGATIVE (NEGATIVE); Protein,Urine Dip NEGATIVE (Negative); Specific Gravity 1.035 (1.005-1.025); Urobilinogen NEGATIVE mg/dL (0-1)
[2019-08-26 04:24] LABS: Bacteria NONE SEEN /HPF (NEGATIVE); RBC NONE SEEN /HPF (0-2)
[2019-08-26 04:28] LABS: A-aADO2 3; ABG HEMOGLOBIN 16.6; ABG POTASSIUM 4.6 (3.5-5.1); ABG SITE RIGHT BRACHIAL; ARTERIAL BLD GAS O2 SATURATION 99.7 % (95-100); ARTERIAL BLOOD GAS BASE EXCESS 1.4 (-2.0-2.0); ARTERIAL BLOOD GAS FIO2 21 %; ARTERIAL BLOOD GAS PCO2 28 mmHg (35-45); ARTERIAL BLOOD GAS PO2 112 mmHg (75-100); ARTERIAL BLOOD GAS pH 7.52 (7.35-7.45); HCO3- 22.9 (22-28); HGB O2 SAT 93.5 g/dF (94-100); Methhemoglobin 1.2 % (1.4-1.5); paO2 pAO1 0.97
[2019-08-26 04:29] LABS: ALBUMIN 5.2 g/dL (3.5-5.0); ALKALINE PHOSPHATASE 127 U/L (38-126); ANION GAP 20.9 MEQ/L (5-15); BLOOD UREA NITROGEN 26 mg/dL (9-20); CHLORIDE 90 mmol/L (98-107); Calcium 10.5 mg/dL (8.4-10.2); Carbon Dioxide 29 mmol/L (22-30); Creatinine 1 0.74 mg/dL (0.66-1.25); Glucose 314 mg/dL (74-106); MAGNESIUM 1.8 mg/dL (1.6-2.3); Potassium 4.6 mmol/L (3.5-5.1); SGOT/AST 25 U/L (17-59); SGPT/ALT 25 U/L (0-50); SODIUM 135 mmol/L (137-145); Total Protein 8.7 g/dL (6.3-8.2)
[2019-08-26] MEDS ORDERED: NovoLIN R IV ONE (04:38)
[2019-08-26] MEDS ORDERED: NovoLIN R ONE (04:43)
[2019-08-26 06:04] VITALS: BP 125/83; PULSE 95
== END 2019-08-26 06:35 | disposition home or self-care (01) ==
LOC: ED 03:36
DX: R73.9 Hyperglycemia, unspecified (principal); E86.0 Dehydration; R11.2 Nausea with vomiting, unspecified; R10.9 Unspecified abdominal pain; Z79.899 Other long term (current) drug therapy; E10.9 Type 1 diabetes mellitus without complications; I10 Essential (primary) hypertension
CPT/HCPCS: 36415; 36600; 80053; 81001; 82375; 82803; 82962; 83735; 85025; 96360; 96374; 99284; J2405; A9270-GY

== ENCOUNTER 2019-08-28 01:29 | Inpatient (IN) | payer OTHER ==
[2019-08-28] MEDS ORDERED: Sodium Chloride 0.9% 1000 ML 1,000 ML IV STA ×2 (01:51→03:27)
[2019-08-28] MEDS ORDERED: Zofran 4 MG/2 ML VIAL IV ONE (01:51)
[2019-08-28] MEDS ORDERED: MORPHINE SULFATE 4 MG INJ IV ONE (02:13)
--- NOTE | 2019-08-28 02:17 | ERPHSYRPT ---
- History of Present Illness Time Seen by Provider: 08/28/19 01:50 Historian: patient Exam Limitations: no limitations Patient Subjective Stated Complaint: pt states, "I've been vomiting all day x2 days. Pt denies any diarrhea. Pt was in ER Thurs am, left at 0630, and was ok x3 hours, then has been vomiting off and on since then. Pt took zofran all day Friday with no relief. Pt's bs on Friday were between 250-300. Triage Nursing Assessment: pt ambulated to rm 8, alert and oriented, cooperative. Pt c/o abd pain all over, vomiting x2 days, no diarrhea. Abd soft , flat with active bs x4 quad, nontender. Lungs clear, heart tones reg. Physician History: 29 years old insulin-dependent diabetic with multiple DKAs in the past presented in the ER with multiple episodes of nonprojectile, nonbilious vomiting but no hematemesis for the last 2 and half days. Patient was seen in the ER 2 days ago with negative workup and was discharged on Zofran but this does not seem to help him at all. Patient report he is not able to hold anything down. He is complaining of moderate intensity sharp pain which is with the vomiting and no significant relieving factors. Patient feels dehydrated fatigued and tired because of repeated vomiting. He denies diarrhea , fever or chills. blood sugar is running in 300s despite taking insulin. Timing/Duration: day(s) (2) Quality: cramping, sharpness Abdominal Pain Onset Location: generalized abdomen Pain Radiation: no radiation Severity of Pain-Max: moderate Severity of Pain-Current: moderate Modifying Factors: Improves With: nothing Associated Symptoms: nausea, vomiting Previous symptoms: same symptoms as today Allergies/Adverse Reactions: No Known Drug Allergies Allergy (Verified 08/26/19 03:51) Home Medications: Insulin Detemir [Levemir] 20 units SQ HS 08/26/19 [History] Insulin Detemir [Levemir] 30 unit SQ DAILY 08/26/19 [History] Lisinopril 10 mg [Zestril 10 MG] 10 mg PO DAILY 08/26/19 [History] Metoprolol Succinate 25 mg Xl* [Toprol-Xl 25MG Tablets] 50 mg PO DAILY [History] Rosuvastatin Calcium 20 mg PO HS 08/26/19 [History] Insulin Lispro [Humalog] 15 units SQ AC 08/28/19 [History] Hx Tetanus, Diphtheria Vaccination/Date Given: Yes Hx Influenza Vaccination/Date Given: No Hx Pneumococcal Vaccination/Date Given: No Immunizations Up to Date: Yes - Review of Systems Constitutional: Fatigue Eyes: No Symptoms Ears, Nose, & Throat: No Symptoms, Throat Swelling Cardiac: No Symptoms Abdominal/Gastrointestinal: Abdominal Pain, Nausea, Vomiting Genitourinary Symptoms: No Symptoms Musculoskeletal: Myalgias Skin: No Symptoms Neurological: No Symptoms Psychological: No Symptoms Endocrine: No Symptoms Hematologic/Lymphatic: No Symptoms Immunological/Allergic: No Symptoms - Past Medical History Pertinent Past Medical History: Yes Neurological History: Migraines ENT History: No Pertinent History Cardiac History: High Cholesterol, Hypertension Respiratory History: Pneumonia Endocrine Medical History: Diabetes Type I Musculoskeletal History: Other GI Medical History: Irritable Bowel History: No Pertinent History Psycho-Social History: No Pertinent History Male Reproductive Disorders: No Pertinent History Other Medical History: DKA - Past Surgical History Past Surgical History: Yes Neuro Surgical History: No Pertinent History Cardiac: No Pertinent History Respiratory: No Pertinent History Gastrointestinal: No Pertinent History Genitourinary: No Pertinent History Musculoskeletal: Orthopedic Surgery Male Surgical History: No Pertinent History Other Surgical History: tubes in ears as infant, back surgery in 1999 - spondylsis, sinus surgeries X5 growth/polyps removed, left knee surgery X2 dislocation of patella, right wrist fx with surgery, left hand surgery X2 nerve graft surgery - Social History Smoking Status: Former smoker How long have you smoked: 13 years Exposure to second hand smoke: No Drug Use: none Patient Lives Alone: No - Nursing Vital Signs Nursing Vital Signs: Initial Vital Signs Temperature 98.0 F 08/28/19 01:51 Pulse Rate 122 H 08/28/19 01:51 Respiratory Rate 16 08/28/19 01:51 Blood Pressure 174/115 08/28/19 01:51 O2 Sat by Pulse Oximetry 100 08/28/19 01:51 Pain Scale Pain Intensity 0 - Physical Exam General Appearance: no apparent distress Eye Exam: PERRL/EOMI, eyes nml inspection Ears, Nose, Throat Exam: normal ENT inspection, pharynx normal Neck Exam: normal inspection, non-tender, supple, full range of motion Respiratory Exam: normal breath sounds, lungs clear, No chest tenderness, No respiratory distress Cardiovascular Exam: normal heart sounds, normal peripheral pulses, tachycardia Gastrointestinal/Abdomen Exam: soft, tenderness (generalized), guarding Back Exam: normal inspection Extremity Exam: normal inspection, normal range of motion, pelvis stable Neurologic Exam: alert, oriented x 3, cooperative Skin Exam: normal color SpO2 Interpretation: normal SpO2: 100 O2 Delivery: Room Air Ordered Tests: Active Orders 24 hr Category Date Time Status Up With Assistance Activity 08/28/19 04:07 Active CO2 Monitoring CONTINUOUS Care 08/28/19 04:07 Active Code Status Order ROUTINE Care 08/28/19 04:07 Active IV Care Q6H Care 08/28/19 04:07 Active IV Insertion STAT Care 08/28/19 02:13 Completed Intake and Output Q12H Care 08/28/19 04:07 Active NPO (ED) STAT Care 08/28/19 02:13 Completed Neuro Checks HOURLY Care 08/28/19 04:[address] in Observation ROUTINE Care 08/28/19 04:07 Active [place], [place] ROUTINE Care 08/28/19 04:07 Active ABDOMEN AND PELVIS W/0 CONTRAS [CT] Stat Exams 08/28/19 02:13 Taken BMP AM.LAB Lab 08/29/19 04:00 Ordered CBC W DIFF AM.LAB Lab 08/29/19 04:00 Ordered CBC W DIFF Stat Lab 08/28/19 02:51 Completed CMP Stat Lab 08/28/19 02:51 Completed LIPASE Stat Lab 08/28/19 02:51 Completed MAGNESIUM Stat Lab 08/28/19 02:51 Completed UA W/RFX UR CULTURE Stat Lab 08/28/19 02:51 Completed VENOUS BLOOD GAS Stat Lab 08/28/19 03:16 Completed Pulse Oximetry CONTINUOUS RT 08/28/19 04:07 Active Transfer Order Routine Transfer 08/28/19 Completed Medication Summary Generic Name Dose Route Start Last Admin Trade Name Freq PRN Reason Stop Dose Admin Insulin Human Regular 100 101 mls @ 7.07 mls/hr 08/28/19 03:30 08/28/19 05:00 units/ Sodium Chloride IV 09/27/19 03:29 4.95 units/hr .[id number] JOEY 5 mls/hr Infusion 7 UNITS/HR Sodium Chloride 1,000 mls @ 150 mls/hr 08/28/19 04:07 08/28/19 04:42 Sodium Chloride 0.9% 1000 Ml IV 09/27/19 04:06 150 mls/hr .Q6H40M JOEY Administration Potassium Chloride/Dextrose/Sod Cl 1,000 mls @ 150 mls/hr 08/28/19 06:30 06:08 D5w/0.45ns W/ 20meq Kcl 1000 Ml IV 09/27/19 06:29 150 mls/hr .Q6H40M JOEY Administration Ondansetron HCl 4 mg 08/28/19 04:07 Zofran 4 Mg/2 Ml Vial IV 09/27/19 04:06 Q6H PRN PRN NAUSEA/VOMITING Discontinued Medications Generic Name Dose Route Start Last Admin Trade Name Freq PRN Reason Stop Dose Admin Sodium Chloride 1,000 mls @ 999 mls/hr 08/28/19 01:51 08/28/19 02:25 Sodium Chloride 0.9% 1000 Ml IV 08/28/19 02:51 999 mls/hr .Q1H1M STA Administration Sodium Chloride Confirm 08/28/19 02:23 Sodium Chloride 0.9% 1000 Ml Administered 08/28/19 02:24 Dose 1,000 mls @ ud .ROUTE .STK-MED ONE Sodium Chloride 1,000 mls @ 999 mls/hr 08/28/19 03:27 08/28/19 03:35 Sodium Chloride 0.9% 1000 Ml IV 08/28/19 04:27 999 mls/hr .Q1H1M STA Administration Sodium Chloride Confirm 08/28/19 03:34 Sodium Chloride 0.9% 1000 Ml Administered 08/28/19 03:35 Dose 1,000 mls @ ud .ROUTE .STK-MED ONE Sodium Chloride Confirm 08/28/19 03:42 Sodium Chloride 0.9% 100 Ml Ivpb Administered 08/28/19 03:43 Dose 100 mls @ ud IV .STK-MED ONE Magnesium Sulfate/Dextrose 100 mls @ 200 mls/hr 08/28/19 06:00 08/28/19 06:42 Magnesium 1 Gm / 100 Ml D5w IV 08/28/19 07:29 200 mls/hr Q1H JOEY Administration Insulin Human Regular Confirm 08/28/19 03:45 Novolin R Administered 08/28/19 03:46 Dose 100 unit .ROUTE .STK-MED ONE Magnesium Sulfate 1 gm 08/28/19 06:00 Magnesium Sulfate 1 Gm/2 Ml Vial IV 08/28/19 06:01 ONCE ONE Magnesium Sulfate 1 gm 08/28/19 06:30 Magnesium Sulfate 1 Gm/2 Ml Vial IV 08/28/19 06:31 ONCE ONE Morphine Sulfate 4 mg 08/28/19 02:13 08/28/19 02:25 Morphine Sulfate 4 Mg Inj IV 08/28/19 02:14 4 mg STAT ONE Administration Morphine Sulfate Confirm 08/28/19 02:23 Morphine Sulfate 4 Mg Inj Administered 08/28/19 02:24 Dose 4 mg .ROUTE .STK-MED ONE Ondansetron HCl 4 mg 08/28/19 01:51 08/28/19 02:24 Zofran 4 Mg/2 Ml Vial IV 08/28/19 01:52 4 mg STAT ONE Administration Ondansetron HCl Confirm 08/28/19 02:22 Zofran 4 Mg/2 Ml Vial Administered 08/28/19 02:23 Dose 4 mg .ROUTE .STK-MED ONE Lab/Rad Data: Laboratory Result Diagrams 08/28/19 02:51 08/28/19 02:51 Laboratory Results 08/28/19 08/28/19 08/28/19 Range/Units 03:16 02:51 02:51 WBC (4.0-10.5) K/mm3 RBC (4.1-5.6) M/mm3 Hgb (12.5-18.0) gm/dl Hct (42-50) % MCV (78-100) fl MCH (26-32) pg MCHC (32-36) g/dl RDW (11.5-14.0) % Plt Count (150-450) K/mm3 MPV (6-9.5) fl Gran % (36.0-66.0) % Eos # (Auto) (0-0.5) Absolute Lymphs (auto) (1.0-4.6) Absolute Monos (auto) (0.0-1.3) Lymphocytes % (24.0-44.0) % Monocytes % (0.0-12.0) % Eosinophils % (0.00-5.0) % Basophils % (0.0-0.4) % Absolute Granulocytes (1.4-6.9) Basophils # (0-0.4) pO2/FiO2 Ratio 21.0 % VBG pH 7.30 L (7.32-7.42) VBG pCO2 at Pat Temp 31 L (42-55) mm/Hg VBG pO2 at Pat Temp 41 H (25-40) mm/Hg VBG HCO3 15.3 L* (22-28) meq/L VBG O2 Sat ([facility]) 83.1 L (95-100) VBG Base Excess -9.6 L (-2.0-2.0) VBG Hemoglobin 17.5 VBG Carboxyhemoglobin 3.4 (0.0-6.9) % T HGB POC Potassium 5.1 (3.5-5.1) Sodium (137-145) mmol/L Potassium (3.5-5.1) mmol/L Chloride (98-107) mmol/L Carbon Dioxide (22-30) mmol/L Anion Gap (5-15) MEQ/L BUN (9-20) mg/dL Creatinine (0.66-1.25) mg/dL Estimated GFR ML/MIN Glucose (74-106) mg/dL Calcium (8.4-10.2) mg/dL Magnesium (1.6-2.3) mg/dL Total Bilirubin (0.2-1.3) mg/dL AST (17-59) U/L ALT (0-50) U/L Alkaline Phosphatase (38-126) U/L Serum Total Protein (6.3-8.2) g/dL Albumin (3.5-5.0) g/dL Lipase 99 (23-300) U/L Urine Color STRAW (YELLOW) Urine Appearance CLEAR (CLEAR) Urine pH 5.0 (5-6) Ur Specific [place] 1.027 (1.005-1.025) Urine Protein NEGATIVE (Negative) Urine Ketones MODERATE (NEGATIVE) Urine Blood NEGATIVE (0-5) Pedro/ul Urine Nitrite NEGATIVE (NEGATIVE) Urine Bilirubin NEGATIVE (NEGATIVE) Urine Urobilinogen NEGATIVE (0-1) mg/dL Ur Leukocyte Esterase NEGATIVE (NEGATIVE) Urine WBC (Auto) NONE (0-5) /HPF Urine RBC (Auto) NONE (0-2) /HPF U Epithel Cells (Auto) NONE (FEW) /HPF Urine Bacteria (Auto) NONE (NEGATIVE) /HPF Urine Culture Reflexed NO (NO) Urine Glucose >=500 (NEGATIVE) mg/dL Slides for Path Review 08/28/19 08/28/19 Range/Units 02:51 02:51 WBC 9.4 (4.0-10.5) K/mm3 RBC 5.52 (4.1-5.6) M/mm3 Hgb 17.0 (12.5-18.0) gm/dl Hct 46.5 (42-50) % MCV 84.2 (78-100) fl MCH 30.8 (26-32) pg MCHC 36.6 H (32-36) g/dl RDW 11.3 L (11.5-14.0) % Plt Count 235 (150-450) K/mm3 MPV 11.7 H (6-9.5) fl Gran % 81.0 H (36.0-66.0) % Eos # (Auto) 0.03 (0-0.5) Absolute Lymphs (auto) 1.31 (1.0-4.6) Absolute Monos (auto) 0.42 (0.0-1.3) Lymphocytes % 13.9 L (24.0-44.0) % Monocytes % 4.5 (0.0-12.0) % Eosinophils % 0.3 (0.00-5.0) % Basophils % 0.3 (0.0-0.4) % Absolute Granulocytes 7.63 H (1.4-6.9) Basophils # 0.03 (0-0.4) pO2/FiO2 Ratio % VBG pH (7.32-7.42) VBG pCO2 at Pat Temp (42-55) mm/Hg VBG pO2 at Pat Temp (25-40) mm/Hg VBG HCO3 (22-28) meq/L VBG O2 Sat ([facility]) (95-100) VBG Base Excess (-2.0-2.0) VBG Hemoglobin VBG Carboxyhemoglobin (0.0-6.9) % T HGB POC Potassium (3.5-5.1) Sodium 133 L (137-145) mmol/L Potassium 4.9 (3.5-5.1) mmol/L Chloride 88 L (98-107) mmol/L Carbon Dioxide 17 L (22-30) mmol/L Anion Gap 33.2 H (5-15) MEQ/L BUN 17 (9-20) mg/dL Creatinine 0.74 (0.66-1.25) mg/dL Estimated GFR > 60.0 ML/MIN Glucose 469 H (74-106) mg/dL Calcium 10.2 (8.4-10.2) mg/dL Magnesium 1.7 (1.6-2.3) mg/dL Total Bilirubin 1.30 (0.2-1.3) mg/dL AST 27 (17-59) U/L ALT 26 (0-50) U/L Alkaline Phosphatase 139 H (38-126) U/L Serum Total Protein 8.1 (6.3-8.2) g/dL Albumin 5.2 H (3.5-5.0) g/dL Lipase (23-300) U/L Urine Color (YELLOW) Urine Appearance (CLEAR) Urine pH (5-6) Ur Specific [place] (1.005-1.025) Urine Protein (Negative) Urine Ketones (NEGATIVE) Urine Blood (0-5) Pedro/ul Urine Nitrite (NEGATIVE) Urine Bilirubin (NEGATIVE) Urine Urobilinogen (0-1) mg/dL Ur Leukocyte Esterase (NEGATIVE) Urine WBC (Auto) (0-5) /HPF Urine RBC (Auto) (0-2) /HPF U Epithel Cells (Auto) (FEW) /HPF Urine Bacteria (Auto) (NEGATIVE) /HPF Urine Culture Reflexed (NO) Urine Glucose (NEGATIVE) mg/dL Slides for Path Review YES - Progress Progress: improved, pain not gone completely, re-examined Progress Note: Patient is a DKA. He is started on IV fluids and insulin as per protocol. CT abdomen and pelvis with contrast did not show any obstruction, findings consistent with enteritis.Discussed with Dr. Montes De Oca & patient is being admitted. 08/28/19 03:42 Discussed with : Kevin Will see patient in: hospital (observation) Counseled pt/family regarding: lab results, diagnosis, need for follow-up, rad results - Departure Departure Disposition: Observation Clinical Impression: DKA (diabetic ketoacidoses) Qualifiers: Diabetes mellitus type: type 1 Diabetes mellitus complication detail: without coma Qualified Code(s): E10.10 - Type 1 diabetes mellitus with ketoacidosis without coma Condition: Stable Critical Care Time: Yes Critical Care Time(excluding separately billable procedures): Critical 30-74 mins
[2019-08-28] MEDS ORDERED: Zofran 4 MG/2 ML VIAL ONE (02:22)
[2019-08-28] MEDS ORDERED: MORPHINE SULFATE 4 MG INJ ONE (02:23)
[2019-08-28] MEDS ORDERED: Sodium Chloride 0.9% 1000 ML 1,000 ML ONE ×2 (02:23→03:34)
[2019-08-28 02:52] LABS: Absolute Neutrophil Ct (ANC) 7.63 (1.4-6.9); BASOPHIL % 0.3 % (0.0-0.4); Basophil (Absolute #) 0.03 (0-0.4); Eosinophil % 0.3 % (0.00-5.0); Eosinophil (Absolute #) 0.03 (0-0.5); Hematocrit 46.5 % (42-50); Lymphocyte (Absolute #) 1.31 (1.0-4.6); Lymphocytes % 13.9 % (24.0-44.0); Mean Cell Volume 84.2 fl (78-100); Mean Corpuscular Hemoglobin 30.8 pg (26-32); Mean Corpuscular Hgb Concent. 36.6 g/dl (32-36); Mean Platelet Volume 11.7 fl (6-9.5); Monocyte (Absolute #) 0.42 (0.0-1.3); Monocytes % 4.5 % (0.0-12.0); Platelet Count 235 K/mm3 (150-450); Red Blood Count 5.52 M/mm3 (4.1-5.6); Red Cell Distribution Width 11.3 % (11.5-14.0); White Blood Count 9.4 K/mm3 (4.0-10.5)
[2019-08-28 02:54] LABS: Appearance CLEAR (CLEAR); Bilirubin NEGATIVE (NEGATIVE); Blood NEGATIVE Ery/ul (0-5); Glucose >=500 mg/dL (NEGATIVE); Ketones MODERATE (NEGATIVE); Leukocyte Esterase NEGATIVE (NEGATIVE); Nitrite NEGATIVE (NEGATIVE); Protein,Urine Dip NEGATIVE (Negative); Specific Gravity 1.027 (1.005-1.025); Urobilinogen NEGATIVE mg/dL (0-1)
[2019-08-28 03:03] LABS: ALBUMIN 5.2 g/dL (3.5-5.0); ALKALINE PHOSPHATASE 139 U/L (38-126); ANION GAP 33.2 MEQ/L (5-15); BLOOD UREA NITROGEN 17 mg/dL (9-20); CHLORIDE 88 mmol/L (98-107); Calcium 10.2 mg/dL (8.4-10.2); Carbon Dioxide 17 mmol/L (22-30); Creatinine 1 0.74 mg/dL (0.66-1.25); Glucose 469 mg/dL (74-106); MAGNESIUM 1.7 mg/dL (1.6-2.3); Potassium 4.9 mmol/L (3.5-5.1); SGOT/AST 27 U/L (17-59); SGPT/ALT 26 U/L (0-50); SODIUM 133 mmol/L (137-145); Total Protein 8.1 g/dL (6.3-8.2)
[2019-08-28 03:17] LABS: VBG BASE EXCESS -9.6 (-2.0-2.0); VBG CARBOXYHEMOGLOBIN 3.4 % T HGB (0.0-6.9); VBG HCO3- 15.3 meq/L (22-28); VBG HEMOGLOBIN 17.5; VBG O2 SATURATION 83.1 (95-100); VBG POTASSIUM 5.1 (3.5-5.1); VBG pH 7.3 (7.32-7.42)
[2019-08-28] MEDS ORDERED: Sodium Chloride 0.9% 100 ML IVPB 100 ML IV ONE (03:42)
[2019-08-28] MEDS: NOVOLIN R INSULIN (FOR DRIPS)** 100 UNITS in Sodium Chloride 0.9% 100 ML IVPB 100 ML IV SCH ×2 (03:44→08:00)
[2019-08-28] MEDS ORDERED: NovoLIN R ONE (03:45)
[2019-08-28] MEDS ORDERED: Sodium Chloride 0.9% 1000 ML 1,000 ML IV SCH (04:07)
[2019-08-28] MEDS ORDERED: Zofran 4 MG/2 ML VIAL IV PRN (04:07)
[2019-08-28 05:27] LABS: MAGNESIUM 1.7 mg/dL (1.6-2.3)
[2019-08-28 05:27] LABS: Slide Review 1 YES
[2019-08-28 05:31] LABS: ANION GAP 26.7 MEQ/L (5-15); BLOOD UREA NITROGEN 15 mg/dL (9-20); CHLORIDE 98 mmol/L (98-107); Calcium 9.3 mg/dL (8.4-10.2); Creatinine 1 0.69 mg/dL (0.66-1.25); Glucose 316 mg/dL (74-106); Potassium 4.7 mmol/L (3.5-5.1); SODIUM 136 mmol/L (137-145)
[2019-08-28 05:32] LABS: Carbon Dioxide 16 mmol/L (22-30)
[2019-08-28] MEDS: Magnesium 1 Gm / 100 Ml D5W*** 100 ML IV SCH ×2 (06:00→06:42)
[2019-08-28] MEDS ORDERED: Magnesium Sulfate 1 GM/2 ML VIAL IV ONE ×2 (06:00→06:30)
[2019-08-28] MEDS: D5W/0.45NS W/ 20mEq KCl 1000 ML 1,000 ML IV SCH ×2 (06:08→13:12)
[2019-08-28 08:47] LABS: ALKALINE PHOSPHATASE 85 U/L (38-126); ANION GAP 16.8 MEQ/L (5-15); BLOOD UREA NITROGEN 14 mg/dL (9-20); CHLORIDE 100 mmol/L (98-107); Calcium 8.9 mg/dL (8.4-10.2); Carbon Dioxide 23 mmol/L (22-30); Creatinine 1 0.51 mg/dL (0.66-1.25); Direct Bilirubin 0.3 mg/dL (0.0-0.4); Glucose 200 mg/dL (74-106); Potassium 4.4 mmol/L (3.5-5.1); SGOT/AST 31 U/L (17-59); SGPT/ALT 21 U/L (0-50); SODIUM 135 mmol/L (137-145); Total Protein 6.6 g/dL (6.3-8.2)
--- NOTE | 2019-08-28 09:08 | XRAY ---
Indication: Abdomen pain, nausea, and vomiting. Multiple contiguous axial images obtained through the abdomen and pelvis without contrast as ordered. Comparison: None. Lung bases clear. Heart is not enlarged. Stomach is mildly fluid distended. Noncontrasted stomach and bowel loops appear nonobstructed. Normal appendix. There is mild diffuse scattered colonic fecal debris throughout. No free fluid/air. Remaining liver, gallbladder, pancreas, spleen, adrenal glands, kidneys, ureters, bladder, and aorta appear unremarkable for noncontrast exam. Osseous structures intact. Impression: 1. Mild fecal stasis without obstruction. 2. Remaining CT abdomen/pelvis without contrast exam is negative. Comment: Preliminary interpretation was made by [facility]. No critical discrepancy. CTDI 4.90
[2019-08-28] MEDS: Toprol Xl 50 MG PO SCH (10:56)
[2019-08-28] MEDS ORDERED: TYLENOL 325 MG PO PRN (10:59)
[2019-08-28] MEDS ORDERED: Zestril 10 MG PO SCH (11:00)
[2019-08-28] MEDS ORDERED: LOPRESSOR 5 MG/5 ML INJECTION IV ONE (11:54)
[2019-08-28 12:22] LABS: ALBUMIN 3.9 g/dL (3.5-5.0); ALKALINE PHOSPHATASE 80 U/L (38-126); ANION GAP 12.7 MEQ/L (5-15); BLOOD UREA NITROGEN 11 mg/dL (9-20); CHLORIDE 100 mmol/L (98-107); Carbon Dioxide 26 mmol/L (22-30); Creatinine 1 0.45 mg/dL (0.66-1.25); Direct Bilirubin 0.3 mg/dL (0.0-0.4); Glucose 106 mg/dL (74-106); Potassium 4.2 mmol/L (3.5-5.1); SGOT/AST 22 U/L (17-59); SGPT/ALT 20 U/L (0-50); SODIUM 135 mmol/L (137-145); Total Protein 6.5 g/dL (6.3-8.2)
[2019-08-28] MEDS ORDERED: Zestril 10 MG PO STA (12:49)
[2019-08-28] MEDS ORDERED: Lantus Insulin SQ ONE (13:00)
[2019-08-28] MEDS: NovoLOG Insulin SQ SCH (17:33)
[2019-08-28] MEDS ORDERED: MOTRIN 600 MG PO PRN (20:36)
[2019-08-28 21:35] LABS: Amphetamine,Urine NEGATIVE (NEGATIVE); Barbiturate,Urine NEGATIVE (NEGATIVE); Benzodiazepine,Urine NEGATIVE (NEGATIVE); Cocaine,Urine NEGATIVE (NEGATIVE); Methadone,Urine NEGATIVE (NEGATIVE); Opiate,Urine POSITIVE (NEGATIVE); PCP,Urine NEGATIVE (NEGATIVE); THC,Urine NEGATIVE (NEGATIVE)
[2019-08-28] MEDS ORDERED: ZOCOR 20MG PO SCH (22:00)
[2019-08-28] MEDS ORDERED: Lantus Insulin SQ SCH (22:00)
[2019-08-29] MEDS: D5W/0.45NS W/ 20mEq KCl 1000 ML 1,000 ML IV SCH (01:36)
[2019-08-29 05:10] LABS: Absolute Neutrophil Ct (ANC) 5.77 (1.4-6.9); BASOPHIL % 0.1 % (0.0-0.4); Basophil (Absolute #) 0.01 (0-0.4); Eosinophil % 1.3 % (0.00-5.0); Eosinophil (Absolute #) 0.11 (0-0.5); Hematocrit 40.5 % (42-50); Hemoglobin 14.8 gm/dl (12.5-18.0); Lymphocyte (Absolute #) 1.82 (1.0-4.6); Lymphocytes % 22.1 % (24.0-44.0); Mean Cell Volume 84.7 fl (78-100); Mean Corpuscular Hgb Concent. 36.5 g/dl (32-36); Mean Platelet Volume 10.7 fl (6-9.5); Monocyte (Absolute #) 0.52 (0.0-1.3); Monocytes % 6.3 % (0.0-12.0); Neutrophil % 70.2 % (36.0-66.0); Platelet Count 198 K/mm3 (150-450); Red Blood Count 4.78 M/mm3 (4.1-5.6); Red Cell Distribution Width 11.2 % (11.5-14.0); White Blood Count 8.2 K/mm3 (4.0-10.5)
[2019-08-29 05:15] LABS: ANION GAP 12.5 MEQ/L (5-15); BLOOD UREA NITROGEN 12 mg/dL (9-20); CHLORIDE 95 mmol/L (98-107); Calcium 9.1 mg/dL (8.4-10.2); Carbon Dioxide 31 mmol/L (22-30); Glucose 298 mg/dL (74-106); Potassium 4.4 mmol/L (3.5-5.1); SODIUM 134 mmol/L (137-145)
[2019-08-29] MEDS: NovoLOG Insulin SQ SCH ×2 (08:18→12:44)
[2019-08-29] MEDS: Toprol Xl 50 MG PO SCH (08:18)
[2019-08-29 08:43] VITALS: O2SAT 99
[2019-08-29] MEDS ORDERED: DULCOLAX 5 MG PO PRN (09:21)
[2019-08-29] MEDS ORDERED: Toprol-Xl 25MG Tablets PO ONE (09:23)
[2019-08-29 09:25] VITALS: PULSE 104
[2019-08-29] MEDS ORDERED: Zestril 20 MG PO SCH (10:00)
[2019-08-29] MEDS ORDERED: Lantus Insulin SQ SCH (10:00)
[2019-08-29] MEDS ORDERED: Colace 100 MG PO SCH (10:00)
--- NOTE | 2019-08-29 12:48 | PCM.DCORD ---
- Discharge Discharge Date: 08/29/19 Disposition: Home, Self-Care Condition: Good Prescriptions: New Metoprolol Succinate 25 mg Xl* [Toprol-Xl 25MG Tablets] 25 mg PO DAILY # 30 tab Acetaminophen 325 mg [Tylenol 325 mg] 650 mg PO Q4H PRN PRN tablet PRN Reason: Pain And/Or Fever Lisinopril 20 mg [Zestril 20 MG] 20 mg PO DAILY #30 tablet Continue Insulin Detemir [Levemir] 30 unit SQ DAILY Rosuvastatin Calcium 20 mg PO HS Metoprolol Succinate 25 mg Xl* [Toprol-Xl 25MG Tablets] 50 mg PO DAILY Insulin Detemir [Levemir] 20 units SQ HS Insulin Lispro [Humalog] 15 units SQ AC Discontinued Lisinopril 10 mg [Zestril 10 MG] 10 mg PO DAILY Ondansetron ODT 4 MG [Zofran Odt 4 mg] 4 mg PO Q6H PRN PRN #8 tab.rapdis PRN Reason: Nausea Outpatient Orders: ECHO W/2D AND DOPPLER Location: RADIOLOGY Additional Instructions: Call office or return to ER if you develop abdominal pain, vomiting, or any other concerns. Follow up with: NAVEEN MCKEON MD [Primary Care Provider] - 1 Week GERTRUDIS PANDYA [NON-STAFF PHY W/O PRIVILEGES] - 1 Week
[2019-08-29 14:02] VITALS: BP 141/100
--- NOTE | 2019-08-31 09:44 | HP ---
NOTE: This report was entered as a Discharge Summery. HISTORY OF PRESENT ILLNESS: This is a 29 year-old patient of Dr. Lin with type 1 diabetes and frequent diabetic ketoacidosis. He states he first started feeling bad Friday with vomiting at work. He came to the emergency room and was dehydrated. He was given fluids and Zofran to take at home but continued to have vomiting. He returned to the emergency room at 0100 hours today. He reported that he just could not keep any fluids down despite taking the Zofran. He was found to be in diabetic ketoacidosis in the emergency room. He has been seeing Dr. Vicente, Family [employer], every two to three weeks to try to get his blood sugars under control. He reports he had been without insurance but has insurance now and had been taking his insulin. He denies any fevers, diarrhea, cough or runny nose. There does not seem to be any known reason why he developed the diabetic ketoacidosis at this time. He states in the past it was frequent because he did not have insulin. He reports he is feeling better at this time compared to when he first came into the emergency department. REVIEW OF SYSTEMS: He reports he has chest pain here and there but not very bad. Denies rashes. Denies any lower extremity swelling. No abdominal pain at this time. Otherwise review of systems as noted in the history of present illness. MEDICATIONS: Please see the home medication reconciliation form which I have reviewed. ALLERGIES: NKDA. PAST MEDICAL HISTORY: Diabetes mellitus type [address] Vicente, [employer]. Hypertension, hyperlipidemia. PAST SURGICAL HISTORY: SOCIAL HISTORY: He used to smoke one pack per day but quit two years ago. He denies any alcohol or illicit drug use. He lives at home with his mother and two nieces and a nephew. He is employed. FAMILY HISTORY: His mother has hypertension. His father's family history is unknown. PHYSICAL EXAMINATION: VITAL SIGNS: Temperature current 97.5F, temperature max 98.0F, heart rate 105, respiratory rate 20, blood pressure 158/98, weight 68.9 kg. Oxygen saturation 98% on room air. GENERAL: The patient is a pleasant talkative man lying in bed in no acute distress. CVS: His heart has a regular rhythm. No murmurs, gallops or rubs are appreciated. CHEST: Clear to auscultation bilaterally. No crackles or wheezes. ABDOMEN: Soft, nontender, nondistended with normal bowel sounds. EXTREMITIES: No clubbing, cyanosis or edema. SKIN: Warm, dry and intact and with tattoos. LABORATORY DATA AND TESTS: Sodium 135, carbon dioxide 23, anion gap 16.8, glucose 200. AST and ALT are normal. Potassium 4.4. CBC within normal limits. UA on admission with moderate ketones and greater than 500 glucose. Venous blood gas on admission pH 7.30, pCO2 of 31, pCO2 41. He had CT of his abdomen and pelvis that was read as mild fecal stasis without obstruction, remaining CT of the abdomen and pelvis without contrast exam is negative. ASSESSMENT AND PLAN: 1) DIABETIC KETOACIDOSIS: He has been placed on insulin drip per the diabetic ketoacidosis protocol with monitoring of his BNP every four hours. We plan to wean him off the drip once his anion gap is closed and his blood sugar is under 200. I will put him back on his home doses of insulin, will continue with fluids and adjust those per protocol. He will need to follow up with his spanish moss picker, Dr. Vicente. 2) DIABETES MELLITUS TYPE 1: His A1C on 06/15/2019 was 12.1 so at this time he is uncontrolled. 3) HYPERTENSION: Will restart his home antihypertensive. 4) SINUS TACHYCARDIA: Will restart his beta annemarie which he states was recently increased on Friday to control his heart rate. 5) HYPERLIPIDEMIA: We will continue with his home dose of statin.
--- NOTE | 2019-08-31 10:45 | DS ---
ADMISSION DIAGNOSES: 1) Diabetic ketoacidosis. 2) Diabetes mellitus type 1 uncontrolled. 3) Hypertension. 4) Sinus tachycardia. 5) Hyperlipidemia. DISCHARGE DIAGNOSES: 1) DIABETIC KETOACIDOSIS. 2) DIABETES MELLITUS TYPE 1 UNCONTROLLED. 3) HYPERTENSION. 4) SINUS TACHYCARDIA. 5) HYPERLIPIDEMIA. DISCHARGE PHYSICAL EXAMINATION: VITALS: Temperature current 98.2F, heart rate 104, respiratory rate 16, blood pressure 152/96, weight 70.8 kg. GENERAL: The patient is a pleasant talkative man lying in bed in no acute distress. CVS: He has a regular rate and rhythm. No murmurs, gallops or rubs are appreciated. CHEST: Clear to auscultation bilaterally. No crackles or wheezes are appreciated. ABDOMEN: Soft, nontender, nondistended with normal bowel sounds. EXTREMITIES: No clubbing, cyanosis or edema. SKIN: Warm, dry and intact. HOSPITAL COURSE: 1) DIABETIC KETOACIDOSIS: He was placed on insulin drip initially. Once his anion gap closed he was transitioned back to his normal insulin regimen. He plans to follow up closely with his cavity pump operator, Dr. Vicente. Underlying etiology of this episode is unclear. He had quite a bit of tachycardia. He had a urine tox checked and it was only positive for opiates which he had received morphine in the emergency room before the urine tox was done otherwise was negative. The patient was tolerating a regular diet well and doing well with his home doses of insulin. 2) DIABETES MELLITUS TYPE 1 UNCONTROLLED: Again, he will follow up with his cavity pump operator is already scheduled. 3) HYPERTENSION: His blood pressure especially his diastolic continues to be high during the hospitalization. I increased his lisinopril from 10 mg to 20 mg daily, increased his metoprolol XL from 50 mg daily to 75 mg daily. He will follow up with his primary care doctor as well as his cavity pump operator. I have also ordered an echocardiogram as an outpatient. 4) SINUS TACHYCARDIA: His metoprolol was increased from 50 to 75 mg. He was rehydrated while he was here. 5) HYPERLIPIDEMIA: He was continued on his statin, will follow up with cavity pump operator. DISCHARGE MEDICATIONS: Please see the discharge order. FOLLOW UP: Follow up with his primary care doctor Dr. Sanchez and Dr. Vicente. DISPOSITION: The patient was discharged to home in fair condition.
== END 2019-08-29 13:40 | disposition home or self-care (01) | DRG 304 ==
LOC: ED 01:29 → OBSVTOIN 04:01 → ICU 04:01
PROVIDERS: ADMIT Family Medicine; ATTEND Family Medicine
DX: I15.2 Hypertension secondary to endocrine disorders (principal); E10.10 Type 1 diabetes mellitus with ketoacidosis without coma; I10 Essential (primary) hypertension; R00.0 Tachycardia, unspecified; E78.49 Other hyperlipidemia
CPT/HCPCS: 36000; 36415; 74176; 80048; 80053; 80076; 80307; 81001; 82805; 82962; 83690; 83735; 84100; 85025; 93005; 94770; 96374; 96375; 99284; 99291; J1815; J2270; J2405; J3475; A9270-GY

== ENCOUNTER 2019-10-10 22:18 | Observation (INO) | payer OTHER ==
[2019-10-10] MEDS ORDERED: Sodium Chloride 0.9% 1000 ML 1,000 ML IV STA (23:24)
[2019-10-10] MEDS ORDERED: Phenergan 25 MG INJ IV ONE (23:24)
[2019-10-10] MEDS ORDERED: MORPHINE SULFATE 4 MG INJ IV ONE (23:24)
--- NOTE | 2019-10-10 23:29 | ERPHSYRPT ---
- History of Present Illness Time Seen by Provider: 10/10/19 23:09 Source: patient Patient Subjective Stated Complaint: pt states he has been sick for two days. states he has had cough for 5 days and feels like vomiting each time he coughs, pt states he has lost weight in the lastr few days and cannot eat because he vomits after he eats anything. pt states he is diabetic type 1 Triage Nursing Assessment: pt appears pale, states he is tired and is currently vomiting. pt states general pain is 5/10 to body Physician History: 29 yo male IDDM with multiple DKAs , presented with 5 days wof worsening vomiting. he was seen at [facility] 3 days ago , was not in DKA , was given z pack for bronchitis and coughis better but still having multiple episodes of non projectile/non bilious vomiting with no hemetemesis . vomitis every time after eating, unable to helpd anything down. associated upper abdominal moderate to severe intensity sharp pain ,aggravated with eating/vomiting. gen weakness and fatigue and many pounds weight loss. no fever or chills.BS staying in 300s. last dose of insuling this am . Timing/Duration: day(s) (5) Severity: moderate Modifying Factors: Improves With: eating Associated Symptoms: nausea, vomiting, abdominal pain, cough Allergies/Adverse Reactions: No Known Drug Allergies Allergy (Verified 08/26/19 03:51) Home Medications: Insulin Detemir [Levemir] 20 units SQ HS 08/26/19 [History] Insulin Detemir [Levemir] 30 unit SQ DAILY 08/26/19 [History] Metoprolol Succinate 25 mg Xl* [Toprol-Xl 25MG Tablets] 50 mg PO DAILY [History] Rosuvastatin Calcium 20 mg PO HS 08/26/19 [History] Insulin Lispro [Humalog] 15 units SQ AC 08/28/19 [History] Hx Tetanus, Diphtheria Vaccination/Date Given: Yes Hx Influenza Vaccination/Date Given: No Hx Pneumococcal Vaccination/Date Given: No - Review of Systems Constitutional: Fatigue Eyes: No Symptoms Ears, Nose, & Throat: No Symptoms Respiratory: Cough Cardiac: No Symptoms Abdominal/Gastrointestinal: Abdominal Pain, Nausea, Vomiting Genitourinary Symptoms: No Symptoms Musculoskeletal: Myalgias Skin: No Symptoms Neurological: No Symptoms Psychological: No Symptoms Endocrine: No Symptoms Hematologic/Lymphatic: No Symptoms Immunological/Allergic: No Symptoms - Past Medical History Pertinent Past Medical History: Yes Neurological History: Peripheral Neuropathy ENT History: No Pertinent History Cardiac History: High Cholesterol, Hypertension Respiratory History: No Pertinent History Endocrine Medical History: Diabetes Type I Musculoskeletal History: No Pertinent History GI Medical History: Irritable Bowel History: No Pertinent History Psycho-Social History: No Pertinent History Male Reproductive Disorders: No Pertinent History Other Medical History: DKA - Past Surgical History Past Surgical History: Yes Neuro Surgical History: No Pertinent History Cardiac: No Pertinent History Respiratory: No Pertinent History Gastrointestinal: No Pertinent History Genitourinary: No Pertinent History Musculoskeletal: Orthopedic Surgery Male Surgical History: No Pertinent History Other Surgical History: tubes in ears as infant, back surgery in 1999 - spondylsis, sinus surgeries X5 growth/polyps removed, left knee surgery X2 dislocation of patella, right wrist fx with surgery, left hand surgery X2 nerve graft surgery - Social History Smoking Status: Former smoker How long have you smoked: 13 years Exposure to second hand smoke: No Drug Use: none Patient Lives Alone: No - Nursing Vital Signs Nursing Vital Signs: Initial Vital Signs Temperature 97.3 F 10/10/19 22:28 Pulse Rate 113 H 10/10/19 22:28 Respiratory Rate 18 10/10/19 22:28 Blood Pressure 153/98 10/10/19 22:28 O2 Sat by Pulse Oximetry 97 10/10/19 22:28 Pain Scale Pain Intensity 4 - Physical Exam General Appearance: no apparent distress Eye Exam: PERRL/EOMI, eyes nml inspection Ears, Nose, Throat Exam: normal ENT inspection, TMs normal, pharynx normal Neck Exam: normal inspection, non-tender, supple, full range of motion Respiratory Exam: normal breath sounds, lungs clear, No respiratory distress Cardiovascular Exam: normal heart sounds, tachycardia Gastrointestinal/Abdomen Exam: tenderness, guarding (upper abd , positive ceasar ), No distention Back Exam: normal inspection Extremity Exam: normal inspection Neurologic Exam: alert, oriented x 3, cooperative Skin Exam: normal color SpO2 Interpretation: normal SpO2: 97 O2 Delivery: Room Air - Course Nursing assessment & vital signs reviewed: Yes Ordered Tests: Active Orders 24 hr Category Date Time Status EKG-ER Only STAT Care 10/11/19 01:36 Active IV Insertion STAT Care 10/10/19 23:24 Active NPO (ED) STAT Care 10/10/19 23:24 Active ABDOMEN AND PELVIS W/0 CONTRAS [CT] Stat Exams 10/11/19 00:24 Taken AMYLASE Stat Lab 10/10/19 23:24 Completed BLOOD CULTURE Stat Lab 10/11/19 Ordered CBC W DIFF Stat Lab 10/10/19 23:24 Completed CMP Stat Lab 10/10/19 23:24 Completed LIPASE Stat Lab 10/10/19 23:24 Completed Manual Differential NC Stat Lab 10/10/19 23:24 Completed UA W/RFX UR CULTURE Stat Lab 10/10/19 23:35 Completed Transfer Order Routine Transfer 10/11/19 Ordered Medication Summary Generic Name Dose Route Start Last Admin Trade Name Freq PRN Reason Stop Dose Admin Insulin Human Regular 100 101 mls @ 6.06 mls/hr 10/11/19 00:45 units/ Sodium Chloride IV 11/10/19 23:59 .[id number] JOEY Protocol 6 UNITS/HR Sodium Chloride 1,000 mls @ 150 mls/hr 10/11/19 00:45 Sodium Chloride 0.9% 1000 Ml IV 11/10/19 00:44 .[id number] JOEY Discontinued Medications Generic Name Dose Route Start Last Admin Trade Name Freq PRN Reason Stop Dose Admin Sodium Chloride 1,000 mls @ 999 mls/hr 10/10/19 23:24 10/10/19 23:44 Sodium Chloride 0.9% 1000 Ml IV 10/11/19 00:24 999 mls/hr .Q1H1M STA Administration Sodium Chloride Confirm 10/10/19 23:39 Sodium Chloride 0.9% 1000 Ml Administered 10/10/19 23:40 Dose 1,000 mls @ ud .ROUTE .STK-MED ONE Sodium Chloride 1,000 mls @ 999 mls/hr 10/11/19 00:31 10/11/19 01:16 Sodium Chloride 0.9% 1000 Ml IV 10/11/19 01:31 999 mls/hr .Q1H1M STA Administration Ceftriaxone Sodium/Dextrose 1 g in 50 mls @ 100 mls/hr 10/11/19 01:34 02:16 Rocephin 1 Gm-D5w 50 Ml Bag IV 10/11/19 02:03 Not Given STAT STA Azithromycin 500 mg in 250 mls @ 250 mls/hr 10/11/19 01:34 10/11/19 02:16 Zithromax 500 Mg/ 250 Ml Nacl Premix IV 10/11/19 02:33 Not Given STAT STA Levofloxacin/Dextrose 750 mg in 150 mls @ 100 mls/hr 10/11/19 01:52 Levofloxacin 750mg/150ml D5w IV 10/11/19 03:21 STAT STA Sodium Chloride Confirm 10/11/19 02:18 Sodium Chloride 0.9% 100 Ml Ivpb Administered 10/11/19 02:19 Dose 100 mls @ ud IV .STK-MED ONE Levofloxacin/Dextrose Confirm 10/11/19 02:19 Levofloxacin 750mg/150ml D5w Administered 10/11/19 02:20 Dose 750 mg in 150 mls @ ud IV .STK-MED ONE Sodium Chloride Confirm 10/11/19 02:44 Sodium Chloride 0.9% 100 Ml Ivpb Administered 10/11/19 02:45 Dose 100 mls @ ud IV .STK-MED ONE Insulin Human Regular Confirm 10/11/19 02:18 Novolin R Administered 10/11/19 02:19 Dose 1 unit .ROUTE .STK-MED ONE Insulin Human Regular Confirm 10/11/19 02:51 Novolin R Administered 10/11/19 02:52 Dose 1 unit .ROUTE .STK-MED ONE Morphine Sulfate 4 mg 10/10/19 23:24 10/10/19 23:43 Morphine Sulfate 4 Mg Inj IV 10/10/19 23:25 4 mg STAT ONE Administration Morphine Sulfate Confirm 10/10/19 23:39 Morphine Sulfate 4 Mg Inj Administered 10/10/19 23:40 Dose 4 mg .ROUTE .STK-MED ONE Promethazine HCl 12.5 mg 10/10/19 23:24 10/10/19 23:42 Phenergan 25 Mg Inj IV 10/10/19 23:25 12.5 mg STAT ONE Administration Promethazine HCl Confirm 10/10/19 23:39 Phenergan 25 Mg Inj Administered 10/10/19 23:40 Dose 25 mg .ROUTE .STK-MED ONE Lab/Rad Data: Laboratory Result Diagrams 10/10/19 23:24 10/10/19 23:24 Laboratory Results 10/10/19 10/10/19 10/10/19 Range/Units 23:35 23:24 23:24 WBC 13.9 H (4.0-10.5) K/mm3 RBC 5.10 (4.1-5.6) M/mm3 Hgb 15.7 (12.5-18.0) gm/dl Hct 44.0 (42-50) % MCV 86.3 (78-100) fl MCH 30.8 (26-32) pg MCHC 35.7 (32-36) g/dl RDW 12.3 (11.5-14.0) % Plt Count 139 L (150-450) K/mm3 MPV 11.8 H (7.5-11.0) fl pO2/FiO2 Ratio % VBG pH (7.32-7.42) VBG pCO2 at Pat Temp (42-55) mm/Hg VBG pO2 at Pat Temp (25-40) mm/Hg VBG HCO3 (22-28) meq/L VBG O2 Sat ([facility]) (95-100) VBG Base Excess (-2.0-2.0) VBG Hemoglobin VBG Carboxyhemoglobin (0.0-6.9) % T HGB POC Potassium (3.5-5.1) Sodium 130 L (137-145) mmol/L Potassium 5.1 (3.5-5.1) mmol/L Chloride 93 L (98-107) mmol/L Carbon Dioxide 12 L* (22-30) mmol/L Anion Gap 29.7 H (5-15) MEQ/L BUN 13 (9-20) mg/dL Creatinine 0.78 (0.66-1.25) mg/dL Estimated GFR > 60.0 ML/MIN Glucose 414 H (74-106) mg/dL Calcium 9.6 (8.4-10.2) mg/dL Total Bilirubin 0.90 (0.2-1.3) mg/dL AST 29 (17-59) U/L ALT 32 (0-50) U/L Alkaline Phosphatase 145 H (38-126) U/L Serum Total Protein 8.1 (6.3-8.2) g/dL Albumin 4.5 (3.5-5.0) g/dL Amylase 46 (30-110) U/L Lipase 75 (23-300) U/L Urine Color YELLOW (YELLOW) Urine Appearance CLEAR (CLEAR) Urine pH 5.0 (5-6) Ur Specific [place] 1.025 (1.005-1.025) Urine Protein NEGATIVE (Negative) Urine Ketones LARGE (NEGATIVE) Urine Blood NEGATIVE (0-5) Pedro/ul Urine Nitrite NEGATIVE (NEGATIVE) Urine Bilirubin NEGATIVE (NEGATIVE) Urine Urobilinogen NORMAL (0-1) mg/dL Ur Leukocyte Esterase NEGATIVE (NEGATIVE) Urine WBC (Auto) NONE SEEN (0-5) /HPF Urine RBC (Auto) NONE SEEN (0-2) /HPF U Epithel Cells (Auto) NONE (FEW) /HPF Urine Bacteria (Auto) NONE SEEN (NEGATIVE) /HPF Urine Mucus (Auto) SLIGHT (NEGATIVE) /HPF Urine Culture Reflexed NO (NO) Urine Glucose 1000 (NEGATIVE) mg/dL 10/10/19 Range/Units 00:20 WBC (4.0-10.5) K/mm3 RBC (4.1-5.6) M/mm3 Hgb (12.5-18.0) gm/dl Hct (42-50) % MCV (78-100) fl MCH (26-32) pg MCHC (32-36) g/dl RDW (11.5-14.0) % Plt Count (150-450) K/mm3 MPV (7.5-11.0) fl pO2/FiO2 Ratio 21 % VBG pH 7.21 L* (7.32-7.42) VBG pCO2 at Pat Temp 31 L (42-55) mm/Hg VBG pO2 at Pat Temp 42 H (25-40) mm/Hg VBG HCO3 12.4 L* (22-28) meq/L VBG O2 Sat ([facility]) 81.4 L (95-100) VBG Base Excess -14.1 L (-2.0-2.0) VBG Hemoglobin 16.2 VBG Carboxyhemoglobin 5.0 (0.0-6.9) % T HGB POC Potassium 5.3 H (3.5-5.1) Sodium (137-145) mmol/L Potassium (3.5-5.1) mmol/L Chloride (98-107) mmol/L Carbon Dioxide (22-30) mmol/L Anion Gap (5-15) MEQ/L BUN (9-20) mg/dL Creatinine (0.66-1.25) mg/dL Estimated GFR ML/MIN Glucose (74-106) mg/dL Calcium (8.4-10.2) mg/dL Total Bilirubin (0.2-1.3) mg/dL AST (17-59) U/L ALT (0-50) U/L Alkaline Phosphatase (38-126) U/L Serum Total Protein (6.3-8.2) g/dL Albumin (3.5-5.0) g/dL Amylase (30-110) U/L Lipase (23-300) U/L Urine Color (YELLOW) Urine Appearance (CLEAR) Urine pH (5-6) Ur Specific [place] (1.005-1.025) Urine Protein (Negative) Urine Ketones (NEGATIVE) Urine Blood (0-5) Pedro/ul Urine Nitrite (NEGATIVE) Urine Bilirubin (NEGATIVE) Urine Urobilinogen (0-1) mg/dL Ur Leukocyte Esterase (NEGATIVE) Urine WBC (Auto) (0-5) /HPF Urine RBC (Auto) (0-2) /HPF U Epithel Cells (Auto) (FEW) /HPF Urine Bacteria (Auto) (NEGATIVE) /HPF Urine Mucus (Auto) (NEGATIVE) /HPF Urine Culture Reflexed (NO) Urine Glucose (NEGATIVE) mg/dL - Progress Progress: improved, re-examined Progress Note: he is given fluid boluses along with symptomatic treatment. workup is consitent with DKA, PH 7.2, bicarb 12 and gap of 29. started on insulin drip. also has bilateral pneumonia and will give levaquin . no acute findings in abdomen. d/w and patient is accepted for admission . Discussed with : Nata Will see patient in: hospital (observation) Counseled pt/family regarding: lab results, diagnosis, rad results, smoking cessation - Departure Departure Disposition: Observation Clinical Impression: DKA (diabetic ketoacidoses) Qualifiers: Diabetes mellitus type: type 1 Diabetes mellitus complication detail: without coma Qualified Code(s): E10.10 - Type 1 diabetes mellitus with ketoacidosis without coma Pneumonia Qualifiers: Pneumonia type: due to unspecified organism Laterality: bilateral Lung location : lower lobe of lung Qualified Code(s): J18.9 - Pneumonia, unspecified organism Condition: Stable Critical Care Time: Yes Critical Care Time(excluding separately billable procedures): Critical 30-74 mins Referrals: NAVEEN MCKEON MD [Primary Care Provider] -
[2019-10-10] MEDS ORDERED: MORPHINE SULFATE 4 MG INJ ONE (23:39)
[2019-10-10] MEDS ORDERED: Phenergan 25 MG INJ ONE (23:39)
[2019-10-10] MEDS ORDERED: Sodium Chloride 0.9% 1000 ML 1,000 ML ONE (23:39)
[2019-10-10 23:53] LABS: Hemoglobin 15.7 gm/dl (12.5-18.0); Mean Cell Volume 86.3 fl (78-100); Mean Corpuscular Hemoglobin 30.8 pg (26-32); Mean Corpuscular Hgb Concent. 35.7 g/dl (32-36); Mean Platelet Volume 11.8 fl (7.5-11.0); Platelet Count 139 K/mm3 (150-450); Red Cell Distribution Width 12.3 % (11.5-14.0); White Blood Count 13.9 K/mm3 (4.0-10.5)
[2019-10-11 00:28] LABS: ALBUMIN 4.5 g/dL (3.5-5.0); ALKALINE PHOSPHATASE 145 U/L (38-126); AMYLASE 46 U/L (30-110); ANION GAP 29.7 MEQ/L (5-15); BLOOD UREA NITROGEN 13 mg/dL (9-20); CHLORIDE 93 mmol/L (98-107); Calcium 9.6 mg/dL (8.4-10.2); Creatinine 1 0.78 mg/dL (0.66-1.25); Glucose 414 mg/dL (74-106); LIPASE 75 U/L (23-300); Potassium 5.1 mmol/L (3.5-5.1); SGOT/AST 29 U/L (17-59); SGPT/ALT 32 U/L (0-50); SODIUM 130 mmol/L (137-145); Total Protein 8.1 g/dL (6.3-8.2)
[2019-10-11 00:29] LABS: Carbon Dioxide 12 mmol/L (22-30)
[2019-10-11] MEDS ORDERED: Sodium Chloride 0.9% 1000 ML 1,000 ML IV STA (00:31)
[2019-10-11 00:41] LABS: VBG BASE EXCESS -14.1 (-2.0-2.0); VBG HCO3- 12.4 meq/L (22-28); VBG O2 SATURATION 81.4 (95-100); VBG POTASSIUM 5.3 (3.5-5.1); VBG pH 7.21 (7.32-7.42)
[2019-10-11 00:42] LABS: VBG HEMOGLOBIN 16.2
[2019-10-11] MEDS ORDERED: NOVOLIN R INSULIN (FOR DRIPS)** 100 UNITS in Sodium Chloride 0.9% 100 ML IVPB 100 ML IV SCH (00:45)
[2019-10-11] MEDS ORDERED: Sodium Chloride 0.9% 1000 ML 1,000 ML ONE (01:09)
[2019-10-11] MEDS ORDERED: Zithromax 500 MG/ 250 ML NaCl Premix 500 MG/250 ML IVPB IV STA (01:34)
[2019-10-11] MEDS ORDERED: ROCEPHIN 1 Gm-D5w 50 ml Bag** 1 G/50 ML IVPB IV STA (01:34)
[2019-10-11 01:43] LABS: Appearance CLEAR (CLEAR); Bilirubin NEGATIVE (NEGATIVE); Blood NEGATIVE Ery/ul (0-5); Glucose 1000 mg/dL (NEGATIVE); Ketones LARGE (NEGATIVE); Leukocyte Esterase NEGATIVE (NEGATIVE); Nitrite NEGATIVE (NEGATIVE); Protein,Urine Dip NEGATIVE (Negative); Specific Gravity 1.025 (1.005-1.025); Urobilinogen NORMAL mg/dL (0-1)
[2019-10-11] MEDS ORDERED: LEVOFLOXACIN 750MG/150ML D5W 750 MG/150 ML BAG IV STA (01:52)
[2019-10-11 01:54] LABS: Mucus SLIGHT /HPF (NEGATIVE); RBC NONE SEEN /HPF (0-2); WBC NONE SEEN /HPF (0-5)
[2019-10-11 01:55] LABS: Bacteria NONE SEEN /HPF (NEGATIVE)
[2019-10-11] MEDS ORDERED: NovoLIN R ONE ×2 (02:18→02:51)
[2019-10-11] MEDS ORDERED: Sodium Chloride 0.9% 100 ML IVPB 0 ML IV ONE (02:18)
[2019-10-11] MEDS ORDERED: LEVOFLOXACIN 750MG/150ML D5W 750 MG/150 ML BAG IV ONE (02:19)
[2019-10-11] MEDS ORDERED: Sodium Chloride 0.9% 100 ML IVPB 100 ML IV ONE (02:44)
[2019-10-11 03:47] LABS: Lymphocytes 7 % (24-44); Monocyte 2 % (0.0-12.0); Neutrophils 91 % (36.-66.); Platelet Estimate NORMAL (NORMAL); Total Cells Counted 100
[2019-10-11] MEDS: Sodium Chloride 0.9% 1000 ML 1,000 ML IV SCH ×3 (04:04→19:58)
[2019-10-11] MEDS ORDERED: Zofran 4 MG/2 ML VIAL IV PRN (04:59)
[2019-10-11 07:41] LABS: ANION GAP 19.3 MEQ/L (5-15); BLOOD UREA NITROGEN 11 mg/dL (9-20); CHLORIDE 104 mmol/L (98-107); Calcium 8.9 mg/dL (8.4-10.2); Creatinine 1 0.56 mg/dL (0.66-1.25); Glucose 198 mg/dL (74-106); Potassium 4.2 mmol/L (3.5-5.1); SODIUM 134 mmol/L (137-145)
[2019-10-11 07:49] LABS: Carbon Dioxide 15 mmol/L (22-30)
[2019-10-11 07:50] LABS: Hematocrit 39.3 % (42-50); Hemoglobin 14.3 gm/dl (12.5-18.0); Mean Cell Volume 85.6 fl (78-100); Mean Corpuscular Hemoglobin 31.2 pg (26-32); Mean Corpuscular Hgb Concent. 36.4 g/dl (32-36); Mean Platelet Volume 10.8 fl (7.5-11.0); Platelet Count 152 K/mm3 (150-450); Red Blood Count 4.59 M/mm3 (4.1-5.6); Red Cell Distribution Width 12.2 % (11.5-14.0); White Blood Count 12.8 K/mm3 (4.0-10.5)
[2019-10-11] MEDS ORDERED: DEXTROSE 5% -NACL 0.9% 1000 ML + KCl 20 MEQ 1,000 ML IV SCH (08:00)
[2019-10-11] MEDS ORDERED: Phenergan 25 MG INJ IV PRN (08:17)
--- NOTE | 2019-10-11 08:22 | PCM.HP ---
History of Present Illness - Chief Complaint Chief Complaint: DKA/PNE History of Present Illness: is a 29 year old male who came to the ER with a 5 day history of cough with clear sputum production, no known fever. for the last 3 days he has been vomiting and has worsened to the point he can't keep anything down. He has a history of type 1 dm with multiple admissions for DKA, he denies noncompliance with his insulin. - Review of Systems Constitutional: No Fever, No Chills Respiratory: Cough Cardiac: No Chest Pain, No Edema, No Syncope Abdominal/Gastrointestinal: Nausea, Vomiting, No Abdominal Pain, No Diarrhea Skin: No Rash All Other Systems: Reviewed and Negative Medications & Allergies Home Medications: Home Medication List Insulin Detemir [Levemir] 20 units SQ HS 08/26/19 [History Confirmed 10/11/19] Insulin Detemir [Levemir] 30 unit SQ DAILY 08/26/19 [History Confirmed 10/11/19] Insulin Lispro [Humalog] 15 units SQ AC 08/28/19 [History Confirmed 10/11/19] Azithromycin 250 mg PO DAILY 10/11/19 [History Confirmed 10/11/19] Ezetimibe 10 mg PO HS 10/11/19 [History Confirmed 10/11/19] Lisinopril 20 mg [Zestril 20 MG] 20 mg PO DAILY 10/11/19 [History Confirmed 10/11/19] Metoprolol Succinate 25 mg Xl* [Toprol-Xl 25MG Tablets] 100 mg PO DAILY 10/11 [History Confirmed 10/11/19] Allergies/Adverse Reactions: Allergies Allergy/AdvReac Type Severity Reaction Status Date / Time No Known Drug Allergies Allergy Verified 10/11/19 05:23 - Past Medical History Past Medical History: Yes Neurological History: Peripheral Neuropathy ENT History: No Pertinent History Cardiac History: High Cholesterol, Hypertension Respiratory History: No Pertinent History Endocrine Medical History: Diabetes Type I Musculoskelatal History: No Pertinent History GI Medical History: Irritable Bowel History: No Pertinent History Pyscho-Social History: No Pertinent History Male Reproductive Disorders: No Pertinent History Comment: DKA - Past Surgical History Past Surgical History: Yes Neuro Surgical History: No Pertinent History Cardiac History: No Pertinent History Respiratory Surgery: No Pertinent History GI Surgical History: No Pertinent History Genitourinary Surgical Hx: No Pertinent History Musculskeletal Surgical Hx: Orthopedic Surgery Male Surgical History: No Pertinent History Other Surgical History: tubes in ears as , back surgery in 2000 - spondylsis, sinus surgeries X5 growth/polyps removed, left knee surgery X2 dislocation of patella, right wrist fx with surgery, left hand surgery X2 nerve graft surgery - Social History Smoking Status: Former smoker How long have you smoked: 13 years Exposure to second hand smoke: No Alcohol: None Drug Use: none - Physical Exam Vital Signs: Vital Signs - 24 hr Temp Pulse Resp BP Pulse Ox 10/11/19 07:46 105 H 10/11/19 07:44 108 H 18 148/94 93 L 10/11/19 07:33 18 10/11/19 05:19 98.4 F 114 H 28 H 157/100 96 10/11/19 03:49 97 10/11/19 03:40 105 H 18 163/93 100 10/11/19 02:50 105 H 18 100 10/11/19 02:20 112 H 18 158/100 97 10/11/19 00:40 105 H 18 140/86 97 10/10/19 23:50 107 H 18 146/99 97 10/10/19 23:36 107 H 18 146/99 98 10/10/19 22:28 97.3 F 113 H 18 153/98 97 General Appearance: no apparent distress Neurologic Exam: alert, oriented x 3, cooperative Respiratory Exam: rhonchi Cardiovascular Exam: regular rate/rhythm, normal heart sounds, normal peripheral pulses Gastrointestinal/Abdomen Exam: soft, normal bowel sounds, No tenderness, No mass Extremity Exam: normal inspection, normal range of motion, pelvis stable Skin Exam: normal color, warm, dry, No rash Results - Labs Lab/Micro Results: Accuchecks Date 10/11/19 Time 07:00 Accucheck Value: 194 Accucheck Value: 249 Accucheck Value: 311 Accucheck Value: 349 Lab Results-Last 24 Hours 10/10/19 10/10/19 10/10/19 Range/Units 00:20 23:24 23:24 WBC 13.9 H (4.0-10.5) K/mm3 RBC 5.10 (4.1-5.6) M/mm3 Hgb 15.7 (12.5-18.0) gm/dl Hct 44.0 (42-50) % MCV 86.3 (78-100) fl MCH 30.8 (26-32) pg MCHC 35.7 (32-36) g/dl RDW 12.3 (11.5-14.0) % Plt Count 139 L (150-450) K/mm3 MPV 11.8 H (7.5-11.0) fl Segmented Neutrophils 91 H (36.-66.) % Lymphocytes (Manual) 7 L (24-44) % Monocytes (Manual) 2 (0.0-12.0) % Platelet Estimate NORMAL (NORMAL) RBC Morphology NORMAL pO2/FiO2 Ratio 21 % VBG pH 7.21 L* (7.32-7.42) VBG pCO2 at Pat Temp 31 L (42-55) mm/Hg VBG pO2 at Pat Temp 42 H (25-40) mm/Hg VBG HCO3 12.4 L* (22-28) meq/L VBG O2 Sat ([facility]) 81.4 L (95-100) VBG Base Excess -14.1 L (-2.0-2.0) VBG Hemoglobin 16.2 VBG Carboxyhemoglobin 5.0 (0.0-6.9) % T HGB POC Potassium 5.3 H (3.5-5.1) Sodium 130 L (137-145) mmol/L Potassium 5.1 (3.5-5.1) mmol/L Chloride 93 L (98-107) mmol/L Carbon Dioxide 12 L* (22-30) mmol/L Anion Gap 29.7 H (5-15) MEQ/L BUN 13 (9-20) mg/dL Creatinine 0.78 (0.66-1.25) mg/dL Estimated GFR > 60.0 ML/MIN Glucose 414 H (74-106) mg/dL Calcium 9.6 (8.4-10.2) mg/dL Total Bilirubin 0.90 (0.2-1.3) mg/dL AST 29 (17-59) U/L ALT 32 (0-50) U/L Alkaline Phosphatase 145 H (38-126) U/L Serum Total Protein 8.1 (6.3-8.2) g/dL Albumin 4.5 (3.5-5.0) g/dL Amylase 46 (30-110) U/L Lipase 75 (23-300) U/L Urine Color (YELLOW) Urine Appearance (CLEAR) Urine pH (5-6) Ur Specific [place] (1.005-1.025) Urine Protein (Negative) Urine Ketones (NEGATIVE) Urine Blood (0-5) Pedro/ul Urine Nitrite (NEGATIVE) Urine Bilirubin (NEGATIVE) Urine Urobilinogen (0-1) mg/dL Ur Leukocyte Esterase (NEGATIVE) Urine WBC (Auto) (0-5) /HPF Urine RBC (Auto) (0-2) /HPF U Epithel Cells (Auto) (FEW) /HPF Urine Bacteria (Auto) (NEGATIVE) /HPF Urine Mucus (Auto) (NEGATIVE) /HPF Urine Culture Reflexed (NO) Urine Glucose (NEGATIVE) mg/dL 10/10/19 10/11/19 10/11/19 Range/Units 23:35 07:25 07:43 WBC 12.8 H (4.0-10.5) K/mm3 RBC 4.59 (4.1-5.6) M/mm3 Hgb 14.3 (12.5-18.0) gm/dl Hct 39.3 L (42-50) % MCV 85.6 (78-100) fl MCH 31.2 (26-32) pg MCHC 36.4 H (32-36) g/dl RDW 12.2 (11.5-14.0) % Plt Count 152 (150-450) K/mm3 MPV 10.8 H (7.5-11.0) fl Segmented Neutrophils (36.-66.) % Lymphocytes (Manual) (24-44) % Monocytes (Manual) (0.0-12.0) % Platelet Estimate (NORMAL) RBC Morphology pO2/FiO2 Ratio % VBG pH (7.32-7.42) VBG pCO2 at Pat Temp (42-55) mm/Hg VBG pO2 at Pat Temp (25-40) mm/Hg VBG HCO3 (22-28) meq/L VBG O2 Sat ([facility]) (95-100) VBG Base Excess (-2.0-2.0) VBG Hemoglobin VBG Carboxyhemoglobin (0.0-6.9) % T HGB POC Potassium (3.5-5.1) Sodium 134 L (137-145) mmol/L Potassium 4.2 (3.5-5.1) mmol/L Chloride 104 (98-107) mmol/L Carbon Dioxide 15 L* (22-30) mmol/L Anion Gap 19.3 H (5-15) MEQ/L BUN 11 (9-20) mg/dL Creatinine 0.56 L (0.66-1.25) mg/dL Estimated GFR > 60.0 ML/MIN Glucose 198 H (74-106) mg/dL Calcium 8.9 (8.4-10.2) mg/dL Total Bilirubin (0.2-1.3) mg/dL AST (17-59) U/L ALT (0-50) U/L Alkaline Phosphatase (38-126) U/L Serum Total Protein (6.3-8.2) g/dL Albumin (3.5-5.0) g/dL Amylase (30-110) U/L Lipase (23-300) U/L Urine Color YELLOW (YELLOW) Urine Appearance CLEAR (CLEAR) Urine pH 5.0 (5-6) Ur Specific [place] 1.025 (1.005-1.025) Urine Protein NEGATIVE (Negative) Urine Ketones LARGE (NEGATIVE) Urine Blood NEGATIVE (0-5) Pedro/ul Urine Nitrite NEGATIVE (NEGATIVE) Urine Bilirubin NEGATIVE (NEGATIVE) Urine Urobilinogen NORMAL (0-1) mg/dL Ur Leukocyte Esterase NEGATIVE (NEGATIVE) Urine WBC (Auto) NONE SEEN (0-5) /HPF Urine RBC (Auto) NONE SEEN (0-2) /HPF U Epithel Cells (Auto) NONE (FEW) /HPF Urine Bacteria (Auto) NONE SEEN (NEGATIVE) /HPF Urine Mucus (Auto) SLIGHT (NEGATIVE) /HPF Urine Culture Reflexed NO (NO) Urine Glucose 1000 (NEGATIVE) mg/dL Accuchecks Date 10/11/19 Time 07:00 Accucheck Value: 194 Accucheck Value: 249 Accucheck Value: 311 Accucheck Value: 349 - Radiology Impressions Radiology Exams & Impressions: Radiology Procedures Category Date Time Status ABDOMEN AND PELVIS W/0 CONTRAS [CT] Stat Exams 10/11/19 00:24 Taken Assessment/Plan (1) DKA (diabetic ketoacidoses) Current Visit: Yes Status: Acute Onset Date: ~08/01/18 Qualifiers: Diabetes mellitus type: type 1 Diabetes mellitus complication detail: without coma Qualified Code(s): E10.10 - Type 1 diabetes mellitus with ketoacidosis without coma Assessment & Plan: improving, currently on insulin gtt at 4 units/hr. gap improving, changed to d5 fluids since sugar below 200 this am Code(s): E13.10 - OTH DIABETES MELLITUS WITH KETOACIDOSIS WITHOUT COMA (2) Pneumonia Current Visit: Yes Status: Acute Qualifiers: Pneumonia type: due to unspecified organism Laterality: bilateral Lung location: lower lobe of lung Qualified Code(s): J18.9 - Pneumonia, unspecified organism Assessment & Plan: levaquin ordered Code(s): J18.9 - PNEUMONIA, UNSPECIFIED ORGANISM
--- NOTE | 2019-10-11 09:22 | XRAY ---
Indication: Abdomen pain, nausea, vomiting, and area. Multiple contiguous axial images obtained through the abdomen and pelvis without contrast as ordered. Comparison: August 28, 2019. Lung bases demonstrates new bibasilar airspace disease, right greater than left. No effusion. Heart is not enlarged. Noncontrasted stomach and bowel loops appear nonobstructed. Again mild diffuse scattered colonic fecal debris greatest in the sigmoid. No free fluid/air. Spleen is now enlarged measuring 14.5 cm in greatest axial dimension. Remaining liver, gallbladder, pancreas, spleen, adrenal glands, kidneys, ureters, bladder, and aorta appear unremarkable for noncontrast exam. Osseous structures intact. Impression: 1. New bilateral lower lobe airspace disease. 2. Again incidental mild fecal stasis and splenomegaly. Comment: Preliminary interpretation was made by [facility]. No critical discrepancy.
[2019-10-11] MEDS ORDERED: Toprol-Xl 25MG Tablets PO SCH (10:00)
[2019-10-11] MEDS: Toprol Xl 100 MG PO SCH (10:22)
[2019-10-11] MEDS: Zestril 20 MG PO SCH (10:22)
[2019-10-11] MEDS: Tessalon Perles 100 MG PO PRN ×2 (11:02→23:13)
[2019-10-11 13:07] LABS: ANION GAP 13.4 MEQ/L (5-15); BLOOD UREA NITROGEN 9 mg/dL (9-20); CHLORIDE 101 mmol/L (98-107); Calcium 8.7 mg/dL (8.4-10.2); Carbon Dioxide 20 mmol/L (22-30); Glucose 173 mg/dL (74-106); SODIUM 131 mmol/L (137-145)
[2019-10-11] MEDS: Lantus Insulin SQ SCH (13:33)
[2019-10-11] MEDS: NovoLOG Insulin SQ SCH (16:46)
[2019-10-11] MEDS ORDERED: LEVOFLOXACIN 750MG/150ML D5W 750 MG/150 ML BAG IV SCH (22:00)
[2019-10-11] MEDS ORDERED: Lantus Insulin SQ SCH (22:00)
[2019-10-12] MEDS ORDERED: TYLENOL 325 MG PO PRN (01:55)
[2019-10-12] MEDS: Sodium Chloride 0.9% 1000 ML 1,000 ML IV SCH ×2 (02:47→07:48)
[2019-10-12 04:04] VITALS: BP 123/70; O2SAT 97
[2019-10-12 05:46] LABS: Hematocrit 36.2 % (42-50); Hemoglobin 12.9 gm/dl (12.5-18.0); Mean Cell Volume 85.6 fl (78-100); Mean Corpuscular Hemoglobin 30.5 pg (26-32); Mean Corpuscular Hgb Concent. 35.6 g/dl (32-36); Mean Platelet Volume 10.5 fl (7.5-11.0); Platelet Count 154 K/mm3 (150-450); Red Blood Count 4.23 M/mm3 (4.1-5.6); Red Cell Distribution Width 11.9 % (11.5-14.0); White Blood Count 12.2 K/mm3 (4.0-10.5)
[2019-10-12 06:06] LABS: ALBUMIN 3.1 g/dL (3.5-5.0); ALKALINE PHOSPHATASE 118 U/L (38-126); BLOOD UREA NITROGEN 9 mg/dL (9-20); CHLORIDE 97 mmol/L (98-107); Calcium 8.2 mg/dL (8.4-10.2); Carbon Dioxide 25 mmol/L (22-30); Creatinine 1 0.55 mg/dL (0.66-1.25); Direct Bilirubin 0.1 mg/dL (0.0-0.4); Glucose 274 mg/dL (74-106); Potassium 3.4 mmol/L (3.5-5.1); SGOT/AST 20 U/L (17-59); SGPT/ALT 20 U/L (0-50); SODIUM 130 mmol/L (137-145); Total Protein 6.1 g/dL (6.3-8.2)
[2019-10-12] MEDS: Lantus Insulin SQ SCH (07:48)
[2019-10-12] MEDS: NovoLOG Insulin SQ SCH (07:48)
[2019-10-12 07:50] VITALS: PULSE 70
[2019-10-12 08:22] LABS: BAND 6 % (0.0-2.0); Lymphocytes 8 % (24-44); Monocyte 6 % (0.0-12.0); Neutrophils 80 % (36.-66.); Platelet Estimate NORMAL (NORMAL); Total Cells Counted 100
[2019-10-12] MEDS: Zestril 20 MG PO SCH (09:02)
[2019-10-12] MEDS: Toprol Xl 100 MG PO SCH (09:02)
--- NOTE | 2019-10-12 10:01 | PCM.DS ---
Discharge Summary Date of Admission: 10/11/19 04:54 Admitting Physician: NAVEEN MCKEON Primary Care Provider: NAVEEN MCKEON Allergies Allergies No Known Drug Allergies Allergy (Verified 10/11/19 05:23) Hospital Summary - Hospital Course Hospital Course: patient was admitted with vomiting and dka and recently diagnosed pneumonia. he is tolerating po intake, dka is resolved and he is afebrile and feels well at the time of discharge. has been transitioned from insulin drip to sq insulin and treated with rocephin and zithromax. - Vitals & Intake/Output Vital Signs: Vital Signs Temperature 97.8 F 10/12/19 07:49 Pulse Rate 70 10/12/19 07:49 Respiratory Rate 18 10/12/19 08:00 Blood Pressure 123/70 10/12/19 07:49 O2 Sat by Pulse Oximetry 97 10/12/19 07:49 Intake & Output: Intake & Output 10/09/19 10/10/19 10/11/19 10/12/19 11:59 11:59 11:59 11:59 Intake Total 4488 Output Total 1075 Balance 3413 Weight 65.4 kg - Lab Result Diagrams: 10/12/19 04:40 10/12/19 04:40 Lab Results-Last 24 Hrs: Accuchecks Date 10/12/19 Date 10/11/19 Date 10/11/19 Date 10/11/19 Date 10/11/19 Date 10/11/19 Time 07:59 Time 22:00 Time 16:17 Time 12:50 Time 11:00 Time 10:00 Accucheck Value: 275 Accucheck Value: 205 Accucheck Value: 241 Accucheck Value: 181 Accucheck Value: 211 Accucheck Value: 156 Lab Results-Last 24 Hours 10/11/19 10/12/19 10/12/19 Range/Units 12:52 04:40 04:40 WBC 12.2 H (4.0-10.5) K/mm3 RBC 4.23 (4.1-5.6) M/mm3 Hgb 12.9 (12.5-18.0) gm/dl Hct 36.2 L (42-50) % MCV 85.6 (78-100) fl MCH 30.5 (26-32) pg MCHC 35.6 (32-36) g/dl RDW 11.9 (11.5-14.0) % Plt Count 154 (150-450) K/mm3 MPV 10.5 (7.5-11.0) fl Segmented Neutrophils 80 H (36.-66.) % Band Neutrophils 6 H (0.0-2.0) % Lymphocytes (Manual) 8 L (24-44) % Monocytes (Manual) 6 (0.0-12.0) % Platelet Estimate NORMAL (NORMAL) RBC Morphology NORMAL Sodium 131 L 130 L (137-145) mmol/L Potassium 4.0 3.4 L (3.5-5.1) mmol/L Chloride 101 97 L (98-107) mmol/L Carbon Dioxide 20 L 25 (22-30) mmol/L Anion Gap 13.4 11.0 (5-15) MEQ/L BUN 9 9 (9-20) mg/dL Creatinine 0.50 L 0.55 L (0.66-1.25) mg/dL Estimated GFR > 60.0 > 60.0 ML/MIN Glucose 173 H 274 H (74-106) mg/dL Calcium 8.7 8.2 L (8.4-10.2) mg/dL Total Bilirubin 0.60 (0.2-1.3) mg/dL Direct Bilirubin 0.1 (0.0-0.4) mg/dL AST 20 (17-59) U/L ALT 20 (0-50) U/L Alkaline Phosphatase 118 (38-126) U/L Serum Total Protein 6.1 L (6.3-8.2) g/dL Albumin 3.1 L (3.5-5.0) g/dL Micro Results-Entire Visit: Accuchecks Date 10/12/19 Date 10/11/19 Date 10/11/19 Date 10/11/19 Date 10/11/19 Date 10/11/19 Time 07:59 Time 22:00 Time 16:17 Time 12:50 Time 11:00 Time 10:00 Accucheck Value: 275 Accucheck Value: 205 Accucheck Value: 241 Accucheck Value: 181 Accucheck Value: 211 Accucheck Value: 156 - Radiology Exams Ordered Rad Exams-Entire Visit: Radiology Procedures Category Date Time Status ABDOMEN AND PELVIS W/0 CONTRAS [CT] Stat Exams 10/11/19 00:24 Completed Discharge Exam General Appearance: no apparent distress, alert Neurologic Exam: alert, oriented x 3, cooperative, normal mood/affect, nml cerebellar function, sensation nml, No motor deficits Eye Exam: PERRL, EOMI, eyes nml inspection Respiratory Exam: normal breath sounds, lungs clear, No respiratory distress Cardiovascular Exam: regular rate/rhythm, normal heart sounds Gastrointestinal/Abdomen Exam: soft, No tenderness, No mass Skin Exam: normal color, warm, dry Final Diagnosis/Problem List - Final Discharge Diagnosis/Problem (1) DKA (diabetic ketoacidoses) Current Visit: Yes Status: Acute Onset Date: ~08/01/18 Code(s): E13.10 - OTH DIABETES MELLITUS WITH KETOACIDOSIS WITHOUT COMA (2) Pneumonia Current Visit: Yes Status: Acute Code(s): J18.9 - PNEUMONIA, UNSPECIFIED ORGANISM - Discharge Disposition: Home, Self-Care Condition: Stable Prescriptions: New Levofloxacin [Levaquin] 750 mg PO DAILY #3 tablet Continue Metoprolol Succinate 25 mg Xl* [Toprol-Xl 25MG Tablets] 100 mg PO DAILY Ezetimibe 10 mg PO HS Lisinopril 20 mg [Zestril 20 MG] 20 mg PO DAILY #30 tablet Changed Insulin Lispro [Humalog] 75 units SQ UD #2 vial Insulin Detemir [Levemir] 50 unit SQ DAILY #2 vial Discontinued Azithromycin 250 mg PO DAILY No Action Insulin Detemir [Levemir] 20 units SQ HS Instructions: Pneumonia in Adults, Diabetic Ketoacidosis (DC) Follow up with: NAVEEN MCKEON MD [Primary Care Provider] - 10/20/19 1:00 pm
== END 2019-10-12 10:15 | disposition home or self-care (01) ==
LOC: ED 22:18 → ICU 10-11 04:54
PROVIDERS: ADMIT Family Medicine; ATTEND Family Medicine
DX: E10.10 Type 1 diabetes mellitus with ketoacidosis without coma (principal); J18.9 Pneumonia, unspecified organism; Z79.899 Other long term (current) drug therapy; I10 Essential (primary) hypertension; E78.00 Pure hypercholesterolemia, unspecified
CPT/HCPCS: 36000; 36415; 74176; 80048; 80053; 80076; 81001; 82150; 82805; 82962; 83690; 85025; 85027; 93005; 93268; 96360; 96361; 96365; 96374; 96375; 99285; G0378; J1815; J1956; J2270; J2405; J2550; A9270-GY

== ENCOUNTER 2021-01-28 20:15 | Emergency (ER) | payer OTHER ==
[2021-01-28] MEDS ORDERED: Sodium Chloride 0.9% 1000 ML 1,000 ML IV STA (20:42)
[2021-01-28] MEDS ORDERED: Sodium Chloride 0.9% 1000 ML 1,000 ML ONE (20:54)
[2021-01-28 21:18] LABS: Absolute Neutrophil Ct (ANC) 4.98 (1.4-6.9); BASOPHIL % 0.3 % (0.0-0.4); Basophil (Absolute #) 0.02 (0-0.4); Eosinophil % 1.4 % (0.00-5.0); Hematocrit 37.9 % (42-50); Hemoglobin 13.6 gm/dl (12.5-18.0); Lymphocyte (Absolute #) 1.44 (1.0-4.6); Lymphocytes % 20.7 % (24.0-44.0); Mean Cell Volume 83.5 fl (78-100); Mean Corpuscular Hgb Concent. 35.9 g/dl (32-36); Mean Platelet Volume 11.7 fl (7.5-11.0); Monocyte (Absolute #) 0.42 (0.0-1.3); Neutrophil % 71.6 % (36.0-66.0); Platelet Count 201 K/mm3 (150-450); Red Blood Count 4.54 M/mm3 (4.1-5.6); Red Cell Distribution Width 11.7 % (11.5-14.0)
[2021-01-28 21:30] LABS: ALKALINE PHOSPHATASE 275 U/L (38-126); AMYLASE 39 U/L (30-110); ANION GAP 12.4 MEQ/L (5-15); BLOOD UREA NITROGEN 14 mg/dL (9-20); CHLORIDE 95 mmol/L (98-107); Calcium 8.8 mg/dL (8.4-10.2); Carbon Dioxide 26 mmol/L (22-30); Creatinine 1 0.66 mg/dL (0.66-1.25); EST GLOMERULAR FILTRATION RATE > 60.0 ML/MIN; LIPASE 166 U/L (23-300); MAGNESIUM 1.6 mg/dL (1.6-2.3); NT PRO BNP 54.6 pg/mL (0-450); Potassium 4.3 mmol/L (3.5-5.1); SGOT/AST 50 U/L (17-59); SGPT/ALT 52 U/L (0-50); SODIUM 129 mmol/L (137-145); Total Protein 6.5 g/dL (6.3-8.2)
[2021-01-28 21:38] LABS: Glucose 562 mg/dL (74-106)
[2021-01-28 22:12] LABS: Appearance CLEAR (CLEAR); Bilirubin NEGATIVE (NEGATIVE); Blood NEGATIVE Ery/ul (0-5); Glucose >=500 mg/dL (NEGATIVE); Ketones NEGATIVE (NEGATIVE); Leukocyte Esterase NEGATIVE (NEGATIVE); Mucus SLIGHT /HPF (NEGATIVE); Nitrite NEGATIVE (NEGATIVE); Protein,Urine Dip NEGATIVE (Negative); Specific Gravity 1.029 (1.005-1.025); Urobilinogen NEGATIVE mg/dL (0-1)
[2021-01-28] MEDS ORDERED: HUMALOG MIX 75-25 VIAL SQ STA (22:16)
[2021-01-28 22:17] VITALS: O2SAT 99
--- NOTE | 2021-01-28 22:33 | ERPHSYRPT ---
- History of Present Illness Time Seen by Provider: 01/28/21 20:35 Source: patient Exam Limitations: no limitations Patient Subjective Stated Complaint: pt was at work and became clammy, sweaty, burning up, light headed and felt sugar was low. Pt took his mask off, got cold rag for neck, stood in cooler for a couple minutes, drank some orange pop, ate a pasta dish, and ate a cereal bar. 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 Triage Nursing Assessment: pt was at work and became clammy, sweaty, burning up, light headed and felt sugar was low. Pt took his mask off, got cold rag for neck, stood in cooler for a couple minutes, drank some orange pop, ate a pasta dish, and ate a cereal bar. 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 Pt could feel me rub pen down left arm, is able to move his finger and bring his lt arm up above his head but states, "It hurts to bring it up". Pt did not check his BS when low, just knew he was low by the way he felt. After eating, pt checked BS and it was 232. 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 He did not measure his blood sugar but felt himself to be clammy weak and disoriented. He immediately ate and drank some orange juice and raise his blood sugar to 32 he then resumed work only to find that his left arm was weak and numb. Timing/Duration: today Severity: moderate Associated Symptoms: weakness Allergies/Adverse Reactions: No Known Drug Allergies Allergy (Verified 01/28/21 20:36) Home Medications: Insulin Aspart [Novolog] 15 units SQ AC 01/28/21 [History] Insulin Glargine,Hum.rec.anlog [Lantus] 30 units SQ BID 01/28/21 [History] Hx Tetanus, Diphtheria Vaccination/Date Given: Yes Hx Influenza Vaccination/Date Given: No Hx Pneumococcal Vaccination/Date Given: No Immunizations Up to Date: Yes Travel Risk - International Travel Have you traveled outside of the country in past 3 weeks: No - Coronavirus Screening Are you exhibiting any of the following symptoms?: No Close contact with a COVID-19 positive Pt in past 14-21 Days: No - Vaccine Status Have you recieved a Covid-19 vaccination: No - Review of Systems Constitutional: No Fever, No Chills Eyes: No Symptoms Ears, Nose, & Throat: No Symptoms Respiratory: No Cough, No Dyspnea Cardiac: No Chest Pain, No Edema, No Syncope Abdominal/Gastrointestinal: No Abdominal Pain, No Nausea, No Vomiting, No Diarrhea Genitourinary Symptoms: No Dysuria Musculoskeletal: No Back Pain, No Neck Pain Skin: No Rash Neurological: No Dizziness, No Focal Weakness, No Sensory Changes Psychological: No Symptoms Endocrine: No Symptoms All Other Systems: Reviewed and Negative - Past Medical History Pertinent Past Medical History: Yes Neurological History: Peripheral Neuropathy ENT History: No Pertinent History Cardiac History: High Cholesterol, Hypertension Respiratory History: No Pertinent History Endocrine Medical History: Diabetes Type I Musculoskeletal History: Fractures GI Medical History: Irritable Bowel History: No Pertinent History Psycho-Social History: No Pertinent History Male Reproductive Disorders: No Pertinent History Other Medical History: DKA - Past Surgical History Past Surgical History: Yes Neuro Surgical History: No Pertinent History Cardiac: No Pertinent History Respiratory: No Pertinent History Gastrointestinal: No Pertinent History Genitourinary: No Pertinent History Musculoskeletal: Orthopedic Surgery Male Surgical History: No Pertinent History Other Surgical History: tubes in ears as , back surgery in 1999 - spondylsis, sinus surgeries X5 growth/polyps removed, left knee surgery X2 dislocation of patella, right wrist fx with surgery, left hand surgery X2 nerve graft surgery - Social History Smoking Status: Never smoker How long have you smoked: 13 years Exposure to second hand smoke: Yes Drug Use: none Patient Lives Alone: No - Nursing Vital Signs Nursing Vital Signs: Initial Vital Signs Temperature 98.3 F 01/28/21 20:24 Pulse Rate 103 H 01/28/21 20:24 Respiratory Rate 18 01/28/21 20:24 Blood Pressure 149/95 01/28/21 20:24 O2 Sat by Pulse Oximetry 97 01/28/21 20:24 Pain Scale Pain Intensity 0 - Physical Exam General Appearance: no apparent distress, alert Eye Exam: PERRL/EOMI, eyes nml inspection Ears, Nose, Throat Exam: normal ENT inspection, TMs normal, pharynx normal, moist mucous membranes Neck Exam: normal inspection, non-tender, supple, full range of motion Respiratory Exam: normal breath sounds, lungs clear, No respiratory distress Cardiovascular Exam: regular rate/rhythm, normal heart sounds, normal peripheral pulses Gastrointestinal/Abdomen Exam: soft, normal bowel sounds, No tenderness, No mass Back Exam: normal inspection, normal range of motion, No CVA tenderness, No vertebral tenderness Extremity Exam: normal inspection, normal range of motion, pelvis stable Neurologic Exam: alert, oriented x 3, cooperative, normal mood/affect, nml cerebellar function, nml station & gait, sensation nml, sensory deficit (Objective sensory deficit left upper extremity), motor weakness (Slight motor weakness left upper extremity questionable effort), No motor deficits Skin Exam: normal color, warm, dry, No rash Lymphatic Exam: No adenopathy SpO2 Interpretation: normal SpO2: 99 O2 Delivery: Room Air - Course Nursing assessment & vital signs reviewed: Yes EKG Interpreted by Me: RATE, NORMAL AXIS, NORMAL INTERVALS, NORMAL QRS, Non- specific ST Changes (Duration consistent with early repolarization) - Radiology Exams Chest X-ray Interpretation: Interpreted by me, Negative - CT Exams Head CT Interpretation: Negative (Per ED physician) Ordered Tests: Active Orders 24 hr Category Date Time Status EKG-ER Only STAT Care 01/28/21 20:42 Active CHEST 1 VIEW (PORTABLE) Stat Exams 01/28/21 20:42 Taken HEAD WITHOUT CONTRAST [CT] Stat Exams 01/28/21 20:41 Taken AMYLASE Stat Lab 01/28/21 21:00 Completed CBC W DIFF Stat Lab 01/28/21 21:00 Completed CMP Stat Lab 01/28/21 21:00 Completed D-DIMER QUANTITATIVE Stat Lab 01/28/21 21:00 Completed LIPASE Stat Lab 01/28/21 21:00 Completed Lactic Acid Stat Lab 01/28/21 21:15 Completed MAGNESIUM Stat Lab 01/28/21 21:00 Completed NT PRO BNP Stat Lab 01/28/21 21:00 Completed TROPONIN Q3H Lab 01/28/21 21:00 Completed TROPONIN Q3H Lab 01/28/21 23:45 Ordered TROPONIN Q3H Lab 01/29/21 02:45 Ordered TROPONIN Q3H Lab 01/29/21 05:45 Ordered TROPONIN Q3H Lab 01/29/21 08:45 Ordered UA W/RFX UR CULTURE Stat Lab 01/28/21 21:07 Completed Medication Summary Discontinued Medications Generic Name Dose Route Start Last Admin Trade Name Christ PRN Reason Stop Dose Admin Sodium Chloride 1,000 mls @ 999 mls/hr 01/28/21 20:42 01/28/21 20:55 Sodium Chloride 0.9% 1000 Ml IV 01/28/21 21:42 999 mls/hr .Q1H1M STA Administration Sodium Chloride Confirm 01/28/21 20:54 Sodium Chloride 0.9% 1000 Ml Administered 01/28/21 20:55 Dose 1,000 mls @ ud .ROUTE .STK-MED ONE Insulin Lispro Protam/Lispro Human 21 unit 01/28/21 22:16 Humalog Mix 75-25 Vial SQ 01/28/21 22:17 ONCE STA Lab/Rad Data: Laboratory Result Diagrams 01/28/21 21:00 01/28/21 21:00 Laboratory Results 01/28/21 01/28/21 01/28/21 Range/Units 21:15 21:07 21:00 WBC (4.0-10.5) K/mm3 RBC (4.1-5.6) M/mm3 Hgb (12.5-18.0) gm/dl Hct (42-50) % MCV (78-100) fl MCH (26-32) pg MCHC (32-36) g/dl RDW (11.5-14.0) % Plt Count (150-450) K/mm3 MPV (7.5-11.0) fl Gran % (36.0-66.0) % Eos # (Auto) (0-0.5) Absolute Lymphs (auto) (1.0-4.6) Absolute Monos (auto) (0.0-1.3) Lymphocytes % (24.0-44.0) % Monocytes % (0.0-12.0) % Eosinophils % (0.00-5.0) % Basophils % (0.0-0.4) % Absolute Granulocytes (1.4-6.9) Basophils # (0-0.4) D-Dimer (215-500) ng/mL Sodium (137-145) mmol/L Potassium (3.5-5.1) mmol/L Chloride (98-107) mmol/L Carbon Dioxide (22-30) mmol/L Anion Gap (5-15) MEQ/L BUN (9-20) mg/dL Creatinine (0.66-1.25) mg/dL Estimated GFR ML/MIN Glucose (74-106) mg/dL Lactic Acid 1.0 (0.4-2.0) Calcium (8.4-10.2) mg/dL Magnesium (1.6-2.3) mg/dL Total Bilirubin (0.2-1.3) mg/dL AST (17-59) U/L ALT (0-50) U/L Alkaline Phosphatase (38-126) U/L Troponin I < 0.012 (0.000-0.034) ng/mL NT-Pro-B Natriuret Pep (0-450) pg/mL Serum Total Protein (6.3-8.2) g/dL Albumin (3.5-5.0) g/dL Amylase (30-110) U/L Lipase (23-300) U/L Urine Color YELLOW (YELLOW) Urine Appearance CLEAR (CLEAR) Urine pH 5.0 (5-6) Ur Specific [place] 1.029 (1.005-1.025) Urine Protein NEGATIVE (Negative) Urine Ketones NEGATIVE (NEGATIVE) Urine Blood NEGATIVE (0-5) Pedro/ul Urine Nitrite NEGATIVE (NEGATIVE) Urine Bilirubin NEGATIVE (NEGATIVE) Urine Urobilinogen NEGATIVE (0-1) mg/dL Ur Leukocyte Esterase NEGATIVE (NEGATIVE) Urine WBC (Auto) NONE (0-5) /HPF Urine RBC (Auto) NONE (0-2) /HPF U Hyaline Cast (Auto) 3-5 (0-2) /LPF U Epithel Cells (Auto) NONE (FEW) /HPF Urine Bacteria (Auto) NONE (NEGATIVE) /HPF Urine Mucus (Auto) SLIGHT (NEGATIVE) /HPF Urine Culture Reflexed NO (NO) Urine Glucose >=500 (NEGATIVE) mg/dL 01/28/21 01/28/21 01/28/21 Range/Units 21:00 21:00 21:00 WBC 7.0 (4.0-10.5) K/mm3 RBC 4.54 (4.1-5.6) M/mm3 Hgb 13.6 (12.5-18.0) gm/dl Hct 37.9 L (42-50) % MCV 83.5 (78-100) fl MCH 30.0 (26-32) pg MCHC 35.9 (32-36) g/dl RDW 11.7 (11.5-14.0) % Plt Count 201 (150-450) K/mm3 MPV 11.7 H (7.5-11.0) fl Gran % 71.6 H (36.0-66.0) % Eos # (Auto) 0.10 (0-0.5) Absolute Lymphs (auto) 1.44 (1.0-4.6) Absolute Monos (auto) 0.42 (0.0-1.3) Lymphocytes % 20.7 L (24.0-44.0) % Monocytes % 6.0 (0.0-12.0) % Eosinophils % 1.4 (0.00-5.0) % Basophils % 0.3 (0.0-0.4) % Absolute Granulocytes 4.98 (1.4-6.9) Basophils # 0.02 (0-0.4) D-Dimer < 215 L (215-500) ng/mL Sodium 129 L (137-145) mmol/L Potassium 4.3 (3.5-5.1) mmol/L Chloride 95 L (98-107) mmol/L Carbon Dioxide 26 (22-30) mmol/L Anion Gap 12.4 (5-15) MEQ/L BUN 14 (9-20) mg/dL Creatinine 0.66 (0.66-1.25) mg/dL Estimated GFR > 60.0 ML/MIN Glucose 562 H* (74-106) mg/dL Lactic Acid (0.4-2.0) Calcium 8.8 (8.4-10.2) mg/dL Magnesium 1.6 (1.6-2.3) mg/dL Total Bilirubin 0.50 (0.2-1.3) mg/dL AST 50 (17-59) U/L ALT 52 H (0-50) U/L Alkaline Phosphatase 275 H (38-126) U/L Troponin I (0.000-0.034) ng/mL NT-Pro-B Natriuret Pep 54.6 (0-450) pg/mL Serum Total Protein 6.5 (6.3-8.2) g/dL Albumin 4.0 (3.5-5.0) g/dL Amylase 39 (30-110) U/L Lipase 166 (23-300) U/L Urine Color (YELLOW) Urine Appearance (CLEAR) Urine pH (5-6) Ur Specific [place] (1.005-1.025) Urine Protein (Negative) Urine Ketones (NEGATIVE) Urine Blood (0-5) Pedro/ul Urine Nitrite (NEGATIVE) Urine Bilirubin (NEGATIVE) Urine Urobilinogen (0-1) mg/dL Ur Leukocyte Esterase (NEGATIVE) Urine WBC (Auto) (0-5) /HPF Urine RBC (Auto) (0-2) /HPF U Hyaline Cast (Auto) (0-2) /LPF U Epithel Cells (Auto) (FEW) /HPF Urine Bacteria (Auto) (NEGATIVE) /HPF Urine Mucus (Auto) (NEGATIVE) /HPF Urine Culture Reflexed (NO) Urine Glucose (NEGATIVE) mg/dL - Progress Progress: improved Progress Note: 01/28/21 22:34 Patient's symptoms have essentially resolved during his stay in the ER probably related to his fluctuating blood sugar he has elevated his blood sugar by self treatment to 5/500 and we will be giving him his normal sliding scale of NovoLog 21 units - Departure Departure Disposition: Home Clinical Impression: Hypoglycemia, Hyperglycemia, Type 1 diabetes mellitus, uncontrolled Condition: Stable Critical Care Time: No Referrals: NAVEEN MCKEON MD [Primary Care Provider] - Instructions: Low Blood Sugar, Adult (DC)
[2021-01-28 23:05] VITALS: BP 136/93; PULSE 73
--- NOTE | 2021-01-29 20:24 | XRAY ---
Exam: CT of the head without IV contrast from 01/28/2021. CTDI: 53.92 mGy Comparison: CT of the head without IV contrast from 05/15/2019. Indication: 30-year-old male with episode of DKA, history of type 1 diabetes mellitus, paresthesias within left arm. Technique: Non-IV contrast axial images were obtained through the brain. Reconstructed coronal and sagittal images were created and reviewed. Findings: The ventricles are within normal limits of size. The body of the right lateral ventricle is slightly larger than the left lateral ventricle representing no change. I don't believe this is significant. No focal mass effect or midline shift is seen. No acute intracranial bleed or abnormal extra-axial fluid collection is seen. The valle matter-white matter interfaces appear unremarkable. No low attenuation infarct is seen within a major cerebral or cerebellar artery distribution. The cortical sulci and fissures appear unremarkable. There is significant decreased size of the right maxillary sinus which likely reflects the long-term sequela of chronic sinus disease. I believe this is unchanged. There is mild deviation the nasal septum toward the left. Prior significant bilateral sphenoid sinus disease/mucosal thickening has essentially cleared representing improvement. Mild bilateral ethmoid sinus mucosal thickening is seen, left greater than right. This appears similar to the prior study. There is also some minimal mucosal thickening within the anterior and medial aspect of the upper portion of the visualized left maxillary sinus. The mastoid air cells are clear without air-fluid levels. The calvarium of the skull is intact. Impression: 1. No acute intracranial findings are identified, no change from 05/15/2019. 2. Chronic paranasal sinus disease. There has been improvement within the sphenoid sinuses as compared to 05/15/2019.
--- NOTE | 2021-01-29 20:59 | XRAY ---
Exam: AP upright portable chest film from 01/28/2021. Comparison: Two-view chest series from 03/09/2020. Indication: Type 1 diabetes mellitus, paresthesias within left arm. Findings: The heart size and contour are normal. The travis and mediastinal structures appear unremarkable. There is average inflation of the lungs. No air space infiltrates, vascular congestion, pneumothorax, or significant pleural effusion is seen. I cannot exclude minimal chronic pleural thickening within the right lateral lung sulcus tip. This appears similar to the prior study from 03/09/2020. There is slight convexity of the lower thoracic spine toward the right. This may be positional. Correlate clinically to exclude a minimal lower thoracic dextroscoliosis. Impression: 1. No acute cardiopulmonary process is seen, no change from 03/19/2020.
== END 2021-01-28 23:28 | disposition home or self-care (01) ==
LOC: ED 20:15
DX: E10.649 Type 1 diabetes mellitus with hypoglycemia without coma (principal); E10.65 Type 1 diabetes mellitus with hyperglycemia
CPT/HCPCS: 36000; 36415; 70450; 71045; 80053; 81001; 82150; 83605; 83690; 83735; 83880; 84484; 85025; 85379; 93005; 96360; 96372; 99284

== ENCOUNTER 2021-02-15 13:23 | Observation (INO) | payer OTHER ==
--- NOTE | 2021-02-15 13:26 | ERPHSYRPT ---
- History of Present Illness Time Seen by Provider: 02/15/21 13:26 Historian: patient Exam Limitations: no limitations Physician History: this is a 30-year-old diabetic white male who has a history of DKA in the past and began vomiting yesterday. He has recent trouble controlling his blood sugar. His blood sugar was in the 500 range yesterday evening requiring him to supplement his usual dosing. Upon arrival into the emergency department this afternoon his blood sugar was found to be 467. This was after his usual dose of insulin at 8 AM. He has been nauseated since yesterday and has had multiple episodes of vomiting since last night. He is concerned that he may be an early DKA. He has no other complaints. He denies shortness of breath. He denies chest pain. He denies abdominal pain. He has had no fevers and no chills. Timing/Duration: yesterday Activities at Onset: none Abdominal Pain Onset Location: other (No abdominal pain) Pain Radiation: no radiation Severity of Pain-Max: none Severity of Pain-Current: none Modifying Factors: Improves With: vomiting Associated Symptoms: loss of appetite, nausea, vomiting, No chest pain, No diaphoresis, No diarrhea, No fever/chills, No neck pain Previous symptoms: same symptoms as today Allergies/Adverse Reactions: No Known Drug Allergies Allergy (Verified 02/15/21 13:51) Home Medications: Insulin Aspart [Novolog] 15 units SQ AC 01/28/21 [History] Insulin Glargine,Hum.rec.anlog [Lantus] 30 units SQ BID 01/28/21 [History] Hx Tetanus, Diphtheria Vaccination/Date Given: Yes Hx Influenza Vaccination/Date Given: No Hx Pneumococcal Vaccination/Date Given: No Travel Risk - International Travel Have you traveled outside of the country in past 3 weeks: No - Coronavirus Screening Are you exhibiting any of the following symptoms?: No Symptoms: Vomiting/Diarrhea Close contact with a COVID-19 positive Pt in past 14-21 Days: No - Vaccine Status Have you recieved a Covid-19 vaccination: No - Review of Systems Constitutional: No Symptoms Eyes: No Symptoms Ears, Nose, & Throat: No Symptoms Respiratory: No Symptoms Cardiac: No Symptoms Abdominal/Gastrointestinal: Nausea, Vomiting, No Abdominal Pain, No Diarrhea Genitourinary Symptoms: No Symptoms Musculoskeletal: No Symptoms Skin: No Symptoms Neurological: No Symptoms Psychological: No Symptoms Endocrine: No Symptoms Hematologic/Lymphatic: No Symptoms Immunological/Allergic: No Symptoms All Other Systems: Reviewed and Negative - Past Medical History Pertinent Past Medical History: Yes Neurological History: Peripheral Neuropathy ENT History: No Pertinent History Cardiac History: High Cholesterol, Hypertension Respiratory History: No Pertinent History Endocrine Medical History: Diabetes Type I Musculoskeletal History: Fractures GI Medical History: Irritable Bowel History: No Pertinent History Psycho-Social History: No Pertinent History Male Reproductive Disorders: No Pertinent History Other Medical History: DKA - Past Surgical History Past Surgical History: Yes Neuro Surgical History: No Pertinent History Cardiac: No Pertinent History Respiratory: No Pertinent History Gastrointestinal: No Pertinent History Genitourinary: No Pertinent History Musculoskeletal: Orthopedic Surgery Male Surgical History: No Pertinent History Other Surgical History: tubes in ears as infant, back surgery in 1999 - spondylsis, sinus surgeries X5 growth/polyps removed, left knee surgery X2 dislocation of patella, right wrist fx with surgery, left hand surgery X2 nerve graft surgery - Social History Smoking Status: Never smoker How long have you smoked: 13 years Exposure to second hand smoke: Yes Drug Use: none Patient Lives Alone: No - Nursing Vital Signs Nursing Vital Signs: Initial Vital Signs Temperature 97.9 F 02/15/21 13:34 Pain Scale Pain Intensity 2 - Physical Exam General Appearance: no apparent distress, alert, anxiety Eye Exam: PERRL/EOMI, eyes nml inspection Ears, Nose, Throat Exam: normal ENT inspection, moist mucous membranes Neck Exam: normal inspection, non-tender, supple, full range of motion Respiratory Exam: normal breath sounds, lungs clear, airway intact, No chest tenderness, No respiratory distress Cardiovascular Exam: regular rate/rhythm, normal heart sounds, normal peripheral pulses Gastrointestinal/Abdomen Exam: soft, normal bowel sounds, No tenderness Rectal Exam: not done Back Exam: normal inspection, normal range of motion, No CVA tenderness, No vertebral tenderness Extremity Exam: normal inspection, normal range of motion, pelvis stable Neurologic Exam: alert, oriented x 3, cooperative, quality worker II-XII nml as tested, normal mood/affect, nml cerebellar function, nml station & gait, sensation nml Skin Exam: normal color, warm, dry Lymphatic Exam: No adenopathy SpO2 Interpretation: normal O2 Delivery: Room Air - Course Nursing assessment & vital signs reviewed: Yes Ordered Tests: Active Orders 24 hr Category Date Time Status IV Insertion STAT Care 02/15/21 13:51 Active CBC W DIFF Stat Lab 02/15/21 13:51 Completed CMP Stat Lab 02/15/21 13:50 Completed Lactic Acid Stat Lab 02/15/21 16:46 Received Lactic Acid Urgent Lab 02/15/21 13:51 Completed MAGNESIUM Stat Lab 02/15/21 13:50 Completed POCT GLUCOSE Stat Lab 02/15/21 13:49 Completed UA W/RFX UR CULTURE Stat Lab 02/15/21 14:06 Completed Transfer Order Routine Transfer 02/15/21 Ordered Medication Summary Generic Name Dose Route Start Last Admin Trade Name Freq PRN Reason Stop Dose Admin Sodium Chloride 1,000 mls @ 999 mls/hr 02/15/21 16:23 Sodium Chloride 0.9% 1000 Ml IV 02/15/21 17:23 .Q1H1M STA Discontinued Medications Generic Name Dose Route Start Last Admin Trade Name Christ PRN Reason Stop Dose Admin Sodium Chloride 1,000 mls @ 999 mls/hr 02/15/21 13:51 02/15/21 16:29 Sodium Chloride 0.9% 1000 Ml IV 02/15/21 14:51 Infused .Q1H1M STA Infusion Sodium Chloride Confirm 02/15/21 14:18 Sodium Chloride 0.9% 1000 Ml Administered 02/15/21 14:19 Dose 1,000 mls @ ud .ROUTE .STK-MED ONE Sodium Chloride 1,000 mls @ 999 mls/hr 02/15/21 15:05 02/15/21 15:13 Sodium Chloride 0.9% 1000 Ml IV 02/15/21 16:05 999 mls/hr .Q1H1M STA Administration Sodium Chloride Confirm 02/15/21 15:12 Sodium Chloride 0.9% 1000 Ml Administered 02/15/21 15:13 Dose 1,000 mls @ ud .ROUTE .STK-MED ONE Insulin Human Regular 15 unit 02/15/21 13:52 02/15/21 14:28 Humulin R IV 02/15/21 13:53 15 unit STAT ONE Administration Insulin Human Regular Confirm 02/15/21 14:27 Humulin R Administered 02/15/21 14:28 Dose 15 unit .ROUTE .STK-MED ONE Ondansetron HCl 4 mg 02/15/21 13:51 02/15/21 14:20 Zofran 4 Mg/2 Ml Vial IV 02/15/21 13:52 4 mg STAT ONE Administration Ondansetron HCl Confirm 02/15/21 14:17 Zofran 4 Mg/2 Ml Vial Administered 02/15/21 14:18 Dose 4 mg .ROUTE .STK-MED ONE Lab/Rad Data: Laboratory Result Diagrams 02/15/21 13:51 02/15/21 13:50 Laboratory Results 02/15/21 02/15/21 02/15/21 Range/Units 14:06 13:51 13:51 WBC 14.8 H (4.0-10.5) K/mm3 RBC 6.08 H (4.1-5.6) M/mm3 Hgb 17.7 (12.5-18.0) gm/dl Hct 49.4 (42-50) % MCV 81.3 (78-100) fl MCH 29.1 (26-32) pg MCHC 35.8 (32-36) g/dl RDW 12.2 (11.5-14.0) % Plt Count 335 (150-450) K/mm3 MPV 11.7 H (7.5-11.0) fl Gran % 79.8 H (36.0-66.0) % Eos # (Auto) 0.03 (0-0.5) Absolute Lymphs (auto) 2.15 (1.0-4.6) Absolute Monos (auto) 0.77 (0.0-1.3) Lymphocytes % 14.5 L (24.0-44.0) % Monocytes % 5.2 (0.0-12.0) % Eosinophils % 0.2 (0.00-5.0) % Basophils % 0.3 (0.0-0.4) % Absolute Granulocytes 11.79 H (1.4-6.9) Basophils # 0.05 (0-0.4) Sodium (137-145) mmol/L Potassium (3.5-5.1) mmol/L Chloride (98-107) mmol/L Carbon Dioxide (22-30) mmol/L Anion Gap (5-15) MEQ/L BUN (9-20) mg/dL Creatinine (0.66-1.25) mg/dL Estimated GFR ML/MIN Glucose (74-106) mg/dL POC Glucometer (74 to 106) mg/dL Lactic Acid 2.2 H (0.4-2.0) Calcium (8.4-10.2) mg/dL Magnesium (1.6-2.3) mg/dL Total Bilirubin (0.2-1.3) mg/dL AST (17-59) U/L ALT (0-50) U/L Alkaline Phosphatase (38-126) U/L Serum Total Protein (6.3-8.2) g/dL Albumin (3.5-5.0) g/dL Urine Color YELLOW (YELLOW) Urine Appearance SLIGHTLY CLOUDY (CLEAR) Urine pH 5.0 (5-6) Ur Specific Carlyle 1.028 (1.005-1.025) Urine Protein 30 (Negative) Urine Ketones MODERATE (NEGATIVE) Urine Blood NEGATIVE (0-5) Pedro/ul Urine Nitrite NEGATIVE (NEGATIVE) Urine Bilirubin NEGATIVE (NEGATIVE) Urine Urobilinogen NEGATIVE (0-1) mg/dL Ur Leukocyte Esterase NEGATIVE (NEGATIVE) Urine WBC (Auto) NONE (0-5) /HPF Urine RBC (Auto) NONE (0-2) /HPF U Hyaline Cast (Auto) 0-2 (0-2) /LPF U Epithel Cells (Auto) NONE (FEW) /HPF Urine Bacteria (Auto) NONE (NEGATIVE) /HPF Urine Mucus (Auto) SLIGHT (NEGATIVE) /HPF Urine Culture Reflexed NO (NO) Urine Glucose >=500 (NEGATIVE) mg/dL 02/15/21 02/15/21 Range/Units 13:50 13:49 WBC (4.0-10.5) K/mm3 RBC (4.1-5.6) M/mm3 Hgb (12.5-18.0) gm/dl Hct (42-50) % MCV (78-100) fl MCH (26-32) pg MCHC (32-36) g/dl RDW (11.5-14.0) % Plt Count (150-450) K/mm3 MPV (7.5-11.0) fl Gran % (36.0-66.0) % Eos # (Auto) (0-0.5) Absolute Lymphs (auto) (1.0-4.6) Absolute Monos (auto) (0.0-1.3) Lymphocytes % (24.0-44.0) % Monocytes % (0.0-12.0) % Eosinophils % (0.00-5.0) % Basophils % (0.0-0.4) % Absolute Granulocytes (1.4-6.9) Basophils # (0-0.4) Sodium 133 L (137-145) mmol/L Potassium 4.6 (3.5-5.1) mmol/L Chloride 87 L (98-107) mmol/L Carbon Dioxide 21 L (22-30) mmol/L Anion Gap 29.8 H (5-15) MEQ/L BUN 25 H (9-20) mg/dL Creatinine 1.12 (0.66-1.25) mg/dL Estimated GFR > 60.0 ML/MIN Glucose 487 H (74-106) mg/dL POC Glucometer 467 H (74 to 106) mg/dL Lactic Acid (0.4-2.0) Calcium 10.4 H (8.4-10.2) mg/dL Magnesium 2.2 (1.6-2.3) mg/dL Total Bilirubin 1.10 (0.2-1.3) mg/dL AST 26 (17-59) U/L ALT 29 (0-50) U/L Alkaline Phosphatase 219 H (38-126) U/L Serum Total Protein 9.0 H (6.3-8.2) g/dL Albumin 5.4 H (3.5-5.0) g/dL Urine Color (YELLOW) Urine Appearance (CLEAR) Urine pH (5-6) Ur Specific Carlyle (1.005-1.025) Urine Protein (Negative) Urine Ketones (NEGATIVE) Urine Blood (0-5) Pedro/ul Urine Nitrite (NEGATIVE) Urine Bilirubin (NEGATIVE) Urine Urobilinogen (0-1) mg/dL Ur Leukocyte Esterase (NEGATIVE) Urine WBC (Auto) (0-5) /HPF Urine RBC (Auto) (0-2) /HPF U Hyaline Cast (Auto) (0-2) /LPF U Epithel Cells (Auto) (FEW) /HPF Urine Bacteria (Auto) (NEGATIVE) /HPF Urine Mucus (Auto) (NEGATIVE) /HPF Urine Culture Reflexed (NO) Urine Glucose (NEGATIVE) mg/dL - Progress Progress: improved, re-examined Progress Note: 02/15/21 16:39 Medical decision making: This patient has DKA. His symptoms have improved but he still not feeling well enough to go home. I spoke with the patient's primary care provider, Dr. Mckeon. We both agree that the patient will be placed in observation. We will follow DKA protocol. Patient is agreeable to this plan Discussed with Dr.: Carlos Counseled pt/family regarding: lab results, diagnosis - Departure Departure Disposition: Observation Clinical Impression: DKA (diabetic ketoacidoses) Condition: Stable Critical Care Time: Yes Critical Care Time(excluding separately billable procedures): Critical 30-74 mins Referrals: NAVEEN MCKEON MD [Primary Care Provider] -
[2021-02-15] MEDS ORDERED: Zofran 4 MG/2 ML VIAL IV ONE (13:51)
[2021-02-15] MEDS ORDERED: Sodium Chloride 0.9% 1000 ML 1,000 ML IV STA ×3 (13:51→16:23)
[2021-02-15] MEDS ORDERED: HUMULIN R IV ONE (13:52)
[2021-02-15] MEDS ORDERED: Zofran 4 MG/2 ML VIAL ONE (14:17)
[2021-02-15] MEDS ORDERED: Sodium Chloride 0.9% 1000 ML 1,000 ML ONE ×3 (14:18→17:04)
[2021-02-15 14:20] LABS: Absolute Neutrophil Ct (ANC) 11.79 (1.4-6.9); BASOPHIL % 0.3 % (0.0-0.4); Basophil (Absolute #) 0.05 (0-0.4); Eosinophil % 0.2 % (0.00-5.0); Eosinophil (Absolute #) 0.03 (0-0.5); Hematocrit 49.4 % (42-50); Hemoglobin 17.7 gm/dl (12.5-18.0); Lymphocyte (Absolute #) 2.15 (1.0-4.6); Lymphocytes % 14.5 % (24.0-44.0); Mean Cell Volume 81.3 fl (78-100); Mean Corpuscular Hemoglobin 29.1 pg (26-32); Mean Corpuscular Hgb Concent. 35.8 g/dl (32-36); Mean Platelet Volume 11.7 fl (7.5-11.0); Monocyte (Absolute #) 0.77 (0.0-1.3); Monocytes % 5.2 % (0.0-12.0); Neutrophil % 79.8 % (36.0-66.0); Platelet Count 335 K/mm3 (150-450); Red Blood Count 6.08 M/mm3 (4.1-5.6); Red Cell Distribution Width 12.2 % (11.5-14.0); White Blood Count 14.8 K/mm3 (4.0-10.5)
[2021-02-15 14:27] LABS: Appearance SLIGHTLY CLOUDY (CLEAR); Bilirubin NEGATIVE (NEGATIVE); Blood NEGATIVE Ery/ul (0-5); Glucose >=500 mg/dL (NEGATIVE); Hyaline Casts 0-2 /LPF (0-2); Ketones MODERATE (NEGATIVE); Leukocyte Esterase NEGATIVE (NEGATIVE); Mucus SLIGHT /HPF (NEGATIVE); Nitrite NEGATIVE (NEGATIVE); Protein,Urine Dip 30 (Negative); Specific Gravity 1.028 (1.005-1.025); Urobilinogen NEGATIVE mg/dL (0-1)
[2021-02-15] MEDS ORDERED: HUMULIN R ONE (14:27)
[2021-02-15 14:42] LABS: ALBUMIN 5.4 g/dL (3.5-5.0); ALKALINE PHOSPHATASE 219 U/L (38-126); ANION GAP 29.8 MEQ/L (5-15); BLOOD UREA NITROGEN 25 mg/dL (9-20); CHLORIDE 87 mmol/L (98-107); Calcium 10.4 mg/dL (8.4-10.2); Carbon Dioxide 21 mmol/L (22-30); Creatinine 1 1.12 mg/dL (0.66-1.25); EST GLOMERULAR FILTRATION RATE > 60.0 ML/MIN; Glucose 487 mg/dL (74-106); MAGNESIUM 2.2 mg/dL (1.6-2.3); Potassium 4.6 mmol/L (3.5-5.1); SGOT/AST 26 U/L (17-59); SGPT/ALT 29 U/L (0-50); SODIUM 133 mmol/L (137-145)
[2021-02-15] MEDS ORDERED: HUMULIN R 100 UNIT in Sodium Chloride 0.9% 100 ML BAG 100 ML IV ONE (17:30)
[2021-02-15] MEDS ORDERED: HUMULIN R 100 UNIT in Sodium Chloride 0.9% 100 ML BAG 100 ML IV PRN (17:35)
[2021-02-15 17:36] LABS: INFLUENZA A NEGATIVE (NEGATIVE); INFLUENZA B NEGATIVE (NEGATIVE); RESPIRATORY SYNCTIAL VIRUS NEGATIVE (Negative)
[2021-02-15] MEDS ORDERED: Sodium Chloride 0.9% 1000 ML 1,000 ML IV SCH (18:37)
[2021-02-15] MEDS ORDERED: Zofran 4 MG/2 ML VIAL IV PRN (18:37)
[2021-02-15] MEDS ORDERED: TYLENOL 325 MG PO PRN (18:37)
[2021-02-15 19:59] LABS: ANION GAP 12.9 MEQ/L (5-15); BLOOD UREA NITROGEN 21 mg/dL (9-20); CHLORIDE 99 mmol/L (98-107); Calcium 8.7 mg/dL (8.4-10.2); Carbon Dioxide 29 mmol/L (22-30); Creatinine 1 0.75 mg/dL (0.66-1.25); EST GLOMERULAR FILTRATION RATE > 60.0 ML/MIN; Glucose 119 mg/dL (74-106); Potassium 4.2 mmol/L (3.5-5.1); SODIUM 137 mmol/L (137-145)
[2021-02-15] MEDS ORDERED: SODIUM CHLORIDE 0.45% W/ 20 mEq KCL 1,000 ML IV SCH (20:15)
[2021-02-15] MEDS ORDERED: Lantus Insulin SQ SCH (22:00)
[2021-02-15] MEDS: HUMALOG SQ PRN (23:48)
[2021-02-16] MEDS: HUMALOG SQ PRN (04:27)
[2021-02-16 04:50] LABS: Hematocrit 39.9 % (42-50); Mean Cell Volume 83.3 fl (78-100); Mean Corpuscular Hemoglobin 29.2 pg (26-32); Mean Corpuscular Hgb Concent. 35.1 g/dl (32-36); Mean Platelet Volume 11.1 fl (7.5-11.0); Platelet Count 236 K/mm3 (150-450); Red Blood Count 4.79 M/mm3 (4.1-5.6); Red Cell Distribution Width 11.8 % (11.5-14.0); White Blood Count 11.6 K/mm3 (4.0-10.5)
[2021-02-16 04:53] VITALS: BP 142/82
[2021-02-16 05:24] LABS: ANION GAP 10.5 MEQ/L (5-15); BLOOD UREA NITROGEN 17 mg/dL (9-20); CHLORIDE 99 mmol/L (98-107); Calcium 8.5 mg/dL (8.4-10.2); Carbon Dioxide 28 mmol/L (22-30); Creatinine 1 0.56 mg/dL (0.66-1.25); EST GLOMERULAR FILTRATION RATE > 60.0 ML/MIN; Glucose 191 mg/dL (74-106); Potassium 3.7 mmol/L (3.5-5.1); SODIUM 133 mmol/L (137-145)
[2021-02-16 07:43] VITALS: O2SAT 97
[2021-02-16 07:50] VITALS: PULSE 79
--- NOTE | 2021-02-16 08:56 | PCM.SSS ---
History of Present Illness - Chief Complaint Chief Complaint: DKA History of Present Illness: is a 30 year old male with type 1 diabetes who presented to the ER with high blood sugars and nausea and vomiting typical of his DKA episodes in the past, he reports compliance with insulin but has had recent cold symptoms which are improved, he quickly had his anion gap close after admission with insulin drip, nausea and vomiting are gone, he has no cough, no fever, no urinary symptoms and feels well and tolerating po intake now. - Review of Systems Constitutional: No Fever, No Chills Respiratory: No Cough, No Short Of Breath Cardiac: No Chest Pain, No Edema, No Syncope Abdominal/Gastrointestinal: No Abdominal Pain, No Nausea, No Vomiting, No Diarrhea Genitourinary Symptoms: No Dysuria Skin: No Rash All Other Systems: Reviewed and Negative Medications & Allergies Home Medications: Home Medication List Insulin Aspart [Novolog] 15 units SQ AC 01/28/21 [History Confirmed 02/15/21] Insulin Glargine,Hum.rec.anlog [Lantus] 30 units SQ BID 01/28/21 [History Confirmed 02/15/21] Allergies/Adverse Reactions: Allergies Allergy/AdvReac Type Severity Reaction Status Date / Time No Known Drug Allergies Allergy Verified 02/15/21 13:51 - Past Medical History Past Medical History: Yes Neurological History: Peripheral Neuropathy ENT History: No Pertinent History Cardiac History: High Cholesterol, Hypertension Respiratory History: No Pertinent History Endocrine Medical History: Diabetes Type I Musculoskelatal History: Fractures GI Medical History: Irritable Bowel History: No Pertinent History Pyscho-Social History: No Pertinent History Male Reproductive Disorders: No Pertinent History Comment: DKA - Past Surgical History Past Surgical History: Yes Neuro Surgical History: No Pertinent History Cardiac History: No Pertinent History Respiratory Surgery: No Pertinent History GI Surgical History: No Pertinent History Genitourinary Surgical Hx: No Pertinent History Musculskeletal Surgical Hx: Orthopedic Surgery Male Surgical History: No Pertinent History Other Surgical History: tubes in ears as infant, back surgery in 1999 - spondylsis, sinus surgeries X5 growth/polyps removed, left knee surgery X2 dislocation of patella, right wrist fx with surgery, left hand surgery X2 nerve graft surgery - Social History Smoking Status: Current every day smoker How long have you smoked: 13 years Exposure to second hand smoke: No Alcohol: None, Rarely Drug Use: none - Physical Exam Vital Signs: Vital Signs - 24 hr Temp Pulse Resp BP Pulse Ox 02/16/21 07:48 79 02/16/21 07:42 98.3 F 90 18 142/82 97 02/16/21 07:39 16 02/16/21 04:00 97.7 F 92 H 23 142/82 98 02/16/21 00:01 89 02/16/21 00:00 97.7 F 89 15 145/78 98 02/15/21 20:37 98.1 F 93 H 19 135/81 99 02/15/21 20:00 19 02/15/21 18:27 94 H 19 142/82 99 02/15/21 17:00 93 H 16 122/71 98 02/15/21 16:23 96 H 18 136/85 100 02/15/21 13:34 97.9 F General Appearance: no apparent distress, alert Eye Exam: PERRL/EOMI, eyes nml inspection Respiratory Exam: normal breath sounds, lungs clear, No respiratory distress Cardiovascular Exam: regular rate/rhythm, normal heart sounds, normal peripheral pulses Gastrointestinal/Abdomen Exam: soft, normal bowel sounds, No tenderness, No mass Extremity Exam: normal inspection, normal range of motion, pelvis stable Skin Exam: normal color, warm, dry, No rash Results - Labs Lab/Micro Results: Lab Results-Last 24 Hours 02/15/21 02/15/21 02/15/21 Range/Units 13:49 13:50 13:51 WBC 14.8 H (4.0-10.5) K/mm3 RBC 6.08 H (4.1-5.6) M/mm3 Hgb 17.7 (12.5-18.0) gm/dl Hct 49.4 (42-50) % MCV 81.3 (78-100) fl MCH 29.1 (26-32) pg MCHC 35.8 (32-36) g/dl RDW 12.2 (11.5-14.0) % Plt Count 335 (150-450) K/mm3 MPV 11.7 H (7.5-11.0) fl Gran % 79.8 H (36.0-66.0) % Eos # (Auto) 0.03 (0-0.5) Absolute Lymphs (auto) 2.15 (1.0-4.6) Absolute Monos (auto) 0.77 (0.0-1.3) Lymphocytes % 14.5 L (24.0-44.0) % Monocytes % 5.2 (0.0-12.0) % Eosinophils % 0.2 (0.00-5.0) % Basophils % 0.3 (0.0-0.4) % Absolute Granulocytes 11.79 H (1.4-6.9) Basophils # 0.05 (0-0.4) Sodium 133 L (137-145) mmol/L Potassium 4.6 (3.5-5.1) mmol/L Chloride 87 L (98-107) mmol/L Carbon Dioxide 21 L (22-30) mmol/L Anion Gap 29.8 H (5-15) MEQ/L BUN 25 H (9-20) mg/dL Creatinine 1.12 (0.66-1.25) mg/dL Estimated GFR > 60.0 ML/MIN Glucose 487 H (74-106) mg/dL POC Glucometer 467 H (74 to 106) mg/dL Hemoglobin A1c (4.5-6.0) % Lactic Acid (0.4-2.0) Calcium 10.4 H (8.4-10.2) mg/dL Magnesium 2.2 (1.6-2.3) mg/dL Total Bilirubin 1.10 (0.2-1.3) mg/dL AST 26 (17-59) U/L ALT 29 (0-50) U/L Alkaline Phosphatase 219 H (38-126) U/L Serum Total Protein 9.0 H (6.3-8.2) g/dL Albumin 5.4 H (3.5-5.0) g/dL Urine Color (YELLOW) Urine Appearance (CLEAR) Urine pH (5-6) Ur Specific Elmer (1.005-1.025) Urine Protein (Negative) Urine Ketones (NEGATIVE) Urine Blood (0-5) Pedro/ul Urine Nitrite (NEGATIVE) Urine Bilirubin (NEGATIVE) Urine Urobilinogen (0-1) mg/dL Ur Leukocyte Esterase (NEGATIVE) Urine WBC (Auto) (0-5) /HPF Urine RBC (Auto) (0-2) /HPF U Hyaline Cast (Auto) (0-2) /LPF U Epithel Cells (Auto) (FEW) /HPF Urine Bacteria (Auto) (NEGATIVE) /HPF Urine Mucus (Auto) (NEGATIVE) /HPF Urine Culture Reflexed (NO) Urine Glucose (NEGATIVE) mg/dL Influenza Type A Ag (NEGATIVE) Influenza Type B Ag (NEGATIVE) RSV (PCR) (Negative) SARS-CoV-2 (PCR) (NEGATIVE) 02/15/21 02/15/21 02/15/21 Range/Units 13:51 14:06 16:46 WBC (4.0-10.5) K/mm3 RBC (4.1-5.6) M/mm3 Hgb (12.5-18.0) gm/dl Hct (42-50) % MCV (78-100) fl MCH (26-32) pg MCHC (32-36) g/dl RDW (11.5-14.0) % Plt Count (150-450) K/mm3 MPV (7.5-11.0) fl Gran % (36.0-66.0) % Eos # (Auto) (0-0.5) Absolute Lymphs (auto) (1.0-4.6) Absolute Monos (auto) (0.0-1.3) Lymphocytes % (24.0-44.0) % Monocytes % (0.0-12.0) % Eosinophils % (0.00-5.0) % Basophils % (0.0-0.4) % Absolute Granulocytes (1.4-6.9) Basophils # (0-0.4) Sodium (137-145) mmol/L Potassium (3.5-5.1) mmol/L Chloride (98-107) mmol/L Carbon Dioxide (22-30) mmol/L Anion Gap (5-15) MEQ/L BUN (9-20) mg/dL Creatinine (0.66-1.25) mg/dL Estimated GFR ML/MIN Glucose (74-106) mg/dL POC Glucometer (74 to 106) mg/dL Hemoglobin A1c (4.5-6.0) % Lactic Acid 2.2 H 0.7 (0.4-2.0) Calcium (8.4-10.2) mg/dL Magnesium (1.6-2.3) mg/dL Total Bilirubin (0.2-1.3) mg/dL AST (17-59) U/L ALT (0-50) U/L Alkaline Phosphatase (38-126) U/L Serum Total Protein (6.3-8.2) g/dL Albumin (3.5-5.0) g/dL Urine Color YELLOW (YELLOW) Urine Appearance SLIGHTLY CLOUDY (CLEAR) Urine pH 5.0 (5-6) Ur Specific Elmer 1.028 (1.005-1.025) Urine Protein 30 (Negative) Urine Ketones MODERATE (NEGATIVE) Urine Blood NEGATIVE (0-5) Pedro/ul Urine Nitrite NEGATIVE (NEGATIVE) Urine Bilirubin NEGATIVE (NEGATIVE) Urine Urobilinogen NEGATIVE (0-1) mg/dL Ur Leukocyte Esterase NEGATIVE (NEGATIVE) Urine WBC (Auto) NONE (0-5) /HPF Urine RBC (Auto) NONE (0-2) /HPF U Hyaline Cast (Auto) 0-2 (0-2) /LPF U Epithel Cells (Auto) NONE (FEW) /HPF Urine Bacteria (Auto) NONE (NEGATIVE) /HPF Urine Mucus (Auto) SLIGHT (NEGATIVE) /HPF Urine Culture Reflexed NO (NO) Urine Glucose >=500 (NEGATIVE) mg/dL Influenza Type A Ag (NEGATIVE) Influenza Type B Ag (NEGATIVE) RSV (PCR) (Negative) SARS-CoV-2 (PCR) (NEGATIVE) 02/15/21 02/15/21 02/15/21 Range/Units 16:49 16:51 19:00 WBC (4.0-10.5) K/mm3 RBC (4.1-5.6) M/mm3 Hgb (12.5-18.0) gm/dl Hct (42-50) % MCV (78-100) fl MCH (26-32) pg MCHC (32-36) g/dl RDW (11.5-14.0) % Plt Count (150-450) K/mm3 MPV (7.5-11.0) fl Gran % (36.0-66.0) % Eos # (Auto) (0-0.5) Absolute Lymphs (auto) (1.0-4.6) Absolute Monos (auto) (0.0-1.3) Lymphocytes % (24.0-44.0) % Monocytes % (0.0-12.0) % Eosinophils % (0.00-5.0) % Basophils % (0.0-0.4) % Absolute Granulocytes (1.4-6.9) Basophils # (0-0.4) Sodium (137-145) mmol/L Potassium (3.5-5.1) mmol/L Chloride (98-107) mmol/L Carbon Dioxide (22-30) mmol/L Anion Gap (5-15) MEQ/L BUN (9-20) mg/dL Creatinine (0.66-1.25) mg/dL Estimated GFR ML/MIN Glucose (74-106) mg/dL POC Glucometer 296 H (74 to 106) mg/dL Hemoglobin A1c 12.38 H (4.5-6.0) % Lactic Acid (0.4-2.0) Calcium (8.4-10.2) mg/dL Magnesium (1.6-2.3) mg/dL Total Bilirubin (0.2-1.3) mg/dL AST (17-59) U/L ALT (0-50) U/L Alkaline Phosphatase (38-126) U/L Serum Total Protein (6.3-8.2) g/dL Albumin (3.5-5.0) g/dL Urine Color (YELLOW) Urine Appearance (CLEAR) Urine pH (5-6) Ur Specific Elmer (1.005-1.025) Urine Protein (Negative) Urine Ketones (NEGATIVE) Urine Blood (0-5) Pedro/ul Urine Nitrite (NEGATIVE) Urine Bilirubin (NEGATIVE) Urine Urobilinogen (0-1) mg/dL Ur Leukocyte Esterase (NEGATIVE) Urine WBC (Auto) (0-5) /HPF Urine RBC (Auto) (0-2) /HPF U Hyaline Cast (Auto) (0-2) /LPF U Epithel Cells (Auto) (FEW) /HPF Urine Bacteria (Auto) (NEGATIVE) /HPF Urine Mucus (Auto) (NEGATIVE) /HPF Urine Culture Reflexed (NO) Urine Glucose (NEGATIVE) mg/dL Influenza Type A Ag NEGATIVE (NEGATIVE) Influenza Type B Ag NEGATIVE (NEGATIVE) RSV (PCR) NEGATIVE (Negative) SARS-CoV-2 (PCR) NEGATIVE (NEGATIVE) 02/15/21 02/15/21 02/15/21 Range/Units 19:09 19:40 20:01 WBC (4.0-10.5) K/mm3 RBC (4.1-5.6) M/mm3 Hgb (12.5-18.0) gm/dl Hct (42-50) % MCV (78-100) fl MCH (26-32) pg MCHC (32-36) g/dl RDW (11.5-14.0) % Plt Count (150-450) K/mm3 MPV (7.5-11.0) fl Gran % (36.0-66.0) % Eos # (Auto) (0-0.5) Absolute Lymphs (auto) (1.0-4.6) Absolute Monos (auto) (0.0-1.3) Lymphocytes % (24.0-44.0) % Monocytes % (0.0-12.0) % Eosinophils % (0.00-5.0) % Basophils % (0.0-0.4) % Absolute Granulocytes (1.4-6.9) Basophils # (0-0.4) Sodium 137 (137-145) mmol/L Potassium 4.2 (3.5-5.1) mmol/L Chloride 99 D (98-107) mmol/L Carbon Dioxide 29 (22-30) mmol/L Anion Gap 12.9 (5-15) MEQ/L BUN 21 H (9-20) mg/dL Creatinine 0.75 (0.66-1.25) mg/dL Estimated GFR > 60.0 ML/MIN Glucose 119 H (74-106) mg/dL POC Glucometer 152 H 113 H (74 to 106) mg/dL Hemoglobin A1c (4.5-6.0) % Lactic Acid (0.4-2.0) Calcium 8.7 D (8.4-10.2) mg/dL Magnesium (1.6-2.3) mg/dL Total Bilirubin (0.2-1.3) mg/dL AST (17-59) U/L ALT (0-50) U/L Alkaline Phosphatase (38-126) U/L Serum Total Protein (6.3-8.2) g/dL Albumin (3.5-5.0) g/dL Urine Color (YELLOW) Urine Appearance (CLEAR) Urine pH (5-6) Ur Specific Elmer (1.005-1.025) Urine Protein (Negative) Urine Ketones (NEGATIVE) Urine Blood (0-5) Pedro/ul Urine Nitrite (NEGATIVE) Urine Bilirubin (NEGATIVE) Urine Urobilinogen (0-1) mg/dL Ur Leukocyte Esterase (NEGATIVE) Urine WBC (Auto) (0-5) /HPF Urine RBC (Auto) (0-2) /HPF U Hyaline Cast (Auto) (0-2) /LPF U Epithel Cells (Auto) (FEW) /HPF Urine Bacteria (Auto) (NEGATIVE) /HPF Urine Mucus (Auto) (NEGATIVE) /HPF Urine Culture Reflexed (NO) Urine Glucose (NEGATIVE) mg/dL Influenza Type A Ag (NEGATIVE) Influenza Type B Ag (NEGATIVE) RSV (PCR) (Negative) SARS-CoV-2 (PCR) (NEGATIVE) 02/15/21 02/16/21 02/16/21 Range/Units 23:36 04:05 04:05 WBC 11.6 H (4.0-10.5) K/mm3 RBC 4.79 (4.1-5.6) M/mm3 Hgb 14.0 D (12.5-18.0) gm/dl Hct 39.9 L (42-50) % MCV 83.3 (78-100) fl MCH 29.2 (26-32) pg MCHC 35.1 (32-36) g/dl RDW 11.8 (11.5-14.0) % Plt Count 236 (150-450) K/mm3 MPV 11.1 H (7.5-11.0) fl Gran % (36.0-66.0) % Eos # (Auto) (0-0.5) Absolute Lymphs (auto) (1.0-4.6) Absolute Monos (auto) (0.0-1.3) Lymphocytes % (24.0-44.0) % Monocytes % (0.0-12.0) % Eosinophils % (0.00-5.0) % Basophils % (0.0-0.4) % Absolute Granulocytes (1.4-6.9) Basophils # (0-0.4) Sodium 133 L (137-145) mmol/L Potassium 3.7 (3.5-5.1) mmol/L Chloride 99 (98-107) mmol/L Carbon Dioxide 28 (22-30) mmol/L Anion Gap 10.5 (5-15) MEQ/L BUN 17 (9-20) mg/dL Creatinine 0.56 L (0.66-1.25) mg/dL Estimated GFR > 60.0 ML/MIN Glucose 191 H (74-106) mg/dL POC Glucometer 287 H (74 to 106) mg/dL Hemoglobin A1c (4.5-6.0) % Lactic Acid (0.4-2.0) Calcium 8.5 (8.4-10.2) mg/dL Magnesium (1.6-2.3) mg/dL Total Bilirubin (0.2-1.3) mg/dL AST (17-59) U/L ALT (0-50) U/L Alkaline Phosphatase (38-126) U/L Serum Total Protein (6.3-8.2) g/dL Albumin (3.5-5.0) g/dL Urine Color (YELLOW) Urine Appearance (CLEAR) Urine pH (5-6) Ur Specific Elmer (1.005-1.025) Urine Protein (Negative) Urine Ketones (NEGATIVE) Urine Blood (0-5) Pedro/ul Urine Nitrite (NEGATIVE) Urine Bilirubin (NEGATIVE) Urine Urobilinogen (0-1) mg/dL Ur Leukocyte Esterase (NEGATIVE) Urine WBC (Auto) (0-5) /HPF Urine RBC (Auto) (0-2) /HPF U Hyaline Cast (Auto) (0-2) /LPF U Epithel Cells (Auto) (FEW) /HPF Urine Bacteria (Auto) (NEGATIVE) /HPF Urine Mucus (Auto) (NEGATIVE) /HPF Urine Culture Reflexed (NO) Urine Glucose (NEGATIVE) mg/dL Influenza Type A Ag (NEGATIVE) Influenza Type B Ag (NEGATIVE) RSV (PCR) (Negative) SARS-CoV-2 (PCR) (NEGATIVE) 02/16/21 02/16/21 Range/Units 04:08 07:21 WBC (4.0-10.5) K/mm3 RBC (4.1-5.6) M/mm3 Hgb (12.5-18.0) gm/dl Hct (42-50) % MCV (78-100) fl MCH (26-32) pg MCHC (32-36) g/dl RDW (11.5-14.0) % Plt Count (150-450) K/mm3 MPV (7.5-11.0) fl Gran % (36.0-66.0) % Eos # (Auto) (0-0.5) Absolute Lymphs (auto) (1.0-4.6) Absolute Monos (auto) (0.0-1.3) Lymphocytes % (24.0-44.0) % Monocytes % (0.0-12.0) % Eosinophils % (0.00-5.0) % Basophils % (0.0-0.4) % Absolute Granulocytes (1.4-6.9) Basophils # (0-0.4) Sodium (137-145) mmol/L Potassium (3.5-5.1) mmol/L Chloride (98-107) mmol/L Carbon Dioxide (22-30) mmol/L Anion Gap (5-15) MEQ/L BUN (9-20) mg/dL Creatinine (0.66-1.25) mg/dL Estimated GFR ML/MIN Glucose (74-106) mg/dL POC Glucometer 191 H 140 H (74 to 106) mg/dL Hemoglobin A1c (4.5-6.0) % Lactic Acid (0.4-2.0) Calcium (8.4-10.2) mg/dL Magnesium (1.6-2.3) mg/dL Total Bilirubin (0.2-1.3) mg/dL AST (17-59) U/L ALT (0-50) U/L Alkaline Phosphatase (38-126) U/L Serum Total Protein (6.3-8.2) g/dL Albumin (3.5-5.0) g/dL Urine Color (YELLOW) Urine Appearance (CLEAR) Urine pH (5-6) Ur Specific Elmer (1.005-1.025) Urine Protein (Negative) Urine Ketones (NEGATIVE) Urine Blood (0-5) Pedro/ul Urine Nitrite (NEGATIVE) Urine Bilirubin (NEGATIVE) Urine Urobilinogen (0-1) mg/dL Ur Leukocyte Esterase (NEGATIVE) Urine WBC (Auto) (0-5) /HPF Urine RBC (Auto) (0-2) /HPF U Hyaline Cast (Auto) (0-2) /LPF U Epithel Cells (Auto) (FEW) /HPF Urine Bacteria (Auto) (NEGATIVE) /HPF Urine Mucus (Auto) (NEGATIVE) /HPF Urine Culture Reflexed (NO) Urine Glucose (NEGATIVE) mg/dL Influenza Type A Ag (NEGATIVE) Influenza Type B Ag (NEGATIVE) RSV (PCR) (Negative) SARS-CoV-2 (PCR) (NEGATIVE) Accuchecks Date 02/16/21 Date 02/16/21 Date 02/15/21 Time 04:15 Time 20:00 Assessment/Plan (1) DKA (diabetic ketoacidoses) Current Visit: Yes Status: Acute Onset Date: ~08/01/18 Qualifiers: Code(s): E13.10 - [facility] DIABETES MELLITUS WITH KETOACIDOSIS WITHOUT COMA Hospital Summary - Vitals & Intake/Output Vital Signs: Vital Signs Temperature 98.3 F 02/16/21 07:42 Pulse Rate 79 02/16/21 07:48 Respiratory Rate 18 02/16/21 07:42 Blood Pressure 142/82 02/16/21 07:42 O2 Sat by Pulse Oximetry 97 02/16/21 07:42 Intake & Output: Intake & Output 02/13/21 02/14/21 02/15/21 02/16/21 11:59 11:59 11:59 11:59 Intake Total 3155 Output Total 1700 Balance 1455 Weight 73.1 kg - Lab Result Diagrams: 02/16/21 04:05 02/16/21 04:05 Lab Results-Last 24 Hrs: Lab Results-Last 24 Hours 02/15/21 02/15/21 02/15/21 Range/Units 13:49 13:50 13:51 WBC 14.8 H (4.0-10.5) K/mm3 RBC 6.08 H (4.1-5.6) M/mm3 Hgb 17.7 (12.5-18.0) gm/dl Hct 49.4 (42-50) % MCV 81.3 (78-100) fl MCH 29.1 (26-32) pg MCHC 35.8 (32-36) g/dl RDW 12.2 (11.5-14.0) % Plt Count 335 (150-450) K/mm3 MPV 11.7 H (7.5-11.0) fl Gran % 79.8 H (36.0-66.0) % Eos # (Auto) 0.03 (0-0.5) Absolute Lymphs (auto) 2.15 (1.0-4.6) Absolute Monos (auto) 0.77 (0.0-1.3) Lymphocytes % 14.5 L (24.0-44.0) % Monocytes % 5.2 (0.0-12.0) % Eosinophils % 0.2 (0.00-5.0) % Basophils % 0.3 (0.0-0.4) % Absolute Granulocytes 11.79 H (1.4-6.9) Basophils # 0.05 (0-0.4) Sodium 133 L (137-145) mmol/L Potassium 4.6 (3.5-5.1) mmol/L Chloride 87 L (98-107) mmol/L Carbon Dioxide 21 L (22-30) mmol/L Anion Gap 29.8 H (5-15) MEQ/L BUN 25 H (9-20) mg/dL Creatinine 1.12 (0.66-1.25) mg/dL Estimated GFR > 60.0 ML/MIN Glucose 487 H (74-106) mg/dL POC Glucometer 467 H (74 to 106) mg/dL Hemoglobin A1c (4.5-6.0) % Lactic Acid (0.4-2.0) Calcium 10.4 H (8.4-10.2) mg/dL Magnesium 2.2 (1.6-2.3) mg/dL Total Bilirubin 1.10 (0.2-1.3) mg/dL AST 26 (17-59) U/L ALT 29 (0-50) U/L Alkaline Phosphatase 219 H (38-126) U/L Serum Total Protein 9.0 H (6.3-8.2) g/dL Albumin 5.4 H (3.5-5.0) g/dL Urine Color (YELLOW) Urine Appearance (CLEAR) Urine pH (5-6) Ur Specific Elmer (1.005-1.025) Urine Protein (Negative) Urine Ketones (NEGATIVE) Urine Blood (0-5) Pedro/ul Urine Nitrite (NEGATIVE) Urine Bilirubin (NEGATIVE) Urine Urobilinogen (0-1) mg/dL Ur Leukocyte Esterase (NEGATIVE) Urine WBC (Auto) (0-5) /HPF Urine RBC (Auto) (0-2) /HPF U Hyaline Cast (Auto) (0-2) /LPF U Epithel Cells (Auto) (FEW) /HPF Urine Bacteria (Auto) (NEGATIVE) /HPF Urine Mucus (Auto) (NEGATIVE) /HPF Urine Culture Reflexed (NO) Urine Glucose (NEGATIVE) mg/dL Influenza Type A Ag (NEGATIVE) Influenza Type B Ag (NEGATIVE) RSV (PCR) (Negative) SARS-CoV-2 (PCR) (NEGATIVE) 02/15/21 02/15/21 02/15/21 Range/Units 13:51 14:06 16:46 WBC (4.0-10.5) K/mm3 RBC (4.1-5.6) M/mm3 Hgb (12.5-18.0) gm/dl Hct (42-50) % MCV (78-100) fl MCH (26-32) pg MCHC (32-36) g/dl RDW (11.5-14.0) % Plt Count (150-450) K/mm3 MPV (7.5-11.0) fl Gran % (36.0-66.0) % Eos # (Auto) (0-0.5) Absolute Lymphs (auto) (1.0-4.6) Absolute Monos (auto) (0.0-1.3) Lymphocytes % (24.0-44.0) % Monocytes % (0.0-12.0) % Eosinophils % (0.00-5.0) % Basophils % (0.0-0.4) % Absolute Granulocytes (1.4-6.9) Basophils # (0-0.4) Sodium (137-145) mmol/L Potassium (3.5-5.1) mmol/L Chloride (98-107) mmol/L Carbon Dioxide (22-30) mmol/L Anion Gap (5-15) MEQ/L BUN (9-20) mg/dL Creatinine (0.66-1.25) mg/dL Estimated GFR ML/MIN Glucose (74-106) mg/dL POC Glucometer (74 to 106) mg/dL Hemoglobin A1c (4.5-6.0) % Lactic Acid 2.2 H 0.7 (0.4-2.0) Calcium (8.4-10.2) mg/dL Magnesium (1.6-2.3) mg/dL Total Bilirubin (0.2-1.3) mg/dL AST (17-59) U/L ALT (0-50) U/L Alkaline Phosphatase (38-126) U/L Serum Total Protein (6.3-8.2) g/dL Albumin (3.5-5.0) g/dL Urine Color YELLOW (YELLOW) Urine Appearance SLIGHTLY CLOUDY (CLEAR) Urine pH 5.0 (5-6) Ur Specific Elmer 1.028 (1.005-1.025) Urine Protein 30 (Negative) Urine Ketones MODERATE (NEGATIVE) Urine Blood NEGATIVE (0-5) Pedro/ul Urine Nitrite NEGATIVE (NEGATIVE) Urine Bilirubin NEGATIVE (NEGATIVE) Urine Urobilinogen NEGATIVE (0-1) mg/dL Ur Leukocyte Esterase NEGATIVE (NEGATIVE) Urine WBC (Auto) NONE (0-5) /HPF Urine RBC (Auto) NONE (0-2) /HPF U Hyaline Cast (Auto) 0-2 (0-2) /LPF U Epithel Cells (Auto) NONE (FEW) /HPF Urine Bacteria (Auto) NONE (NEGATIVE) /HPF Urine Mucus (Auto) SLIGHT (NEGATIVE) /HPF Urine Culture Reflexed NO (NO) Urine Glucose >=500 (NEGATIVE) mg/dL Influenza Type A Ag (NEGATIVE) Influenza Type B Ag (NEGATIVE) RSV (PCR) (Negative) SARS-CoV-2 (PCR) (NEGATIVE) 02/15/21 02/15/21 02/15/21 Range/Units 16:49 16:51 19:00 WBC (4.0-10.5) K/mm3 RBC (4.1-5.6) M/mm3 Hgb (12.5-18.0) gm/dl Hct (42-50) % MCV (78-100) fl MCH (26-32) pg MCHC (32-36) g/dl RDW (11.5-14.0) % Plt Count (150-450) K/mm3 MPV (7.5-11.0) fl Gran % (36.0-66.0) % Eos # (Auto) (0-0.5) Absolute Lymphs (auto) (1.0-4.6) Absolute Monos (auto) (0.0-1.3) Lymphocytes % (24.0-44.0) % Monocytes % (0.0-12.0) % Eosinophils % (0.00-5.0) % Basophils % (0.0-0.4) % Absolute Granulocytes (1.4-6.9) Basophils # (0-0.4) Sodium (137-145) mmol/L Potassium (3.5-5.1) mmol/L Chloride (98-107) mmol/L Carbon Dioxide (22-30) mmol/L Anion Gap (5-15) MEQ/L BUN (9-20) mg/dL Creatinine (0.66-1.25) mg/dL Estimated GFR ML/MIN Glucose (74-106) mg/dL POC Glucometer 296 H (74 to 106) mg/dL Hemoglobin A1c 12.38 H (4.5-6.0) % Lactic Acid (0.4-2.0) Calcium (8.4-10.2) mg/dL Magnesium (1.6-2.3) mg/dL Total Bilirubin (0.2-1.3) mg/dL AST (17-59) U/L ALT (0-50) U/L Alkaline Phosphatase (38-126) U/L Serum Total Protein (6.3-8.2) g/dL Albumin (3.5-5.0) g/dL Urine Color (YELLOW) Urine Appearance (CLEAR) Urine pH (5-6) Ur Specific Elmer (1.005-1.025) Urine Protein (Negative) Urine Ketones (NEGATIVE) Urine Blood (0-5) Pedro/ul Urine Nitrite (NEGATIVE) Urine Bilirubin (NEGATIVE) Urine Urobilinogen (0-1) mg/dL Ur Leukocyte Esterase (NEGATIVE) Urine WBC (Auto) (0-5) /HPF Urine RBC (Auto) (0-2) /HPF U Hyaline Cast (Auto) (0-2) /LPF U Epithel Cells (Auto) (FEW) /HPF Urine Bacteria (Auto) (NEGATIVE) /HPF Urine Mucus (Auto) (NEGATIVE) /HPF Urine Culture Reflexed (NO) Urine Glucose (NEGATIVE) mg/dL Influenza Type A Ag NEGATIVE (NEGATIVE) Influenza Type B Ag NEGATIVE (NEGATIVE) RSV (PCR) NEGATIVE (Negative) SARS-CoV-2 (PCR) NEGATIVE (NEGATIVE) 02/15/21 02/15/21 02/15/21 Range/Units 19:09 19:40 20:01 WBC (4.0-10.5) K/mm3 RBC (4.1-5.6) M/mm3 Hgb (12.5-18.0) gm/dl Hct (42-50) % MCV (78-100) fl MCH (26-32) pg MCHC (32-36) g/dl RDW (11.5-14.0) % Plt Count (150-450) K/mm3 MPV (7.5-11.0) fl Gran % (36.0-66.0) % Eos # (Auto) (0-0.5) Absolute Lymphs (auto) (1.0-4.6) Absolute Monos (auto) (0.0-1.3) Lymphocytes % (24.0-44.0) % Monocytes % (0.0-12.0) % Eosinophils % (0.00-5.0) % Basophils % (0.0-0.4) % Absolute Granulocytes (1.4-6.9) Basophils # (0-0.4) Sodium 137 (137-145) mmol/L Potassium 4.2 (3.5-5.1) mmol/L Chloride 99 D (98-107) mmol/L Carbon Dioxide 29 (22-30) mmol/L Anion Gap 12.9 (5-15) MEQ/L BUN 21 H (9-20) mg/dL Creatinine 0.75 (0.66-1.25) mg/dL Estimated GFR > 60.0 ML/MIN Glucose 119 H (74-106) mg/dL POC Glucometer 152 H 113 H (74 to 106) mg/dL Hemoglobin A1c (4.5-6.0) % Lactic Acid (0.4-2.0) Calcium 8.7 D (8.4-10.2) mg/dL Magnesium (1.6-2.3) mg/dL Total Bilirubin (0.2-1.3) mg/dL AST (17-59) U/L ALT (0-50) U/L Alkaline Phosphatase (38-126) U/L Serum Total Protein (6.3-8.2) g/dL Albumin (3.5-5.0) g/dL Urine Color (YELLOW) Urine Appearance (CLEAR) Urine pH (5-6) Ur Specific Elmer (1.005-1.025) Urine Protein (Negative) Urine Ketones (NEGATIVE) Urine Blood (0-5) Pedro/ul Urine Nitrite (NEGATIVE) Urine Bilirubin (NEGATIVE) Urine Urobilinogen (0-1) mg/dL Ur Leukocyte Esterase (NEGATIVE) Urine WBC (Auto) (0-5) /HPF Urine RBC (Auto) (0-2) /HPF U Hyaline Cast (Auto) (0-2) /LPF U Epithel Cells (Auto) (FEW) /HPF Urine Bacteria (Auto) (NEGATIVE) /HPF Urine Mucus (Auto) (NEGATIVE) /HPF Urine Culture Reflexed (NO) Urine Glucose (NEGATIVE) mg/dL Influenza Type A Ag (NEGATIVE) Influenza Type B Ag (NEGATIVE) RSV (PCR) (Negative) SARS-CoV-2 (PCR) (NEGATIVE) 02/15/21 02/16/21 02/16/21 Range/Units 23:36 04:05 04:05 WBC 11.6 H (4.0-10.5) K/mm3 RBC 4.79 (4.1-5.6) M/mm3 Hgb 14.0 D (12.5-18.0) gm/dl Hct 39.9 L (42-50) % MCV 83.3 (78-100) fl MCH 29.2 (26-32) pg MCHC 35.1 (32-36) g/dl RDW 11.8 (11.5-14.0) % Plt Count 236 (150-450) K/mm3 MPV 11.1 H (7.5-11.0) fl Gran % (36.0-66.0) % Eos # (Auto) (0-0.5) Absolute Lymphs (auto) (1.0-4.6) Absolute Monos (auto) (0.0-1.3) Lymphocytes % (24.0-44.0) % Monocytes % (0.0-12.0) % Eosinophils % (0.00-5.0) % Basophils % (0.0-0.4) % Absolute Granulocytes (1.4-6.9) Basophils # (0-0.4) Sodium 133 L (137-145) mmol/L Potassium 3.7 (3.5-5.1) mmol/L Chloride 99 (98-107) mmol/L Carbon Dioxide 28 (22-30) mmol/L Anion Gap 10.5 (5-15) MEQ/L BUN 17 (9-20) mg/dL Creatinine 0.56 L (0.66-1.25) mg/dL Estimated GFR > 60.0 ML/MIN Glucose 191 H (74-106) mg/dL POC Glucometer 287 H (74 to 106) mg/dL Hemoglobin A1c (4.5-6.0) % Lactic Acid (0.4-2.0) Calcium 8.5 (8.4-10.2) mg/dL Magnesium (1.6-2.3) mg/dL Total Bilirubin (0.2-1.3) mg/dL AST (17-59) U/L ALT (0-50) U/L Alkaline Phosphatase (38-126) U/L Serum Total Protein (6.3-8.2) g/dL Albumin (3.5-5.0) g/dL Urine Color (YELLOW) Urine Appearance (CLEAR) Urine pH (5-6) Ur Specific Elmer (1.005-1.025) Urine Protein (Negative) Urine Ketones (NEGATIVE) Urine Blood (0-5) Pedro/ul Urine Nitrite (NEGATIVE) Urine Bilirubin (NEGATIVE) Urine Urobilinogen (0-1) mg/dL Ur Leukocyte Esterase (NEGATIVE) Urine WBC (Auto) (0-5) /HPF Urine RBC (Auto) (0-2) /HPF U Hyaline Cast (Auto) (0-2) /LPF U Epithel Cells (Auto) (FEW) /HPF Urine Bacteria (Auto) (NEGATIVE) /HPF Urine Mucus (Auto) (NEGATIVE) /HPF Urine Culture Reflexed (NO) Urine Glucose (NEGATIVE) mg/dL Influenza Type A Ag (NEGATIVE) Influenza Type B Ag (NEGATIVE) RSV (PCR) (Negative) SARS-CoV-2 (PCR) (NEGATIVE) 02/16/21 02/16/21 Range/Units 04:08 07:21 WBC (4.0-10.5) K/mm3 RBC (4.1-5.6) M/mm3 Hgb (12.5-18.0) gm/dl Hct (42-50) % MCV (78-100) fl MCH (26-32) pg MCHC (32-36) g/dl RDW (11.5-14.0) % Plt Count (150-450) K/mm3 MPV (7.5-11.0) fl Gran % (36.0-66.0) % Eos # (Auto) (0-0.5) Absolute Lymphs (auto) (1.0-4.6) Absolute Monos (auto) (0.0-1.3) Lymphocytes % (24.0-44.0) % Monocytes % (0.0-12.0) % Eosinophils % (0.00-5.0) % Basophils % (0.0-0.4) % Absolute Granulocytes (1.4-6.9) Basophils # (0-0.4) Sodium (137-145) mmol/L Potassium (3.5-5.1) mmol/L Chloride (98-107) mmol/L Carbon Dioxide (22-30) mmol/L Anion Gap (5-15) MEQ/L BUN (9-20) mg/dL Creatinine (0.66-1.25) mg/dL Estimated GFR ML/MIN Glucose (74-106) mg/dL POC Glucometer 191 H 140 H (74 to 106) mg/dL Hemoglobin A1c (4.5-6.0) % Lactic Acid (0.4-2.0) Calcium (8.4-10.2) mg/dL Magnesium (1.6-2.3) mg/dL Total Bilirubin (0.2-1.3) mg/dL AST (17-59) U/L ALT (0-50) U/L Alkaline Phosphatase (38-126) U/L Serum Total Protein (6.3-8.2) g/dL Albumin (3.5-5.0) g/dL Urine Color (YELLOW) Urine Appearance (CLEAR) Urine pH (5-6) Ur Specific Elmer (1.005-1.025) Urine Protein (Negative) Urine Ketones (NEGATIVE) Urine Blood (0-5) Pedro/ul Urine Nitrite (NEGATIVE) Urine Bilirubin (NEGATIVE) Urine Urobilinogen (0-1) mg/dL Ur Leukocyte Esterase (NEGATIVE) Urine WBC (Auto) (0-5) /HPF Urine RBC (Auto) (0-2) /HPF U Hyaline Cast (Auto) (0-2) /LPF U Epithel Cells (Auto) (FEW) /HPF Urine Bacteria (Auto) (NEGATIVE) /HPF Urine Mucus (Auto) (NEGATIVE) /HPF Urine Culture Reflexed (NO) Urine Glucose (NEGATIVE) mg/dL Influenza Type A Ag (NEGATIVE) Influenza Type B Ag (NEGATIVE) RSV (PCR) (Negative) SARS-CoV-2 (PCR) (NEGATIVE) Micro Results-Entire Visit: Accuchecks Date 02/16/21 Date 02/16/21 Date 02/15/21 Time 04:15 Time 20:00 - Discharge Disposition: Home, Self-Care Condition: Stable Prescriptions: Continue Insulin Glargine,Hum.rec.anlog [Lantus] 30 units SQ BID Insulin Aspart [Novolog] 15 units SQ AC Follow up with: NAVEEN MCKEON MD [Primary Care Provider] - 1 Week
== END 2021-02-16 09:28 | disposition home or self-care (01) ==
LOC: ED 13:23 → ICU 18:35
PROVIDERS: ADMIT Family Medicine; ATTEND Family Medicine
DX: E10.10 Type 1 diabetes mellitus with ketoacidosis without coma (principal); R11.2 Nausea with vomiting, unspecified; Z79.4 Long term (current) use of insulin; I10 Essential (primary) hypertension; E78.00 Pure hypercholesterolemia, unspecified; Z20.828 Contact with and (suspected) exposure to other viral communicable diseases
CPT/HCPCS: 0241U; 36000; 36415; 80048; 80053; 81001; 82947; 83036; 83605; 83735; 85025; 85027; 93268; 96360; 96361; 96372; 96374; 99285; 99291; G0378; J1815; J1817; J2405; A9270-GY

== ENCOUNTER 2021-12-19 17:58 | Emergency (ER) | payer OTHER ==
[2021-12-19] MEDS ORDERED: Sodium Chloride 0.9% 1000 ML 1,000 ML IV STA (18:50)
[2021-12-19] MEDS ORDERED: Compazine 10 MG/2 ML IV ONE (18:52)
[2021-12-19] MEDS ORDERED: BENADRYL 50 MG/ML IV ONE (18:53)
[2021-12-19] MEDS ORDERED: Sodium Chloride 0.9% 1000 ML 1,000 ML ONE (19:12)
[2021-12-19] MEDS ORDERED: BENADRYL 50 MG/ML ONE (19:12)
[2021-12-19] MEDS ORDERED: Compazine 10 MG/2 ML ONE (19:12)
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
[2021-12-19 19:48] LABS: ALBUMIN 4.4 g/dL (3.5-5.0); ALKALINE PHOSPHATASE 194 U/L (38-126); ANION GAP 14.1 MEQ/L (5-15); BLOOD UREA NITROGEN 9 mg/dL (9-20); CHLORIDE 101 mmol/L (98-107); Calcium 9.1 mg/dL (8.4-10.2); Carbon Dioxide 27 mmol/L (22-30); Creatinine 1 0.53 mg/dL (0.66-1.25); EST GLOMERULAR FILTRATION RATE > 60.0 ML/MIN; Glucose 167 mg/dL (74-106); MAGNESIUM 1.7 mg/dL (1.6-2.3); Potassium 3.9 mmol/L (3.5-5.1); SGOT/AST 27 U/L (17-59); SGPT/ALT 21 U/L (0-50); SODIUM 138 mmol/L (137-145); Total Protein 7.1 g/dL (6.3-8.2)
[2021-12-19 19:52] LABS: Absolute Neutrophil Ct (ANC) 12.55 (1.4-6.9); Basophil (Absolute #) 0.02 (0-0.4); Eosinophil % 0.5 % (0.00-5.0); Eosinophil (Absolute #) 0.08 (0-0.5); Hematocrit 39.1 % (42-50); Hemoglobin 13.4 gm/dl (12.5-18.0); Lymphocyte (Absolute #) 1.33 (1.0-4.6); Mean Cell Volume 85.7 fl (78-100); Mean Corpuscular Hemoglobin 29.4 pg (26-32); Mean Corpuscular Hgb Concent. 34.3 g/dl (32-36); Mean Platelet Volume 11.5 fl (7.5-11.0); Monocyte (Absolute #) 0.77 (0.0-1.3); Monocytes % 5.2 % (0.0-12.0); Neutrophil % 85.2 % (36.0-66.0); Platelet Count 222 K/mm3 (150-450); Red Blood Count 4.56 M/mm3 (4.1-5.6); Red Cell Distribution Width 11.9 % (11.5-14.0); White Blood Count 14.8 K/mm3 (4.0-10.5)
[2021-12-19] MEDS ORDERED: TORAdol 30 mg Injection IV ONE (20:00)
[2021-12-19] MEDS ORDERED: TORAdol 30 mg Injection ONE (20:16)
[2021-12-19] MEDS ORDERED: Augmentin 875-125 Tablet PO ONE (21:10)
[2021-12-19 21:15] VITALS: BP 157/97
[2021-12-19] MEDS ORDERED: Augmentin 875-125 Tablet ONE (21:18)
[2021-12-19 21:27] VITALS: PULSE 90; O2SAT 98
--- NOTE | 2021-12-20 08:38 | XRAY ---
Indication: Migraine. Status post head trauma one week. Intracranial hemorrhage. Multiple contiguous axial images obtained through the head without contrast. Comparison: January 28, 2021. Normal appearing brain parenchyma, ventricles, and bony calvarium. New marked opacification of left maxillary and mild/moderate opacification of the remaining paranasal sinuses. Mastoid air cells are clear. Impression: New pansinusitis. Remaining CT head without contrast exam is negative.
== END 2021-12-19 21:33 | disposition home or self-care (01) ==
LOC: ED 17:58
DX: G43.909 Migraine, unspecified, not intractable, without status migrainosus (principal); W50.0XXA Accidental hit or strike by another person, initial encounter; Y93.83 Activity, rough housing and horseplay; J01.40 Acute pansinusitis, unspecified; E10.42 Type 1 diabetes mellitus with diabetic polyneuropathy; E78.5 Hyperlipidemia, unspecified; I10 Essential (primary) hypertension; Z79.4 Long term (current) use of insulin
CPT/HCPCS: 36000; 36415; 70450; 80053; 83735; 85025; 93041; 94760; 96374; 96375; 99284; J1200; J1885; A9270-GY

== ENCOUNTER 2022-07-27 18:30 | Emergency (ER) | payer SELFPAY ==
--- NOTE | 2022-07-27 18:32 | ERPHSYRPT ---
- History of Present Illness Time Seen by Provider: 07/27/22 18:32 Source: patient Exam Limitations: no limitations Physician History: This is a left handed 32-year-old white male patient of Dr. Mckeon who has a history of hypertension diabetes and presents with left wrist pain after falling at work. Patient has had a problem with his left wrist and left hand in the past requiring surgical intervention for preparation of an injury including nerve graft. Patient chronically has numbness and pain in the left thumb and left index finger. Patient fell at work onto an outstretched hand. This occurred prior to arrival. Occurred: just prior to arrival Method of Injury: fell Quality: constant, aching Severity of Pain-Max: mild (To moderate) Severity of Pain-Current: mild (To moderate) Extremities Pain Location: wrist: left Modifying Factors: Improves With: movement Allergies/Adverse Reactions: shellfish derived Allergy (Verified 07/27/22 18:46) Swelling Home Medications: Insulin Aspart [Novolog] 15 units SQ AC 01/28/21 [History] Insulin Glargine,Hum.rec.anlog [Lantus] 30 units SQ BID 01/28/21 [History] lisinopriL [Lisinopril] 40 mg PO DAILY 07/27/22 [History] Hx Tetanus, Diphtheria Vaccination/Date Given: Yes Hx Influenza Vaccination/Date Given: No Hx Pneumococcal Vaccination/Date Given: No Travel Risk - International Travel Have you traveled outside of the country in past 3 weeks: No - Coronavirus Screening Are you exhibiting any of the following symptoms?: No Close contact with a COVID-19 positive Pt in past 14-21 Days: No - Vaccine Status Have you recieved a Covid-19 vaccination: No - Review of Systems Constitutional: No Symptoms Eyes: No Symptoms Ears, Nose, & Throat: No Symptoms Respiratory: No Symptoms Cardiac: No Symptoms Abdominal/Gastrointestinal: No Symptoms Genitourinary Symptoms: No Symptoms Musculoskeletal: Injury (Left wrist) Skin: No Symptoms Neurological: No Symptoms Psychological: No Symptoms Endocrine: No Symptoms Hematologic/Lymphatic: No Symptoms Immunological/Allergic: No Symptoms All Other Systems: Reviewed and Negative - Past Medical History Pertinent Past Medical History: Yes Neurological History: Peripheral Neuropathy ENT History: No Pertinent History Cardiac History: High Cholesterol, Hypertension Respiratory History: No Pertinent History Endocrine Medical History: Diabetes Type I Musculoskeletal History: Fractures GI Medical History: Irritable Bowel History: No Pertinent History Psycho-Social History: No Pertinent History Male Reproductive Disorders: No Pertinent History Other Medical History: DKA - Past Surgical History Past Surgical History: Yes Neuro Surgical History: No Pertinent History Cardiac: No Pertinent History Respiratory: No Pertinent History Gastrointestinal: No Pertinent History Genitourinary: No Pertinent History Musculoskeletal: Orthopedic Surgery Male Surgical History: No Pertinent History Other Surgical History: tubes in ears as infant, back surgery in 2000 - spondylsis, sinus surgeries X5 growth/polyps removed, left knee surgery X2 dislocation of patella, right wrist fx with surgery, left hand surgery X2 nerve graft surgery - Social History Smoking Status: Former smoker How long have you smoked: 13 years Exposure to second hand smoke: No Drug Use: none Patient Lives Alone: No - Nursing Vital Signs Nursing Vital Signs: Initial Vital Signs Temperature 98.2 F 07/27/22 18:42 Pulse Rate 104 H 07/27/22 18:42 Respiratory Rate 20 07/27/22 18:42 Blood Pressure 193/118 07/27/22 18:42 O2 Sat by Pulse Oximetry 98 07/27/22 18:42 Pain Scale Pain Intensity 7 - Physical Exam General Appearance: no apparent distress, alert Eyes, Ears, Nose, Throat Exam: normal ENT inspection, moist mucous membranes Neck Exam: normal inspection, non-tender, supple, full range of motion Cardiovascular/Respiratory Exam: chest non-tender, no respiratory distress Abdominal Exam: non-tender Back Exam: normal inspection, normal range of motion, No CVA tenderness, No vertebral tenderness Shoulder Exam: normal inspection, non-tender, no evidence of injury, normal ROM Elbow/Forearm Exam: normal inspection, non-tender, no evidence of injury, normal ROM Hand Exam: normal inspection, non-tender, no evidence of injury, normal ROM Neuro/Tendon Exam: normal motor functions, normal tendon functions, no evidence tendon injury, sensory deficit (Chronic left thumb and left index finger) Mental Status Exam: alert, oriented x 3, disoriented to person Skin Exam: normal color, warm, decubitus SpO2 Interpretation: normal O2 Delivery: Room Air Procedures - Splinting Time of Procedure: 19:40 Location of Splint: Left, Wrist Type of Splint: Orthoglass Short Arm Splint Splint Applied By: ED Nurse Pre-Proc Neuro Vasc Exam: normal Post-Proc Neuro Vasc Exam: neurovascular intact - Course Nursing assessment & vital signs reviewed: Yes Ordered Tests: Active Orders 24 hr Category Date Time Status Splint STAT Care 07/27/22 19:16 Ordered WRIST (MIN 3 VIEWS) Stat Exams 07/27/22 18:48 Taken - Progress Progress: improved Progress Note: 07/27/22 19:19 X-ray left wrist shows questionable nondisplaced fracture of the distal ulna and distal radius. Counseled pt/family regarding: diagnosis, need for follow-up, rad results - Departure Departure Disposition: Home Clinical Impression: Closed fracture distal radius and ulna Condition: Stable Critical Care Time: No Referrals: NAVEEN MCKEON MD [Primary Care Provider] - Follow up/PCP as directed Additional Instructions: Ice pack to area 3 times a day for the next 48 hours. Add ibuprofen 600 mg orally with food 3 times a day for the next 5 days. Follow-up with [facility] orthopedic clinic on 07/29/2022 at 8 AM for further evaluation management.. This is a walk-in clinic and you do not need to have an appointment. Prescriptions: Oxycodone HCl/Acetaminophen [Percocet 5-325 mg Tablet] 1 each PO Q8H PRN PRN #6 tablet MDD 3 PRN Reason: Moderate To Severe Pain
[2022-07-27] MEDS ORDERED: PERCOCET TABLET 5/325MG PO STA (19:24)
[2022-07-27] MEDS ORDERED: PERCOCET TABLET 5/325MG ONE (19:26)
[2022-07-27 19:34] VITALS: BP 176/104; PULSE 95; O2SAT 97
--- NOTE | 2022-07-27 20:39 | XRAY ---
Indication: Pain and swelling following fall. Comparison: None 3 view left wrist demonstrates nondisplaced cortical fracture distal metadiaphysis radius anteriorly with intra-articular extension and soft tissue swelling. Also minimally displaced ulnar styloid tip fracture. No other bony, articular, or soft tissue abnormalities.
[2022-07-28] MEDS ORDERED: PERCOCET TABLET 5/325MG ONE (10:31)
== END 2022-07-27 19:37 | disposition home or self-care (01) ==
LOC: ED 18:30
DX: S52.572A Other intraarticular fracture of lower end of left radius, initial encounter for closed fracture (principal); S52.612A Displaced fracture of left ulna styloid process, initial encounter for closed fracture; W19.XXXA Unspecified fall, initial encounter; Y99.0 Civilian activity done for income or pay; M25.532 Pain in left wrist; E78.5 Hyperlipidemia, unspecified; I10 Essential (primary) hypertension; E10.9 Type 1 diabetes mellitus without complications; Z79.4 Long term (current) use of insulin; Z79.891 Long term (current) use of opiate analgesic; Z79.899 Other long term (current) drug therapy
CPT/HCPCS: 29125; 73110; 99283; A9270-GY

== ENCOUNTER 2023-03-19 23:43 | Emergency (ER) | payer BC, OTHER ==
[2023-03-20] MEDS ORDERED: Dextrose 5%-1/2NS IV Soln. 500 ML 500 ML IV ONE (00:07)
--- NOTE | 2023-03-20 00:17 | ERPHSYRPT ---
- History of Present Illness Source: patient, EMS Patient Subjective Stated Complaint: pt states he just remembers when "Jose Manuel was asking me if I could stand up in my kitchen and I don't know what happened before that". Per EMS they were called for "low blood sugar" and upon arrival BS was 23, PIV was placed, 1 amp D50 administered and BS up to 165, pt alert and oriented times three without complaint. While doing VS for run record discovered BP was elevated. Pt is supposed to be taking lisinopril daily but couldn't af [place] that in addition to his insulin regimen so he never filled the BP med. Triage Nursing Assessment: pt brought to room 6 via EMS, pt stood up from EMS cot and walked a couple steps to get in ED cot independently with slow steady gait. pt is alert and oriented times three, moves all extremities, resp even and unlabored, and is speaking in complete sentences. pt denies pain, nausea, dizziness, lightheadedness, or other ill feelings at this time other than being cold. Physician History: 32 yo WM w DM1 presents per EMS after having hypoglycemic episode at home. Glucose 23 upon EMS arrival which responded to 1amp D50 x1. Pt was found to be hypertensive. Insulin regimen is 15units sq Novolog tid and 30 units of Basaglar bid. Pt took 28 units of lantus tonight instead of Basaglar which he borrowed from a friend. He is supposed to take Lisinopril but is not due to financial considerations. Timing/Duration: today Severity: moderate Associated Symptoms: denies symptoms Allergies/Adverse Reactions: shellfish derived Allergy (Verified 03/19/23 23:45) Swelling Home Medications: Insulin Aspart [Novolog] 15 units SQ AC 01/28/21 [History] Insulin Glargine,Hum.rec.anlog [Lantus] 30 units SQ BID 01/28/21 [History] Hx Tetanus, Diphtheria Vaccination/Date Given: Yes Hx Influenza Vaccination/Date Given: No Hx Pneumococcal Vaccination/Date Given: No Immunizations Up to Date: Yes Travel Risk - International Travel Have you traveled outside of the country in past 3 weeks: No - Coronavirus Screening Are you exhibiting any of the following symptoms?: No Close contact with a COVID-19 positive Pt in past 14-21 Days: No - Vaccine Status Have you recieved a Covid-19 vaccination: No - Review of Systems Constitutional: No Symptoms Eyes: No Symptoms Ears, Nose, & Throat: No Symptoms Respiratory: No Symptoms Cardiac: No Symptoms Abdominal/Gastrointestinal: No Symptoms Genitourinary Symptoms: No Symptoms Musculoskeletal: No Symptoms Skin: No Symptoms Neurological: No Symptoms Endocrine: No Symptoms Hematologic/Lymphatic: No Symptoms Immunological/Allergic: No Symptoms - Past Medical History Pertinent Past Medical History: Yes Neurological History: Peripheral Neuropathy ENT History: No Pertinent History Cardiac History: High Cholesterol, Hypertension Respiratory History: No Pertinent History Endocrine Medical History: Diabetes Type I Musculoskeletal History: Fractures GI Medical History: Irritable Bowel History: No Pertinent History Psycho-Social History: No Pertinent History Male Reproductive Disorders: No Pertinent History Other Medical History: DKA - Past Surgical History Past Surgical History: Yes Neuro Surgical History: No Pertinent History Cardiac: No Pertinent History Respiratory: No Pertinent History Gastrointestinal: No Pertinent History Genitourinary: No Pertinent History Musculoskeletal: Orthopedic Surgery Male Surgical History: No Pertinent History Other Surgical History: tubes in ears as infant, back surgery in 1999 - spondylsis, sinus surgeries X5 growth/polyps removed, left knee surgery X2 dislocation of patella, right wrist fx with surgery, left hand surgery X2 nerve graft surgery - Social History Smoking Status: Former smoker How long have you smoked: 13 years Exposure to second hand smoke: No Drug Use: none Patient Lives Alone: No - Nursing Vital Signs Nursing Vital Signs: Initial Vital Signs Temperature 96.0 F 03/19/23 23:51 Pulse Rate 69 03/19/23 23:51 Respiratory Rate 17 03/19/23 23:51 Blood Pressure 162/103 03/19/23 23:51 O2 Sat by Pulse Oximetry 100 03/19/23 23:51 Pain Scale Pain Intensity 0 Hypertensive - Physical Exam General Appearance: no apparent distress Eye Exam: PERRL/EOMI, eyes nml inspection Ears, Nose, Throat Exam: normal ENT inspection, TMs normal, pharynx normal, moist mucous membranes Neck Exam: normal inspection, non-tender, supple, full range of motion, No meningismus, No mass, No Brudzinski, No Kernig's Respiratory Exam: normal breath sounds, lungs clear, airway intact, No respiratory distress Cardiovascular Exam: regular rate/rhythm, normal heart sounds, normal peripheral pulses, capillary refill <2 sec, No murmur Gastrointestinal/Abdomen Exam: soft, normal bowel sounds Back Exam: normal inspection, normal range of motion, No CVA tenderness, No vertebral tenderness Extremity Exam: normal inspection, normal range of motion Neurologic Exam: alert, oriented x 3, cooperative, 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, normal mood/affect, nml cerebellar function, nml station & gait, sensation nml Skin Exam: normal color, warm, dry Lymphatic Exam: No adenopathy SpO2 Interpretation: normal SpO2: 100 O2 Delivery: Room Air - Course Nursing assessment & vital signs reviewed: Yes EKG Interpreted by Me: RATE (NSR/Rate 67/Normal QT-QTc/IRBBB/No acute ST segment changes) Ordered Tests: Active Orders 24 hr Category Date Time Status CBC W DIFF Stat Lab 03/20/23 00:05 Completed CMP Stat Lab 03/20/23 00:05 Completed POCT GLUCOSE Stat Lab 03/19/23 23:54 Completed POCT GLUCOSE Stat Lab 03/20/23 00:47 Completed POCT GLUCOSE Stat Lab 03/20/23 01:57 Completed TROPONIN Q4H Lab 03/20/23 00:05 Completed TROPONIN Q4H Lab 03/20/23 04:15 Ordered TROPONIN Q4H Lab 03/20/23 08:15 Ordered UA W/RFX UR CULTURE Stat Lab 03/20/23 00:03 Ordered Medication Summary Discontinued Medications Generic Name Dose Route Start Last Admin Trade Name Freq PRN Reason Stop Dose Admin Dextrose/Sodium Chloride 500 mls @ 50 mls/hr 03/20/23 00:30 03/20/23 02:01 Dextrose 5%-1/2ns Iv Soln. 500 Ml IV 04/19/23 00:29 Infused .Q10H JOEY Infusion Dextrose/Sodium Chloride Confirm 03/20/23 00:07 Dextrose 5%-1/2ns Iv Soln. 500 Ml Administered 03/20/23 00:08 Dose 500 mls @ ud IV .STK-MED ONE Lisinopril 10 mg 03/20/23 02:01 03/20/23 02:05 Lisinopril 10 Mg Tablet PO 03/20/23 02:02 10 mg STAT STA Administration Lisinopril Confirm 03/20/23 02:03 Lisinopril 10 Mg Tablet Administered 03/20/23 02:04 Dose 10 mg .ROUTE .STK-MED ONE Lab/Rad Data: Laboratory Result Diagrams 03/20/23 00:05 03/20/23 00:05 Laboratory Results 03/20/23 03/20/23 03/20/23 Range/Units 01:57 00:47 00:05 WBC (4.0-10.5) x10^3/uL RBC (4.1-5.6) x10^6/uL Hgb (12.5-18.0) g/dL Hct (42-50) % MCV (78-100) fL MCH (26-32) pg MCHC (32-36) g/dL RDW (11.5-14.0) % Plt Count (150-450) x10^3/uL MPV (7.5-11.0) fL Gran % (36.0-66.0) % Immature Gran % (Auto) (0.00-0.4) % Nucleat RBC Rel Count (0.00-0.1) % Eos # (Auto) (0-0.5) x10^3/uL Immature Gran # (Auto) (0.00-0.03) x10^3u/L Absolute Lymphs (auto) (1.0-4.6) x10^3/uL Absolute Monos (auto) (0.0-1.3) x10^3/uL Absolute Nucleated RBC (0.00-0.01) x10^3u/L Lymphocytes % (24.0-44.0) % Monocytes % (0.0-12.0) % Eosinophils % (0.00-5.0) % Basophils % (0.0-0.4) % Absolute Granulocytes (1.4-6.9) x10^3/uL Basophils # (0-0.4) x10^3/uL Sodium (137-145) mmol/L Potassium (3.5-5.1) mmol/L Chloride (98-107) mmol/L Carbon Dioxide (22-30) mmol/L Anion Gap (5-15) MEQ/L BUN (9-20) mg/dL Creatinine (0.66-1.25) mg/dL Estimated GFR ML/MIN Glucose (74-106) mg/dL POC Glucometer 121 H 88 (74 to 106) mg/dL Calcium (8.4-10.2) mg/dL Total Bilirubin (0.2-1.3) mg/dL AST (17-59) U/L ALT (0-50) U/L Alkaline Phosphatase (38-126) U/L Troponin I < 0.012 (0.000-0.034) ng/mL Serum Total Protein (6.3-8.2) g/dL Albumin (3.5-5.0) g/dL 03/20/23 03/20/23 03/19/23 Range/Units 00:05 00:05 23:54 WBC 9.0 (4.0-10.5) x10^3/uL RBC 4.89 (4.1-5.6) x10^6/uL Hgb 14.0 (12.5-18.0) g/dL Hct 42.4 (42-50) % MCV 86.7 (78-100) fL MCH 28.6 (26-32) pg MCHC 33.0 (32-36) g/dL RDW 12.5 (11.5-14.0) % Plt Count 204 (150-450) x10^3/uL MPV 10.8 (7.5-11.0) fL Gran % 66.3 H (36.0-66.0) % Immature Gran % (Auto) 0.3 (0.00-0.4) % Nucleat RBC Rel Count 0.0 (0.00-0.1) % Eos # (Auto) 0.13 (0-0.5) x10^3/uL Immature Gran # (Auto) 0.03 (0.00-0.03) x10^3u/L Absolute Lymphs (auto) 2.31 (1.0-4.6) x10^3/uL Absolute Monos (auto) 0.54 (0.0-1.3) x10^3/uL Absolute Nucleated RBC 0.00 (0.00-0.01) x10^3u/L Lymphocytes % 25.6 (24.0-44.0) % Monocytes % 6.0 (0.0-12.0) % Eosinophils % 1.4 (0.00-5.0) % Basophils % 0.4 (0.0-0.4) % Absolute Granulocytes 5.98 (1.4-6.9) x10^3/uL Basophils # 0.04 (0-0.4) x10^3/uL Sodium 144 (137-145) mmol/L Potassium 3.3 L (3.5-5.1) mmol/L Chloride 97 L (98-107) mmol/L Carbon Dioxide 29 (22-30) mmol/L Anion Gap 20.2 H (5-15) MEQ/L BUN 16 (9-20) mg/dL Creatinine 0.79 (0.66-1.25) mg/dL Estimated GFR > 60.0 ML/MIN Glucose 89 (74-106) mg/dL POC Glucometer 86 (74 to 106) mg/dL Calcium 8.7 (8.4-10.2) mg/dL Total Bilirubin 0.40 (0.2-1.3) mg/dL AST 49 (17-59) U/L ALT 27 (0-50) U/L Alkaline Phosphatase 129 H (38-126) U/L Troponin I (0.000-0.034) ng/mL Serum Total Protein 8.0 (6.3-8.2) g/dL Albumin 4.8 (3.5-5.0) g/dL - Progress Progress Note: 03/20/23 02:03 Nursing note and vital signs reviewed No food or housing insecurities noted Additional history per Pt's glucose monitored wo hypoglycemia in ER. Pt also ate in the ER. Serial neuro exams WNL BP decreased wo treatment but still high. 10mg po Lisinopril given and Rx of Lisinopril given Counseled pt/family regarding: lab results, diagnosis, need for follow-up, rad results Medical Desision Making - Independent Historian Additional History obtained from: Spouse - Diagnostic Testing Diagnostic test were ordered, analyzed, and reviewed by me: Yes - Risk of complications The pt has a mod risk of morbidity or mortality based on: Need for prescription drug management - Departure Departure Disposition: Home Clinical Impression: Hypoglycemia, Hypertension Condition: Stable Critical Care Time: No Referrals: NAVEEN MCKEON MD [Primary Care Provider] - Follow up/PCP as directed Instructions: Low Blood Sugar, Adult (DC), Malignant Hypertension (DC) Additional Instructions: Follow up with Dr. Mckeon Monitor glucose closely Continue with Lisinopril tomorrow Return to ER as needed Prescriptions: Lisinopril 10 mg [Zestril 10 MG] 10 mg PO DAILY #30 tablet
[2023-03-20 00:22] LABS: Absolute Neutrophil Ct (ANC) 5.98 x10^3/uL (1.4-6.9); BASOPHIL % 0.4 % (0.0-0.4); Basophil (Absolute #) 0.04 x10^3/uL (0-0.4); Eosinophil % 1.4 % (0.00-5.0); Eosinophil (Absolute #) 0.13 x10^3/uL (0-0.5); Hematocrit 42.4 % (42-50); IMMATURE GRAN # 0.03 x10^3u/L (0.00-0.03); IMMATURE GRAN % 0.3 % (0.00-0.4); Lymphocyte (Absolute #) 2.31 x10^3/uL (1.0-4.6); Lymphocytes % 25.6 % (24.0-44.0); Mean Cell Volume 86.7 fL (78-100); Mean Corpuscular Hemoglobin 28.6 pg (26-32); Mean Platelet Volume 10.8 fL (7.5-11.0); Monocyte (Absolute #) 0.54 x10^3/uL (0.0-1.3); Neutrophil % 66.3 % (36.0-66.0); Platelet Count 204 x10^3/uL (150-450); Red Blood Count 4.89 x10^6/uL (4.1-5.6); Red Cell Distribution Width 12.5 % (11.5-14.0)
[2023-03-20] MEDS ORDERED: Dextrose 5%-1/2NS IV Soln. 500 ML 500 ML IV SCH (00:30)
[2023-03-20 00:35] LABS: ALBUMIN 4.8 g/dL (3.5-5.0); ALKALINE PHOSPHATASE 129 U/L (38-126); ANION GAP 20.2 MEQ/L (5-15); BLOOD UREA NITROGEN 16 mg/dL (9-20); CHLORIDE 97 mmol/L (98-107); Calcium 8.7 mg/dL (8.4-10.2); Carbon Dioxide 29 mmol/L (22-30); Creatinine 1 0.79 mg/dL (0.66-1.25); EST GLOMERULAR FILTRATION RATE > 60.0 ML/MIN; Glucose 89 mg/dL (74-106); Potassium 3.3 mmol/L (3.5-5.1); SGOT/AST 49 U/L (17-59); SGPT/ALT 27 U/L (0-50); SODIUM 144 mmol/L (137-145)
[2023-03-20 01:58] VITALS: BP 141/100; PULSE 77
[2023-03-20] MEDS ORDERED: Zestril 10 MG PO STA (02:01)
[2023-03-20 02:03] VITALS: O2SAT 100
[2023-03-20] MEDS ORDERED: Zestril 10 MG ONE (02:03)
== END 2023-03-20 02:12 | disposition home or self-care (01) ==
LOC: ED 23:43
DX: E10.649 Type 1 diabetes mellitus with hypoglycemia without coma (principal); I10 Essential (primary) hypertension; E78.5 Hyperlipidemia, unspecified; Z28.310 Unvaccinated for COVID-19; Z91.141 Patient's other noncompliance with medication regimen due to financial hardship
CPT/HCPCS: 36415; 80053; 82947; 84484; 85025; 96360; 99283; A9270-GY

== ENCOUNTER 2023-06-12 13:00 | Emergency (ER) | payer BC, OTHER ==
[2023-06-12] MEDS ORDERED: Adacel Vial IM ONE ×2 (13:14→13:33)
[2023-06-12 13:30] VITALS: RESP 14; TEMP 97.6
[2023-06-12] MEDS ORDERED: XYLOCAINE 1% HCL 20 ML MDV ONE (13:33)
--- NOTE | 2023-06-12 13:45 | XRAY ---
Indication: Second/third finger laceration following injury. Comparison: None 3 view left hand demonstrates ring base 4th finger and 2nd finger bandage material limiting exam. Tiny ulna styloid well-circumscribed ossification either developmental versus old nonunited fracture. No other bony, articular, or soft tissue abnormalities.
[2023-06-12] MEDS ORDERED: XYLOCAINE 1% HCL 20 ML MDV IJ ONE (13:49)
--- NOTE | 2023-06-12 14:10 | ERPHSYRPT ---
- History of Present Illness Time Seen by Provider: 06/12/23 13:14 Source: patient Exam Limitations: no limitations Patient Subjective Stated Complaint: pt states that he smashed his finger in between 2 pieces of metal Triage Nursing Assessment: pt ambulated into the er; pt is axo x4; c/o laceration; laceration is located on 2nd knuckle on left index finger; laceration measures 2.5 cm; moderate bleeding present to left index; upon arrival finger with irrigated and cleaned; strong left radial pulse; good cap refill to left hand; no respiratory distress present; hypertensive Physician History: 33-year-old left-handed dominant male presented in the ER with chief complaint of laceration left index finger. Patient reports finger got caught between 2 pieces of metal. Applied dressing prior to arrival and bleeding is controlled. Moderate intensity sharp pain with movements. No distal numbness. Also has abrasion to the third finger. Does report having fractures/injuries to left index finger in the past. Occurred: just prior to arrival Allergies/Adverse Reactions: amoxicillin [From Augmentin] Allergy (Verified 06/12/23 13:13) Diarrhea clavulanic acid [From Augmentin] Allergy (Verified 06/12/23 13:13) Diarrhea shellfish derived Allergy (Verified 06/12/23 13:13) Swelling Home Medications: Insulin Aspart [Novolog] 15 units SQ AC 01/28/21 [History] Insulin Glargine,Hum.rec.anlog [Lantus] 28 units SQ BID 01/28/21 [History] Amlodipine Besylate 5 mg [Norvasc 5 mg] 5 mg PO DAILY 06/12/23 [History] Cetirizine HCl [Allergy] 10 mg PO DAILY 06/12/23 [History] hydroCHLOROthiazide [Hydrochlorothiazide] 12.5 mg PO DAILY 06/12/23 [History] Hx Tetanus, Diphtheria Vaccination/Date Given: Yes Hx Influenza Vaccination/Date Given: No Hx Pneumococcal Vaccination/Date Given: No Travel Risk - International Travel Have you traveled outside of the country in past 3 weeks: No - Coronavirus Screening Are you exhibiting any of the following symptoms?: No Close contact with a COVID-19 positive Pt in past 14-21 Days: No - Vaccine Status Have you recieved a Covid-19 vaccination: No - Review of Systems Constitutional: No Symptoms Ears, Nose, & Throat: No Symptoms Respiratory: No Symptoms Cardiac: No Symptoms Musculoskeletal: Injury Skin: Skin Lesions Neurological: No Symptoms - Past Medical History Pertinent Past Medical History: Yes Neurological History: Peripheral Neuropathy ENT History: No Pertinent History Cardiac History: High Cholesterol, Hypertension Respiratory History: No Pertinent History Endocrine Medical History: Diabetes Type I Musculoskeletal History: Fractures GI Medical History: Irritable Bowel History: No Pertinent History Psycho-Social History: No Pertinent History Male Reproductive Disorders: No Pertinent History Other Medical History: DKA - Past Surgical History Past Surgical History: Yes Neuro Surgical History: No Pertinent History Cardiac: No Pertinent History Respiratory: No Pertinent History Gastrointestinal: No Pertinent History Genitourinary: No Pertinent History Musculoskeletal: Orthopedic Surgery Male Surgical History: No Pertinent History Other Surgical History: tubes in ears as infant, back surgery in 1999 - spondylsis, sinus surgeries X5 growth/polyps removed, left knee surgery X2 dislocation of patella, right wrist fx with surgery, left hand surgery X2 nerve graft surgery - Social History Smoking Status: Former smoker How long have you smoked: 13 years Exposure to second hand smoke: No Drug Use: none Patient Lives Alone: No - Nursing Vital Signs Nursing Vital Signs: Initial Vital Signs Temperature 97.6 F 06/12/23 13:00 Pulse Rate 101 H 06/12/23 13:00 Respiratory Rate 14 06/12/23 13:00 Blood Pressure 151/97 06/12/23 13:00 O2 Sat by Pulse Oximetry 97 06/12/23 13:00 Pain Scale Pain Intensity 4 - Physical Exam General Appearance: no apparent distress, alert Eyes, Ears, Nose, Throat Exam: normal ENT inspection Neck Exam: normal inspection, full range of motion Cardiovascular/Respiratory Exam: normal breath sounds, regular rate/rhythm Hand Exam: bone tenderness, laceration (Almost 3 cm curved laceration left index middle phalanx with partial involvement of interphalangeal joint area. Intact distal neurovascular. Restricted movements at interphalangeal joint because of pain. Abrasion/contusion middle finger. Intact range of motion.) Neuro/Tendon Exam: normal sensation, normal tendon functions Mental Status Exam: alert, oriented x 3 Skin Exam: normal color SpO2 Interpretation: normal SpO2: 97 O2 Delivery: Room Air Procedures - Laceration/Wound Repair Left Dorsal Finger Time of Procedure: 14:10 Wound Location: Left Wound Length (cm): 3 Wound's Depth, Shape: superficial Wound Explored: clean Irrigated: Yes Hibiclens Prep: Yes Anesthesia: 1% Lidocaine Volume Anesthetic (ccs): 4 Wound Repaired With: sutures Suture Size/Type: 4-0, nylon Number of Sutures: 8 Sterile Dressing Applied?: Yes Splint Applied?: Yes Type of Splint Applied: Premade aluminum Sling Applied?: No Ordered Tests: Active Orders 24 hr Category Date Time Status HAND (MINIMUM 3 VIEWS) Stat Exams 06/12/23 13:15 Completed Medication Summary Discontinued Medications Generic Name Dose Route Start Last Admin Trade Name Fresherine PRN Reason Stop Dose Admin Diphtheria/Tetanus/Acell Pertussis 0.5 ml 06/12/23 13:14 06/12/23 13:35 Tdap --Diph,Pertuss(Acell),Tet Vac/Pf 0.5 Ml Vial IM 06/12/23 13:15 0.5 ml .ONCE ONE Administration Diphtheria/Tetanus/Acell Pertussis Confirm 06/12/23 13:33 Tdap --Diph,Pertuss(Acell),Tet Vac/Pf 0.5 Ml Vial Administered 06/12/23 13:34 Dose 0.5 ml IM .STK-MED ONE Lidocaine HCl Confirm 06/12/23 13:33 Lidocaine Hcl 1% 20 Ml Mdv 20 Ml Ml Administered 06/12/23 13:34 Dose 5 ml .ROUTE .STK-MED ONE Lidocaine HCl 5 ml 06/12/23 13:49 06/12/23 13:50 Lidocaine Hcl 1% 20 Ml Mdv 20 Ml Ml IJ 06/12/23 13:50 5 ml STAT ONE Administration - Progress Progress: improved, re-examined Progress Note: 06/12/23 14:11 33-year-old left-handed dominant male presented in the ER with chief complaint of laceration left index finger. Patient reports finger got caught between 2 pieces of metal. Applied dressing prior to arrival and bleeding is controlled. Moderate intensity sharp pain with movements. No distal numbness. Also has abrasion to the third finger. Does report having fractures/injuries to left index finger in the past. Has laceration on left index finger dorsal aspect middle phalanx with partial involvement of interphalangeal joint area skin. Restricted movements at interphalangeal joint due to pain. Distal neurovascular intact. Contusion/abrasion of left middle finger with intact range of motion. X-rays negative for fracture dislocation/foreign body. Tetanus is updated. Clean wound, do not think needs antibiotic. Laceration is repaired. Outpatient follow-up recommended. Counseled pt/family regarding: diagnosis, need for follow-up, rad results Medical Desision Making - Diagnostic Testing Diagnostic test were ordered, analyzed, and reviewed by me: Yes Radiological Interpretation: Reviewed by me - Risk of complications The pt has a mod risk of morbidity or mortality based on: Need for minor surgical intervention in patient with know risk factors - Departure Departure Disposition: Home Clinical Impression: Finger laceration, Finger contusion Condition: Stable Critical Care Time: No Referrals: NAVEEN MCKEON MD [Primary Care Provider] - Follow up with PCP 1 day Instructions: Laceration Repair With Stitches (DC) Additional Instructions: Take Tylenol/ibuprofen as needed. Intermittent ice application. Follow-up with primary care for reevaluation. Suture removal in 10 to 14 days. Avoid exertional activities. Return to ER for increasing pain, swelling, discharge, difficulty movements etc. Prescriptions: Ibuprofen 600 mg PO Q6HPRN PRN 10 Days #20 tablet PRN Reason: Pain
[2023-06-12 15:05] VITALS: BP 137/83; PULSE 97
[2023-06-12 21:37] VITALS: O2SAT 97
== END 2023-06-12 15:25 | disposition home or self-care (01) ==
LOC: ED 13:00
DX: S61.211A Laceration without foreign body of left index finger without damage to nail, initial encounter (principal); S60.032A Contusion of left middle finger without damage to nail, initial encounter; W31.82XA Contact with other commercial machinery, initial encounter; Y99.0 Civilian activity done for income or pay; E78.5 Hyperlipidemia, unspecified; E10.42 Type 1 diabetes mellitus with diabetic polyneuropathy; I10 Essential (primary) hypertension; Z79.899 Other long term (current) drug therapy; Z28.310 Unvaccinated for COVID-19
CPT/HCPCS: 12002; 73130; 90471; 90715; 96372; 99284; 99291

== ENCOUNTER 2023-10-07 17:03 | Emergency (ER) | payer BC, OTHER ==
[2023-10-07 18:12] LABS: Absolute Neutrophil Ct (ANC) 10.96 x10^3/uL (1.4-6.9); BASOPHIL % 0.3 % (0.0-0.4); Basophil (Absolute #) 0.04 x10^3/uL (0-0.4); Eosinophil % 0.2 % (0.00-5.0); Eosinophil (Absolute #) 0.02 x10^3/uL (0-0.5); Hemoglobin 12.5 g/dL (12.5-18.0); IMMATURE GRAN # 0.06 x10^3u/L (0.00-0.03); IMMATURE GRAN % 0.5 % (0.00-0.4); Lymphocyte (Absolute #) 0.96 x10^3/uL (1.0-4.6); Lymphocytes % 7.5 % (24.0-44.0); Mean Cell Volume 87.5 fL (78-100); Mean Corpuscular Hemoglobin 29.6 pg (26-32); Mean Corpuscular Hgb Concent. 33.8 g/dL (32-36); Mean Platelet Volume 10.5 fL (7.5-11.0); Monocyte (Absolute #) 0.69 x10^3/uL (0.0-1.3); Monocytes % 5.4 % (0.0-12.0); Neutrophil % 86.1 % (36.0-66.0); Platelet Count 269 x10^3/uL (150-450); Red Blood Count 4.23 x10^6/uL (4.1-5.6); Red Cell Distribution Width 11.7 % (11.5-14.0); White Blood Count 12.7 x10^3/uL (4.0-10.5)
[2023-10-07 18:13] VITALS: PULSE 85; RESP 18; TEMP 97.4; O2SAT 98
[2023-10-07 18:29] LABS: ALBUMIN 4.8 g/dL (3.5-5.0); ANION GAP 12.1 MEQ/L (5-15); BILIRUBIN,TOTAL 0.4 mg/dL (0.2-1.3); Calcium 9.4 mg/dL (8.4-10.2); Creatinine 1 0.74 mg/dL (0.66-1.25); EST GLOMERULAR FILTRATION RATE 121.9 ML/MIN; Potassium 3.8 mmol/L (3.5-5.1); Total Protein 8.2 g/dL (6.3-8.2)
[2023-10-07 18:44] LABS: Group A Strep NOT DETECTED (NEGATIVE)
[2023-10-07 18:54] LABS: INFLUENZA A NEGATIVE (NEGATIVE); INFLUENZA B NEGATIVE (NEGATIVE); RESPIRATORY SYNCTIAL VIRUS NEGATIVE (NEGATIVE); SARS-CoV-2 Xpert Express NEGATIVE (NEGATIVE)
--- NOTE | 2023-10-07 19:10 | ERPHSYRPT ---
- History of Present Illness Time Seen by Provider: 10/07/23 18:20 Source: patient Exam Limitations: no limitations Patient Subjective Stated Complaint: Vomiting Triage Nursing Assessment: fff Physician History: Patient is a 33-year-old male presents to our ED for evaluation of possible DKA. Patient states he has been feeling unwell. No specific complaints. No chest pain or shortness of breath. No nausea vomiting or diaphoresis. Symptoms are mild to moderate in intensity. No specific worsening or improving factors. Patient voices no other complaints or concerns at this time. Portions of this note were created with voice recognition technology. There may be grammatical, spelling, punctuation or sound alike errors Timing/Duration: today Severity: moderate Modifying Factors: Improves With: nothing Associated Symptoms: denies symptoms Allergies/Adverse Reactions: amoxicillin [From Augmentin] Allergy (Verified 10/07/23 17:36) Diarrhea clavulanic acid [From Augmentin] Allergy (Verified 10/07/23 17:36) Diarrhea shellfish derived Allergy (Verified 10/07/23 17:36) Swelling Home Medications: Insulin Aspart [Novolog] 15 units SQ AC 01/28/21 [History] Insulin Glargine,Hum.rec.anlog [Lantus] 28 units SQ BID 01/28/21 [History] Amlodipine Besylate 5 mg [Norvasc 5 mg] 5 mg PO DAILY 06/12/23 [History] Cetirizine HCl [Allergy] 10 mg PO DAILY 06/12/23 [History] hydroCHLOROthiazide [Hydrochlorothiazide] 12.5 mg PO DAILY 06/12/23 [History] Hx Tetanus, Diphtheria Vaccination/Date Given: Yes Hx Influenza Vaccination/Date Given: No Hx Pneumococcal Vaccination/Date Given: No Immunizations Up to Date: Yes Travel Risk - International Travel Have you traveled outside of the country in past 3 weeks: No - Coronavirus Screening Are you exhibiting any of the following symptoms?: No Close contact with a COVID-19 positive Pt in past 14-21 Days: No - Vaccine Status Have you recieved a Covid-19 vaccination: No - Review of Systems Constitutional: No Symptoms, No Fever, No Chills Eyes: No Symptoms Ears, Nose, & Throat: No Symptoms Respiratory: No Symptoms, No Cough, No Dyspnea Cardiac: No Symptoms, No Chest Pain, No Edema, No Syncope Abdominal/Gastrointestinal: No Symptoms, No Abdominal Pain, No Nausea, No Vom iting, No Diarrhea Genitourinary Symptoms: No Symptoms, No Dysuria Musculoskeletal: No Symptoms, No Back Pain, No Neck Pain Skin: No Symptoms, No Rash Neurological: No Symptoms, No Dizziness, No Focal Weakness, No Sensory Changes Psychological: No Symptoms Endocrine: No Symptoms Hematologic/Lymphatic: No Symptoms Immunological/Allergic: No Symptoms All Other Systems: Reviewed and Negative - Past Medical History Pertinent Past Medical History: Yes Neurological History: Peripheral Neuropathy ENT History: No Pertinent History Cardiac History: High Cholesterol, Hypertension Respiratory History: No Pertinent History Endocrine Medical History: Diabetes Type I Musculoskeletal History: Fractures GI Medical History: Irritable Bowel History: No Pertinent History Psycho-Social History: No Pertinent History Male Reproductive Disorders: No Pertinent History Other Medical History: DKA - Past Surgical History Past Surgical History: Yes Neuro Surgical History: No Pertinent History Cardiac: No Pertinent History Respiratory: No Pertinent History Gastrointestinal: No Pertinent History Genitourinary: No Pertinent History Musculoskeletal: Orthopedic Surgery Male Surgical History: No Pertinent History Other Surgical History: tubes in ears as , back surgery in 1999 - spondylsis, sinus surgeries X5 growth/polyps removed, left knee surgery X2 dislocation of patella, right wrist fx with surgery, left hand surgery X2 nerve graft surgery - Social History Smoking Status: Former smoker How long have you smoked: 13 years Exposure to second hand smoke: No Drug Use: none Patient Lives Alone: No - Nursing Vital Signs Nursing Vital Signs: Initial Vital Signs Temperature 97.4 F 10/07/23 18:10 Pulse Rate 85 10/07/23 18:10 Respiratory Rate 18 10/07/23 18:10 Blood Pressure 117/72 10/07/23 18:10 O2 Sat by Pulse Oximetry 98 10/07/23 18:10 Pain Scale Pain Intensity 5 - Physical Exam General Appearance: no apparent distress, alert Eye Exam: PERRL/EOMI, eyes nml inspection Ears, Nose, Throat Exam: normal ENT inspection, TMs normal, pharynx normal, moist mucous membranes Neck Exam: normal inspection, non-tender, supple, full range of motion Respiratory Exam: normal breath sounds, lungs clear, No respiratory distress Cardiovascular Exam: regular rate/rhythm, normal heart sounds, normal peripheral pulses Gastrointestinal/Abdomen Exam: soft, normal bowel sounds, No tenderness, No mass Back Exam: normal inspection, normal range of motion, No CVA tenderness, No vertebral tenderness Extremity Exam: normal inspection, normal range of motion, pelvis stable Neurologic Exam: alert, oriented x 3, cooperative, normal mood/affect, nml cerebellar function, nml station & gait, sensation nml, No motor deficits Skin Exam: normal color, warm, dry, No rash Lymphatic Exam: No adenopathy SpO2 Interpretation: normal SpO2: 98 O2 Delivery: Room Air - Course Nursing assessment & vital signs reviewed: Yes Ordered Tests: Active Orders 24 hr Category Date Time Status CBC W DIFF Stat Lab 10/07/23 17:47 Completed CMP Stat Lab 10/07/23 18:00 Completed POCT GLUCOSE Stat Lab 10/07/23 17:50 Completed Lab/Rad Data: Laboratory Result Diagrams 10/07/23 17:47 10/07/23 18:00 Laboratory Results 10/07/23 10/07/23 10/07/23 Range/Units Unknown 18:00 17:50 WBC (4.0-10.5) x10^3/uL RBC (4.1-5.6) x10^6/uL Hgb (12.5-18.0) g/dL Hct (42-50) % MCV (78-100) fL MCH (26-32) pg MCHC (32-36) g/dL RDW (11.5-14.0) % Plt Count (150-450) x10^3/uL MPV (7.5-11.0) fL Gran % (36.0-66.0) % Immature Gran % (Auto) (0.00-0.4) % Nucleat RBC Rel Count (0.00-0.1) % Eos # (Auto) (0-0.5) x10^3/uL Immature Gran # (Auto) (0.00-0.03) x10^3u/L Absolute Lymphs (auto) (1.0-4.6) x10^3/uL Absolute Monos (auto) (0.0-1.3) x10^3/uL Absolute Nucleated RBC (0.00-0.01) x10^3u/L Lymphocytes % (24.0-44.0) % Monocytes % (0.0-12.0) % Eosinophils % (0.00-5.0) % Basophils % (0.0-0.4) % Absolute Granulocytes (1.4-6.9) x10^3/uL Basophils # (0-0.4) x10^3/uL Sodium 134 L (137-145) mmol/L Potassium 3.8 (3.5-5.1) mmol/L Chloride 96 L (98-107) mmol/L Carbon Dioxide 30 (22-30) mmol/L Anion Gap 12.1 (5-15) MEQ/L BUN 21 H (9-20) mg/dL Creatinine 0.74 (0.66-1.25) mg/dL Estimated GFR 121.9 ML/MIN Glucose 58 L (74-106) mg/dL POC Glucometer 55 L (74 to 106) mg/dL Calcium 9.4 (8.4-10.2) mg/dL Total Bilirubin 0.40 (0.2-1.3) mg/dL AST 90 H (17-59) U/L ALT 39 (0-50) U/L Alkaline Phosphatase 100 (38-126) U/L Serum Total Protein 8.2 (6.3-8.2) g/dL Albumin 4.8 (3.5-5.0) g/dL Influenza Type A Ag NEGATIVE (NEGATIVE) Influenza Type B Ag NEGATIVE (NEGATIVE) RSV (PCR) NEGATIVE (NEGATIVE) SARS-CoV-2 (PCR) NEGATIVE (NEGATIVE) Group A Strep Antibody NOT DETECTED (NEGATIVE) 10/07/23 Range/Units 17:47 WBC 12.7 H (4.0-10.5) x10^3/uL RBC 4.23 (4.1-5.6) x10^6/uL Hgb 12.5 (12.5-18.0) g/dL Hct 37.0 L (42-50) % MCV 87.5 (78-100) fL MCH 29.6 (26-32) pg MCHC 33.8 (32-36) g/dL RDW 11.7 (11.5-14.0) % Plt Count 269 (150-450) x10^3/uL MPV 10.5 (7.5-11.0) fL Gran % 86.1 H (36.0-66.0) % Immature Gran % (Auto) 0.5 H (0.00-0.4) % Nucleat RBC Rel Count 0.0 (0.00-0.1) % Eos # (Auto) 0.02 (0-0.5) x10^3/uL Immature Gran # (Auto) 0.06 H (0.00-0.03) x10^3u/L Absolute Lymphs (auto) 0.96 L (1.0-4.6) x10^3/uL Absolute Monos (auto) 0.69 (0.0-1.3) x10^3/uL Absolute Nucleated RBC 0.00 (0.00-0.01) x10^3u/L Lymphocytes % 7.5 L (24.0-44.0) % Monocytes % 5.4 (0.0-12.0) % Eosinophils % 0.2 (0.00-5.0) % Basophils % 0.3 (0.0-0.4) % Absolute Granulocytes 10.96 H (1.4-6.9) x10^3/uL Basophils # 0.04 (0-0.4) x10^3/uL Sodium (137-145) mmol/L Potassium (3.5-5.1) mmol/L Chloride (98-107) mmol/L Carbon Dioxide (22-30) mmol/L Anion Gap (5-15) MEQ/L BUN (9-20) mg/dL Creatinine (0.66-1.25) mg/dL Estimated GFR ML/MIN Glucose (74-106) mg/dL POC Glucometer (74 to 106) mg/dL Calcium (8.4-10.2) mg/dL Total Bilirubin (0.2-1.3) mg/dL AST (17-59) U/L ALT (0-50) U/L Alkaline Phosphatase (38-126) U/L Serum Total Protein (6.3-8.2) g/dL Albumin (3.5-5.0) g/dL Influenza Type A Ag (NEGATIVE) Influenza Type B Ag (NEGATIVE) RSV (PCR) (NEGATIVE) SARS-CoV-2 (PCR) (NEGATIVE) Group A Strep Antibody (NEGATIVE) - Progress Progress: improved Progress Note: 33-year-old male history of type 1 diabetes presents to our ED for evaluation of feeling unwell. Patient concerned that he was in DKA. Patient is not in DKA. Blood glucose is 55. Patient was given something to eat. Patient asymptomatic at this time. CBC CMP essentially nonremarkable. COVID-negative RSV flu negative. Group A strep negative as well. No indication for further workup valeria l discharge home. Patient agrees to follow-up with primary care doctor within 48 hours for evaluation. Portions of this note were created with voice recognition technology. There may be grammatical, spelling, punctuation or sound alike errors Complexity of problem addressed is moderate acute complicated No critical care time Complex of data reviewed and analyzed is moderate. Test ordered test reviewed. Results analyzed and correlated clinically with history and physical exam. Risk of complication and or risk of morbidity/mortality of patient management is moderate Vital stable. Time spent to discharge patient is approximately 10 minutes. Plan of care established for shared decision making. No social determinants of health present impede follow-up. Portions of this note were created with voice recognition technology. There may be grammatical, spelling, punctuation or sound alike errors 10/07/23 19:34 Counseled pt/family regarding: lab results, diagnosis, need for follow-up, rad results - Departure Departure Disposition: Home Clinical Impression: Encounter for medical screening examination, Malaise Condition: Stable Critical Care Time: No Referrals: NAVEEN MCKEON MD [Primary Care Provider] - Follow up/PCP as directed Additional Instructions: Discharge/Care Plan FELIX OLMOS AMADEO was seen on 10/07/23 in the Emergency Room. The patient was counseled regarding Diagnosis,Lab results, Imaging studies, need for follow up and when to return to the Emergency Room. Prescriptions given: Discharge Note I have spoken with the patient and/or caregivers. I have explained the patient's condition, diagnosis and treatment plan based on the information available to me at this time. I have answered the patient's and/or caregiver's questions and addressed any concerns. The patient and/or caregivers have as good understanding of the patient's diagnosis, condition and treatment plan as can be expected at this point. The vital signs have been stable. The patient's condition is stable and appropriate for discharge from the emergency department. The patient will pursue further outpatient evaluation with the primary care physician or other designated or consulting physician as outlined in the discharge instructions. The patient and/or caregivers are agreeable to this plan of care and follow-up instructions have been explained in detail. The patient and/or caregivers have received these instruction. The patient/and or caregivers are aware that any significant change in condition or worsening of symptoms should prompt an immediate return to this or the closest emergency department or call 911.
[2023-10-07 19:32] VITALS: BP 121/72
== END 2023-10-07 19:37 | disposition home or self-care (01) ==
LOC: ED 17:03
DX: Z71.1 Person with feared health complaint in whom no diagnosis is made (principal); R53.81 Other malaise; E78.5 Hyperlipidemia, unspecified; I10 Essential (primary) hypertension; E10.42 Type 1 diabetes mellitus with diabetic polyneuropathy; Z79.4 Long term (current) use of insulin; Z79.899 Other long term (current) drug therapy; Z28.310 Unvaccinated for COVID-19
CPT/HCPCS: 0241U; 36415; 80053; 82947; 85025; 87651; 99282

== ENCOUNTER 2023-12-03 14:34 | Emergency (ER) | payer BC ==
--- NOTE | 2023-12-03 14:47 | ERPHSYRPT ---
- History of Present Illness Time Seen by Provider: 12/03/23 14:47 Source: patient Exam Limitations: no limitations Physician History: This is a 33-year-old white male who is a diabetic and has had DKA in the past and presents with headache, body aches, sore throat, vomiting diarrhea and abdominal pain that began at approximately 4:00 this morning. Patient's primary care provider is Dr. Mckeon. Patient has a history of hypertension and is taking 3 antihypertensive medication including hydrochlorothiazide, lisinopril and amlodipine. He also is an insulin-dependent diabetic. Patient denies chest pain. Patient denies shortness of breath. He has no known exposure to individuals who have been diagnosed with viral illness recently. Timing/Duration: today Severity: moderate Associated Symptoms: nausea, vomiting, abdominal pain, headaches, weakness, other (Sore throat, diarrhea and bodyaches) Allergies/Adverse Reactions: amoxicillin [From Augmentin] Allergy (Verified 12/03/23 14:53) Diarrhea clavulanic acid [From Augmentin] Allergy (Verified 12/03/23 14:53) Diarrhea shellfish derived Allergy (Verified 12/03/23 14:53) Swelling Home Medications: Insulin Aspart [Novolog] 15 units SQ AC 01/28/21 [History] Insulin Glargine,Hum.rec.anlog [Lantus] 28 units SQ BID 01/28/21 [History] Amlodipine Besylate 5 mg [Norvasc 5 mg] 5 mg PO DAILY 06/12/23 [History] Cetirizine HCl [Allergy] 10 mg PO DAILY 06/12/23 [History] hydroCHLOROthiazide [Hydrochlorothiazide] 12.5 mg PO DAILY 06/12/23 [History] Hx Tetanus, Diphtheria Vaccination/Date Given: Yes Hx Influenza Vaccination/Date Given: No Hx Pneumococcal Vaccination/Date Given: No Travel Risk - International Travel Have you traveled outside of the country in past 3 weeks: No - Coronavirus Screening Are you exhibiting any of the following symptoms?: Yes Symptoms: Vomiting/Diarrhea, Headaches/Body Aches/Fatigue Close contact with a COVID-19 positive Pt in past 14-21 Days: No - Vaccine Status Have you recieved a Covid-19 vaccination: No - Review of Systems Constitutional: Weakness Eyes: No Symptoms Ears, Nose, & Throat: No Symptoms Respiratory: No Symptoms Cardiac: No Symptoms Abdominal/Gastrointestinal: Abdominal Pain, Nausea, Vomiting, Diarrhea, Appetite Changes Genitourinary Symptoms: No Symptoms Musculoskeletal: Arthralgias, Myalgias Skin: No Symptoms Neurological: No Symptoms Psychological: No Symptoms Endocrine: No Symptoms Hematologic/Lymphatic: No Symptoms Immunological/Allergic: No Symptoms All Other Systems: Reviewed and Negative - Past Medical History Pertinent Past Medical History: Yes Neurological History: Peripheral Neuropathy ENT History: No Pertinent History Cardiac History: High Cholesterol, Hypertension Respiratory History: No Pertinent History Endocrine Medical History: Diabetes Type I Musculoskeletal History: Fractures GI Medical History: Irritable Bowel History: No Pertinent History Psycho-Social History: No Pertinent History Male Reproductive Disorders: No Pertinent History Other Medical History: DKA - Past Surgical History Past Surgical History: Yes Neuro Surgical History: No Pertinent History Cardiac: No Pertinent History Respiratory: No Pertinent History Gastrointestinal: No Pertinent History Genitourinary: No Pertinent History Musculoskeletal: Orthopedic Surgery Male Surgical History: No Pertinent History Other Surgical History: tubes in ears as infant, back surgery in 1999 - spondylsis, sinus surgeries X5 growth/polyps removed, left knee surgery X2 dislocation of patella, right wrist fx with surgery, left hand surgery X2 nerve graft surgery - Social History Smoking Status: Former smoker How long have you smoked: 13 years Exposure to second hand smoke: No Drug Use: none Patient Lives Alone: No - Nursing Vital Signs Nursing Vital Signs: Initial Vital Signs Temperature 98.2 F 12/03/23 14:53 Pulse Rate 101 H 12/03/23 14:53 Respiratory Rate 20 12/03/23 14:53 Blood Pressure 181/99 12/03/23 14:53 O2 Sat by Pulse Oximetry 97 12/03/23 14:53 Pain Scale Pain Intensity 8 - Physical Exam General Appearance: mild distress, alert, anxiety, thin Eye Exam: PERRL/EOMI, eyes nml inspection Ears, Nose, Throat Exam: dry mucous membranes Neck Exam: normal inspection, non-tender, supple, full range of motion Respiratory Exam: normal breath sounds, lungs clear, airway intact, No chest tenderness, No respiratory distress Cardiovascular Exam: tachycardia Gastrointestinal/Abdomen Exam: soft, normal bowel sounds, No tenderness Rectal Exam: not done Back Exam: normal inspection, normal range of motion, No CVA tenderness, No vertebral tenderness Extremity Exam: normal inspection, normal range of motion, pelvis stable Neurologic Exam: alert, oriented x 3, cooperative, filenet architect II-XII nml as tested, normal mood/affect, nml cerebellar function, nml station & gait, sensation nml Skin Exam: normal color, warm, dry Lymphatic Exam: No adenopathy SpO2 Interpretation: normal O2 Delivery: Room Air - Course Nursing assessment & vital signs reviewed: Yes EKG Interpreted by Me: RATE (100), Sinus Tach, NORMAL AXIS, NORMAL INTERVALS, NORMAL QRS, NORMAL ST-T, Other (No acute ischemic changes on today's twelve-lead EKG.) Ordered Tests: Active Orders 24 hr Category Date Time Status Electric Bath Attendant STAT Care 12/03/23 14:59 Active EKG-ER Only STAT Care 12/03/23 14:58 Active IV Insertion STAT Care 12/03/23 14:58 Active Pulse Oximetry (ED) STAT Care 12/03/23 14:58 Active ABDOMEN AND PELVIS W/0 CONTRAS [CT] Stat Exams 12/03/23 15:06 Completed AMYLASE Stat Lab 12/03/23 15:13 Completed BLOOD CULTURE Stat Lab 12/03/23 15:20 Received BMP Stat Lab 12/03/23 18:22 Received CBC W DIFF Stat Lab 12/03/23 15:05 Completed CMP Stat Lab 12/03/23 15:05 Completed CULTURE,URINE Stat Lab 12/03/23 15:01 Received ETHYL ALCOHOL Stat Lab 12/03/23 15:05 Completed LIPASE Stat Lab 12/03/23 15:13 Completed Lactic Acid Urgent Lab 12/03/23 14:58 Completed MAGNESIUM Stat Lab 12/03/23 15:05 Completed MONO SCREEN Stat Lab 12/03/23 15:05 Completed UA W/RFX UR CULTURE Stat Lab 12/03/23 15:01 Completed Medication Summary Discontinued Medications Generic Name Dose Route Start Last Admin Trade Name Freq PRN Reason Stop Dose Admin Hydromorphone HCl 1 mg 12/03/23 15:06 12/03/23 15:14 Hydromorphone 1 Mg/1ml Inj IV 12/03/23 15:07 1 mg STAT ONE Administration Hydromorphone HCl Confirm 12/03/23 15:11 Hydromorphone 1 Mg/1ml Inj Administered 12/03/23 15:12 Dose 1 mg .ROUTE .STK-MED ONE Sodium Chloride 1,000 mls @ 999 mls/hr 12/03/23 14:58 12/03/23 16:14 Sodium Chloride 0.9% 1000 Ml IV 12/03/23 15:58 Infused .Q1H1M STA Infusion Sodium Chloride Confirm 12/03/23 15:03 Sodium Chloride 0.9% 1000 Ml Administered 12/03/23 15:04 Dose 1,000 mls @ ud .ROUTE .STK-MED ONE Sodium Chloride 1,000 mls @ 999 mls/hr 12/03/23 16:40 12/03/23 18:00 Sodium Chloride 0.9% 1000 Ml IV 12/03/23 17:40 Infused .Q1H1M STA Infusion Sodium Chloride Confirm 12/03/23 16:44 Sodium Chloride 0.9% 1000 Ml Administered 12/03/23 16:45 Dose 1,000 mls @ ud .ROUTE .STK-MED ONE Levofloxacin/Dextrose 500 mg in 100 mls @ 100 mls/hr 12/03/23 17:01 12/03/23 17:53 Levofloxacin 500mg/100ml D5w IV 12/03/23 18:00 100 mls/hr STAT STA 100 mls/hr Administration Levofloxacin/Dextrose Confirm 12/03/23 17:44 Levofloxacin 500mg/100ml D5w Administered 12/03/23 17:45 Dose 500 mg in 100 mls @ ud IV .STK-MED ONE Ondansetron HCl 4 mg 12/03/23 14:58 12/03/23 15:04 Ondansetron Hcl 4 Mg/2 Ml Vial IV 12/03/23 14:59 4 mg STAT ONE Administration Ondansetron HCl Confirm 12/03/23 15:03 Ondansetron Hcl 4 Mg/2 Ml Vial Administered 12/03/23 15:04 Dose 4 mg .ROUTE .STK-MED ONE Pantoprazole Sodium 40 mg 12/03/23 16:40 12/03/23 16:45 Pantoprazole 40 Mg Vial IV 12/03/23 16:41 40 mg STAT ONE Administration Pantoprazole Sodium Confirm 12/03/23 16:43 Pantoprazole 40 Mg Vial Administered 12/03/23 16:44 Dose 40 mg IV .STK-MED ONE Prochlorperazine Edisylate 5 mg 12/03/23 16:40 12/03/23 16:45 Prochlorperazine Edisylate 10 Mg/2 Ml Vial IV 12/03/23 16:41 5 mg STAT ONE Administration Prochlorperazine Edisylate Confirm 12/03/23 16:44 Prochlorperazine Edisylate 10 Mg/2 Ml Vial Administered 12/03/23 16:45 Dose 10 mg .ROUTE .K-MED ONE Lab/Rad Data: Laboratory Result Diagrams 12/03/23 15:05 12/03/23 15:05 Laboratory Results 12/03/23 12/03/23 12/03/23 Range/Units 15:25 15:25 15:13 WBC (4.0-10.5) x10^3/uL RBC (4.1-5.6) x10^6/uL Hgb (12.5-18.0) g/dL Hct (42-50) % MCV (78-100) fL MCH (26-32) pg MCHC (32-36) g/dL RDW (11.5-14.0) % Plt Count (150-450) x10^3/uL MPV (7.5-11.0) fL Gran % (36.0-66.0) % Immature Gran % (Auto) (0.00-0.4) % Nucleat RBC Rel Count (0.00-0.1) % Eos # (Auto) (0-0.5) x10^3/uL Immature Gran # (Auto) (0.00-0.03) x10^3u/L Absolute Lymphs (auto) (1.0-4.6) x10^3/uL Absolute Monos (auto) (0.0-1.3) x10^3/uL Absolute Nucleated RBC (0.00-0.01) x10^3u/L Lymphocytes % (24.0-44.0) % Monocytes % (0.0-12.0) % Eosinophils % (0.00-5.0) % Basophils % (0.0-0.4) % Absolute Granulocytes (1.4-6.9) x10^3/uL Basophils # (0-0.4) x10^3/uL Sodium (137-145) mmol/L Potassium (3.5-5.1) mmol/L Chloride (98-107) mmol/L Carbon Dioxide (22-30) mmol/L Anion Gap (5-15) MEQ/L BUN (9-20) mg/dL Creatinine (0.66-1.25) mg/dL Estimated GFR ML/MIN Glucose (74-106) mg/dL Lactic Acid (0.4-2.0) Calcium (8.4-10.2) mg/dL Magnesium (1.6-2.3) mg/dL Total Bilirubin (0.2-1.3) mg/dL AST (17-59) U/L ALT (0-50) U/L Alkaline Phosphatase (38-126) U/L Serum Total Protein (6.3-8.2) g/dL Albumin (3.5-5.0) g/dL Amylase 56 (30-110) U/L Lipase 52 (23-300) U/L Urine Color (Yellow) Urine Appearance (Clear) Urine pH (4.6-8.0) Ur Specific [place] (1.005-1.030) Urine Protein (Negative) Urine Glucose (UA) (Negative) mg/dL Urine Ketones (Negative) Urine Blood (Negative) Urine Nitrite (Negative) Urine Bilirubin (Negative) Urine Urobilinogen (0.2) mg/dL Ur Leukocyte Esterase (Negative) U Hyaline Cast (Auto) (0-2) /LPF Urine Microscopic RBC (0-5) /HPF Urine Microscopic WBC (0-5) /HPF Ur Epithelial Cells (None Seen) /HPF Urine Bacteria (None Seen) /HPF Urine Culture Reflexed (NO) Ethyl Alcohol (0-10) mg/dL Monoscreen (NEGATIVE) Influenza Type A Ag NEGATIVE (NEGATIVE) Influenza Type B Ag NEGATIVE (NEGATIVE) RSV (PCR) NEGATIVE (NEGATIVE) SARS-CoV-2 (PCR) NEGATIVE (NEGATIVE) Group A Strep Antibody NOT DETECTED (NEGATIVE) 12/03/23 12/03/23 12/03/23 Range/Units 15:05 15:05 15:05 WBC 16.8 H (4.0-10.5) x10^3/uL RBC 4.60 (4.1-5.6) x10^6/uL Hgb 13.7 (12.5-18.0) g/dL Hct 40.2 L (42-50) % MCV 87.4 (78-100) fL MCH 29.8 (26-32) pg MCHC 34.1 (32-36) g/dL RDW 11.9 (11.5-14.0) % Plt Count 275 (150-450) x10^3/uL MPV 11.3 H (7.5-11.0) fL Gran % 92.4 H (36.0-66.0) % Immature Gran % (Auto) 0.3 (0.00-0.4) % Nucleat RBC Rel Count 0.0 (0.00-0.1) % Eos # (Auto) 0 (0-0.5) x10^3/uL Immature Gran # (Auto) 0.05 H (0.00-0.03) x10^3u/L Absolute Lymphs (auto) 0.73 L (1.0-4.6) x10^3/uL Absolute Monos (auto) 0.46 (0.0-1.3) x10^3/uL Absolute Nucleated RBC 0.00 (0.00-0.01) x10^3u/L Lymphocytes % 4.3 L (24.0-44.0) % Monocytes % 2.7 (0.0-12.0) % Eosinophils % 0.0 (0.00-5.0) % Basophils % 0.3 (0.0-0.4) % Absolute Granulocytes 15.51 H (1.4-6.9) x10^3/uL Basophils # 0.05 (0-0.4) x10^3/uL Sodium 137 (137-145) mmol/L Potassium 4.4 (3.5-5.1) mmol/L Chloride 97 L (98-107) mmol/L Carbon Dioxide 26 (22-30) mmol/L Anion Gap 19.1 H (5-15) MEQ/L BUN 36 H (9-20) mg/dL Creatinine 1.53 H (0.66-1.25) mg/dL Estimated GFR 60.8 ML/MIN Glucose 285 H (74-106) mg/dL Lactic Acid (0.4-2.0) Calcium 9.9 (8.4-10.2) mg/dL Magnesium 1.8 (1.6-2.3) mg/dL Total Bilirubin 0.80 (0.2-1.3) mg/dL AST 34 (17-59) U/L ALT 31 (0-50) U/L Alkaline Phosphatase 125 (38-126) U/L Serum Total Protein 8.5 H (6.3-8.2) g/dL Albumin 5.4 H (3.5-5.0) g/dL Amylase (30-110) U/L Lipase (23-300) U/L Urine Color (Yellow) Urine Appearance (Clear) Urine pH (4.6-8.0) Ur Specific [place] (1.005-1.030) Urine Protein (Negative) Urine Glucose (UA) (Negative) mg/dL Urine Ketones (Negative) Urine Blood (Negative) Urine Nitrite (Negative) Urine Bilirubin (Negative) Urine Urobilinogen (0.2) mg/dL Ur Leukocyte Esterase (Negative) U Hyaline Cast (Auto) (0-2) /LPF Urine Microscopic RBC (0-5) /HPF Urine Microscopic WBC (0-5) /HPF Ur Epithelial Cells (None Seen) /HPF Urine Bacteria (None Seen) /HPF Urine Culture Reflexed (NO) Ethyl Alcohol < 10 (0-10) mg/dL Monoscreen POSITIVE (NEGATIVE) Influenza Type A Ag (NEGATIVE) Influenza Type B Ag (NEGATIVE) RSV (PCR) (NEGATIVE) SARS-CoV-2 (PCR) (NEGATIVE) Group A Strep Antibody (NEGATIVE) 12/03/23 12/03/23 Range/Units 15:01 14:58 WBC (4.0-10.5) x10^3/uL RBC (4.1-5.6) x10^6/uL Hgb (12.5-18.0) g/dL Hct (42-50) % MCV (78-100) fL MCH (26-32) pg MCHC (32-36) g/dL RDW (11.5-14.0) % Plt Count (150-450) x10^3/uL MPV (7.5-11.0) fL Gran % (36.0-66.0) % Immature Gran % (Auto) (0.00-0.4) % Nucleat RBC Rel Count (0.00-0.1) % Eos # (Auto) (0-0.5) x10^3/uL Immature Gran # (Auto) (0.00-0.03) x10^3u/L Absolute Lymphs (auto) (1.0-4.6) x10^3/uL Absolute Monos (auto) (0.0-1.3) x10^3/uL Absolute Nucleated RBC (0.00-0.01) x10^3u/L Lymphocytes % (24.0-44.0) % Monocytes % (0.0-12.0) % Eosinophils % (0.00-5.0) % Basophils % (0.0-0.4) % Absolute Granulocytes (1.4-6.9) x10^3/uL Basophils # (0-0.4) x10^3/uL Sodium (137-145) mmol/L Potassium (3.5-5.1) mmol/L Chloride (98-107) mmol/L Carbon Dioxide (22-30) mmol/L Anion Gap (5-15) MEQ/L BUN (9-20) mg/dL Creatinine (0.66-1.25) mg/dL Estimated GFR ML/MIN Glucose (74-106) mg/dL Lactic Acid 1.6 (0.4-2.0) Calcium (8.4-10.2) mg/dL Magnesium (1.6-2.3) mg/dL Total Bilirubin (0.2-1.3) mg/dL AST (17-59) U/L ALT (0-50) U/L Alkaline Phosphatase (38-126) U/L Serum Total Protein (6.3-8.2) g/dL Albumin (3.5-5.0) g/dL Amylase (30-110) U/L Lipase (23-300) U/L Urine Color Dark Yellow (Yellow) Urine Appearance Cloudy A (Clear) Urine pH 5.0 (4.6-8.0) Ur Specific [place] 1.025 (1.005-1.030) Urine Protein 300 A (Negative) Urine Glucose (UA) >=1000 A (Negative) mg/dL Urine Ketones Trace A (Negative) Urine Blood Negative (Negative) Urine Nitrite Negative (Negative) Urine Bilirubin Negative (Negative) Urine Urobilinogen 0.2 (0.2) mg/dL Ur Leukocyte Esterase Negative (Negative) U Hyaline Cast (Auto) >50 A (0-2) /LPF Urine Microscopic RBC 6-10 A (0-5) /HPF Urine Microscopic WBC 6-10 A (0-5) /HPF Ur Epithelial Cells Moderate A (None Seen) /HPF Urine Bacteria None Seen (None Seen) /HPF Urine Culture Reflexed YES (NO) Ethyl Alcohol (0-10) mg/dL Monoscreen (NEGATIVE) Influenza Type A Ag (NEGATIVE) Influenza Type B Ag (NEGATIVE) RSV (PCR) (NEGATIVE) SARS-CoV-2 (PCR) (NEGATIVE) Group A Strep Antibody (NEGATIVE) - Progress Progress: improved Progress Note: 12/03/23 15:11 This patient's medical issue is 1 of moderate to high complexity. Level of complexity and the workup performed is based on review of the patient's past medical history, review the patient's medication list, review the patient drug allergy list, history of present illness and physical findings on examination. The workup includes placement of intravenous line, infusion of normal saline solution, infusion of Protonix, infusion of Zofran, infusion of Dilaudid 1 mg, lactic acid, magnesium level, CBC, CMP, amylase and lipase levels, CT scan of the abdomen pelvis, alcohol level, urinalysis. 12/03/23 16:47 I interpreted the patient's laboratory data results. Patient has a leukocytosis, likely secondary to his UTI and positive mono screening as well as multiple episodes of vomiting since this morning. I do not believe the patient actually has DKA. He does have hyperglycemia but his carbon dioxide is within normal limits and his urine shows only trace ketones. He is dehydrated. We will rehydrate him well, provide him with intravenous antibiotic and reassess. CT scan of the abdomen pelvis was interpreted by the radiologist and I reviewed the impression. The impression states stable L5-S1 degenerative disc space narrowing with L5 spondylolysis. The remainder of the CT scan of the abdomen pelvis without contrast is normal. There is normal appendix. The aorta is unremarkable. 12/03/23 17:17 Patient states that he is feeling much improved. He still has nausea but it is better than when he came in. He states he would like to go home if at all possible. 12/03/23 18:51 Patient states he is continuing to improve. He is tolerating clear liquids. He wants to go home. We are awaiting the BMP results. Counseled pt/family regarding: lab results, diagnosis, rad results Medical Desision Making - Diagnostic Testing Diagnostic test were ordered, analyzed, and reviewed by me: Yes Radiological Interpretation: Reviewed by me, Teleradiologist Report - Risk of complications The pt has a mod risk of morbidity or mortality based on: Need for prescription drug management - Departure Departure Disposition: Home Clinical Impression: UTI (urinary tract infection), Hyperglycemia, Dehydration, Mononucleosis Condition: Stable Critical Care Time: No Referrals: NAVEEN MCKEON MD [Primary Care Provider] - Follow up/PCP as directed Additional Instructions: Drink plenty of clear liquids before advancing your diet to a diabetic diet. Monitor your blood sugars closely and treat accordingly. Take your antibiotics as prescribed. Call your primary care provider tomorrow, 12/04/2023, to make arranges for follow-up appointment for further evaluation management. Prescriptions: Prochlorperazine Maleate 5 mg* [Compazine 5 MG] 5 mg PO Q8H PRN PRN #9 tablet MDD 3 PRN Reason: Nausea/Vomiting Ciprofloxacin [Cipro 500 MG] 500 mg PO BID #14 tablet
[2023-12-03 14:59] VITALS: TEMP 98.2
[2023-12-03] MEDS ORDERED: Sodium Chloride 0.9% 1000 ML 1,000 ML ONE ×2 (15:03→16:44)
[2023-12-03] MEDS ORDERED: Zofran 4 MG/2 ML VIAL ONE (15:03)
[2023-12-03] MEDS: Sodium Chloride 0.9% 1000 ML 1,000 ML IV STA ×2 (15:04→16:44)
[2023-12-03] MEDS: Zofran 4 MG/2 ML VIAL IV ONE (15:04)
[2023-12-03] MEDS ORDERED: Hydromorphone 1 mg/ml Injection ONE (15:11)
[2023-12-03] MEDS: Hydromorphone 1 mg/ml Injection IV ONE (15:14)
[2023-12-03 15:27] LABS: Absolute Neutrophil Ct (ANC) 15.51 x10^3/uL (1.4-6.9); BASOPHIL % 0.3 % (0.0-0.4); Basophil (Absolute #) 0.05 x10^3/uL (0-0.4); Eosinophil (Absolute #) 0 x10^3/uL (0-0.5); Hematocrit 40.2 % (42-50); Hemoglobin 13.7 g/dL (12.5-18.0); IMMATURE GRAN # 0.05 x10^3u/L (0.00-0.03); IMMATURE GRAN % 0.3 % (0.00-0.4); Lymphocyte (Absolute #) 0.73 x10^3/uL (1.0-4.6); Lymphocytes % 4.3 % (24.0-44.0); Mean Cell Volume 87.4 fL (78-100); Mean Corpuscular Hemoglobin 29.8 pg (26-32); Mean Corpuscular Hgb Concent. 34.1 g/dL (32-36); Mean Platelet Volume 11.3 fL (7.5-11.0); Monocyte (Absolute #) 0.46 x10^3/uL (0.0-1.3); Monocytes % 2.7 % (0.0-12.0); Neutrophil % 92.4 % (36.0-66.0); Platelet Count 275 x10^3/uL (150-450); Red Cell Distribution Width 11.9 % (11.5-14.0); White Blood Count 16.8 x10^3/uL (4.0-10.5)
[2023-12-03 15:45] LABS: AMYLASE 56 U/L (30-110); LIPASE 52 U/L (23-300)
[2023-12-03 15:45] LABS: ALBUMIN 5.4 g/dL (3.5-5.0); ALKALINE PHOSPHATASE 125 U/L (38-126); ANION GAP 19.1 MEQ/L (5-15); BLOOD UREA NITROGEN 36 mg/dL (9-20); CHLORIDE 97 mmol/L (98-107); Calcium 9.9 mg/dL (8.4-10.2); Carbon Dioxide 26 mmol/L (22-30); Creatinine 1 1.53 mg/dL (0.66-1.25); EST GLOMERULAR FILTRATION RATE 60.8 ML/MIN; ETHYL ALCOHOL < 10 mg/dL (0-10); Glucose 285 mg/dL (74-106); MAGNESIUM 1.8 mg/dL (1.6-2.3); Potassium 4.4 mmol/L (3.5-5.1); SGOT/AST 34 U/L (17-59); SGPT/ALT 31 U/L (0-50); SODIUM 137 mmol/L (137-145); Total Protein 8.5 g/dL (6.3-8.2)
[2023-12-03 15:45] LABS: Appearance Cloudy (Clear); Bacteria None Seen /HPF (None Seen); Bilirubin Negative (Negative); Blood Negative (Negative); Epithelial Cells Moderate /HPF (None Seen); Glucose, Urine >=1000 mg/dL (Negative); Hyaline Casts >50 /LPF (0-2); Ketones Trace (Negative); Leukocyte Esterase Negative (Negative); Nitrite Negative (Negative); Protein,Urine Dip 300 (Negative); Specific Gravity 1.025 (1.005-1.030); Urobilinogen 0.2 mg/dL (0.2)
[2023-12-03 15:48] LABS: ADD URINE CULTURE? YES (NO)
[2023-12-03 16:05] LABS: INFLUENZA A NEGATIVE (NEGATIVE); INFLUENZA B NEGATIVE (NEGATIVE); RESPIRATORY SYNCTIAL VIRUS NEGATIVE (NEGATIVE); SARS-CoV-2 Xpert Express NEGATIVE (NEGATIVE)
--- NOTE | 2023-12-03 16:31 | XRAY ---
Indication: Abdomen pain, nausea, vomiting, diarrhea. Multiple contiguous axial images obtained through the abdomen and pelvis without contrast. Comparison: October 11, 2019 Lung bases are now clear. Heart not enlarged. Noncontrasted stomach and bowel loops appear nonobstructed. Normal appendix. No free fluid/air. Remaining liver, gallbladder, pancreas, spleen, adrenal glands, kidneys, ureters, bladder, and aorta are unremarkable for noncontrast exam. Osseous structures intact again with mild L5-S1 disc space narrowing and left L5 spondylolysis without listhesis. Impression: 1. Stable L5-S1 degenerative disc space narrowing and L5 spondylolysis without listhesis. 2. Remaining CT abdomen/pelvis without contrast exam is normal.
[2023-12-03] MEDS ORDERED: PROTONIX 40 MG IV IV ONE (16:43)
[2023-12-03] MEDS ORDERED: Compazine 10 MG/2 ML ONE (16:44)
[2023-12-03] MEDS: Compazine 10 MG/2 ML IV ONE (16:45)
[2023-12-03] MEDS: PROTONIX 40 MG IV IV ONE (16:45)
[2023-12-03] MEDS ORDERED: Levofloxacin 500MG/100ML D5W 500 MG/100 ML BAG IV ONE (17:44)
[2023-12-03] MEDS: Levofloxacin 500MG/100ML D5W 500 MG/100 ML BAG IV STA (17:53)
[2023-12-03 18:01] VITALS: BP 142/76; PULSE 98; RESP 1; O2SAT 96
[2023-12-03 18:53] LABS: ANION GAP 16.2 MEQ/L (5-15); Calcium 8.8 mg/dL (8.4-10.2); Creatinine 1 1.2 mg/dL (0.66-1.25); EST GLOMERULAR FILTRATION RATE 81.4 ML/MIN; Potassium 5.1 mmol/L (3.5-5.1)
[2023-12-03] MEDS ORDERED: Compazine 5 MG ONE (19:41)
[2023-12-03] MEDS: Compazine 5 MG PO PRN (19:43)
== END 2023-12-03 19:48 | disposition home or self-care (01) ==
LOC: ED 14:34
DX: N39.0 Urinary tract infection, site not specified (principal); E10.65 Type 1 diabetes mellitus with hyperglycemia; E86.0 Dehydration; B27.90 Infectious mononucleosis, unspecified without complication; R51.9 Headache, unspecified; M79.10 Myalgia, unspecified site; J02.9 Acute pharyngitis, unspecified; R11.2 Nausea with vomiting, unspecified; R19.7 Diarrhea, unspecified; R10.9 Unspecified abdominal pain; I10 Essential (primary) hypertension; E78.5 Hyperlipidemia, unspecified; E10.42 Type 1 diabetes mellitus with diabetic polyneuropathy; Z79.899 Other long term (current) drug therapy; Z28.310 Unvaccinated for COVID-19
CPT/HCPCS: 0241U; 36000; 36415; 74176; 80048; 80053; 81001; 82077; 82150; 83605; 83690; 83735; 85025; 86308; 87040; 87086; 87651; 93005; 93041; 94760; 96374; 96375; 99284; J1170; J1956; J2405; A9270-GY

== ENCOUNTER 2023-12-19 19:07 | Emergency (ER) | payer BC ==
--- NOTE | 2023-12-19 19:59 | ERPHSYRPT ---
- History of Present Illness Time Seen by Provider: 12/19/23 19:59 Source: patient, family Exam Limitations: no limitations Physician History: This is a 33-year-old white male patient of Dr. Mckeon who has a history of insulin-dependent diabetes, hypertension, irritable bowel syndrome and presents with vomiting that began at approximately 1300 today. His blood sugar without today has been between 100 6080. His blood sugar Accu-Chek level on arrival to the emergency department is 187. Patient has a history of DKA as well as peripheral neuropathy. He states he has vomited 25 times in there have been some blood present in a few of the episodes of vomiting. In addition he has a sore throat from vomiting so often. Patient denies chest pain. Patient denies shortness of breath and he denies abdominal pain. Patient was here on 12/03/2023 for same type of symptoms. Timing/Duration: today Severity: moderate Modifying Factors: Improves With: nothing Associated Symptoms: nausea, vomiting, weakness, No abdominal pain, No shortness of breath, No chest pain Allergies/Adverse Reactions: amoxicillin [From Augmentin] Allergy (Verified 12/19/23 20:03) Diarrhea clavulanic acid [From Augmentin] Allergy (Verified 12/19/23 20:03) Diarrhea shellfish derived Allergy (Verified 12/19/23 20:03) Swelling Home Medications: Insulin Aspart [Novolog] 15 units SQ AC 01/28/21 [History] Insulin Glargine,Hum.rec.anlog [Lantus] 28 units SQ BID 01/28/21 [History] Amlodipine Besylate 5 mg [Norvasc 5 mg] 5 mg PO DAILY 06/12/23 [History] hydroCHLOROthiazide [Hydrochlorothiazide] 12.5 mg PO DAILY 06/12/23 [History] Hx Tetanus, Diphtheria Vaccination/Date Given: Yes Hx Influenza Vaccination/Date Given: No Hx Pneumococcal Vaccination/Date Given: No Travel Risk - International Travel Have you traveled outside of the country in past 3 weeks: No - Coronavirus Screening Are you exhibiting any of the following symptoms?: Yes Symptoms: Vomiting/Diarrhea Close contact with a COVID-19 positive Pt in past 14-21 Days: No - Vaccine Status Have you recieved a Covid-19 vaccination: No - Review of Systems Constitutional: Weakness Eyes: No Symptoms Ears, Nose, & Throat: Throat Pain Respiratory: No Symptoms Cardiac: No Symptoms Abdominal/Gastrointestinal: Nausea, Vomiting, Appetite Changes, No Abdominal Pain, No Diarrhea Genitourinary Symptoms: No Symptoms Musculoskeletal: No Symptoms Skin: No Symptoms Neurological: No Symptoms Psychological: No Symptoms Endocrine: No Symptoms Hematologic/Lymphatic: No Symptoms Immunological/Allergic: No Symptoms All Other Systems: Reviewed and Negative - Past Medical History Pertinent Past Medical History: Yes Neurological History: Peripheral Neuropathy ENT History: No Pertinent History Cardiac History: High Cholesterol, Hypertension Respiratory History: No Pertinent History Endocrine Medical History: Diabetes Type I Musculoskeletal History: Fractures GI Medical History: Irritable Bowel History: No Pertinent History Psycho-Social History: No Pertinent History Male Reproductive Disorders: No Pertinent History Other Medical History: DKA - Past Surgical History Past Surgical History: Yes Neuro Surgical History: No Pertinent History Cardiac: No Pertinent History Respiratory: No Pertinent History Gastrointestinal: No Pertinent History Genitourinary: No Pertinent History Musculoskeletal: Orthopedic Surgery Male Surgical History: No Pertinent History Other Surgical History: tubes in ears as , back surgery in 1999 - spondylsis, sinus surgeries X5 growth/polyps removed, left knee surgery X2 dislocation of patella, right wrist fx with surgery, left hand surgery X2 nerve graft surgery - Social History Smoking Status: Former smoker How long have you smoked: 13 years Exposure to second hand smoke: No Drug Use: none Patient Lives Alone: No - Nursing Vital Signs Nursing Vital Signs: Initial Vital Signs Pulse Rate 99 H 12/19/23 20:02 Respiratory Rate 19 12/19/23 20:02 Blood Pressure 168/124 12/19/23 20:02 O2 Sat by Pulse Oximetry 95 12/19/23 20:02 Pain Scale Pain Intensity 5 - Physical Exam General Appearance: mild distress, alert, lethargy (Mildly. Arises from plenty) Eye Exam: PERRL/EOMI, eyes nml inspection Ears, Nose, Throat Exam: dry mucous membranes Neck Exam: normal inspection, non-tender, supple, full range of motion Respiratory Exam: normal breath sounds, lungs clear, No chest tenderness, No respiratory distress Cardiovascular Exam: regular rate/rhythm, normal heart sounds, normal peripheral pulses Gastrointestinal/Abdomen Exam: soft, normal bowel sounds, No tenderness Rectal Exam: not done Back Exam: normal inspection, normal range of motion, No CVA tenderness, No vertebral tenderness Extremity Exam: normal inspection, normal range of motion, pelvis stable Neurologic Exam: alert, oriented x 3, cooperative, recenterer II-XII nml as tested, normal mood/affect, nml cerebellar function, nml station & gait, sensation nml Skin Exam: normal color, warm, dry Lymphatic Exam: No adenopathy SpO2 Interpretation: normal O2 Delivery: Room Air - Course Nursing assessment & vital signs reviewed: Yes Ordered Tests: Active Orders 24 hr Category Date Time Status Transfer Car Operator STAT Care 12/19/23 19:59 Active IV Insertion STAT Care 12/19/23 19:59 Active POCT Glucose Check STAT Care 12/19/23 19:59 Active CBC W DIFF Stat Lab 12/19/23 20:10 Completed CMP Stat Lab 12/19/23 20:10 Completed Lactic Acid Urgent Lab 12/19/23 19:59 Completed MAGNESIUM Stat Lab 12/19/23 20:10 Completed MONO SCREEN Stat Lab 12/19/23 20:10 Completed POCT GLUCOSE Stat Lab 12/19/23 20:06 Completed UA W/RFX UR CULTURE Stat Lab 12/19/23 20:15 Completed Medication Summary Discontinued Medications Generic Name Dose Route Start Last Admin Trade Name Freq PRN Reason Stop Dose Admin Sodium Chloride 1,000 mls @ 999 mls/hr 12/19/23 19:59 12/19/23 21:23 Sodium Chloride 0.9% 1000 Ml IV 12/19/23 20:59 Infused .Q1H1M STA Infusion Sodium Chloride Confirm 12/19/23 20:14 Sodium Chloride 0.9% 1000 Ml Administered 12/19/23 20:15 Dose 1,000 mls @ ud .ROUTE .STK-MED ONE Lactated Ringer's 1,000 mls @ 999 mls/hr 12/19/23 20:44 12/19/23 21:25 Lactated Ringers IV 12/19/23 21:44 999 mls/hr .Q1H1M ONE Administration Lactated Ringer's Confirm 12/19/23 21:22 Lactated Ringers Administered 12/19/23 21:23 Dose 1,000 mls @ ud IV .STK-MED ONE Ondansetron HCl 4 mg 12/19/23 19:59 12/19/23 20:17 Ondansetron Hcl 4 Mg/2 Ml Vial IV 12/19/23 20:00 4 mg STAT ONE Administration Ondansetron HCl Confirm 12/19/23 20:13 Ondansetron Hcl 4 Mg/2 Ml Vial Administered 12/19/23 20:14 Dose 4 mg .ROUTE .STK-MED ONE Pantoprazole Sodium 40 mg 12/19/23 20:43 12/19/23 20:54 Pantoprazole 40 Mg Vial IV 12/19/23 20:44 40 mg STAT ONE Administration Pantoprazole Sodium Confirm 12/19/23 20:49 Pantoprazole 40 Mg Vial Administered 12/19/23 20:50 Dose 40 mg IV .STK-MED ONE Lab/Rad Data: Laboratory Result Diagrams 12/19/23 20:10 12/19/23 20:10 Laboratory Results 12/19/23 12/19/23 12/19/23 Range/Units 20:50 20:50 20:15 WBC (4.0-10.5) x10^3/uL RBC (4.1-5.6) x10^6/uL Hgb (12.5-18.0) g/dL Hct (42-50) % MCV (78-100) fL MCH (26-32) pg MCHC (32-36) g/dL RDW (11.5-14.0) % Plt Count (150-450) x10^3/uL MPV (7.5-11.0) fL Gran % (36.0-66.0) % Immature Gran % (Auto) (0.00-0.4) % Nucleat RBC Rel Count (0.00-0.1) % Eos # (Auto) (0-0.5) x10^3/uL Immature Gran # (Auto) (0.00-0.03) x10^3u/L Absolute Lymphs (auto) (1.0-4.6) x10^3/uL Absolute Monos (auto) (0.0-1.3) x10^3/uL Absolute Nucleated RBC (0.00-0.01) x10^3u/L Lymphocytes % (24.0-44.0) % Monocytes % (0.0-12.0) % Eosinophils % (0.00-5.0) % Basophils % (0.0-0.4) % Absolute Granulocytes (1.4-6.9) x10^3/uL Basophils # (0-0.4) x10^3/uL Sodium (135-145) mmol/L Potassium (3.5-5.1) mmol/L Chloride (98-107) mmol/L Carbon Dioxide (22-30) mmol/L Anion Gap (5-15) MEQ/L BUN (9-20) mg/dL Creatinine (0.66-1.25) mg/dL Estimated GFR ML/MIN Glucose (74-106) mg/dL POC Glucometer (74 to 106) mg/dL Lactic Acid (0.4-2.0) Calcium (8.4-10.2) mg/dL Magnesium (1.6-2.3) mg/dL Total Bilirubin (0.2-1.3) mg/dL AST (17-59) U/L ALT (0-50) U/L Alkaline Phosphatase (38-126) U/L Serum Total Protein (6.3-8.2) g/dL Albumin (3.5-5.0) g/dL Urine Color Yellow (Yellow) Urine Appearance Clear (Clear) Urine pH 6.0 (4.6-8.0) Ur Specific [place] >=1.030 A (1.005-1.030) Urine Protein 100 A (Negative) Urine Glucose (UA) >=1000 A (Negative) mg/dL Urine Ketones 15 A (Negative) Urine Blood Negative (Negative) Urine Nitrite Negative (Negative) Urine Bilirubin Negative (Negative) Urine Urobilinogen 1.0 A (0.2) mg/dL Ur Leukocyte Esterase Negative (Negative) U Hyaline Cast (Auto) 11-20 (0-2) /LPF Urine Microscopic RBC 0-2 (0-5) /HPF Urine Microscopic WBC 0-2 (0-5) /HPF Ur Epithelial Cells None Seen (None Seen) /HPF Urine Bacteria None Seen (None Seen) /HPF Urine Culture Reflexed NO (NO) Monoscreen (NEGATIVE) Influenza Type A Ag NEGATIVE (NEGATIVE) Influenza Type B Ag NEGATIVE (NEGATIVE) RSV (PCR) NEGATIVE (NEGATIVE) SARS-CoV-2 (PCR) NEGATIVE (NEGATIVE) Group A Strep Antibody NOT DETECTED (NEGATIVE) 12/19/23 12/19/23 12/19/23 Range/Units 20:10 20:10 20:10 WBC 18.9 H (4.0-10.5) x10^3/uL RBC 4.32 (4.1-5.6) x10^6/uL Hgb 13.0 (12.5-18.0) g/dL Hct 37.6 L (42-50) % MCV 87.0 (78-100) fL MCH 30.1 (26-32) pg MCHC 34.6 (32-36) g/dL RDW 11.2 L (11.5-14.0) % Plt Count 249 (150-450) x10^3/uL MPV 11.0 (7.5-11.0) fL Gran % 90.3 H (36.0-66.0) % Immature Gran % (Auto) 0.5 H (0.00-0.4) % Nucleat RBC Rel Count 0.0 (0.00-0.1) % Eos # (Auto) 0.01 (0-0.5) x10^3/uL Immature Gran # (Auto) 0.09 H (0.00-0.03) x10^3u/L Absolute Lymphs (auto) 0.90 L (1.0-4.6) x10^3/uL Absolute Monos (auto) 0.75 (0.0-1.3) x10^3/uL Absolute Nucleated RBC 0.00 (0.00-0.01) x10^3u/L Lymphocytes % 4.8 L (24.0-44.0) % Monocytes % 4.0 (0.0-12.0) % Eosinophils % 0.1 (0.00-5.0) % Basophils % 0.3 (0.0-0.4) % Absolute Granulocytes 17.06 H (1.4-6.9) x10^3/uL Basophils # 0.05 (0-0.4) x10^3/uL Sodium 135 (135-145) mmol/L Potassium 3.7 (3.5-5.1) mmol/L Chloride 92 L (98-107) mmol/L Carbon Dioxide 30 (22-30) mmol/L Anion Gap 16.4 H (5-15) MEQ/L BUN 27 H (9-20) mg/dL Creatinine 0.97 (0.66-1.25) mg/dL Estimated GFR 105.1 ML/MIN Glucose 189 H (74-106) mg/dL POC Glucometer (74 to 106) mg/dL Lactic Acid (0.4-2.0) Calcium 9.5 (8.4-10.2) mg/dL Magnesium 1.7 (1.6-2.3) mg/dL Total Bilirubin 0.90 (0.2-1.3) mg/dL AST 37 (17-59) U/L ALT 29 (0-50) U/L Alkaline Phosphatase 108 (38-126) U/L Serum Total Protein 8.1 (6.3-8.2) g/dL Albumin 5.0 (3.5-5.0) g/dL Urine Color (Yellow) Urine Appearance (Clear) Urine pH (4.6-8.0) Ur Specific [place] (1.005-1.030) Urine Protein (Negative) Urine Glucose (UA) (Negative) mg/dL Urine Ketones (Negative) Urine Blood (Negative) Urine Nitrite (Negative) Urine Bilirubin (Negative) Urine Urobilinogen (0.2) mg/dL Ur Leukocyte Esterase (Negative) U Hyaline Cast (Auto) (0-2) /LPF Urine Microscopic RBC (0-5) /HPF Urine Microscopic WBC (0-5) /HPF Ur Epithelial Cells (None Seen) /HPF Urine Bacteria (None Seen) /HPF Urine Culture Reflexed (NO) Monoscreen POSITIVE (NEGATIVE) Influenza Type A Ag (NEGATIVE) Influenza Type B Ag (NEGATIVE) RSV (PCR) (NEGATIVE) SARS-CoV-2 (PCR) (NEGATIVE) Group A Strep Antibody (NEGATIVE) 12/19/23 12/19/23 Range/Units 20:06 19:59 WBC (4.0-10.5) x10^3/uL RBC (4.1-5.6) x10^6/uL Hgb (12.5-18.0) g/dL Hct (42-50) % MCV (78-100) fL MCH (26-32) pg MCHC (32-36) g/dL RDW (11.5-14.0) % Plt Count (150-450) x10^3/uL MPV (7.5-11.0) fL Gran % (36.0-66.0) % Immature Gran % (Auto) (0.00-0.4) % Nucleat RBC Rel Count (0.00-0.1) % Eos # (Auto) (0-0.5) x10^3/uL Immature Gran # (Auto) (0.00-0.03) x10^3u/L Absolute Lymphs (auto) (1.0-4.6) x10^3/uL Absolute Monos (auto) (0.0-1.3) x10^3/uL Absolute Nucleated RBC (0.00-0.01) x10^3u/L Lymphocytes % (24.0-44.0) % Monocytes % (0.0-12.0) % Eosinophils % (0.00-5.0) % Basophils % (0.0-0.4) % Absolute Granulocytes (1.4-6.9) x10^3/uL Basophils # (0-0.4) x10^3/uL Sodium (135-145) mmol/L Potassium (3.5-5.1) mmol/L Chloride (98-107) mmol/L Carbon Dioxide (22-30) mmol/L Anion Gap (5-15) MEQ/L BUN (9-20) mg/dL Creatinine (0.66-1.25) mg/dL Estimated GFR ML/MIN Glucose (74-106) mg/dL POC Glucometer 187 H (74 to 106) mg/dL Lactic Acid 1.4 (0.4-2.0) Calcium (8.4-10.2) mg/dL Magnesium (1.6-2.3) mg/dL Total Bilirubin (0.2-1.3) mg/dL AST (17-59) U/L ALT (0-50) U/L Alkaline Phosphatase (38-126) U/L Serum Total Protein (6.3-8.2) g/dL Albumin (3.5-5.0) g/dL Urine Color (Yellow) Urine Appearance (Clear) Urine pH (4.6-8.0) Ur Specific [place] (1.005-1.030) Urine Protein (Negative) Urine Glucose (UA) (Negative) mg/dL Urine Ketones (Negative) Urine Blood (Negative) Urine Nitrite (Negative) Urine Bilirubin (Negative) Urine Urobilinogen (0.2) mg/dL Ur Leukocyte Esterase (Negative) U Hyaline Cast (Auto) (0-2) /LPF Urine Microscopic RBC (0-5) /HPF Urine Microscopic WBC (0-5) /HPF Ur Epithelial Cells (None Seen) /HPF Urine Bacteria (None Seen) /HPF Urine Culture Reflexed (NO) Monoscreen (NEGATIVE) Influenza Type A Ag (NEGATIVE) Influenza Type B Ag (NEGATIVE) RSV (PCR) (NEGATIVE) SARS-CoV-2 (PCR) (NEGATIVE) Group A Strep Antibody (NEGATIVE) - Progress Progress: improved Progress Note: 12/19/23 21:19 This patient's medical issue is 1 of moderate complexity. Level complexity in the workup performed is based on review of the patient's past medical history, review the patient's medication list, review of patient drug allergy list, history present illness and physical findings on examination. The workup in this patient includes placement of intravenous line, Accu-Chek on arrival to emergency department, infusion of 1 L normal saline solution, infusion of 4 mg intravenous Zofran, 40 mg infusion of Protonix IV, CBC, CMP, lactic acid level, urinalysis. 12/19/23 21:51 I interpreted the laboratory data results. The patient tested positive for mononucleosis. This certainly can be a cause of his vomiting symptoms as well as a sore throat. Patient is only mildly dehydrated. We provided him with 2 L of crystalloid including 1 L of normal saline and 1 L of lactated Ringer's. Symptomatically he is feeling much better. We will send a prescription of Zofran to his pharmacy and sent him home with a take-home hydrocodone elixir for the evening to help control his sore throat. At the worst, the patient has very mild DKA. His dehydration is very mild as is his elevation in the anion gap. The CO2 is normal. He has a leukocytosis likely secondary to the mononucleosis and multiple episodes of vomiting. Counseled pt/family regarding: lab results, diagnosis, need for follow-up Medical Desision Making - Diagnostic Testing Diagnostic test were ordered, analyzed, and reviewed by me: Yes - Risk of complications The pt has a mod risk of morbidity or mortality based on: Need for prescription drug management - Departure Departure Disposition: Home Clinical Impression: Vomiting, Mononucleosis Condition: Stable Critical Care Time: No Referrals: NAVEEN MCKEON MD [Primary Care Provider] - Follow up/PCP as directed Additional Instructions: Drink plenty of clear liquid fluids before advancing diet. Monitor your blood sugar closely. Use your antinausea medicine as prescribed. Use Tylenol and ibuprofen for pain and fever control. Call your primary care provider on 12/22/2023, to make an appointment for follow-up for further evaluation manag ement. Prescriptions: Ondansetron ODT 4 MG [Zofran Odt 4 mg] 4 mg PO Q6H PRN PRN #10 tablet PRN Reason: Vomiting
[2023-12-19] MEDS ORDERED: Zofran 4 MG/2 ML VIAL ONE (20:13)
[2023-12-19] MEDS ORDERED: Sodium Chloride 0.9% 1000 ML 1,000 ML ONE (20:14)
[2023-12-19] MEDS: Sodium Chloride 0.9% 1000 ML 1,000 ML IV STA (20:15)
[2023-12-19] MEDS: Zofran 4 MG/2 ML VIAL IV ONE (20:17)
[2023-12-19 20:19] LABS: Absolute Neutrophil Ct (ANC) 17.06 x10^3/uL (1.4-6.9); BASOPHIL % 0.3 % (0.0-0.4); Basophil (Absolute #) 0.05 x10^3/uL (0-0.4); Eosinophil % 0.1 % (0.00-5.0); Eosinophil (Absolute #) 0.01 x10^3/uL (0-0.5); Hematocrit 37.6 % (42-50); IMMATURE GRAN # 0.09 x10^3u/L (0.00-0.03); IMMATURE GRAN % 0.5 % (0.00-0.4); Lymphocytes % 4.8 % (24.0-44.0); Mean Corpuscular Hemoglobin 30.1 pg (26-32); Mean Corpuscular Hgb Concent. 34.6 g/dL (32-36); Monocyte (Absolute #) 0.75 x10^3/uL (0.0-1.3); Neutrophil % 90.3 % (36.0-66.0); Platelet Count 249 x10^3/uL (150-450); Red Blood Count 4.32 x10^6/uL (4.1-5.6); Red Cell Distribution Width 11.2 % (11.5-14.0); White Blood Count 18.9 x10^3/uL (4.0-10.5)
[2023-12-19 20:23] VITALS: TEMP 98.4
[2023-12-19 20:33] LABS: ANION GAP 16.4 MEQ/L (5-15); BILIRUBIN,TOTAL 0.9 mg/dL (0.2-1.3); Calcium 9.5 mg/dL (8.4-10.2); Creatinine 1 0.97 mg/dL (0.66-1.25); EST GLOMERULAR FILTRATION RATE 105.1 ML/MIN; MAGNESIUM 1.7 mg/dL (1.6-2.3); Potassium 3.7 mmol/L (3.5-5.1); Total Protein 8.1 g/dL (6.3-8.2)
[2023-12-19] MEDS ORDERED: PROTONIX 40 MG IV IV ONE (20:49)
[2023-12-19] MEDS: PROTONIX 40 MG IV IV ONE (20:54)
[2023-12-19 21:06] VITALS: O2SAT 96
[2023-12-19] MEDS ORDERED: Lactated Ringers 1,000 ML IV ONE (21:22)
[2023-12-19] MEDS: Lactated Ringers 1,000 ML IV ONE (21:25)
[2023-12-19 21:31] LABS: INFLUENZA A NEGATIVE (NEGATIVE); INFLUENZA B NEGATIVE (NEGATIVE); RESPIRATORY SYNCTIAL VIRUS NEGATIVE (NEGATIVE); SARS-CoV-2 Xpert Express NEGATIVE (NEGATIVE)
[2023-12-19 21:31] LABS: ADD URINE CULTURE? NO (NO); Appearance Clear (Clear); Bacteria None Seen /HPF (None Seen); Bilirubin Negative (Negative); Blood Negative (Negative); Epithelial Cells None Seen /HPF (None Seen); Glucose, Urine >=1000 mg/dL (Negative); Ketones 15 (Negative); Leukocyte Esterase Negative (Negative); Nitrite Negative (Negative); Protein,Urine Dip 100 (Negative); RBC 0-2 /HPF (0-5); Specific Gravity >=1.030 (1.005-1.030); WBC 0-2 /HPF (0-5)
[2023-12-19] MEDS ORDERED: HYDROCODONE-ACETAMIN 2.5-108/5 ML SOLUTION ONE (22:06)
[2023-12-19] MEDS: HYDROCODONE-ACETAMIN 2.5-108/5 ML SOLUTION PO STA (22:07)
[2023-12-19 22:09] VITALS: BP 172/102; PULSE 96; RESP 18
== END 2023-12-19 22:45 | disposition home or self-care (01) ==
LOC: ED 19:07
DX: B27.90 Infectious mononucleosis, unspecified without complication (principal); R11.2 Nausea with vomiting, unspecified; J02.9 Acute pharyngitis, unspecified; E10.42 Type 1 diabetes mellitus with diabetic polyneuropathy; I10 Essential (primary) hypertension; E78.5 Hyperlipidemia, unspecified; Z79.899 Other long term (current) drug therapy; Z28.310 Unvaccinated for COVID-19
CPT/HCPCS: 0241U; 36000; 36415; 80053; 81001; 82947; 83605; 83735; 85025; 86308; 87651; 93041; 96360; 96374; 99284; J2405; A9270-GY